=== PATIENT | female | born 1950 | race African-American/Black ===

== ENCOUNTER 2016-03-13 20:39 | Inpatient (IN) | payer MEDICARE, MEDICAID ==
[2016-03-13] MEDS ORDERED: KETAMINE HCL INJ 500 MG/10 ML VIAL ONE (20:47)
[2016-03-13] MEDS ORDERED: MAGNESIUM SULFATE/D5W 2 GM/200 ML RTUPB IV ONE (20:52)
[2016-03-13] MEDS ORDERED: METHYLPREDNISOLONE INJ 125 MG/2 ML SDV ONE (20:52)
[2016-03-13] MEDS ORDERED: IPRATROPIUM/ALBUTEROL 0.5-2.5 MG/3 ML AMPUL NEB ONE (20:53)
[2016-03-13] MEDS ORDERED: KETAMINE HCL INJ 500 MG/10 ML VIAL IV ONE (21:00)
--- NOTE | 2016-03-13 21:01 | ER Document Report ---
ED General - General Stated Complaint: DIFFICULTY BREATHING Cannot obtain history due to: Unstable vital signs, Uncooperative, Altered mental status Notes: Patient is a 65-year-old female with past medical history of COPD who presents with EMS with altered mental status, agitation, and shortness of breath. Patient will not speak at time of arrival and appears extremely ill and confused. EMS states that apparently she called 911 but only told them that she needed help and did not specify anything further. She was given an albuterol nebulizer in route but no additional interventions were taken. History is otherwise extremely limited secondary to clinical situation. TRAVEL OUTSIDE OF THE [place] IN LAST 30 DAYS: No - Related Data Allergies/Adverse Reactions: No Known Allergies Allergy (Verified 11/08/15 12:42) Home Medications: Current Home Medications Albuterol Sulfate [Ventolin Hfa] 1 - 2 puff IH Q4 PRN 03/14/16 [History] Metoprolol Tartrate [Lopressor 100 mg Tablet] 100 mg PO BID 03/14/16 [History] RX: Hydrochlorothiazide 25 mg PO DAILY 03/14/16 [History] RX: Promethazine HCl 25 mg PO Q6 PRN 03/14/16 [History] RX: Ropinirole HCl 1 mg PO QHS 03/14/16 [History] Raloxifene HCl [Evista 60 mg Tablet] 60 mg PO DAILY 03/14/16 [History] Roflumilast [Daliresp 500 mcg Tablet] 500 mcg PO DAILY 03/14/16 [History] Umeclidinium [place] [Incruse Ellipta] 62.5 mcg IH DAILY 03/14/16 [History] Past Medical History - General Information source: Emergency Med Personnel Cannot obtain history due to: Uncooperative, Altered mental status - Social History Smoking Status: Unknown if Ever Smoked Family History: Reviewed & Not Pertinent, Hypertension - Past Medical History Cardiac Medical History: Reports: Hx Hypertension - on meds Denies: Hx Coronary Artery Disease, Hx Heart Attack Pulmonary Medical History: Reports: Hx Bronchitis - hx of, Hx COPD - inhalers/ neb/o2 prn, Hx Pneumonia - hx of Denies: Hx Asthma Neurological Medical History: Denies: Hx Seizures Renal/ Medical History: Reports: Hx Kidney Stones Malignancy Medical History: Reports: Hx Breast Cancer Musculoskeltal Medical History: Reports Hx Arthritis - generalized Psychiatric Medical History: Denies: Hx Depression Past Surgical History: Reports: Hx Gynecologic Surgery - Cone procedure on the cervix, Hx Mastectomy - lumpectomy - Immunizations Hx Diphtheria, Pertussis, Tetanus Vaccination: Yes Hx Pneumococcal Vaccination: 01/23/15 Review of Systems - Review of Systems -: Yes ROS unobtainable due to patient's medical condition Physical Exam - Vital signs Vitals: Pulse Ox 100 03/13/16 20:47 Interpretation: Hypertensive, Tachycardic, Hypoxic, Tachypneic Notes: PHYSICAL EXAMINATION: GENERAL: Agitated, flailing in the bed. Unable to be redirected. Ill in appearance HEAD: Atraumatic, normocephalic. EYES: Pupils equal round and reactive to light, extraocular movements intact, sclera anicteric, conjunctiva are normal. ENT: nares patent, oropharynx clear without exudates. Dry mucous membranes. NECK: Normal range of motion, supple without lymphadenopathy LUNGS: Tachypnea with subclavicular and intercostal retractions. Poor air movement bilaterally with scattered expiratory wheezing. HEART: Regular tachycardiawithout murmurs ABDOMEN: Soft, nontender, normoactive bowel sounds. No guarding, no rebound. No masses appreciated. EXTREMITIES: Normal range of motion, no pitting or edema. No cyanosis. NEUROLOGICAL: No focal neurological deficits. Moves all extremities spontaneously. PSYCH: Agitated, unable to be redirected SKIN: Warm, Dry, normal turgor, no rashes or lesions noted. Course - Re-evaluation Re-evalutation: 03/13/162049 Patient arrives combative, confused, and in respiratory distress. Severely tachypneic, tight air movement bilaterally. She is unable to follow instructions. Tachycardic and hypoxemic into the upper 80s on room air. Multiple times at redirecting the patient were unsuccessful. After IV access established a low dose of 15 mg of IV ketamine was administered. This did calm the patient and allow her to lay back in bed. She was immediately started on a continuous nebulizer of albuterol and ipratropium, IV magnesium, Solu-Medrol administered. Respiratory therapy has been contacted to start patient on BiPAP. She is critically ill this time. 2129-patient continues to be altered, venous gas demonstrated severe respiratory acidosis. Will continue to monitor patient for improvement on BiPAP initially fails to improve she will require intubation. 03/13/16 21:45 Patient will open her eyes and follow commands at this time after 15 minutes on BiPAP. Already clinically appears much improved. Continue to monitor closely. 03/13/16 22:38 Patient continues to be much improved clinically. She is now awake, talking to me and full and complete sentences. Will continue on BiPAP at this time but I discussed the case with Dr. Rodriguez will admit at this time. - Vital Signs Vital signs: Temp Pulse Resp BP Pulse Ox 98.3 F 115 H 16 128/77 H 99 03/14/16 01:07 03/14/16 02:32 03/14/16 02:32 03/14/16 01:05 03/14/16 02:32 - Laboratory Result Diagrams: 03/13/16 20:51 03/13/16 20:51 Laboratory results interpreted by me: 03/13/16 03/13/16 03/13/16 20:51 20:51 20:51 WBC 13.9 H Hgb 11.2 L MCH 24.2 L MCHC 30.2 L RDW 15.7 H Monocytes % (Manual) 0 L Abs Lymphs (Manual) 7.9 H Abs Monocytes (Manual) 0.0 L VBG pH VBG pCO2 VBG HCO3 Carbon Dioxide 36 H Glucose 151 H Lactic Acid 2.2 H 03/13/16 20:51 WBC Hgb MCH MCHC RDW Monocytes % (Manual) Abs Lymphs (Manual) Abs Monocytes (Manual) VBG pH 7.14 L* VBG pCO2 101.8 H* VBG HCO3 34.1 H Carbon Dioxide Glucose Lactic Acid - Diagnostic Test Radiology reviewed: Image reviewed, Reports reviewed Radiology results interpreted by me: 03/13/16 22:40 Chest x-ray: No acute infiltrate Critical Care Note - Critical Care Note Total time excluding time spent on procedures (mins): 45 Comments: Critical care time spent obtaining history from patient or surrogate, discussions with consultants, development of treatment plan with patient or surrogate, evaluation of patient's response to treatment, examination of patient , ordering and performing treatments and interventions, ordering and review of laboratory studies, re-evaluation of patient's condition, ordering and review of radiographic studies and review of old charts Discharge - Discharge Clinical Impression: Respiratory acidosis, Respiratory distress, Encephalopathy, Agitation, COPD exacerbation Condition: Fair Disposition: ADMITTED INPATIENT Admitting Provider: Jordon Rodriguez Unit Admitted: [facility]
[2016-03-13 21:10] LABS: VENOUS BLOOD BASE EXCESS 2.2 mmol/L; VENOUS BLOOD HCO3 34.1 mmol/L (20-32)
[2016-03-13 21:20] LABS: HEMATOCRIT 37.2 % (36.0-47.0); HEMOGLOBIN 11.2 g/dL (12.0-15.5); HGB HCT DIFFERENCE -3.6; MEAN CORPUSCULAR HEMOGLOBIN 24.2 pg (27.0-33.4); MEAN CORPUSCULAR HGB CONC 30.2 g/dL (32.0-36.0); MEAN CORPUSCULAR VOLUME 80 fl (80-97); RED BLOOD COUNT 4.64 10^6/uL (3.72-5.28); RED CELL DISTRIBUTION WIDTH 15.7 % (11.5-14.0); WHITE BLOOD COUNT 13.9 10^3/uL (4.0-10.5)
[2016-03-13 21:25] LABS: BLOOD UREA NITROGEN 16 mg/dL (7-20); CALCIUM 8.8 mg/dL (8.4-10.2); CREATININE RESULT 0.76 mg/dL (0.52-1.25); GLUCOSE 151 mg/dL (75-110)
[2016-03-13 21:26] LABS: ALANINE AMINOTRANSFERASE 19 U/L (9-52); ALBUMIN 4.4 g/dL (3.5-5.0); ALKALINE PHOSPHATASE 89 U/L (38-126); ANION GAP 8 (5-19); ASPARTATE AMINO TRANSFERASE 28 U/L (14-36); BILIRUBIN,TOTAL 0.4 mg/dL (0.2-1.3); CARBON DIOXIDE 36 mmol/L (22-30); CHLORIDE 100 mmol/L (98-107); POTASSIUM 4.2 mmol/L (3.6-5.0); SODIUM 144.4 mmol/L (137-145); TOTAL PROTEIN 7.1 g/dL (6.3-8.2)
[2016-03-13 21:27] LABS: VENOUS BLOOD PCO2 101.8 mmHg (35-63); VENOUS BLOOD PH 7.14 (7.30-7.42)
[2016-03-13 21:29] LABS: ALCOHOL < 10 mg/dL (NONE DETECTED)
[2016-03-13 21:38] LABS: BASOPHILS % (MANUAL) 0 % (0-2); EOSINOPHILS % (MANUAL) 1 % (0-6); LYMPHOCYTES % (MANUAL) 29 % (13-45); TOTAL CELLS COUNTED 100
[2016-03-13 21:42] LABS: ANISOCYTOSIS SLIGHT; HYPOCHROMASIA 1+; OVALOCYTES 1+
[2016-03-13 21:43] LABS: SCHISTOCYTES 1+; TARGET CELLS 1+; TEAR DROP CELLS SLIGHT
[2016-03-13] MEDS ORDERED: MAG HYDROX/AL HYDROX/SIMETH SUSP 30 ML UDCUP PO PRN (22:38)
[2016-03-13] MEDS ORDERED: ONDANSETRON HCL INJ/PF 4 MG/2 ML SDV IV PRN (22:38)
[2016-03-14 00:03] LABS: ARTERIAL BLOOD O2 SATURATION 99.3 % (94-98)
[2016-03-14 02:06] LABS: URINE BARBITURATES SCREEN NEGATIVE; URINE METHADONE SCREEN NEGATIVE; URINE PHENCYCLIDINE SCREEN NEGATIVE
[2016-03-14] MEDS: IPRATROPIUM/ALBUTEROL 0.5-2.5 MG/3 ML AMPUL NEB SCH ×4 (02:32→20:13)
[2016-03-14 03:34] LABS: ANION GAP 7 (5-19); BLOOD UREA NITROGEN 16 mg/dL (7-20); CALCIUM 8.7 mg/dL (8.4-10.2); CARBON DIOXIDE 39 mmol/L (22-30); CHLORIDE 99 mmol/L (98-107); CREATINE KINASE 83 U/L (30-135); CREATININE RESULT 0.67 mg/dL (0.52-1.25); GLUCOSE 139 mg/dL (75-110); POTASSIUM 4.5 mmol/L (3.6-5.0); SODIUM 145.2 mmol/L (137-145)
[2016-03-14 03:46] LABS: CREATINE KINASE MB 2.63 ng/mL (<4.55); TROPONIN I 0.037 ng/mL
[2016-03-14 03:50] LABS: HEMATOCRIT 37.7 % (36.0-47.0); HEMOGLOBIN 11.1 g/dL (12.0-15.5); MEAN CORPUSCULAR HEMOGLOBIN 23.6 pg (27.0-33.4); MEAN CORPUSCULAR HGB CONC 29.3 g/dL (32.0-36.0); MEAN CORPUSCULAR VOLUME 81 fl (80-97); RED BLOOD COUNT 4.69 10^6/uL (3.72-5.28); WHITE BLOOD COUNT 14.9 10^3/uL (4.0-10.5)
[2016-03-14 03:53] LABS: HGB HCT DIFFERENCE -4.4
[2016-03-14 03:55] LABS: ANISOCYTOSIS 1+; BASOPHILS % (MANUAL) 0 % (0-2); EOSINOPHILS % (MANUAL) 0 % (0-6); HYPOCHROMASIA 1+; LYMPHOCYTES % (MANUAL) 7 % (13-45); MICROCYTOSIS SLIGHT; TOTAL CELLS COUNTED 100; TOXIC VACUOLATION PRESENT
--- NOTE | 2016-03-14 04:52 | PDOC H&P ---
History of Present Illness Admission Date/PCP: 03/13/16 22:38 KAYLEIGH MENDIOLA DO Patient complains of: Altered mental status History of Present Illness: VIKY DE LEON is a 65 year old female with a past medical history of COPD and home O2 dependence, who had been her usual state of health until approximately 24 hours prior to presentation developing shortness of breath which prompted her to increase her oxygen level. In the emergency room she's found to be encephalopathic and placed on BiPAP ABG reveals a PCO2 of 85. After couple hours the patient's mental status improves and reveals suffering from insomnia and admits to use of [id number] sleep aid and edible cannabis. She denies chest pain nausea vomiting diaphoresis or palpitations. Past Medical History Cardiac Medical History: Reports: Hypertension - on meds Denies: Coronary Artery Disease, Myocardial Infarction Pulmonary Medical History: Reports: Bronchitis - hx of, Chronic Obstructive Pulmonary Disease (COPD) - inhalers/neb/o2 prn, Pneumonia - hx of Denies: Asthma Neurological Medical History: Denies: Seizures Malignancy Medical History: Reports: Breast Cancer Musculoskeltal Medical History: Reports: Arthritis - generalized Psychiatric Medical History: Denies: Depression Hematology: Denies: Anemia Past Surgical History Past Surgical History: Reports: Mastectomy - lumpectomy Social History Information Source: Patient Lives with: Family Smoking Status: Former Smoker Frequency of Alcohol Use: Occasional Hx Recreational Drug Use: Yes Drugs: Marijuana Hx Prescription Drug Abuse: No - Advance Directive Resuscitation Status: Full Code Family History Family History: COPD, Hypertension Parental Family History Reviewed: Yes Children Family History Reviewed: Yes Sibling(s) Family History Reviewed.: Yes Medication/Allergy Home Medications: Albuterol Sulfate [Ventolin Hfa] 1 - 2 puff IH Q4 PRN 03/14/16 Hydrochlorothiazide 25 mg PO DAILY 03/14/16 Metoprolol Tartrate [Lopressor 100 mg Tablet] 100 mg PO BID 03/14/16 Promethazine HCl 25 mg PO Q6 PRN 03/14/16 Raloxifene HCl [Evista 60 mg Tablet] 60 mg PO DAILY 03/14/16 Roflumilast [Daliresp 500 mcg Tablet] 500 mcg PO DAILY 03/14/16 Ropinirole HCl 1 mg PO QHS 03/14/16 Umeclidinium [place] [Incruse Ellipta] 62.5 mcg IH DAILY 03/14/16 Allergies/Adverse Reactions: No Known Allergies Allergy (Verified 11/08/15 12:42) Review of Systems ROS unobtainable: Due to mental status Physical Exam Vital Signs: Temp Pulse Resp BP Pulse Ox 98.3 F 115 H 16 128/77 H 98 03/14/16 01:07 03/14/16 02:32 03/14/16 03:45 03/14/16 01:05 03/14/16 03:45 General appearance: PRESENT: cooperative, disheveled, mild distress, well- developed, well-nourished Head exam: PRESENT: atraumatic, normocephalic Eye exam: PRESENT: conjunctiva pink, EOMI, PERRLA. ABSENT: scleral icterus Ear exam: PRESENT: normal external ear exam Mouth exam: PRESENT: moist, tongue midline Neck exam: ABSENT: carotid bruit, JVD, lymphadenopathy, thyromegaly Respiratory exam: PRESENT: accessory muscle use, prolonged expiratory phas, symmetrical, tachypnea Cardiovascular exam: PRESENT: RRR. ABSENT: diastolic murmur, rubs, systolic murmur Pulses: PRESENT: normal dorsalis pedis pul GI/Abdominal exam: PRESENT: normal bowel sounds, soft. ABSENT: distended, guarding, mass, organolmegaly, rebound, tenderness Rectal exam: PRESENT: deferred Extremities exam: PRESENT: full ROM. ABSENT: calf tenderness, clubbing, pedal edema Neurological exam: PRESENT: alert, awake, oriented to person, oriented to place , oriented to situation, CN II-XII grossly intact. ABSENT: motor sensory deficit Psychiatric exam: PRESENT: appropriate affect, normal mood. ABSENT: homicidal ideation, suicidal ideation Skin exam: PRESENT: dry, intact, warm. ABSENT: cyanosis, rash Results Laboratory Results: 03/14/16 03:08 03/14/16 03:08 03/13/16 03/14/16 03/14/16 23:30 01:13 03:08 WBC RBC Hgb Hct MCV MCH MCHC RDW Plt Count Seg Neutrophils % Lymphocytes % Monocytes % Eosinophils % Basophils % Absolute Neutrophils Absolute Lymphocytes Absolute Monocytes Absolute Eosinophils Absolute Basophils Carbonic Acid 2.60 H HCO3/H2CO3 Ratio 13:1 ABG pH 7.23 L ABG pCO2 86.5 H* ABG pO2 231.7 H ABG HCO3 35.2 H ABG O2 Saturation 99.3 H ABG Base Excess 5.0 FiO2 60% Sodium 145.2 H Potassium 4.5 Chloride 99 Carbon Dioxide 39 H Anion Gap 7 BUN 16 Creatinine 0.67 Est GFR ( Amer) > 60 Est GFR (Non-Af Amer) > 60 Glucose 139 H Lactic Acid 1.6 Calcium 8.7 03/14/16 03:08 WBC 14.9 H RBC 4.69 Hgb 11.1 L Hct 37.7 MCV 81 MCH 23.6 L MCHC 29.3 L RDW 16.0 H Plt Count 212 Seg Neutrophils % Not Reportable Lymphocytes % Not Reportable Monocytes % Not Reportable Eosinophils % Not Reportable Basophils % Not Reportable Absolute Neutrophils Not Reportable Absolute Lymphocytes Not Reportable Absolute Monocytes Not Reportable Absolute Eosinophils Not Reportable Absolute Basophils Not Reportable Carbonic Acid HCO3/H2CO3 Ratio ABG pH ABG pCO2 ABG pO2 ABG HCO3 ABG O2 Saturation ABG Base Excess FiO2 Sodium Potassium Chloride Carbon Dioxide Anion Gap BUN Creatinine Est GFR ( Amer) Est GFR (Non-Af Amer) Glucose Lactic Acid Calcium 03/14/16 03/14/16 03:08 03:08 Creatine Kinase 83 CK-MB (CK-2) 2.63 Troponin I 0.037 Impressions: Chest X-Ray 03/13/16 20:59 IMPRESSION: No acute cardiopulmonary findings. Assessment & Plan - Diagnosis (1) COPD exacerbation Is this a current diagnosis for this admission?: YesPlan: Likely secondary to [id number] medication for insomnia and questionable compliance (2) Encephalopathy Is this a current diagnosis for this admission?: YesPlan: Secondary to hypercapnia improved with BiPAP will wean as tolerated and education as to danger of sedatives reducing respiratory drive (3) Respiratory acidosis Is this a current diagnosis for this admission?: YesPlan: Please see #1 and 2 - Time Time Spent: 30 to 50 Minutes
[2016-03-14] MEDS: HEPARIN SOD (PORCINE) 5,000 UNIT/ML 1 ML SYRINGE SUBCUT SCH ×3 (06:22→22:29)
[2016-03-14] MEDS ORDERED: KETOROLAC TROMETHAMINE INJ/PF 30 MG/1 ML SDV IV ONE (09:08)
[2016-03-14] MEDS: GUAIFENESIN 600 MG TABLET.SA PO SCH ×2 (09:24→22:30)
[2016-03-14] MEDS: ACETAMINOPHEN 325 MG TABLET PO PRN (09:26)
[2016-03-14] MEDS: DOCUSATE SODIUM 100 MG CAPSULE PO SCH ×2 (09:27→18:25)
[2016-03-14] MEDS: METOPROLOL TARTRATE 100 MG TABLET PO SCH ×2 (09:27→22:31)
[2016-03-14] MEDS: ROFLUMILAST 500 MCG TABLET PO SCH (09:27)
[2016-03-14 09:36] LABS: VENOUS BLOOD HCO3 35.2 mmol/L (20-32); VENOUS BLOOD PH 7.32 (7.30-7.42)
[2016-03-14 09:45] LABS: VENOUS BLOOD PCO2 70.1 mmHg (35-63)
[2016-03-14 09:45] LABS: CREATINE KINASE MB 2.63 ng/mL (<4.55); TROPONIN I 0.015 ng/mL
[2016-03-14] MEDS: FLUTICASONE NASAL SPRAY 50 MCG/SPRY 120 SPRAY/16 GM NASL SCH ×2 (10:19→22:37)
[2016-03-14] MEDS: METHYLPREDNISOLONE INJ 125 MG/2 ML SDV IV SCH ×2 (14:16→22:30)
[2016-03-14 16:07] LABS: CREATINE KINASE MB 2.03 ng/mL (<4.55); TROPONIN I 0.013 ng/mL
--- NOTE | 2016-03-14 16:49 | PDOC PROGRESS REPORT ---
Subjective Progress Note for:: 03/14/16 Subjective:: Patient seen on morning rounds. She is eating her breakfast. Family is at bedside. She has been on BIPAP except to eat. She denies any dyspnea at the present time. She has a cough but is her normal. She denies chest pain or palpitations. She denies any nausea, vomiting or abdominal pain. She denies any fevers or chills. Rest of review of symptoms is negative. Physical Exam Vital Signs: Temp Pulse Resp BP Pulse Ox 98.3 F 81 19 144/76 H 100 03/14/16 15:34 03/14/16 15:34 03/14/16 15:34 03/14/16 15:34 03/14/16 15:34 Intake & Output 03/13/16 03/14/16 03/15/16 06:59 06:59 06:59 Intake Total 3 0 Output Total 350 Balance -347 0 Weight 80.3 kg General appearance: PRESENT: no acute distress, obese, well-developed, well- nourished Head exam: PRESENT: atraumatic, normocephalic Eye exam: PRESENT: conjunctiva pink, EOMI, PERRLA. ABSENT: scleral icterus Ear exam: PRESENT: normal external ear exam Mouth exam: PRESENT: moist, tongue midline Neck exam: ABSENT: carotid bruit, JVD, lymphadenopathy, thyromegaly Respiratory exam: PRESENT: decreased breath sounds, prolonged expiratory phas, symmetrical, unlabored Cardiovascular exam: PRESENT: RRR. ABSENT: diastolic murmur, rubs, systolic murmur Pulses: PRESENT: normal dorsalis pedis pul Vascular exam: PRESENT: normal capillary refill GI/Abdominal exam: PRESENT: normal bowel sounds, soft. ABSENT: distended, guarding, mass, organolmegaly, rebound, tenderness Rectal exam: PRESENT: deferred Extremities exam: PRESENT: full ROM. ABSENT: calf tenderness, clubbing, pedal edema Neurological exam: PRESENT: alert, awake, oriented to person, oriented to place , oriented to time, oriented to situation, CN II-XII grossly intact. ABSENT: motor sensory deficit Psychiatric exam: PRESENT: appropriate affect, normal mood. ABSENT: homicidal ideation, suicidal ideation Skin exam: PRESENT: dry, intact, warm. ABSENT: cyanosis, rash Results Laboratory Results: 03/14/16 03:08 03/14/16 03:08 03/13/16 03/14/16 03/14/16 23:30 01:13 03:08 WBC RBC Hgb Hct MCV MCH MCHC RDW Plt Count Seg Neutrophils % Lymphocytes % Monocytes % Eosinophils % Basophils % Absolute Neutrophils Absolute Lymphocytes Absolute Monocytes Absolute Eosinophils Absolute Basophils Carbonic Acid 2.60 H HCO3/H2CO3 Ratio 13:1 ABG pH 7.23 L ABG pCO2 86.5 H* ABG pO2 231.7 H ABG HCO3 35.2 H ABG O2 Saturation 99.3 H ABG Base Excess 5.0 VBG pH VBG pCO2 VBG HCO3 VBG Base Excess FiO2 60% Sodium 145.2 H Potassium 4.5 Chloride 99 Carbon Dioxide 39 H Anion Gap 7 BUN 16 Creatinine 0.67 Est GFR ( Amer) > 60 Est GFR (Non-Af Amer) > 60 Glucose 139 H Lactic Acid 1.6 Calcium 8.7 03/14/16 03/14/16 03:08 09:20 WBC 14.9 H RBC 4.69 Hgb 11.1 L Hct 37.7 MCV 81 MCH 23.6 L MCHC 29.3 L RDW 16.0 H Plt Count 212 Seg Neutrophils % Not Reportable Lymphocytes % Not Reportable Monocytes % Not Reportable Eosinophils % Not Reportable Basophils % Not Reportable Absolute Neutrophils Not Reportable Absolute Lymphocytes Not Reportable Absolute Monocytes Not Reportable Absolute Eosinophils Not Reportable Absolute Basophils Not Reportable Carbonic Acid HCO3/H2CO3 Ratio ABG pH ABG pCO2 ABG pO2 ABG HCO3 ABG O2 Saturation ABG Base Excess VBG pH 7.32 VBG pCO2 70.1 H* VBG HCO3 35.2 H VBG Base Excess 7.0 FiO2 Sodium Potassium Chloride Carbon Dioxide Anion Gap BUN Creatinine Est GFR ( Amer) Est GFR (Non-Af Amer) Glucose Lactic Acid Calcium 03/14/16 03/14/16 03/14/16 03:08 03:08 08:47 Creatine Kinase 83 90 CK-MB (CK-2) 2.63 Troponin I 0.037 03/14/16 03/14/16 03/14/16 08:47 15:18 15:18 Creatine Kinase 75 CK-MB (CK-2) 2.63 2.03 Troponin I 0.015 0.013 Impressions: Chest X-Ray 03/13/16 20:59 IMPRESSION: No acute cardiopulmonary findings. Assessment & Plan - Diagnosis (1) Encephalopathy Is this a current diagnosis for this admission?: YesPlan: Secondary to hypercapnea. Improved with BIPAP (2) COPD exacerbation Is this a current diagnosis for this admission?: YesPlan: IV steroids, nebulizer treatments and BIPAP. No URI or signs of pneumonia. Most likely due to ingestion of sleeping aides (3) Acute on chronic respiratory failure Qualifiers: Respiratory failure complication: hypoxia Qualified Code(s): J96.21 - Acute and chronic respiratory failure with hypoxia Plan: As above (4) Essential (primary) hypertension Is this a current diagnosis for this admission?: YesPlan: Continue current medications (5) DVT prophylaxis Is this a current diagnosis for this admission?: YesPlan: Heparin 5000 u sq q8h - Time Time Spent with patient: 25-34 minutes Critical Time spent with patient: 15-24 minutes Medications reviewed and adjusted accordingly: Yes Anticipated discharge: Home with Homehealth
[2016-03-15] MEDS: IPRATROPIUM/ALBUTEROL 0.5-2.5 MG/3 ML AMPUL NEB SCH ×4 (01:48→20:13)
[2016-03-15] MEDS: METHYLPREDNISOLONE INJ 125 MG/2 ML SDV IV SCH ×3 (05:59→21:21)
[2016-03-15] MEDS: HEPARIN SOD (PORCINE) 5,000 UNIT/ML 1 ML SYRINGE SUBCUT SCH ×3 (05:59→21:21)
[2016-03-15] MEDS: GUAIFENESIN 600 MG TABLET.SA PO SCH ×2 (09:24→21:21)
[2016-03-15] MEDS: FLUTICASONE NASAL SPRAY 50 MCG/SPRY 120 SPRAY/16 GM NASL SCH ×2 (09:25→21:21)
[2016-03-15] MEDS: METOPROLOL TARTRATE 100 MG TABLET PO SCH ×2 (09:25→21:21)
[2016-03-15] MEDS: ROFLUMILAST 500 MCG TABLET PO SCH (09:25)
[2016-03-15] MEDS: DOCUSATE SODIUM 100 MG CAPSULE PO SCH ×2 (09:26→17:52)
[2016-03-15] MEDS: TIOTROPIUM BROMIDE DPI 5 CAP/KIT (18 MCG/CAP) IH SCH (09:46)
--- NOTE | 2016-03-15 11:58 | PDOC PROGRESS REPORT ---
Subjective Progress Note for:: 03/15/16 Subjective:: Patient seen on morning rounds. She is eating her breakfast. She has been on BIPAP except to eat. She looks and feels much improved from yesterday. She denies any dyspnea at the present time. She has a cough but is her normal. She denies chest pain or palpitations. She denies any nausea, vomiting or abdominal pain. She denies any fevers or chills. Rest of review of symptoms is negative. Physical Exam Vital Signs: Temp Pulse Resp BP Pulse Ox 97.5 F 85 16 147/84 H 98 03/15/16 08:01 03/15/16 08:10 03/15/16 08:10 03/15/16 08:01 03/15/16 08:10 Intake & Output 03/14/16 03/15/16 03/16/16 06:59 06:59 06:59 Intake Total 3 444 Output Total 350 250 Balance -347 194 Weight 80.3 kg 82.2 kg General appearance: PRESENT: no acute distress, well-developed, well-nourished Head exam: PRESENT: atraumatic, normocephalic Eye exam: PRESENT: conjunctiva pink, EOMI, PERRLA. ABSENT: scleral icterus Ear exam: PRESENT: normal external ear exam Mouth exam: PRESENT: moist, tongue midline Neck exam: ABSENT: carotid bruit, JVD, lymphadenopathy, thyromegaly Respiratory exam: PRESENT: decreased breath sounds, symmetrical, unlabored Cardiovascular exam: PRESENT: RRR. ABSENT: diastolic murmur, rubs, systolic murmur Pulses: PRESENT: normal dorsalis pedis pul Vascular exam: PRESENT: normal capillary refill GI/Abdominal exam: PRESENT: normal bowel sounds, soft. ABSENT: distended, guarding, mass, organolmegaly, rebound, tenderness Rectal exam: PRESENT: deferred Extremities exam: PRESENT: full ROM. ABSENT: calf tenderness, clubbing, pedal edema Neurological exam: PRESENT: alert, awake, oriented to person, oriented to place , oriented to time, oriented to situation, CN II-XII grossly intact. ABSENT: motor sensory deficit Psychiatric exam: PRESENT: appropriate affect, normal mood. ABSENT: homicidal ideation, suicidal ideation Skin exam: PRESENT: dry, intact, warm. ABSENT: cyanosis, rash Results Laboratory Results: 03/14/16 03:08 03/14/16 03:08 03/14/16 03/14/16 03/14/16 03:08 03:08 08:47 Creatine Kinase 83 90 CK-MB (CK-2) 2.63 Troponin I 0.037 03/14/16 03/14/16 03/14/16 08:47 15:18 15:18 Creatine Kinase 75 CK-MB (CK-2) 2.63 2.03 Troponin I 0.015 0.013 Impressions: Chest X-Ray 03/13/16 20:59 IMPRESSION: No acute cardiopulmonary findings. Assessment & Plan - Diagnosis (1) Encephalopathy Is this a current diagnosis for this admission?: YesPlan: Secondary to hypercapnea. Improved with BIPAP (2) COPD exacerbation Is this a current diagnosis for this admission?: YesPlan: IV steroids, nebulizer treatments and BIPAP. No URI or signs of pneumonia. Most likely due to ingestion of sleeping aides (3) Acute on chronic respiratory failure Qualifiers: Respiratory failure complication: hypoxia Qualified Code(s): J96.21 - Acute and chronic respiratory failure with hypoxia Plan: As above (4) Essential (primary) hypertension Is this a current diagnosis for this admission?: YesPlan: Continue current medications (5) DVT prophylaxis Is this a current diagnosis for this admission?: YesPlan: Heparin 5000 u sq q8h - Time Time Spent with patient: 25-34 minutes Critical Time spent with patient: 15-24 minutes Medications reviewed and adjusted accordingly: Yes Anticipated discharge: Home
[2016-03-15] MEDS: ACETAMINOPHEN 325 MG TABLET PO PRN (20:41)
[2016-03-16] MEDS: IPRATROPIUM/ALBUTEROL 0.5-2.5 MG/3 ML AMPUL NEB SCH ×4 (02:02→20:10)
[2016-03-16 05:04] LABS: VENOUS BLOOD HCO3 32.5 mmol/L (20-32); VENOUS BLOOD PCO2 59.4 mmHg (35-63); VENOUS BLOOD PH 7.36 (7.30-7.42)
[2016-03-16] MEDS: HEPARIN SOD (PORCINE) 5,000 UNIT/ML 1 ML SYRINGE SUBCUT SCH ×3 (05:10→21:04)
[2016-03-16] MEDS: METHYLPREDNISOLONE INJ 125 MG/2 ML SDV IV SCH ×3 (05:11→21:04)
[2016-03-16 05:27] LABS: HEMATOCRIT 35.7 % (36.0-47.0); HEMOGLOBIN 10.8 g/dL (12.0-15.5); HGB HCT DIFFERENCE -3.3; MEAN CORPUSCULAR HEMOGLOBIN 23.7 pg (27.0-33.4); MEAN CORPUSCULAR HGB CONC 30.2 g/dL (32.0-36.0); MEAN CORPUSCULAR VOLUME 79 fl (80-97); RED BLOOD COUNT 4.55 10^6/uL (3.72-5.28); RED CELL DISTRIBUTION WIDTH 15.6 % (11.5-14.0); WHITE BLOOD COUNT 21.7 10^3/uL (4.0-10.5)
[2016-03-16 05:29] LABS: ANION GAP 6 (5-19); BLOOD UREA NITROGEN 27 mg/dL (7-20); CALCIUM 9.2 mg/dL (8.4-10.2); CARBON DIOXIDE 36 mmol/L (22-30); CHLORIDE 98 mmol/L (98-107); CREATININE RESULT 0.56 mg/dL (0.52-1.25); GLUCOSE 121 mg/dL (75-110); POTASSIUM 4.6 mmol/L (3.6-5.0); SODIUM 139.6 mmol/L (137-145)
[2016-03-16 05:46] LABS: BASOPHILS % (MANUAL) 0 % (0-2); EOSINOPHILS % (MANUAL) 0 % (0-6); LYMPHOCYTES % (MANUAL) 2 % (13-45); TOTAL CELLS COUNTED 100
[2016-03-16 05:49] LABS: HYPOCHROMASIA 2+; MICROCYTOSIS SLIGHT; TOXIC GRANULATION SLIGHT
[2016-03-16 05:50] LABS: ANISOCYTOSIS SLIGHT; OVALOCYTES SLIGHT; POIKILOCYTOSIS SLIGHT; SCHISTOCYTES 2+; SPHEROCYTES SLIGHT; TARGET CELLS 1+
[2016-03-16] MEDS: METOPROLOL TARTRATE 100 MG TABLET PO SCH ×2 (09:01→21:05)
[2016-03-16] MEDS: GUAIFENESIN 600 MG TABLET.SA PO SCH ×2 (09:01→21:05)
[2016-03-16] MEDS: FLUTICASONE NASAL SPRAY 50 MCG/SPRY 120 SPRAY/16 GM NASL SCH ×2 (09:02→21:05)
[2016-03-16] MEDS: TIOTROPIUM BROMIDE DPI 5 CAP/KIT (18 MCG/CAP) IH SCH (09:02)
[2016-03-16] MEDS: ROFLUMILAST 500 MCG TABLET PO SCH (09:02)
[2016-03-16] MEDS: DOCUSATE SODIUM 100 MG CAPSULE PO SCH ×2 (09:03→17:00)
[2016-03-16] MEDS ORDERED: (PENDING PHARMACY ID) (Roflumilast [Daliresp 500 Mcg Tablet] 500 MCG) PO SCH (10:00)
[2016-03-16] MEDS ORDERED: METOPROLOL TARTRATE 100 MG TABLET PO SCH (10:00)
[2016-03-16] MEDS ORDERED: CEFTRIAXONE 1 GM/D5W RTU 50 ML IV SCH (10:00)
[2016-03-16] MEDS ORDERED: ROFLUMILAST 500 MCG TABLET PO SCH (10:00)
[2016-03-16] MEDS: RALOXIFENE HCL 60 MG TABLET PO SCH (10:08)
[2016-03-16] MEDS: HYDROCHLOROTHIAZIDE 25 MG TABLET PO SCH (10:08)
[2016-03-16] MEDS: LEVOFLOXACIN 750 MG/D5W RTU 150 ML IV SCH (10:09)
--- NOTE | 2016-03-16 11:00 | PDOC PROGRESS REPORT ---
Subjective Progress Note for:: 03/16/16 Subjective:: Patient seen on morning rounds. She is eating her breakfast. She has been on BIPAP except to eat. She looks and feels much improved from yesterday. She denies any dyspnea at the present time. She has a cough but is her normal. She denies chest pain or palpitations. She denies any nausea, vomiting or abdominal pain. She denies any fevers or chills. Rest of review of symptoms is negative. Physical Exam Vital Signs: Temp Pulse Resp BP Pulse Ox 97.2 F 92 18 163/93 H 97 03/16/16 07:21 03/16/16 08:14 03/16/16 08:14 03/16/16 07:21 03/16/16 08:14 Intake & Output 03/15/16 03/16/16 03/17/16 06:59 06:59 06:59 Intake Total 444 836 Output Total 250 0 Balance 194 836 Weight 82.2 kg 81.9 kg General appearance: PRESENT: no acute distress, well-developed, well-nourished Head exam: PRESENT: atraumatic, normocephalic Eye exam: PRESENT: conjunctiva pink, EOMI, PERRLA. ABSENT: scleral icterus Ear exam: PRESENT: normal external ear exam Mouth exam: PRESENT: moist, tongue midline Neck exam: ABSENT: carotid bruit, JVD, lymphadenopathy, thyromegaly Respiratory exam: PRESENT: decreased breath sounds, prolonged expiratory phas, symmetrical, wheezes Cardiovascular exam: PRESENT: RRR. ABSENT: diastolic murmur, rubs, systolic murmur Pulses: PRESENT: normal dorsalis pedis pul Vascular exam: PRESENT: normal capillary refill GI/Abdominal exam: PRESENT: normal bowel sounds, soft. ABSENT: distended, guarding, mass, organolmegaly, rebound, tenderness Rectal exam: PRESENT: deferred Extremities exam: PRESENT: full ROM. ABSENT: calf tenderness, clubbing, pedal edema Neurological exam: PRESENT: alert, awake, oriented to person, oriented to place , oriented to time, oriented to situation, CN II-XII grossly intact. ABSENT: motor sensory deficit Psychiatric exam: PRESENT: appropriate affect, normal mood. ABSENT: homicidal ideation, suicidal ideation Skin exam: PRESENT: dry, intact, warm. ABSENT: cyanosis, rash Results Laboratory Results: 03/16/16 04:32 03/16/16 04:32 03/16/16 03/16/16 03/16/16 04:32 04:32 04:32 WBC 21.7 H RBC 4.55 Hgb 10.8 L Hct 35.7 L MCV 79 L MCH 23.7 L MCHC 30.2 L RDW 15.6 H Plt Count 244 Seg Neutrophils % Not Reportable Lymphocytes % Not Reportable Monocytes % Not Reportable Eosinophils % Not Reportable Basophils % Not Reportable Absolute Neutrophils Not Reportable Absolute Lymphocytes Not Reportable Absolute Monocytes Not Reportable Absolute Eosinophils Not Reportable Absolute Basophils Not Reportable VBG pH 7.36 VBG pCO2 59.4 VBG HCO3 32.5 H VBG Base Excess 5.0 Sodium 139.6 Potassium 4.6 Chloride 98 Carbon Dioxide 36 H Anion Gap 6 BUN 27 H Creatinine 0.56 Est GFR ( Amer) > 60 Est GFR (Non-Af Amer) > 60 Glucose 121 H Calcium 9.2 03/14/16 03/14/16 03/14/16 03:08 03:08 08:47 Creatine Kinase 83 90 CK-MB (CK-2) 2.63 Troponin I 0.037 03/14/16 03/14/16 03/14/16 08:47 15:18 15:18 Creatine Kinase 75 CK-MB (CK-2) 2.63 2.03 Troponin I 0.015 0.013 Impressions: Chest X-Ray 03/13/16 20:59 IMPRESSION: No acute cardiopulmonary findings. Assessment & Plan - Diagnosis (1) Encephalopathy Is this a current diagnosis for this admission?: YesPlan: Secondary to hypercapnea. Resolved with BIPAP use (2) COPD exacerbation Is this a current diagnosis for this admission?: YesPlan: IV steroids, nebulizer treatments and BIPAP. No URI or signs of pneumonia. Most likely due to ingestion of sleeping aides and increasing home oxygen flow. Will start empiric antibiotic coverage (3) Acute on chronic respiratory failure Qualifiers: Respiratory failure complication: hypoxia Qualified Code(s): J96.21 - Acute and chronic respiratory failure with hypoxia Plan: Continue BIPAP at hs. Antibiotic coverage, nebulizers and steroids (4) Essential (primary) hypertension Is this a current diagnosis for this admission?: YesPlan: Continue current medications (5) DVT prophylaxis Is this a current diagnosis for this admission?: YesPlan: Heparin 5000 u sq q8h - Time Time Spent with patient: 25-34 minutes Medications reviewed and adjusted accordingly: Yes Anticipated discharge: Home
[2016-03-16] MEDS: ROPINIROLE HCL 1 MG TABLET PO SCH (21:05)
[2016-03-16] MEDS ORDERED: TRAZODONE HCL 50 MG TABLET PO SCH (22:00)
[2016-03-17] MEDS: IPRATROPIUM/ALBUTEROL 0.5-2.5 MG/3 ML AMPUL NEB SCH ×4 (02:08→19:52)
[2016-03-17 05:01] LABS: HEMATOCRIT 36.6 % (36.0-47.0); HEMOGLOBIN 11.1 g/dL (12.0-15.5); HGB HCT DIFFERENCE -3.3; MEAN CORPUSCULAR HEMOGLOBIN 23.9 pg (27.0-33.4); MEAN CORPUSCULAR HGB CONC 30.5 g/dL (32.0-36.0); MEAN CORPUSCULAR VOLUME 79 fl (80-97); RED BLOOD COUNT 4.66 10^6/uL (3.72-5.28); RED CELL DISTRIBUTION WIDTH 15.4 % (11.5-14.0); WHITE BLOOD COUNT 20.9 10^3/uL (4.0-10.5)
[2016-03-17] MEDS: HEPARIN SOD (PORCINE) 5,000 UNIT/ML 1 ML SYRINGE SUBCUT SCH ×3 (05:10→21:17)
[2016-03-17] MEDS: METHYLPREDNISOLONE INJ 125 MG/2 ML SDV IV SCH (05:10)
[2016-03-17 05:28] LABS: BASOPHILS % (MANUAL) 0 % (0-2); EOSINOPHILS % (MANUAL) 0 % (0-6); LYMPHOCYTES % (MANUAL) 4 % (13-45); TOTAL CELLS COUNTED 100
[2016-03-17 05:29] LABS: ANISOCYTOSIS SLIGHT; HYPOCHROMASIA SLIGHT; POLYCHROMASIA SLIGHT
[2016-03-17] MEDS: ROFLUMILAST 500 MCG TABLET PO SCH (10:43)
[2016-03-17] MEDS: RALOXIFENE HCL 60 MG TABLET PO SCH (10:43)
[2016-03-17] MEDS: GUAIFENESIN 600 MG TABLET.SA PO SCH ×2 (10:43→21:16)
[2016-03-17] MEDS: PREDNISONE 20 MG TABLET PO SCH (10:43)
[2016-03-17] MEDS: METOPROLOL TARTRATE 100 MG TABLET PO SCH ×2 (10:44→21:17)
[2016-03-17] MEDS: HYDROCHLOROTHIAZIDE 25 MG TABLET PO SCH (10:44)
[2016-03-17] MEDS: DOCUSATE SODIUM 100 MG CAPSULE PO SCH ×2 (10:44→17:51)
[2016-03-17] MEDS: LEVOFLOXACIN 750 MG/D5W RTU 150 ML IV SCH (10:46)
[2016-03-17] MEDS: TIOTROPIUM BROMIDE DPI 5 CAP/KIT (18 MCG/CAP) IH SCH (10:46)
[2016-03-17] MEDS: FLUTICASONE NASAL SPRAY 50 MCG/SPRY 120 SPRAY/16 GM NASL SCH ×2 (10:46→21:15)
[2016-03-17] MEDS ORDERED: LEVOFLOXACIN 750 MG TABLET PO ONE (12:00)
--- NOTE | 2016-03-17 12:28 | PDOC PROGRESS REPORT ---
Subjective Progress Note for:: 03/17/16 Subjective:: Patient seen on morning rounds. She is eating her breakfast. She states she was on BIPAP last night for most of the night. She states her breathing is improving. She slept only for about an hour last night. She has been having difficulty sleeping at home. She denies any dyspnea at the present time. She has a cough but is her normal. She denies chest pain or palpitations. She denies any nausea, vomiting or abdominal pain. She denies any fevers or chills. Rest of review of symptoms is negative. Physical Exam Vital Signs: Temp Pulse Resp BP Pulse Ox 97.2 F 76 18 162/79 H 97 03/17/16 03:26 03/17/16 08:19 03/17/16 08:19 03/17/16 03:26 03/17/16 08:19 Intake & Output 03/16/16 03/17/16 03/18/16 06:59 06:59 06:59 Intake Total 836 1432 Output Total 0 Balance 836 1432 Weight 81.9 kg 80.5 kg General appearance: PRESENT: no acute distress, well-developed, well-nourished Head exam: PRESENT: atraumatic, normocephalic Eye exam: PRESENT: conjunctiva pink, EOMI, PERRLA. ABSENT: scleral icterus Ear exam: PRESENT: normal external ear exam Mouth exam: PRESENT: moist, tongue midline Neck exam: ABSENT: carotid bruit, JVD, lymphadenopathy, thyromegaly Respiratory exam: PRESENT: clear to auscultation sandie. ABSENT: rales, rhonchi, wheezes Cardiovascular exam: PRESENT: RRR. ABSENT: diastolic murmur, rubs, systolic murmur Pulses: PRESENT: normal dorsalis pedis pul Vascular exam: PRESENT: normal capillary refill GI/Abdominal exam: PRESENT: normal bowel sounds, soft. ABSENT: distended, guarding, mass, organolmegaly, rebound, tenderness Rectal exam: PRESENT: deferred Extremities exam: PRESENT: full ROM. ABSENT: calf tenderness, clubbing, pedal edema Musculoskeletal exam: PRESENT: ambulatory, full ROM, normal inspection Neurological exam: PRESENT: alert, awake, oriented to person, oriented to place , oriented to time, oriented to situation, CN II-XII grossly intact. ABSENT: motor sensory deficit Psychiatric exam: PRESENT: appropriate affect, normal mood. ABSENT: homicidal ideation, suicidal ideation Skin exam: PRESENT: dry, intact, warm. ABSENT: cyanosis, rash Results Laboratory Results: 03/17/16 04:07 03/16/16 04:32 03/17/16 04:07 WBC 20.9 H RBC 4.66 Hgb 11.1 L Hct 36.6 MCV 79 L MCH 23.9 L MCHC 30.5 L RDW 15.4 H Plt Count 249 Seg Neutrophils % Not Reportable Lymphocytes % Not Reportable Monocytes % Not Reportable Eosinophils % Not Reportable Basophils % Not Reportable Absolute Neutrophils Not Reportable Absolute Lymphocytes Not Reportable Absolute Monocytes Not Reportable Absolute Eosinophils Not Reportable Absolute Basophils Not Reportable 03/14/16 03/14/16 03/14/16 03:08 03:08 08:47 Creatine Kinase 83 90 CK-MB (CK-2) 2.63 Troponin I 0.037 03/14/16 03/14/16 03/14/16 08:47 15:18 15:18 Creatine Kinase 75 CK-MB (CK-2) 2.63 2.03 Troponin I 0.015 0.013 Impressions: Chest X-Ray 03/13/16 20:59 IMPRESSION: No acute cardiopulmonary findings. Assessment & Plan - Diagnosis (1) Encephalopathy Is this a current diagnosis for this admission?: YesPlan: Secondary to hypercapnea. Patient had been taking otc sleeping pills due to recent insomnia. Resolved with BIPAP use (2) COPD exacerbation Is this a current diagnosis for this admission?: YesPlan: IV steroids, nebulizer treatments and BIPAP. No URI or signs of pneumonia. Most likely due to ingestion of sleeping aides and increasing home oxygen flow. Will start empiric antibiotic coverage (3) Acute on chronic respiratory failure Qualifiers: Respiratory failure complication: hypoxia Qualified Code(s): J96.21 - Acute and chronic respiratory failure with hypoxia Plan: Continue BIPAP at hs. Antibiotic coverage, nebulizers and steroids (4) Essential (primary) hypertension Is this a current diagnosis for this admission?: YesPlan: Continue current medications (5) DVT prophylaxis Is this a current diagnosis for this admission?: YesPlan: Heparin 5000 u sq q8h - Time Time Spent with patient: 25-34 minutes Critical Time spent with patient: 15-24 minutes Medications reviewed and adjusted accordingly: Yes Anticipated discharge: Home
[2016-03-17] MEDS: ROPINIROLE HCL 1 MG TABLET PO SCH (21:15)
[2016-03-17] MEDS: TRAZODONE HCL 50 MG TABLET PO SCH (21:16)
[2016-03-18] MEDS: IPRATROPIUM/ALBUTEROL 0.5-2.5 MG/3 ML AMPUL NEB SCH ×4 (02:12→20:18)
[2016-03-18 04:42] LABS: ABSOLUTE BASOPHILS # (AUTO) 0.1 10^3/uL (0.0-0.2); ABSOLUTE EOSINOPHILS # (AUTO) 0.1 10^3/uL (0.0-0.6); ABSOLUTE LYMPHOCYTES (AUTO) 1.2 10^3/uL (0.5-4.7); ABSOLUTE MONOCYTES (AUTO) 1.8 10^3/uL (0.1-1.4); ABSOLUTE NEUT (AUTO) 15.2 10^3/uL (1.7-8.2); BASOPHILS % (AUTO) 0.3 % (0-2); EOSINOPHILS % (AUTO) 0.6 % (0-6); HEMATOCRIT 36.8 % (36.0-47.0); HEMOGLOBIN 11.4 g/dL (12.0-15.5); HGB HCT DIFFERENCE -2.6; LYMPHOCYTES % (AUTO) 6.6 % (13-45); MEAN CORPUSCULAR HEMOGLOBIN 24.2 pg (27.0-33.4); MEAN CORPUSCULAR VOLUME 78 fl (80-97); MONOCYTES % (AUTO) 9.9 % (3-13); RED BLOOD COUNT 4.72 10^6/uL (3.72-5.28); RED CELL DISTRIBUTION WIDTH 15.5 % (11.5-14.0); SEGMENTED NEUTROPHILS % (AUTO) 82.6 % (42-78); WHITE BLOOD COUNT 18.4 10^3/uL (4.0-10.5)
[2016-03-18 04:43] LABS: VENOUS BLOOD BASE EXCESS 14.5 mmol/L; VENOUS BLOOD HCO3 43.7 mmol/L (20-32); VENOUS BLOOD PH 7.36 (7.30-7.42)
[2016-03-18 04:44] LABS: VENOUS BLOOD PCO2 79.8 mmHg (35-63)
[2016-03-18 05:06] LABS: BLOOD UREA NITROGEN 29 mg/dL (7-20); CALCIUM 9.2 mg/dL (8.4-10.2); CHLORIDE 92 mmol/L (98-107); CREATININE RESULT 0.62 mg/dL (0.52-1.25); GLUCOSE 93 mg/dL (75-110); POTASSIUM 4.2 mmol/L (3.6-5.0); SODIUM 138.8 mmol/L (137-145)
[2016-03-18] MEDS: HEPARIN SOD (PORCINE) 5,000 UNIT/ML 1 ML SYRINGE SUBCUT SCH ×3 (05:19→21:43)
[2016-03-18 06:01] LABS: ANION GAP 6 (5-19)
[2016-03-18 06:03] LABS: CARBON DIOXIDE 41 mmol/L (22-30)
[2016-03-18] MEDS ORDERED: ALBUTEROL SULFATE 0.083% NEB 2.5 MG/3 ML AMPUL NEB PRN (09:34)
[2016-03-18 10:18] LABS: VENOUS BLOOD BASE EXCESS 11.3 mmol/L; VENOUS BLOOD HCO3 39.9 mmol/L (20-32); VENOUS BLOOD PH 7.36 (7.30-7.42)
[2016-03-18 10:21] LABS: VENOUS BLOOD PCO2 72.4 mmHg (35-63)
[2016-03-18] MEDS: LEVOFLOXACIN 750 MG TABLET PO SCH (10:32)
[2016-03-18] MEDS: HYDROCHLOROTHIAZIDE 25 MG TABLET PO SCH (10:33)
[2016-03-18] MEDS: ROFLUMILAST 500 MCG TABLET PO SCH (10:33)
[2016-03-18] MEDS: GUAIFENESIN 600 MG TABLET.SA PO SCH ×2 (10:33→21:43)
[2016-03-18] MEDS: RALOXIFENE HCL 60 MG TABLET PO SCH (10:33)
[2016-03-18] MEDS: METOPROLOL TARTRATE 100 MG TABLET PO SCH ×2 (10:33→21:42)
[2016-03-18] MEDS: PREDNISONE 20 MG TABLET PO SCH (10:34)
[2016-03-18] MEDS: FLUTICASONE NASAL SPRAY 50 MCG/SPRY 120 SPRAY/16 GM NASL SCH ×2 (10:34→21:45)
[2016-03-18] MEDS: TIOTROPIUM BROMIDE DPI 5 CAP/KIT (18 MCG/CAP) IH SCH (10:35)
[2016-03-18] MEDS: DOCUSATE SODIUM 100 MG CAPSULE PO SCH ×2 (10:36→17:57)
[2016-03-18] MEDS: BUDESONIDE/FORMOTEROL 160-4.5 MCG 60 PUFF/6 GM MDI IH SCH ×2 (10:36→21:46)
--- NOTE | 2016-03-18 12:00 | PDOC CONSULTATION ---
History of Present Illness Admission Date/PCP: 03/13/16 22:38 KAYLEIGH MENDIOLA DO History of Present Illness: VIKY DE LEON is a 65 year old female with a past medical history of COPD with chronic respiratory failure on continous home oxygen. Who was doing well in her usual state of health until the 24 hours prior to hospital admission with worsening of shortness of breath and fatigue. She unfortunately increased her oxygen level, on presentation to ED was confused and encephalopathic, PCO2 of 85. Patient mental status improved. She has been using BIPAP since admission on and off. Past Medical History Cardiac Medical History: Reports: Hypertension - on meds Denies: Coronary Artery Disease, Myocardial Infarction Pulmonary Medical History: Reports: Bronchitis - hx of, Chronic Obstructive Pulmonary Disease (COPD) - inhalers/neb/o2 prn, Pneumonia - hx of Denies: Asthma Neurological Medical History: Denies: Seizures Malignancy Medical History: Reports: Breast Cancer Musculoskeltal Medical History: Reports: Arthritis - generalized Psychiatric Medical History: Denies: Depression Hematology: Denies: Anemia Past Surgical History Past Surgical History: Reports: Mastectomy - lumpectomy Social History Lives with: Family Smoking Status: Former Smoker Frequency of Alcohol Use: Occasional Hx Recreational Drug Use: Yes Drugs: Marijuana Hx Prescription Drug Abuse: No - Advance Directive Resuscitation Status: Full Code Family History Family History: COPD, Hypertension Medication/Allergy Home Medications: Albuterol Sulfate [Ventolin Hfa] 2 puff IH Q4HP PRN 03/14/16 Hydrochlorothiazide 25 mg PO DAILY 03/14/16 Metoprolol Tartrate [Lopressor 100 mg Tablet] 100 mg PO BID 03/14/16 Raloxifene HCl [Evista 60 mg Tablet] 60 mg PO DAILY 03/14/16 Roflumilast [Daliresp 500 mcg Tablet] 500 mcg PO DAILY 03/14/16 Ropinirole HCl 1 mg PO QHS 03/14/16 Umeclidinium [place] [Incruse Ellipta] 1 puff IH DAILY 03/14/16 Allergies/Adverse Reactions: No Known Allergies Allergy (Verified 11/08/15 12:42) Physical Exam Vital Signs: Temp Pulse Resp BP Pulse Ox 97.3 F 88 21 H 143/79 H 91 L 03/18/16 07:46 03/18/16 08:03 03/18/16 10:58 03/18/16 07:46 03/18/16 08:03 Intake & Output 03/17/16 03/18/16 03/19/16 06:59 06:59 06:59 Intake Total 1432 1175 Balance 1432 1175 Weight 80.5 kg 80.5 kg Results Laboratory Results: 03/18/16 04:31 03/18/16 04:31 03/18/16 03/18/16 03/18/16 04:31 04:31 04:31 WBC 18.4 H RBC 4.72 Hgb 11.4 L Hct 36.8 MCV 78 L MCH 24.2 L MCHC 31.0 L RDW 15.5 H Plt Count 256 Seg Neutrophils % 82.6 H Lymphocytes % 6.6 L Monocytes % 9.9 Eosinophils % 0.6 Basophils % 0.3 Absolute Neutrophils 15.2 H Absolute Lymphocytes 1.2 Absolute Monocytes 1.8 H Absolute Eosinophils 0.1 Absolute Basophils 0.1 VBG pH 7.36 VBG pCO2 79.8 H* VBG HCO3 43.7 H VBG Base Excess 14.5 Sodium 138.8 Potassium 4.2 Chloride 92 L Carbon Dioxide 41 H* Anion Gap 6 BUN 29 H Creatinine 0.62 Est GFR ( Amer) > 60 Est GFR (Non-Af Amer) > 60 Glucose 93 Calcium 9.2 03/18/16 10:02 WBC RBC Hgb Hct MCV MCH MCHC RDW Plt Count Seg Neutrophils % Lymphocytes % Monocytes % Eosinophils % Basophils % Absolute Neutrophils Absolute Lymphocytes Absolute Monocytes Absolute Eosinophils Absolute Basophils VBG pH 7.36 VBG pCO2 72.4 H* VBG HCO3 39.9 H VBG Base Excess 11.3 Sodium Potassium Chloride Carbon Dioxide Anion Gap BUN Creatinine Est GFR ( Amer) Est GFR (Non-Af Amer) Glucose Calcium 03/14/16 03/14/16 03/14/16 03:08 03:08 08:47 Creatine Kinase 83 90 CK-MB (CK-2) 2.63 Troponin I 0.037 03/14/16 03/14/16 03/14/16 08:47 15:18 15:18 Creatine Kinase 75 CK-MB (CK-2) 2.63 2.03 Troponin I 0.015 0.013 Impressions: Chest X-Ray 03/13/16 20:59 IMPRESSION: No acute cardiopulmonary findings. Assessment & Plan - Diagnosis (1) Acute on chronic respiratory failure Qualifiers: Respiratory failure complication: hypoxia and hypercapnia Qualified Code(s): J96.21 - Acute and chronic respiratory failure with hypoxia Is this a current diagnosis for this admission?: YesPlan: This is patients second hospital admission with respiratory failure/COPD exacerbation in the last 6 months. She has also been seen in the office on several occasions for similar symptoms. Patient has severe chronic respiratory failure and COPD. BiPAP has been failed during this admission as on BiPAP the patients Pco2 has remained at 72 as shown on a follow-up ABG done on 2016. I am ordering NIV therapy because of its AVAPS AE mode and faster responding AVAPS rate. The severity of this patients disease is such that failure to provide non-invasive ventilator therapy on a daily basis will likely lead to future hospital re-admission and life threatening situations. (2) Respiratory acidosis Is this a current diagnosis for this admission?: Yes (3) COPD exacerbation Is this a current diagnosis for this admission?: YesPlan: Continue with scheduled nebulized treatments, oral steroids, and antibiotics. Trilogy delivered to patient, plan to start her on device tonight with recheck of blood gas in AM. patient also is very anxious and has had very little sleep over the last three days since admission. Will order low dose anti-anxiety medication for patient to take tonight.
--- NOTE | 2016-03-18 14:18 | PDOC PROGRESS REPORT ---
Subjective Progress Note for:: 03/18/16 Subjective:: The patient was seen earlier today on rounds. The patient did not wear her BiPAP last night. Overall dyspnea has improved but still has shortness of breath with activity. The patient denies any nausea, vomiting, diarrhea, dizziness, chest pain, heart palpitations, fevers, or chills. The patient has remained afebrile. Blood pressures have been in a good range. When prompted the patient voices no other concerns at this time. Review of systems: The rest of the review of systems is negative. Physical Exam Vital Signs: Temp Pulse Resp BP Pulse Ox 97.5 F 83 20 124/81 99 03/18/16 11:31 03/18/16 11:31 03/18/16 11:31 03/18/16 11:31 03/18/16 11:31 Intake & Output 03/16/16 03/17/16 03/18/16 23:59 23:59 23:59 Intake Total 968 1383 400 Output Total 0 Balance 968 1383 400 Weight 81.9 kg 80.5 kg 80.5 kg General appearance: PRESENT: no acute distress, well-developed, well-nourished Head exam: PRESENT: atraumatic, normocephalic Eye exam: PRESENT: conjunctiva pink, EOMI, PERRLA. ABSENT: scleral icterus Ear exam: PRESENT: normal external ear exam Mouth exam: PRESENT: moist, tongue midline Neck exam: ABSENT: carotid bruit, JVD, lymphadenopathy, thyromegaly Respiratory exam: PRESENT: symmetrical, unlabored, wheezes. ABSENT: rales, rhonchi, tachypnea Cardiovascular exam: PRESENT: RRR. ABSENT: diastolic murmur, rubs, systolic murmur Pulses: PRESENT: normal dorsalis pedis pul Vascular exam: PRESENT: normal capillary refill GI/Abdominal exam: PRESENT: normal bowel sounds, soft. ABSENT: distended, guarding, mass, organolmegaly, rebound, tenderness Rectal exam: PRESENT: deferred Extremities exam: PRESENT: full ROM. ABSENT: calf tenderness, clubbing, pedal edema Neurological exam: PRESENT: alert, awake, oriented to person, oriented to place , oriented to time, oriented to situation, CN II-XII grossly intact. ABSENT: motor sensory deficit Psychiatric exam: PRESENT: appropriate affect, normal mood. ABSENT: homicidal ideation, suicidal ideation Skin exam: PRESENT: dry, intact, warm. ABSENT: cyanosis, rash Results Laboratory Results: 03/18/16 04:31 03/18/16 04:31 03/18/16 03/18/16 03/18/16 04:31 04:31 04:31 WBC 18.4 H RBC 4.72 Hgb 11.4 L Hct 36.8 MCV 78 L MCH 24.2 L MCHC 31.0 L RDW 15.5 H Plt Count 256 Seg Neutrophils % 82.6 H Lymphocytes % 6.6 L Monocytes % 9.9 Eosinophils % 0.6 Basophils % 0.3 Absolute Neutrophils 15.2 H Absolute Lymphocytes 1.2 Absolute Monocytes 1.8 H Absolute Eosinophils 0.1 Absolute Basophils 0.1 VBG pH 7.36 VBG pCO2 79.8 H* VBG HCO3 43.7 H VBG Base Excess 14.5 Sodium 138.8 Potassium 4.2 Chloride 92 L Carbon Dioxide 41 H* Anion Gap 6 BUN 29 H Creatinine 0.62 Est GFR ( Amer) > 60 Est GFR (Non-Af Amer) > 60 Glucose 93 Calcium 9.2 03/18/16 10:02 WBC RBC Hgb Hct MCV MCH MCHC RDW Plt Count Seg Neutrophils % Lymphocytes % Monocytes % Eosinophils % Basophils % Absolute Neutrophils Absolute Lymphocytes Absolute Monocytes Absolute Eosinophils Absolute Basophils VBG pH 7.36 VBG pCO2 72.4 H* VBG HCO3 39.9 H VBG Base Excess 11.3 Sodium Potassium Chloride Carbon Dioxide Anion Gap BUN Creatinine Est GFR ( Amer) Est GFR (Non-Af Amer) Glucose Calcium 03/14/16 03/14/16 03/14/16 03:08 03:08 08:47 Creatine Kinase 83 90 CK-MB (CK-2) 2.63 Troponin I 0.037 03/14/16 03/14/16 03/14/16 08:47 15:18 15:18 Creatine Kinase 75 CK-MB (CK-2) 2.63 2.03 Troponin I 0.015 0.013 Impressions: Chest X-Ray 03/13/16 20:59 IMPRESSION: No acute cardiopulmonary findings. Assessment & Plan - Diagnosis (1) Acute and chronic respiratory failure with hypercapnia Is this a current diagnosis for this admission?: YesPlan: Will encourage BiPAP use except for during meals. Will repeat VBG in the a.m. Will ask the patient to be seen by pulmonology. The patient may need home BiPAP. (2) COPD exacerbation Is this a current diagnosis for this admission?: YesPlan: Will continue the patient's home Symbicort. (3) Encephalopathy Is this a current diagnosis for this admission?: YesPlan: Secondary to #1 this did improve with PCO2 reduced (4) Essential (primary) hypertension Is this a current diagnosis for this admission?: YesPlan: Will continue home medications. (5) Hilar lymphadenopathy Is this a current diagnosis for this admission?: No (6) Nodule of right lung Is this a current diagnosis for this admission?: No (7) Restless leg syndrome Is this a current diagnosis for this admission?: No (8) Thyromegaly Is this a current diagnosis for this admission?: Yes (9) PAH (pulmonary artery hypertension) Is this a current diagnosis for this admission?: Yes (10) Tobacco abuse Is this a current diagnosis for this admission?: Yes (11) History of radiation therapy Is this a current diagnosis for this admission?: Yes (12) DVT prophylaxis Is this a current diagnosis for this admission?: YesPlan: 03/14/16 06:00 Heparin Sodium,Porcine [Heparin Inj 5,000 Units/ml 1 ml Syringe] 5,000 unit SUBCUT Q8 - Time Time Spent with patient: on this visit including assessment, plan, physical examination, and patient education is 25 minutes. Time Spent with patient: 25-34 minutes Medications reviewed and adjusted accordingly: Yes Anticipated discharge: Home Within: within 24 hours Disposition: The patient is a full code. Pending patient's symptomatology and diagnostic findings will reevaluate in the a.m.
[2016-03-18] MEDS ORDERED: ALPRAZOLAM 0.25 MG TABLET PO PRN (17:07)
[2016-03-18] MEDS: TRAZODONE HCL 50 MG TABLET PO SCH (21:42)
[2016-03-18] MEDS: ROPINIROLE HCL 1 MG TABLET PO SCH (21:43)
[2016-03-18] MEDS ORDERED: MONTELUKAST SODIUM 10 MG TABLET PO SCH (22:00)
[2016-03-19 02:21] LABS: ARTERIAL BLOOD BASE EXCESS 13.3 mmol/L; ARTERIAL BLOOD O2 SATURATION 92.5 % (94-98)
[2016-03-19] MEDS: IPRATROPIUM/ALBUTEROL 0.5-2.5 MG/3 ML AMPUL NEB SCH ×2 (02:23→08:13)
[2016-03-19] MEDS: HEPARIN SOD (PORCINE) 5,000 UNIT/ML 1 ML SYRINGE SUBCUT SCH ×2 (05:30→13:09)
[2016-03-19 10:10] LABS: VENOUS BLOOD BASE EXCESS 11.7 mmol/L; VENOUS BLOOD HCO3 38.5 mmol/L (20-32); VENOUS BLOOD PCO2 60.9 mmHg (35-63); VENOUS BLOOD PH 7.42 (7.30-7.42)
[2016-03-19] MEDS: HYDROCHLOROTHIAZIDE 25 MG TABLET PO SCH (10:12)
[2016-03-19] MEDS: LEVOFLOXACIN 750 MG TABLET PO SCH (10:12)
[2016-03-19] MEDS: GUAIFENESIN 600 MG TABLET.SA PO SCH (10:12)
[2016-03-19] MEDS: RALOXIFENE HCL 60 MG TABLET PO SCH (10:13)
[2016-03-19] MEDS: METOPROLOL TARTRATE 100 MG TABLET PO SCH (10:13)
[2016-03-19] MEDS: DOCUSATE SODIUM 100 MG CAPSULE PO SCH (10:14)
[2016-03-19] MEDS: PREDNISONE 20 MG TABLET PO SCH (10:14)
[2016-03-19] MEDS: ROFLUMILAST 500 MCG TABLET PO SCH (10:14)
[2016-03-19] MEDS: TIOTROPIUM BROMIDE DPI 5 CAP/KIT (18 MCG/CAP) IH SCH (10:15)
[2016-03-19] MEDS: FLUTICASONE NASAL SPRAY 50 MCG/SPRY 120 SPRAY/16 GM NASL SCH (10:15)
[2016-03-19] MEDS: BUDESONIDE/FORMOTEROL 160-4.5 MCG 60 PUFF/6 GM MDI IH SCH (10:16)
[2016-03-19 12:32] VITALS: BP 155/78
--- NOTE | 2016-03-21 16:48 | PDOC DISCHARGE SUMMARY ---
General - Admit/Disc Date/PCP Admission Date/Primary Care Provider: 03/13/16 22:38 KAYLEIGH MAURY, Discharge Date: 03/19/16 - Discharge Diagnosis (1) Acute and chronic respiratory failure with hypercapnia Is this a current diagnosis for this admission?: Yes (2) COPD exacerbation Is this a current diagnosis for this admission?: Yes (3) Encephalopathy Is this a current diagnosis for this admission?: Yes (4) Essential (primary) hypertension Is this a current diagnosis for this admission?: Yes (5) Hilar lymphadenopathy Is this a current diagnosis for this admission?: No (6) Nodule of right lung Is this a current diagnosis for this admission?: No (7) Restless leg syndrome Is this a current diagnosis for this admission?: No (8) Thyromegaly Is this a current diagnosis for this admission?: Yes (9) PAH (pulmonary artery hypertension) Is this a current diagnosis for this admission?: Yes (10) Tobacco abuse Is this a current diagnosis for this admission?: Yes (11) History of radiation therapy Is this a current diagnosis for this admission?: Yes (12) DVT prophylaxis Is this a current diagnosis for this admission?: Yes - Additional Information Resuscitation Status: Full Code Discharge Diet: As Tolerated Discharge Activity: Activity As Tolerated, Energy Conservation, Slowly Increase Activity Home Medications: Albuterol Sulfate [Ventolin Hfa] 2 puff IH Q4HP PRN 03/14/16 Hydrochlorothiazide 25 mg PO DAILY 03/14/16 Metoprolol Tartrate [Lopressor 100 mg Tablet] 100 mg PO BID 03/14/16 Raloxifene HCl [Evista 60 mg Tablet] 60 mg PO DAILY 03/14/16 Roflumilast [Daliresp 500 mcg Tablet] 500 mcg PO DAILY 03/14/16 Ropinirole HCl 1 mg PO QHS 03/14/16 Umeclidinium Jesse [Incruse Ellipta] 1 puff IH DAILY 03/14/16 Levofloxacin [Levaquin 750 mg Tablet] 750 mg PO DAILY #3 tablet 03/19/16 Prednisone [Deltasone 10 mg Tablet] 10 mg PO ASDIR PRN #10 tablet 03/19/16 History of Present Illness Patient complains of: Confusion History of Present Illness: VIKY DE LEON is a 65 year old female with a past medical history of COPD and home O2 dependence, who had been her usual state of health until approximately 24 hours prior to presentation developing shortness of breath which prompted her to increase her oxygen level. In the emergency room she's found to be encephalopathic and placed on BiPAP ABG reveals a PCO2 of 85. After couple hours the patient's mental status improves and reveals suffering from insomnia and admits to use of [id number] sleep aid and edible cannabis. She denied chest pain nausea vomiting diaphoresis or palpitations. The patient was referred to the hospitalist for admission and management. Hospital Course Hospital Course: The patient was admitted to [facility]. The patient was placed on scheduled nebs as well as PRN nebs, steroids, and supplemental oxygen. The patient's oxygen, steroids, and nebs were titrated and weaned. The patient is back to baseline and able to complete sentences. The patient's VBG did improve. The patient brought in her home BiPAP settings were adjusted. The patient was seen and evaluated by pulmonology who made recommendations have scheduled a follow-up. Overall the patient is back to baseline and is ready for discharge. Physical Exam Vital Signs: Temp Pulse Resp BP Pulse Ox 98.3 F 100 19 155/78 H 97 03/19/16 12:23 03/19/16 12:23 03/19/16 12:23 03/19/16 12:23 03/19/16 12:23 Intake & Output 03/18/16 03/19/16 03/20/16 23:59 23:59 23:59 Intake Total 1551 1361 Balance 1551 1361 Weight 80.5 kg 78.5 kg General appearance: PRESENT: no acute distress, well-developed, well-nourished Head exam: PRESENT: atraumatic, normocephalic Eye exam: PRESENT: conjunctiva pink, EOMI, PERRLA. ABSENT: scleral icterus Ear exam: PRESENT: normal external ear exam Mouth exam: PRESENT: moist, tongue midline Neck exam: ABSENT: carotid bruit, JVD, lymphadenopathy, thyromegaly Respiratory exam: PRESENT: symmetrical, unlabored, wheezes. ABSENT: rales, rhonchi, tachypnea Cardiovascular exam: PRESENT: RRR. ABSENT: diastolic murmur, rubs, systolic murmur Pulses: PRESENT: normal dorsalis pedis pul Vascular exam: PRESENT: normal capillary refill GI/Abdominal exam: PRESENT: normal bowel sounds, soft. ABSENT: distended, guarding, mass, organolmegaly, rebound, tenderness Rectal exam: PRESENT: deferred Extremities exam: PRESENT: full ROM. ABSENT: calf tenderness, clubbing, pedal edema Neurological exam: PRESENT: alert, awake, oriented to person, oriented to place , oriented to time, oriented to situation, CN II-XII grossly intact. ABSENT: motor sensory deficit Psychiatric exam: PRESENT: appropriate affect, normal mood. ABSENT: homicidal ideation, suicidal ideation Skin exam: PRESENT: dry, intact, warm. ABSENT: cyanosis, rash Results Laboratory Results: Labs- Last Values WBC 18.4 10^3/uL (4.0-10.5) H 03/18/16 04:31 RBC 4.72 10^6/uL (3.72-5.28) 03/18/16 04:31 Hgb 11.4 g/dL (12.0-15.5) L 03/18/16 04:31 Hct 36.8 % (36.0-47.0) 03/18/16 04:31 MCV 78 fl (80-97) L 03/18/16 04:31 MCH 24.2 pg (27.0-33.4) L 03/18/16 04:31 MCHC 31.0 g/dL (32.0-36.0) L 03/18/16 04:31 RDW 15.5 % (11.5-14.0) H 03/18/16 04:31 Plt Count 256 10^3/uL (150-450) 03/18/16 04:31 Total Counted 100 03/17/16 04:07 Seg Neutrophils % 82.6 % (42-78) H 03/18/16 04:31 Seg Neuts % (Manual) 93 % (42-78) H 03/17/16 04:07 Lymphocytes % 6.6 % (13-45) L 03/18/16 04:31 Lymphocytes % (Manual) 4 % (13-45) L 03/17/16 04:07 Atypical Lymphs % 28 % (0) 03/13/16 20:51 Monocytes % 9.9 % (3-13) 03/18/16 04:31 Monocytes % (Manual) 3 % (3-13) 03/17/16 04:07 Eosinophils % 0.6 % (0-6) 03/18/16 04:31 Eosinophils % (Manual) 0 % (0-6) 03/17/16 04:07 Basophils % 0.3 % (0-2) 03/18/16 04:31 Basophils % (Manual) 0 % (0-2) 03/17/16 04:07 Absolute Neutrophils 15.2 10^3/uL (1.7-8.2) H 03/18/16 04:31 Abs Neuts (Manual) 19.4 10^3/uL (1.7-8.2) H 03/17/16 04:07 Absolute Lymphocytes 1.2 10^3/uL (0.5-4.7) 03/18/16 04:31 Abs Lymphs (Manual) 0.8 10^3/uL (0.5-4.7) 03/17/16 04:07 Absolute Monocytes 1.8 10^3/uL (0.1-1.4) H 03/18/16 04:31 Abs Monocytes (Manual) 0.6 10^3/uL (0.1-1.4) 03/17/16 04:07 Absolute Eosinophils 0.1 10^3/uL (0.0-0.6) 03/18/16 04:31 Absolute Eos (Manual) 0.0 10^3/uL (0.0-0.6) 03/17/16 04:07 Absolute Basophils 0.1 10^3/uL (0.0-0.2) 03/18/16 04:31 Abs Basophils (Manual) 0.0 10^3/uL (0.0-0.2) 03/17/16 04:07 Toxic Granulation SLIGHT 03/16/16 04:32 Toxic Vacuolation PRESENT 03/14/16 03:08 Platelet Comment ADEQUATE 03/17/16 04:07 Polychromasia SLIGHT 03/17/16 04:07 Hypochromasia SLIGHT 03/17/16 04:07 Poikilocytosis SLIGHT 03/16/16 04:32 Anisocytosis SLIGHT 03/17/16 04:07 Microcytosis SLIGHT 03/16/16 04:32 Spherocytes SLIGHT 03/16/16 04:32 Target Cells 1+ 03/16/16 04:32 Tear Drop Cells SLIGHT 03/13/16 20:51 Ovalocytes SLIGHT 03/16/16 04:32 Schistocytes 2+ 03/16/16 04:32 Carbonic Acid 1.93 mmol/L (1.05-1.35) H 03/19/16 02:07 HCO3/H2CO3 Ratio 20:1 03/19/16 02:07 ABG pH 7.42 (7.35-7.45) 03/19/16 02:07 ABG pCO2 64.0 mmHg (35-45) H 03/19/16 02:07 ABG pO2 65.4 mmHg (80-100) L 03/19/16 02:07 ABG HCO3 40.5 mmol/L (20-26) H 03/19/16 02:07 ABG Total CO2 42.5 mmol/L (21-25) H 03/19/16 02:07 ABG O2 Saturation 92.5 % (94-98) L 03/19/16 02:07 ABG Base Excess 13.3 mmol/L 03/19/16 02:07 VBG pH 7.42 (7.30-7.42) 03/19/16 09:54 VBG pCO2 60.9 mmHg (35-63) 03/19/16 09:54 VBG HCO3 38.5 mmol/L (20-32) H 03/19/16 09:54 VBG Base Excess 11.7 mmol/L 03/19/16 09:54 FiO2 28% 03/19/16 02:07 Sodium 138.8 mmol/L (137-145) 03/18/16 04:31 Potassium 4.2 mmol/L (3.6-5.0) 03/18/16 04:31 Chloride 92 mmol/L (98-107) L 03/18/16 04:31 Carbon Dioxide 41 mmol/L (22-30) H* 03/18/16 04:31 Anion Gap 6 (5-19) 03/18/16 04:31 BUN 29 mg/dL (7-20) H 03/18/16 04:31 Creatinine 0.62 mg/dL (0.52-1.25) 03/18/16 04:31 Est GFR ( Amer) > 60 (>60) 03/18/16 04:31 Est GFR (Non-Af Amer) > 60 (>60) 03/18/16 04:31 Glucose 93 mg/dL (75-110) 03/18/16 04:31 Lactic Acid 1.6 mmol/L (0.7-2.1) 03/14/16 01:13 Calcium 9.2 mg/dL (8.4-10.2) 03/18/16 04:31 Total Bilirubin 0.4 mg/dL (0.2-1.3) 03/13/16 20:51 Direct Bilirubin 0.0 mg/dL (0.0-0.3) 03/13/16 20:51 AST 28 U/L (14-36) 03/13/16 20:51 ALT 19 U/L (9-52) 03/13/16 20:51 Alkaline Phosphatase 89 U/L (38-126) 03/13/16 20:51 Creatine Kinase 75 U/L (30-135) 03/14/16 15:18 CK-MB (CK-2) 2.03 ng/mL (<4.55) 03/14/16 15:18 Troponin I 0.013 ng/mL 03/14/16 15:18 Total Protein 7.1 g/dL (6.3-8.2) 03/13/16 20:51 Albumin 4.4 g/dL (3.5-5.0) 03/13/16 20:51 Urine Opiates Screen NEGATIVE 03/14/16 01:13 Urine Methadone Screen NEGATIVE 03/14/16 01:13 Ur Barbiturates Screen NEGATIVE 03/14/16 01:13 Ur Phencyclidine Scrn NEGATIVE 03/14/16 01:13 Ur Amphetamines Screen NEGATIVE 03/14/16 01:13 U Benzodiazepines Scrn NEGATIVE 03/14/16 01:13 Urine Cocaine Screen NEGATIVE 03/14/16 01:13 U Marijuana (THC) Screen UNCONFIRMED POSITIVE 03/14/16 01:13 Serum Alcohol < 10 mg/dL (NONE DETECTED) 03/13/16 20:51 Sl[address] for [address] Review SEE COMMENT 03/13/16 20:51 Impressions: Chest X-Ray 03/13/16 20:59 IMPRESSION: No acute cardiopulmonary findings. Qualifiers PATEINT BEING DISCHARGED WITH ANY OF THE FOLLOWING DIAGNOSIS?: No Plan Discharge Plan: The patient is to follow with primary care provider within one week for hospital follow-up. The patient is to follow-up with pulmonology within 2 weeks for hospital follow- up. Time Spent: Less than 30 Minutes
== END 2016-03-19 13:43 | disposition home or self-care (01) | DRG 189 ==
LOC: ER 20:39 → EH 22:38 → UNDOADMIN 23:04 → EH 23:04 → 3W 03-14 02:18
PROVIDERS: ADMIT Internal Medicine; ATTEND Internal Medicine
PROC: 5A09457 Assistance with Respiratory Ventilation, 24-96 Consecutive Hours, Continuous Positive Airway Pressure (ICD-10-PCS; principal; 2016-03-13)
PROC: 3E0F73Z Introduction of Anti-inflammatory into Respiratory Tract, Via Natural or Artificial Opening (ICD-10-PCS; 2016-03-13)
DX: J96.22 Acute and chronic respiratory failure with hypercapnia (principal); G93.40 Encephalopathy, unspecified; J44.1 Chronic obstructive pulmonary disease with (acute) exacerbation; J96.21 Acute and chronic respiratory failure with hypoxia; J20.9 Acute bronchitis, unspecified; I10 Essential (primary) hypertension; R59.0 Localized enlarged lymph nodes; R91.1 Solitary pulmonary nodule; G25.81 Restless legs syndrome; E01.0 Iodine-deficiency related diffuse (endemic) goiter; I27.2 Other secondary pulmonary hypertension; G47.00 Insomnia, unspecified; M15.9 Polyosteoarthritis, unspecified; F17.210 Nicotine dependence, cigarettes, uncomplicated; Z92.3 Personal history of irradiation; Z99.81 Dependence on supplemental oxygen; Z79.899 Other long term (current) drug therapy; Z85.3 Personal history of malignant neoplasm of breast; Z90.10 Acquired absence of unspecified breast and nipple; Z83.6 Family history of other diseases of the respiratory system; Z82.49 Family history of ischemic heart disease and other diseases of the circulatory system
CPT/HCPCS: 36415; 36600; 71010; 80048; 80053; 80307; 82550; 82553; 82803; 83605; 84484; 85025; 94640; 94660; 94667; 94799; 96374; 99291; J0696; J1644; J1885; J1956; J2930; J3475; J3490; J7512; J7620

== ENCOUNTER → 2016-05-21 | Outpatient (CLI) | payer MEDICARE, MEDICAID | LOC: WI 10:43 | PROVIDERS: ATTEND Radiology Radiation Oncology | DX: D05.11 Intraductal carcinoma in situ of right breast (principal) | CPT/HCPCS: 77066; G0204 ==

== ENCOUNTER → 2016-06-26 | Outpatient (CLI) | payer MEDICARE, MEDICAID | LOC: WI 08:22 | PROVIDERS: ATTEND Student in an Organized Health Care Education/Training Program | DX: M81.8 Other osteoporosis without current pathological fracture (principal) | CPT/HCPCS: 77080 ==

== ENCOUNTER 2017-03-30 23:34 | Inpatient (IN) | payer MEDICARE, MEDICAID ==
[2017-03-30] MEDS ORDERED: KETAMINE HCL INJ 500 MG/10 ML VIAL ONE (23:44)
[2017-03-30] MEDS ORDERED: KETAMINE HCL INJ 500 MG/10 ML VIAL IV ONE ×2 (23:54→23:55)
[2017-03-30] MEDS ORDERED: NORMAL SALINE 1000 ML 1,000 ML IV ONE (23:55)
[2017-03-30] MEDS ORDERED: CEFTRIAXONE INJ 1000 MG VIAL IV ONE (23:55)
[2017-03-30] MEDS ORDERED: ROCURONIUM BROMIDE INJ 50 MG/5 ML VIAL IV ONE (23:55)
[2017-03-30] MEDS ORDERED: MAGNESIUM SULFATE/D5W 2 GM/200 ML RTUPB IV ONE (23:59)
[2017-03-31] MEDS ORDERED: IPRATROPIUM/ALBUTEROL 0.5-2.5 MG/3 ML AMPUL NEB ONE (00:01)
[2017-03-31] MEDS ORDERED: ALBUTEROL SULFATE 0.083% NEB 2.5 MG/3 ML AMPUL NEB ONE (00:01)
--- NOTE | 2017-03-31 00:05 | ER Document Report ---
ED General - General Chief Complaint: Respiratory Distress Stated Complaint: BREATHING DIFFICULTY Time Seen by Provider: 03/30/17 23:54 Cannot obtain history due to: Unstable vital signs, Altered mental status Notes: Patient is a 66-year-old woman who presents by EMS obtunded, unresponsive, after apparently being found in her home, confused, hypoxic and combative. She was administered intramuscular midazolam in route to the hospital. No additional history can be obtained secondary to patient's mental status at time of arrival as well as her critical nature. TRAVEL OUTSIDE OF THE [place] IN LAST 30 DAYS: No - Related Data Allergies/Adverse Reactions: No Known Allergies Allergy (Verified 11/08/15 12:42) Past Medical History - General Information source: Emergency Med Personnel, [facility] Records Cannot obtain history due to: Unstable vital signs, Altered mental status - Social History Smoking Status: Unknown if Ever Smoked Family History: COPD, Hypertension - Past Medical History Cardiac Medical History: Reports: Hx Hypertension - on meds Denies: Hx Coronary Artery Disease, Hx Heart Attack Pulmonary Medical History: Reports: Hx Bronchitis - hx of, Hx COPD - inhalers/ neb/o2 prn, Hx Pneumonia - hx of Denies: Hx Asthma Neurological Medical History: Denies: Hx Seizures Renal/ Medical History: Reports: Hx Kidney Stones Malignancy Medical History: Reports: Hx Breast Cancer Musculoskeltal Medical History: Reports Hx Arthritis - generalized Psychiatric Medical History: Denies: Hx Depression Past Surgical History: Reports: Hx Gynecologic Surgery - Cone procedure on the cervix, Hx Mastectomy - lumpectomy - Immunizations Hx Diphtheria, Pertussis, Tetanus Vaccination: Yes Hx Pneumococcal Vaccination: 01/23/15 Review of Systems - Review of Systems -: Yes ROS unobtainable due to patient's medical condition Physical Exam - Vital signs Vitals: Temp 97.4 F 03/30/17 23:38 Interpretation: Tachycardic, Hypoxic Notes: PHYSICAL EXAMINATION: GENERAL: Obtunded, GCS 3, critically ill in appearance HEAD: Atraumatic, normocephalic. EYES: Pupils equal round and reactive to light, sclera anicteric, conjunctiva are normal. ENT: nares patent, oropharynx clear without exudates. Moderately dry mucous membranes. NECK: supple without lymphadenopathy LUNGS: Near absent breath sounds bilaterally, long, gasping breaths HEART: Regular tachycardia without murmurs ABDOMEN: Soft, No masses appreciated. EXTREMITIES: No pitting or edema. No cyanosis. NEUROLOGICAL: GCS 3 PSYCH: obtunded SKIN: Warm, Dry, normal turgor, no rashes or lesions noted. Course - Re-evaluation Re-evalutation: 03/31/17 00:03 Patient presented obtunded in acute respiratory distress, no air movement appreciated on auscultation of the lungs bilaterally. Patient was saturating 93 % on continuous nonrebreather, GCS of 3. Patient did receive 2 mg of intramuscular midazolam prior to arrival due to combativeness which I anticipate was secondary to hypercapnia from an acute COPD exacerbation. Immediately upon her arrival and intubation was performed to assist her ventilations. First-pass attempt was successful. This is done with ketamine and rocuronium. She was placed on a continuous ketamine infusion. 2 g of magnesium will be administered. She has already received Solu-Medrol prior to arrival. Continuous nebulizers will run in line through the ET tube. Labs, ABG , chest x-ray will be obtained. Brown catheter will be placed. Patient will require ICU hospitalization. Will continue to reassess frequently as she continues to be critically ill at this time. 03/31/17 00:10 Patient's blood pressure did drop rapidly on the ventilator. She was disconnected from the vent and pressure was applied to her chest. This improved her blood pressure rapidly. Her IE ratio has been set to 0.6, respiratory rate 18, FiO2 of 60% and tidal volume of 400. Running continuous in -line nebs. IV fluids are being administered. Post inpatient chest x-ray shows a need to advance the ET tube by approximately 1-2 cm which has been completed. Lungs are hyperinflated but no acute infiltrate. Patient did have copious vomiting around the ET tube when it was ready in place and she may have aspirated prior to arrival. 03/31/17 01:32 Laboratories are overall unremarkable, ABG shows findings consistent with hypercapnia patient continues to tolerate venting well, hemodynamically stable. I discussed with the hospitalist and we are uncertain whether or not we will have any capacity to hospitalize her here as we have no ICU beds and for patients waiting the emergency department for an ICU bed. We also no pulmonology. I will wait to hear back from administration about whether or not she proceed with transfer for this patient. 03/31/17 02:00 Patient has had significant improvement in her overall clinical status now awake on the ventilator, shaking her head yes and no to her daughter. Will give a small amount of Versed as patient still requires the vent at this time. Dr. Rodriguez has accepted the patient for hospitalization as we are able to accommodate her in ICU. - Vital Signs Vital signs: Temp Pulse Resp BP Pulse Ox 97.4 F 20 114/82 95 03/30/17 23:38 03/31/17 02:16 03/31/17 02:16 03/31/17 02:01 - Laboratory Result Diagrams: 03/31/17 00:14 03/31/17 00:14 Laboratory results interpreted by me: 03/31/17 03/31/17 03/31/17 00:14 00:14 00:14 WBC 12.2 H Hgb 10.9 L Hct 34.9 L MCV 77 L MCH 24.1 L MCHC 31.4 L RDW 15.2 H Lymphocytes % 48.3 H Absolute Lymphocytes 5.9 H Carbonic Acid ABG pH ABG pCO2 ABG pO2 ABG HCO3 ABG Total CO2 ABG O2 Saturation Chloride 97 L Carbon Dioxide 35 H BUN 23 H Glucose 196 H Urine Protein 100 H 03/31/17 00:23 WBC Hgb Hct MCV MCH MCHC RDW Lymphocytes % Absolute Lymphocytes Carbonic Acid 2.22 H ABG pH 7.28 L ABG pCO2 73.6 H* ABG pO2 256.2 H ABG HCO3 33.9 H ABG Total CO2 36.1 H ABG O2 Saturation 99.5 H Chloride Carbon Dioxide BUN Glucose Urine Protein - Diagnostic Test Radiology reviewed: Image reviewed, Reports reviewed Radiology results interpreted by me: 03/31/17 02:00 Chest x-ray: No acute infiltrate or pneumothorax, ET tube in appropriate position - EKG Interpretation by Me Additional EKG results interpreted by me: 03/31/17 02:01 Normal sinus rhythm. Rate 95. No ST elevations or depressions. QTC is 493. Procedures - Intubation Orotracheal Time of Intubation: 23:56 Airway evaluation: Copious secretions, Large tongue Mallampati Classification: Class 2 Medications: Ketamine, Other - Rocuronium Intubation method: Orotracheal Blade size: 4 Equipment used: Glidescope ETT size: 7.5 ETT secured at: Gums ETT secured at (cm): 22 Breath Sounds after Intubation: Equal End tidal CO2 confirmed: Yes Ventilator settings: SIMV Tidal volume: 400 FiO2: 60 Respirations: 25 PEEP: 5 Post Intubation Xray: Yes Intubation Complications: No complications Critical Care Note - Critical Care Note Total time excluding time spent on procedures (mins): 48 Comments: Critical care time spent obtaining history from patient or surrogate, discussions with consultants, development of treatment plan with patient or surrogate, evaluation of patient's response to treatment, examination of patient , ordering and performing treatments and interventions, ordering and review of laboratory studies, re-evaluation of patient's condition, ordering and review of radiographic studies and review of old charts Discharge - Discharge Clinical Impression: Respiratory distress, COPD exacerbation Altered mental status Qualifiers: Altered mental status type: stupor Qualified Code(s): R40.1 - Stupor Condition: Critical Disposition: ADMITTED INPATIENT Admitting Provider: [facility] Unit Admitted: ICU
[2017-03-31] MEDS ORDERED: METRONIDAZOLE 500 MG/NS RTU 100 ML IV ONE (00:12)
[2017-03-31] MEDS: MAGNESIUM SULFATE/D5W 1 GM/100 ML RTUPB IV SCH ×2 (00:20→01:20)
[2017-03-31 00:38] LABS: ABSOLUTE BASOPHILS # (AUTO) 0.1 10^3/uL (0.0-0.2); ABSOLUTE EOSINOPHILS # (AUTO) 0.1 10^3/uL (0.0-0.6); ABSOLUTE LYMPHOCYTES (AUTO) 5.9 10^3/uL (0.5-4.7); ABSOLUTE NEUT (AUTO) 5.2 10^3/uL (1.7-8.2); BASOPHILS % (AUTO) 0.5 % (0-2); EOSINOPHILS % (AUTO) 1.1 % (0-6); HEMATOCRIT 34.9 % (36.0-47.0); HEMOGLOBIN 10.9 g/dL (12.0-15.5); LYMPHOCYTES % (AUTO) 48.3 % (13-45); MEAN CORPUSCULAR HEMOGLOBIN 24.1 pg (27.0-33.4); MEAN CORPUSCULAR HGB CONC 31.4 g/dL (32.0-36.0); MEAN CORPUSCULAR VOLUME 77 fl (80-97); MONOCYTES % (AUTO) 7.9 % (3-13); PLATELET COUNT 281 10^3/uL (150-450); RED BLOOD COUNT 4.54 10^6/uL (3.72-5.28); RED CELL DISTRIBUTION WIDTH 15.2 % (11.5-14.0); SEGMENTED NEUTROPHILS % (AUTO) 42.2 % (42-78); TOTAL CELLS COUNTED % (AUTO) 100 %; WHITE BLOOD COUNT 12.2 10^3/uL (4.0-10.5)
[2017-03-31 00:44] LABS: ARTERIAL BLOOD BASE EXCESS 5.2 mmol/L; ARTERIAL BLOOD H2CO3 2.22 mmol/L (1.05-1.35); ARTERIAL BLOOD HCO3 33.9 mmol/L (20-26); ARTERIAL BLOOD O2 SATURATION 99.5 % (94-98); ARTERIAL BLOOD PH 7.28 (7.35-7.45); ARTERIAL BLOOD PO2 256.2 mmHg (80-100); ARTERIAL BLOOD TOTAL CO2 36.1 mmol/L (21-25)
[2017-03-31 00:52] LABS: ARTERIAL BLOOD PCO2 73.6 mmHg (35-45)
[2017-03-31 00:53] LABS: ARTERIAL BLOOD FIO2 50%
[2017-03-31 01:03] LABS: ALANINE AMINOTRANSFERASE 18 U/L (9-52); ALBUMIN 4.1 g/dL (3.5-5.0); ALKALINE PHOSPHATASE 67 U/L (38-126); ANION GAP 12 (5-19); ASPARTATE AMINO TRANSFERASE 35 U/L (14-36); BILIRUBIN,DIRECT 0.1 mg/dL (0.0-0.4); BILIRUBIN,TOTAL 0.2 mg/dL (0.2-1.3); BLOOD UREA NITROGEN 23 mg/dL (7-20); CALCIUM 9.1 mg/dL (8.4-10.2); CARBON DIOXIDE 35 mmol/L (22-30); CHLORIDE 97 mmol/L (98-107); CREATINE KINASE 76 U/L (30-135); GLUCOSE 196 mg/dL (75-110); POTASSIUM 4.5 mmol/L (3.6-5.0); SODIUM 144.4 mmol/L (137-145); TOTAL PROTEIN 6.5 g/dL (6.3-8.2)
[2017-03-31 01:18] LABS: NT PRO BNP 61 pg/mL (5-900)
[2017-03-31 01:28] LABS: TROPONIN I < 0.012 ng/mL
[2017-03-31 01:35] LABS: APPEARANCE,URINE CLEAR; BILIRUBIN,URINE NEGATIVE (NEGATIVE); COLOR,URINE YELLOW; GLUCOSE, URINE NEGATIVE (NEGATIVE); KETONES,URINE NEGATIVE (NEGATIVE); LEUKOCYTE ESTERASE,URINE NEGATIVE (NEGATIVE); NITRITE,URINE NEGATIVE (NEGATIVE); PROTEIN,URINE 100 mg/dL (NEGATIVE); URINE SPECIFIC GRAVITY 1.019; UROBILINOGEN,URINE NEGATIVE mg/dL (<2.0)
[2017-03-31 01:41] LABS: URINE BARBITURATES SCREEN NEGATIVE; URINE BENZODIAZEPINES SCREEN UNCONFIRMED POSITIVE; URINE COCAINE SCREEN NEGATIVE; URINE MARIJUANA (THC) SCREEN NEGATIVE; URINE METHADONE SCREEN NEGATIVE; URINE PHENCYCLIDINE SCREEN NEGATIVE
[2017-03-31] MEDS ORDERED: MIDAZOLAM 2 MG/2 ML INJ IV ONE (01:59)
[2017-03-31] MEDS ORDERED: MIDAZOLAM 2 MG/2 ML INJ ONE ×2 (02:01→14:14)
[2017-03-31 02:03] LABS: URINE AMPHETAMINES SCREEN NEGATIVE
[2017-03-31] MEDS ORDERED: PROPOFOL 100 ML IV ONE (02:28)
[2017-03-31] MEDS: PROPOFOL 100 ML IV PRN ×5 (02:35→18:38)
[2017-03-31] MEDS ORDERED: GUAIFENESIN SYRP 200 MG/10 ML UDC NG PRN (02:42)
[2017-03-31] MEDS ORDERED: GLUCAGON,HUMAN RECOMB 1 MG INJ SUBCUT PRN (02:42)
[2017-03-31] MEDS ORDERED: DEXTROSE 40% GEL 15 GM TUBE NG PRN ×2 (02:42)
[2017-03-31] MEDS ORDERED: DEXTROSE 50%-WATER 25 GM/50 ML DISP.SYRIN IV PRN ×2 (02:42)
[2017-03-31] MEDS ORDERED: IPRATROPIUM/ALBUTEROL 0.5-2.5 MG/3 ML AMPUL NEB PRN (02:42)
[2017-03-31] MEDS ORDERED: ACETAMINOPHEN 325 MG TABLET NG PRN (02:42)
[2017-03-31] MEDS ORDERED: PHARMACY COMMUNICATION ORDER MC NR (03:00)
--- NOTE | 2017-03-31 03:33 | RADIOLOGY REPORT (SQ) ---
EXAM DESCRIPTION: CHEST SINGLE VIEW CLINICAL HISTORY: POST INTUBATION COMPARISON: 03/13/2016 FINDINGS: Single frontal view of the chest. Endotracheal tube with tip below the clavicles. NG tube with tip proceeding below the diaphragm. Heart is not enlarged. No consolidation, pneumothorax, or pleural effusion. No displaced rib fractures identified. Upper abdominal soft tissues are unremarkable. IMPRESSION: 1. Endotracheal tube in appropriate position. No definite acute pulmonary process identified.
[2017-03-31 05:28] LABS: ABSOLUTE RETICS # 0.087 10^6/uL (0.028-0.122); RETICULOCYTE COUNT (AUTO) 1.94 % (0.66-2.85)
[2017-03-31] MEDS ORDERED: PANTOPRAZOLE SODIUM 40 MG VIAL IV ONE (06:00)
[2017-03-31] MEDS: HEPARIN SOD (PORCINE) 5,000 UNIT/ML 1 ML SYRINGE SUBCUT SCH ×3 (06:04→22:11)
[2017-03-31] MEDS: METHYLPREDNISOLONE INJ 40 MG/1 ML SDV IV SCH ×3 (06:07→22:13)
[2017-03-31 06:42] LABS: HEMATOCRIT 33.5 % (36.0-47.0); HEMOGLOBIN 10.5 g/dL (12.0-15.5); MEAN CORPUSCULAR HEMOGLOBIN 24.1 pg (27.0-33.4); MEAN CORPUSCULAR HGB CONC 31.4 g/dL (32.0-36.0); MEAN CORPUSCULAR VOLUME 77 fl (80-97); PLATELET COUNT 246 10^3/uL (150-450); RED BLOOD COUNT 4.36 10^6/uL (3.72-5.28); RED CELL DISTRIBUTION WIDTH 15.3 % (11.5-14.0); WHITE BLOOD COUNT 14.4 10^3/uL (4.0-10.5)
--- NOTE | 2017-03-31 06:53 | RADIOLOGY REPORT (SQ) ---
EXAM DESCRIPTION: CHEST SINGLE VIEW CLINICAL HISTORY: NG Tube Placement COMPARISON: 03/31/2017 FINDINGS: Single frontal view of the chest. Endotracheal tube with tip just below the clavicles. NG tube with tip in the stomach. Heart is not enlarged. No consolidation, pneumothorax, or pleural effusion. No displaced rib fractures identified. Upper abdominal soft tissues are unremarkable. IMPRESSION: 1. NG tube with tip in the stomach.
[2017-03-31 07:13] LABS: ABSOLUTE MONOCYTES # (MANUAL) 0.1 10^3/uL (0.1-1.4); ABSOLUTE NEUTROPHILS# (MANUAL) 14.3 10^3/uL (1.7-8.2); BASOPHILS % (MANUAL) 0 % (0-2); EOSINOPHILS % (MANUAL) 0 % (0-6); LYMPHOCYTES % (MANUAL) 0 % (13-45); MONOCYTES % (MANUAL) 1 % (3-13); SEGMENTED NEUTROPHILS % (MAN) 99 % (42-78); TOTAL CELLS COUNTED 100
[2017-03-31 07:17] LABS: ANISOCYTOSIS 1+; HYPOCHROMASIA 1+; PLATELET COMMENT ADEQUATE; POIKILOCYTOSIS SLIGHT
[2017-03-31 07:18] LABS: BURR CELLS SLIGHT; SCHISTOCYTES SLIGHT
[2017-03-31 07:22] LABS: BLOOD UREA NITROGEN 19 mg/dL (7-20); GLUCOSE 130 mg/dL (75-110)
[2017-03-31 07:23] LABS: ANION GAP 12 (5-19); CARBON DIOXIDE 32 mmol/L (22-30); CHLORIDE 100 mmol/L (98-107); CREATINE KINASE 61 U/L (30-135); IRON(TIBC) 38.1 ug/dL (37-170); POTASSIUM 3.6 mmol/L (3.6-5.0)
[2017-03-31 07:52] LABS: CREATINE KINASE MB 0.98 ng/mL (<4.55); NT PRO BNP 123 pg/mL (5-900)
[2017-03-31] MEDS: IPRATROPIUM/ALBUTEROL 0.5-2.5 MG/3 ML AMPUL NEB SCH ×3 (07:53→21:07)
[2017-03-31 07:55] LABS: TROPONIN I < 0.012 ng/mL
[2017-03-31 08:07] LABS: ARTERIAL BLOOD BASE EXCESS 1.7 mmol/L; ARTERIAL BLOOD HCO3 28.6 mmol/L (20-26); ARTERIAL BLOOD O2 SATURATION 94.9 % (94-98); ARTERIAL BLOOD PCO2 56.6 mmHg (35-45); ARTERIAL BLOOD PH 7.32 (7.35-7.45); ARTERIAL BLOOD PO2 80.8 mmHg (80-100); ARTERIAL BLOOD TOTAL CO2 30.4 mmol/L (21-25)
[2017-03-31 08:10] LABS: ARTERIAL BLOOD FIO2 40%
--- NOTE | 2017-03-31 08:37 | EKG REPORT ---
SEVERITY:- BORDERLINE ECG - SINUS RHYTHM BORDERLINE T ABNORMALITIES, ANT-LAT LEADS BORDERLINE PROLONGED QT INTERVAL : Confirmed by: Yevgeniy Rojas 31-Mar-2017 08:36:59
[2017-03-31 08:45] LABS: FOLATE 9.67 ng/mL (>2.76)
[2017-03-31] MEDS ORDERED: CEFTRIAXONE 1 GM/D5W RTU 50 ML IV SCH (10:00)
[2017-03-31] MEDS ORDERED: CEFEPIME 2 GM/D5W RTU 50 ML IV SCH (10:00)
[2017-03-31] MEDS ORDERED: ALPRAZOLAM 0.25 MG TABLET PO PRN (11:30)
[2017-03-31] MEDS ORDERED: ROCURONIUM BROMIDE INJ 50 MG/5 ML VIAL IV ONE (11:58)
[2017-03-31] MEDS: PIPERACILLIN SODIUM/TAZOBACTAM 3.375 GM in NORMAL SALINE 100 ML IV SCH ×2 (12:24→19:09)
[2017-03-31] MEDS ORDERED: ROFLUMILAST 500 MCG TABLET NG ONE (13:00)
[2017-03-31] MEDS ORDERED: AMLODIPINE BESYLATE 5 MG TABLET NG ONE (13:00)
[2017-03-31] MEDS ORDERED: HYDROCHLOROTHIAZIDE 25 MG TABLET NG ONE (13:00)
[2017-03-31] MEDS ORDERED: RALOXIFENE HCL 60 MG TABLET NG ONE (13:00)
[2017-03-31] MEDS ORDERED: NORMAL SALINE 1000 ML 1,000 ML IV PRN (14:15)
[2017-03-31] MEDS ORDERED: MIDAZOLAM 2 MG/2 ML INJ IV PRN (14:30)
[2017-03-31] MEDS ORDERED: METOPROLOL TARTRATE 50 MG TABLET ONE (15:01)
[2017-03-31] MEDS ORDERED: MIDAZOLAM HCL 50 MG/100 ML RTUINJ IV ONE (15:55)
[2017-03-31] MEDS ORDERED: ACETAMINOPHEN SOLN 325 MG/10.15 ML UDCUP ONE (15:55)
[2017-03-31] MEDS: MIDAZOLAM HCL 50 MG/100 ML RTUINJ IV PRN (18:37)
[2017-03-31] MEDS: PANTOPRAZOLE SODIUM 40 MG VIAL IV SCH (18:40)
[2017-03-31] MEDS ORDERED: ACETAMINOPHEN SOLN 325 MG/10.15 ML UDCUP NG PRN (19:18)
[2017-03-31] MEDS: BUDESONIDE NEB 0.5 MG/2 ML AMPUL NEB SCH (21:07)
[2017-03-31] MEDS: ROPINIROLE HCL 2 MG TABLET NG SCH (22:13)
--- NOTE | 2017-03-31 22:49 | EKG REPORT ---
SEVERITY:- ABNORMAL ECG - SINUS TACHYCARDIA BORDERLINE RIGHT AXIS DEVIATION ABNORMAL T, CONSIDER ISCHEMIA, ANT-LAT LEADS : Confirmed by: Yevgeniy Rojas 31-Mar-2017 22:49:10
[2017-04-01] MEDS: PIPERACILLIN SODIUM/TAZOBACTAM 3.375 GM in NORMAL SALINE 100 ML IV SCH ×5 (00:32→23:23)
[2017-04-01] MEDS: PROPOFOL 100 ML IV PRN ×5 (00:34→23:23)
[2017-04-01] MEDS: MIDAZOLAM HCL 50 MG/100 ML RTUINJ IV PRN ×5 (00:34→21:23)
[2017-04-01] MEDS: IPRATROPIUM/ALBUTEROL 0.5-2.5 MG/3 ML AMPUL NEB SCH ×4 (01:42→20:03)
[2017-04-01 04:25] LABS: HEMATOCRIT 30.6 % (36.0-47.0); HEMOGLOBIN 9.7 g/dL (12.0-15.5); MEAN CORPUSCULAR HGB CONC 31.8 g/dL (32.0-36.0); MEAN CORPUSCULAR VOLUME 76 fl (80-97); PLATELET COUNT 237 10^3/uL (150-450); RED BLOOD COUNT 4.05 10^6/uL (3.72-5.28); RED CELL DISTRIBUTION WIDTH 15.4 % (11.5-14.0); WHITE BLOOD COUNT 23.3 10^3/uL (4.0-10.5)
[2017-04-01 04:35] LABS: ANION GAP 9 (5-19); BLOOD UREA NITROGEN 14 mg/dL (7-20); CALCIUM 8.7 mg/dL (8.4-10.2); CARBON DIOXIDE 28 mmol/L (22-30); CHLORIDE 107 mmol/L (98-107); CREATINE KINASE 40 U/L (30-135); GLUCOSE 162 mg/dL (75-110); POTASSIUM 3.4 mmol/L (3.6-5.0); SODIUM 143.8 mmol/L (137-145)
[2017-04-01 04:40] LABS: CREATINE KINASE MB 0.44 ng/mL (<4.55)
[2017-04-01 04:43] LABS: TROPONIN I < 0.012 ng/mL
[2017-04-01 04:58] LABS: ABSOLUTE LYMPHOCYTES# (MANUAL) 0.5 10^3/uL (0.5-4.7); ABSOLUTE MONOCYTES # (MANUAL) 1.4 10^3/uL (0.1-1.4); ABSOLUTE NEUTROPHILS# (MANUAL) 21.4 10^3/uL (1.7-8.2); BASOPHILS % (MANUAL) 0 % (0-2); EOSINOPHILS % (MANUAL) 0 % (0-6); LYMPHOCYTES % (MANUAL) 2 % (13-45); MONOCYTES % (MANUAL) 6 % (3-13); PLATELET COMMENT ADEQUATE; SEGMENTED NEUTROPHILS % (MAN) 92 % (42-78); TOTAL CELLS COUNTED 100
[2017-04-01 05:03] LABS: ANISOCYTOSIS 2+; HYPOCHROMASIA 2+; OVALOCYTES SLIGHT; POIKILOCYTOSIS 1+; SCHISTOCYTES SLIGHT; TARGET CELLS SLIGHT
[2017-04-01 05:04] LABS: PLATELET LARGE PRESENT
[2017-04-01] MEDS: HEPARIN SOD (PORCINE) 5,000 UNIT/ML 1 ML SYRINGE SUBCUT SCH ×3 (05:30→21:19)
[2017-04-01] MEDS: PANTOPRAZOLE SODIUM 40 MG VIAL IV SCH ×2 (05:31→17:49)
[2017-04-01] MEDS: METHYLPREDNISOLONE INJ 40 MG/1 ML SDV IV SCH ×3 (05:31→21:18)
[2017-04-01 05:43] LABS: ARTERIAL BLOOD BASE EXCESS 3.1 mmol/L; ARTERIAL BLOOD H2CO3 1.35 mmol/L (1.05-1.35); ARTERIAL BLOOD HCO3 28.1 mmol/L (20-26); ARTERIAL BLOOD O2 SATURATION 93.9 % (94-98); ARTERIAL BLOOD PH 7.41 (7.35-7.45); ARTERIAL BLOOD PO2 68.8 mmHg (80-100); ARTERIAL BLOOD TOTAL CO2 29.5 mmol/L (21-25)
[2017-04-01 05:47] LABS: ARTERIAL BLOOD FIO2 35%
--- NOTE | 2017-04-01 06:17 | RADIOLOGY REPORT (SQ) ---
EXAM DESCRIPTION: CHEST SINGLE VIEW CLINICAL HISTORY: resp failure COMPARISON: 03/31/2017 FINDINGS: Single frontal view of the chest. Endotracheal tube with tip just below the clavicles. NG tube with tip in the stomach. Heart is not enlarged. No consolidation, pneumothorax, or pleural effusion. No displaced rib fractures identified. Upper abdominal soft tissues are unremarkable. IMPRESSION: 1. Stable appearance of the chest.
[2017-04-01] MEDS: BUDESONIDE NEB 0.5 MG/2 ML AMPUL NEB SCH ×2 (08:06→20:02)
[2017-04-01] MEDS ORDERED: HYDROCHLOROTHIAZIDE 25 MG TABLET NG SCH (10:00)
[2017-04-01] MEDS: METOPROLOL TARTRATE 100 MG TABLET NG SCH ×2 (10:46→21:18)
[2017-04-01] MEDS: ROFLUMILAST 500 MCG TABLET NG SCH (10:46)
[2017-04-01] MEDS: AMLODIPINE BESYLATE 5 MG TABLET NG SCH (10:48)
[2017-04-01] MEDS: RALOXIFENE HCL 60 MG TABLET NG SCH (10:49)
[2017-04-01] MEDS ORDERED: POTASSI CL 20 MEQ/D5-1/2NS 1L 1,000 ML IV PRN (14:13)
[2017-04-01] MEDS ORDERED: INSULIN LISPRO 100 UNIT/ML 3 ML VIAL SUBCUT PRN (14:14)
--- NOTE | 2017-04-01 14:24 | PDOC PROGRESS REPORT ---
Subjective Progress Note for:: 04/01/17 Subjective:: Unable to obtain since intubated and sedated Review of systems Unable to obtain since sedated and intubated All significant laboratories and diagnostics have been reviewed Reason For Visit: COPD EXACERBATION PNEUMONIA Physical Exam Vital Signs: Temp Pulse Resp BP Pulse Ox 97.7 F 92 20 103/71 97 04/01/17 06:24 04/01/17 01:40 04/01/17 06:24 04/01/17 06:24 04/01/17 06:24 Intake & Output 03/31/17 04/01/17 04/02/17 06:59 06:59 06:59 Intake Total 84 2358 Output Total 60 1670 Balance 24 688 Weight 77.4 kg 78.5 kg General appearance: PRESENT: other Head exam: PRESENT: atraumatic, normocephalic - sedated Eye exam: PRESENT: conjunctiva pink, EOMI, PERRLA Mouth exam: PRESENT: moist Neck exam: PRESENT: full ROM. ABSENT: JVD, lymphadenopathy, tenderness Respiratory exam: PRESENT: clear to auscultation sandie Cardiovascular exam: PRESENT: RRR. ABSENT: diastolic murmur, systolic murmur Vascular exam: PRESENT: normal capillary refill GI/Abdominal exam: PRESENT: normal bowel sounds, soft Extremities exam: PRESENT: +1 edema Neurological exam: PRESENT: other - sedated Skin exam: PRESENT: intact, normal color Results Laboratory Results: 04/01/17 03:51 04/01/17 03:51 03/31/17 03/31/17 04/01/17 06:25 08:00 03:51 WBC 23.3 H RBC 4.05 Hgb 9.7 L Hct 30.6 L MCV 76 L MCH 24.0 L MCHC 31.8 L RDW 15.4 H Plt Count 237 Seg Neutrophils % Not Reportable Lymphocytes % Not Reportable Monocytes % Not Reportable Eosinophils % Not Reportable Basophils % Not Reportable Absolute Neutrophils Not Reportable Absolute Lymphocytes Not Reportable Absolute Monocytes Not Reportable Absolute Eosinophils Not Reportable Absolute Basophils Not Reportable Carbonic Acid 1.70 H HCO3/H2CO3 Ratio 16:1 ABG pH 7.32 L ABG pCO2 56.6 H ABG pO2 80.8 ABG HCO3 28.6 H ABG O2 Saturation 94.9 ABG Base Excess 1.7 FiO2 40% Sodium 144.0 Potassium 3.6 Chloride 100 Carbon Dioxide 32 H Anion Gap 12 BUN 19 Creatinine 0.69 Est GFR ( Amer) > 60 Est GFR (Non-Af Amer) > 60 Glucose 130 H Calcium 9.0 Magnesium Iron 38.1 TIBC 286 % Saturation 13 Ferritin 200.00 Vitamin B12 759.0 Folate 9.67 04/01/17 04/01/17 03:51 05:28 WBC RBC Hgb Hct MCV MCH MCHC RDW Plt Count Seg Neutrophils % Lymphocytes % Monocytes % Eosinophils % Basophils % Absolute Neutrophils Absolute Lymphocytes Absolute Monocytes Absolute Eosinophils Absolute Basophils Carbonic Acid 1.35 HCO3/H2CO3 Ratio 20:1 ABG pH 7.41 ABG pCO2 45.0 ABG pO2 68.8 L ABG HCO3 28.1 H ABG O2 Saturation 93.9 L ABG Base Excess 3.1 FiO2 35% Sodium 143.8 Potassium 3.4 L Chloride 107 Carbon Dioxide 28 Anion Gap 9 BUN 14 Creatinine 0.64 Est GFR ( Amer) > 60 Est GFR (Non-Af Amer) > 60 Glucose 162 H Calcium 8.7 Magnesium 2.3 Iron TIBC % Saturation Ferritin Vitamin B12 Folate 03/31/17 03/31/17 03/31/17 02:43 06:25 06:25 Creatine Kinase 61 CK-MB (CK-2) 0.98 Troponin I < 0.012 NT-Pro-B Natriuret Pep Cancelled 123 04/01/17 04/01/17 03:51 03:51 Creatine Kinase 40 CK-MB (CK-2) 0.44 Troponin I < 0.012 NT-Pro-B Natriuret Pep Impressions: Chest X-Ray 04/01/17 06:00 IMPRESSION: 1. Stable appearance of the chest. Assessment & Plan - Diagnosis (1) Encephalopathy acute Is this a current diagnosis for this admission?: Yes Plan: Likely due to CO2 narcosis (2) COPD exacerbation Is this a current diagnosis for this admission?: Yes Plan: Continue current management (3) Acute and chronic respiratory failure with hypercapnia Is this a current diagnosis for this admission?: Yes Plan: Patient still requiring ventilatory support. Dr. Guerra assisting in ventilator management (4) Essential (primary) hypertension Is this a current diagnosis for this admission?: Yes Plan: Continue outpatient regimen (5) PAH (pulmonary artery hypertension) Is this a current diagnosis for this admission?: Yes Plan: Add Lasix IV (6) Hypokalemia Is this a current diagnosis for this admission?: Yes Plan: Replace IV and trend (7) Hyperglycemia Is this a current diagnosis for this admission?: Yes Plan: To place on Humalog sliding scale and check bedside glucose every 6 hours - Time Time Spent with patient: 15-24 minutes Medications reviewed and adjusted accordingly: Yes Anticipated discharge: Acute Rehab Within: within 72 hours - Inpatient Certification Based on my medical assessment, after consideration of the patient's comorbidities, presenting symptoms, or acuity I expect that the services needed warrant INPATIENT care.: Yes I certify that my determination is in accordance with my understanding of Medicare's requirements for reasonable and necessary INPATIENT services [42 CFR 412.3e].: Yes Medical Necessity: Need Close Monitoring Due to Risk of Patient Decompensation, Need For IV Fluids, Need For Continuous Telemetry Monitoring, Need for Nebulizer Therapy and Monitoring of Response - Ventilatory support
[2017-04-01] MEDS: POTASSI CL 20 MEQ/D5-1/2NS 1L 1,000 ML IV PRN (14:44)
[2017-04-01] MEDS: ROPINIROLE HCL 2 MG TABLET NG SCH (21:18)
[2017-04-01] MEDS: FUROSEMIDE INJ/PF 20 MG/2 ML SDV IV SCH (21:18)
[2017-04-02] MEDS: IPRATROPIUM/ALBUTEROL 0.5-2.5 MG/3 ML AMPUL NEB SCH ×4 (02:02→19:32)
[2017-04-02] MEDS: PROPOFOL 100 ML IV PRN (04:07)
[2017-04-02 04:37] LABS: ANION GAP 8 (5-19); BLOOD UREA NITROGEN 16 mg/dL (7-20); CALCIUM 8.9 mg/dL (8.4-10.2); CARBON DIOXIDE 32 mmol/L (22-30); CHLORIDE 105 mmol/L (98-107); GLUCOSE 136 mg/dL (75-110); POTASSIUM 3.4 mmol/L (3.6-5.0); SODIUM 145.4 mmol/L (137-145)
[2017-04-02] MEDS: PIPERACILLIN SODIUM/TAZOBACTAM 3.375 GM in NORMAL SALINE 100 ML IV SCH ×4 (05:13→23:35)
[2017-04-02] MEDS: HEPARIN SOD (PORCINE) 5,000 UNIT/ML 1 ML SYRINGE SUBCUT SCH ×3 (05:14→21:03)
[2017-04-02] MEDS: PANTOPRAZOLE SODIUM 40 MG VIAL IV SCH ×2 (05:14→17:28)
[2017-04-02] MEDS: METHYLPREDNISOLONE INJ 40 MG/1 ML SDV IV SCH ×2 (05:14→17:28)
[2017-04-02] MEDS: POTASSI CL 20 MEQ/D5-1/2NS 1L 1,000 ML IV PRN (05:15)
[2017-04-02 05:26] LABS: BAND NEUTROPHILS % (MANUAL) 1 % (3-5); BASOPHILS % (MANUAL) 0 % (0-2); EOSINOPHILS % (MANUAL) 0 % (0-6); LYMPHOCYTES % (MANUAL) 4 % (13-45); MONOCYTES % (MANUAL) 5 % (3-13); SEGMENTED NEUTROPHILS % (MAN) 90 % (42-78); TOTAL CELLS COUNTED 100
[2017-04-02 05:28] LABS: HYPOCHROMASIA 1+
[2017-04-02 05:29] LABS: ANISOCYTOSIS SLIGHT; PLATELET COMMENT ADEQUATE; POIKILOCYTOSIS SLIGHT; SCHISTOCYTES SLIGHT
[2017-04-02 05:35] LABS: ABSOLUTE MONOCYTES (AUTO) 1.3 10^3/uL (0.1-1.4); HEMOGLOBIN 10.6 g/dL (12.0-15.5); LYMPHOCYTES % (AUTO) 4.1 % (13-45); MEAN CORPUSCULAR HEMOGLOBIN 23.8 pg (27.0-33.4); MEAN CORPUSCULAR HGB CONC 31.1 g/dL (32.0-36.0); MEAN CORPUSCULAR VOLUME 77 fl (80-97); MONOCYTES % (AUTO) 5.6 % (3-13); PLATELET COUNT 268 10^3/uL (150-450); RED BLOOD COUNT 4.44 10^6/uL (3.72-5.28); RED CELL DISTRIBUTION WIDTH 15.9 % (11.5-14.0); SEGMENTED NEUTROPHILS % (AUTO) 90.3 % (42-78); TOTAL CELLS COUNTED % (AUTO) 100 %; WHITE BLOOD COUNT 23.3 10^3/uL (4.0-10.5)
[2017-04-02 05:38] LABS: ARTERIAL BLOOD BASE EXCESS 6.4 mmol/L; ARTERIAL BLOOD FIO2 35%; ARTERIAL BLOOD H2CO3 1.39 mmol/L (1.05-1.35); ARTERIAL BLOOD HCO3 31.2 mmol/L (20-26); ARTERIAL BLOOD PCO2 46.2 mmHg (35-45); ARTERIAL BLOOD PH 7.45 (7.35-7.45); ARTERIAL BLOOD TOTAL CO2 32.7 mmol/L (21-25)
--- NOTE | 2017-04-02 07:27 | RADIOLOGY REPORT (SQ) ---
EXAM DESCRIPTION: CHEST SINGLE VIEW CLINICAL HISTORY: pna COMPARISON: 04/01/2017 FINDINGS: Single frontal view of the chest. Endotracheal tube with tip just below the clavicles. NG tube with tip in the stomach. Heart is not enlarged. No consolidation, pneumothorax, or pleural effusion. No displaced rib fractures identified. Upper abdominal soft tissues are unremarkable. IMPRESSION: 1. Stable appearance of the chest. Electronically signed by: Corwin Angelo 04/02/2017 6:25 AM
[2017-04-02] MEDS: BUDESONIDE NEB 0.5 MG/2 ML AMPUL NEB SCH ×2 (08:12→19:32)
[2017-04-02] MEDS: METOPROLOL TARTRATE 100 MG TABLET NG SCH ×2 (09:18→21:04)
[2017-04-02] MEDS: AMLODIPINE BESYLATE 5 MG TABLET NG SCH (09:20)
[2017-04-02] MEDS: ROFLUMILAST 500 MCG TABLET NG SCH (09:20)
[2017-04-02] MEDS: RALOXIFENE HCL 60 MG TABLET NG SCH (09:22)
[2017-04-02] MEDS: FUROSEMIDE INJ/PF 20 MG/2 ML SDV IV SCH ×2 (09:24→21:03)
[2017-04-02] MEDS ORDERED: POTASSIUM CHLORIDE 20 MEQ/15 ML UDCUP PO SCH (10:00)
[2017-04-02 13:44] LABS: ARTERIAL BLOOD BASE EXCESS 9.3 mmol/L; ARTERIAL BLOOD H2CO3 1.75 mmol/L (1.05-1.35); ARTERIAL BLOOD HCO3 35.7 mmol/L (20-26); ARTERIAL BLOOD O2 SATURATION 95.1 % (94-98); ARTERIAL BLOOD PCO2 58.3 mmHg (35-45); ARTERIAL BLOOD PH 7.41 (7.35-7.45); ARTERIAL BLOOD PO2 76.8 mmHg (80-100); ARTERIAL BLOOD TOTAL CO2 37.5 mmol/L (21-25)
[2017-04-02 13:46] LABS: ARTERIAL BLOOD FIO2 40%
--- NOTE | 2017-04-02 15:59 | PDOC PROGRESS REPORT ---
Subjective Progress Note for:: 04/02/17 Subjective:: Patient is still intubated but is not sedated. Denies shortness of breath, chest pain or abdominal pain Review of systems All organ systems evaluated and negative except as in subjective All significant laboratories and diagnostics have been reviewed Reason For Visit: COPD EXACERBATION PNEUMONIA Physical Exam Vital Signs: Temp Pulse Resp BP Pulse Ox 98.4 F 82 20 127/81 H 99 04/02/17 06:00 04/02/17 07:52 04/02/17 06:00 04/02/17 05:54 04/02/17 04:24 Intake & Output 04/01/17 04/02/17 04/03/17 06:59 06:59 06:59 Intake Total 2358 2832 Output Total 1670 3600 Balance 688 -768 Weight 78.5 kg 79.7 kg General appearance: PRESENT: cooperative, obese Head exam: PRESENT: atraumatic, normocephalic Eye exam: PRESENT: conjunctiva pink, EOMI, PERRLA Ear exam: PRESENT: normal external ear exam Mouth exam: PRESENT: moist Neck exam: PRESENT: full ROM. ABSENT: JVD, lymphadenopathy, tenderness Respiratory exam: PRESENT: clear to auscultation sandie Cardiovascular exam: PRESENT: RRR. ABSENT: diastolic murmur, systolic murmur Vascular exam: PRESENT: normal capillary refill GI/Abdominal exam: PRESENT: normal bowel sounds, soft. ABSENT: tenderness Extremities exam: PRESENT: full ROM. ABSENT: joint swelling, pedal edema Musculoskeletal exam: PRESENT: ambulatory Neurological exam: PRESENT: alert, awake, oriented to person, oriented to place , oriented to time, oriented to situation, CN II-XII grossly intact Psychiatric exam: PRESENT: appropriate affect, normal mood Skin exam: PRESENT: intact, normal color Results Laboratory Results: 04/02/17 03:51 04/02/17 03:51 04/02/17 04/02/17 04/02/17 03:51 03:51 05:26 WBC 23.3 H RBC 4.44 Hgb 10.6 L Hct 34.0 L MCV 77 L MCH 23.8 L MCHC 31.1 L RDW 15.9 H Plt Count 268 Seg Neutrophils % 90.3 H Lymphocytes % 4.1 L Monocytes % 5.6 Eosinophils % 0.0 Basophils % 0.0 Absolute Neutrophils 21.0 H Absolute Lymphocytes 1.0 Absolute Monocytes 1.3 Absolute Eosinophils 0.0 Absolute Basophils 0.0 Carbonic Acid 1.39 H HCO3/H2CO3 Ratio 22:1 ABG pH 7.45 ABG pCO2 46.2 H ABG pO2 79.0 L ABG HCO3 31.2 H ABG O2 Saturation 96.0 ABG Base Excess 6.4 FiO2 35% Sodium 145.4 H Potassium 3.4 L Chloride 105 Carbon Dioxide 32 H Anion Gap 8 BUN 16 Creatinine 0.76 Est GFR ( Amer) > 60 Est GFR (Non-Af Amer) > 60 Glucose 136 H Calcium 8.9 Magnesium 2.4 H 03/31/17 03/31/17 03/31/17 02:43 06:25 06:25 Creatine Kinase 61 CK-MB (CK-2) 0.98 Troponin I < 0.012 NT-Pro-B Natriuret Pep Cancelled 123 04/01/17 04/01/17 03:51 03:51 Creatine Kinase 40 CK-MB (CK-2) 0.44 Troponin I < 0.012 NT-Pro-B Natriuret Pep Impressions: Chest X-Ray 04/02/17 06:00 IMPRESSION: 1. Stable appearance of the chest. Assessment & Plan - Diagnosis (1) Encephalopathy acute Is this a current diagnosis for this admission?: Yes Plan: Likely due to CO2 narcosis. Resolved (2) COPD exacerbation Is this a current diagnosis for this admission?: Yes Plan: Continue current management (3) Acute and chronic respiratory failure with hypercapnia Is this a current diagnosis for this admission?: Yes Plan: Patient still requiring ventilatory support. Dr. Guerra assisting in ventilator management. Expect for patient to be extubated today (4) Essential (primary) hypertension Is this a current diagnosis for this admission?: Yes Plan: Continue outpatient regimen (5) PAH (pulmonary artery hypertension) Is this a current diagnosis for this admission?: Yes Plan: Add Lasix IV (6) Hypokalemia Is this a current diagnosis for this admission?: Yes Plan: Replace po and trend (7) Hyperglycemia Is this a current diagnosis for this admission?: Yes Plan: Continue Humalog sliding scale and check bedside glucose every 6 hours - Time Time Spent with patient: 15-24 minutes Medications reviewed and adjusted accordingly: Yes Anticipated discharge: Home with Homehealth Within: within 72 hours - Inpatient Certification Based on my medical assessment, after consideration of the patient's comorbidities, presenting symptoms, or acuity I expect that the services needed warrant INPATIENT care.: Yes I certify that my determination is in accordance with my understanding of Medicare's requirements for reasonable and necessary INPATIENT services [42 CFR 412.3e].: Yes Medical Necessity: Need Close Monitoring Due to Risk of Patient Decompensation, Need For Continuous Telemetry Monitoring
--- NOTE | 2017-04-02 16:18 | Physician Advisory Note ---
Physician Advisor ProgressNote .: Pursuant to the plan for [facility], I have reviewed the medical record for this patient. Physician Advisor Statement: Nice documentation of Ac encephalopathy due to CO2 narcosis - & ED note describes findings well, w/total GCS=3 initially. (H&P not yet visible on chart.) Please consider documenting, if you agree: 1. "Acute hypernatremia, suspect due to " 2. Findings supporting dx of COPD exacerbation. Thanks! CK
[2017-04-02] MEDS: ROPINIROLE HCL 2 MG TABLET NG SCH (21:04)
[2017-04-02] MEDS: GUAIFENESIN 600 MG TABLET.SA PO SCH (21:04)
[2017-04-03] MEDS: IPRATROPIUM/ALBUTEROL 0.5-2.5 MG/3 ML AMPUL NEB SCH ×4 (02:12→19:50)
--- NOTE | 2017-04-03 03:29 | Progress Note ---
Provider Note Provider Note: Necrotizing fasciitis. Surgeon called hospitalist for [facility] to bring patient emergently to the OR for exploration of her leg wound. Consent was signed by myself and the surgeon. Patient found to have necrotizing fasciitis that required a 35 cm incision debridement. It does not appear to be spreading is localized. Hospitalist was advised to transfer patient to the ICU and to broaden antibiotic coverage. Patient is currently on Zyvox Zosyn and Flagyl.
[2017-04-03 04:38] LABS: ARTERIAL BLOOD BASE EXCESS 11.8 mmol/L; ARTERIAL BLOOD H2CO3 1.43 mmol/L (1.05-1.35); ARTERIAL BLOOD HCO3 36.4 mmol/L (20-26); ARTERIAL BLOOD PCO2 47.6 mmHg (35-45); ARTERIAL BLOOD TOTAL CO2 37.8 mmol/L (21-25)
[2017-04-03 04:40] LABS: ARTERIAL BLOOD FIO2 40%
[2017-04-03] MEDS: PIPERACILLIN SODIUM/TAZOBACTAM 3.375 GM in NORMAL SALINE 100 ML IV SCH ×4 (05:02→23:24)
[2017-04-03] MEDS: PANTOPRAZOLE SODIUM 40 MG VIAL IV SCH (05:02)
[2017-04-03] MEDS: METHYLPREDNISOLONE INJ 40 MG/1 ML SDV IV SCH ×2 (05:02→17:33)
[2017-04-03] MEDS: HEPARIN SOD (PORCINE) 5,000 UNIT/ML 1 ML SYRINGE SUBCUT SCH ×3 (05:03→22:21)
--- NOTE | 2017-04-03 06:44 | RADIOLOGY REPORT (SQ) ---
EXAM DESCRIPTION: CHEST SINGLE VIEW CLINICAL HISTORY: resp failure COMPARISON: 04/14/2017 FINDINGS: Single frontal view of the chest. Interval removal of endotracheal tube and NG tube. Heart is not enlarged. No consolidation, pneumothorax, or pleural effusion. No displaced rib fractures identified. Upper abdominal soft tissues are unremarkable. IMPRESSION: 1. Interval removal of endotracheal and NG tube. Otherwise stable appearance of the chest. Electronically signed by: Corwin Angelo 04/03/2017 5:43 AM [facility]
[2017-04-03 07:28] LABS: HEMATOCRIT 32.6 % (36.0-47.0); HEMOGLOBIN 10.4 g/dL (12.0-15.5); MEAN CORPUSCULAR VOLUME 75 fl (80-97); PLATELET COUNT 261 10^3/uL (150-450); RED BLOOD COUNT 4.34 10^6/uL (3.72-5.28); RED CELL DISTRIBUTION WIDTH 15.1 % (11.5-14.0); WHITE BLOOD COUNT 19.9 10^3/uL (4.0-10.5)
[2017-04-03 07:29] LABS: ANION GAP 7 (5-19); BLOOD UREA NITROGEN 24 mg/dL (7-20); CALCIUM 8.9 mg/dL (8.4-10.2); CARBON DIOXIDE 36 mmol/L (22-30); CHLORIDE 102 mmol/L (98-107); GLUCOSE 106 mg/dL (75-110); POTASSIUM 3.2 mmol/L (3.6-5.0)
[2017-04-03 08:08] LABS: ABSOLUTE LYMPHOCYTES# (MANUAL) 0.4 10^3/uL (0.5-4.7); ABSOLUTE MONOCYTES # (MANUAL) 1.6 10^3/uL (0.1-1.4); ABSOLUTE NEUTROPHILS# (MANUAL) 17.9 10^3/uL (1.7-8.2); ANISOCYTOSIS 2+; BAND NEUTROPHILS % (MANUAL) 1 % (3-5); BASOPHILS % (MANUAL) 0 % (0-2); EOSINOPHILS % (MANUAL) 0 % (0-6); HYPOCHROMASIA 2+; LYMPHOCYTES % (MANUAL) 2 % (13-45); METAMYELOCYTES % (MANUAL) 2 % (0); MONOCYTES % (MANUAL) 8 % (3-13); POIKILOCYTOSIS SLIGHT; POLYCHROMASIA 1+; SEGMENTED NEUTROPHILS % (MAN) 87 % (42-78); TOTAL CELLS COUNTED 100; TOXIC GRANULATION SLIGHT; TOXIC VACUOLATION PRESENT
[2017-04-03 08:09] LABS: PLATELET COMMENT ADEQUATE; SCHISTOCYTES SLIGHT
[2017-04-03] MEDS: BUDESONIDE NEB 0.5 MG/2 ML AMPUL NEB SCH ×2 (08:54→19:50)
[2017-04-03] MEDS ORDERED: POTASSIUM CHLORIDE 10 MEQ TABLET.SA PO SCH (09:00)
[2017-04-03] MEDS: ROFLUMILAST 500 MCG TABLET NG SCH (09:27)
[2017-04-03] MEDS: AZITHROMYCIN 250 MG TABLET PO SCH (09:27)
[2017-04-03] MEDS: METOPROLOL TARTRATE 100 MG TABLET NG SCH ×2 (09:28→22:20)
[2017-04-03] MEDS: GUAIFENESIN 600 MG TABLET.SA PO SCH ×2 (09:28→22:20)
[2017-04-03] MEDS: AMLODIPINE BESYLATE 5 MG TABLET NG SCH (09:28)
[2017-04-03] MEDS: RALOXIFENE HCL 60 MG TABLET NG SCH (09:30)
[2017-04-03] MEDS: POTASSIUM CHLORIDE 20 MEQ/15 ML UDCUP PO SCH ×3 (10:14→17:33)
--- NOTE | 2017-04-03 15:56 | PDOC PROGRESS REPORT ---
Subjective Progress Note for:: 04/03/17 Subjective:: Patient still having shortness of breath. She does not remember what happened to her. Nurse reports that patient drinks alcohol however patient relates that she only drinks a glass of wine daily. Patient also complains of being hungry Review of systems All organ systems evaluated and negative except as in subjective All significant laboratories and diagnostics have been reviewed Reason For Visit: COPD EXACERBATION PNEUMONIA Physical Exam Vital Signs: Temp Pulse Resp BP Pulse Ox 99.1 F 94 11 L 145/88 H 96 04/03/17 06:45 04/03/17 02:15 04/03/17 06:45 04/03/17 06:25 04/03/17 06:45 Intake & Output 04/02/17 04/03/17 04/04/17 06:59 06:59 06:59 Intake Total 2832 1542 Output Total 3600 9435 Balance -768 -3887 Weight 79.7 kg 76.9 kg General appearance: PRESENT: cooperative, obese Head exam: PRESENT: atraumatic, normocephalic Eye exam: PRESENT: conjunctiva pink, EOMI, PERRLA Ear exam: PRESENT: normal external ear exam Mouth exam: PRESENT: moist, neck supple Neck exam: PRESENT: full ROM. ABSENT: JVD, lymphadenopathy, tenderness Respiratory exam: PRESENT: crackles, decreased breath sounds Cardiovascular exam: PRESENT: RRR. ABSENT: diastolic murmur, systolic murmur Vascular exam: PRESENT: normal capillary refill GI/Abdominal exam: PRESENT: normal bowel sounds, soft. ABSENT: tenderness Extremities exam: PRESENT: full ROM. ABSENT: pedal edema Neurological exam: PRESENT: alert, awake, oriented to person, oriented to place , oriented to time, oriented to situation, CN II-XII grossly intact Psychiatric exam: PRESENT: appropriate affect, normal mood Skin exam: PRESENT: intact, normal color Results Laboratory Results: 04/02/17 04/03/17 13:30 04:29 Carbonic Acid 1.75 H 1.43 H HCO3/H2CO3 Ratio 20:1 25:1 ABG pH 7.41 7.50 H ABG pCO2 58.3 H 47.6 H ABG pO2 76.8 L 69.0 L ABG HCO3 35.7 H 36.4 H ABG O2 Saturation 95.1 95.0 ABG Base Excess 9.3 11.8 FiO2 40% 40% 03/31/17 08:00 Tracheal Aspirate Gram Stain - Final 03/31/17 08:00 Tracheal Aspirate Sputum Culture - Final NORMAL HERNANDEZ 03/31/17 16:10 Catheterized Urine Urine Culture - Final NO GROWTH 2 DAYS 03/31/17 03/31/17 03/31/17 02:43 06:25 06:25 Creatine Kinase 61 CK-MB (CK-2) 0.98 Troponin I < 0.012 NT-Pro-B Natriuret Pep Cancelled 123 04/01/17 04/01/17 03:51 03:51 Creatine Kinase 40 CK-MB (CK-2) 0.44 Troponin I < 0.012 NT-Pro-B Natriuret Pep Impressions: Chest X-Ray 04/03/17 06:00 IMPRESSION: 1. Interval removal of endotracheal and NG tube. Otherwise stable appearance of the chest. Assessment & Plan - Diagnosis (1) Encephalopathy acute Is this a current diagnosis for this admission?: Yes Plan: Likely due to CO2 narcosis. Resolved (2) COPD exacerbation Is this a current diagnosis for this admission?: Yes Plan: Continue current management (3) Acute and chronic respiratory failure with hypercapnia Is this a current diagnosis for this admission?: Yes Plan: Patient successfully extubated. Now on BiPAP and being followed up by Dr. Guerra (4) Essential (primary) hypertension Is this a current diagnosis for this admission?: Yes Plan: Continue present management (5) PAH (pulmonary artery hypertension) Is this a current diagnosis for this admission?: Yes Plan: Continue Lasix IV and oral (6) Hypokalemia Is this a current diagnosis for this admission?: Yes Plan: Continue replacing orally and trend (7) Hyperglycemia Is this a current diagnosis for this admission?: Yes Plan: Continue Humalog sliding scale and check bedside glucose every 6 hours. Order hemoglobin A1c (8) Alcohol use Is this a current diagnosis for this admission?: Yes Plan: Patient educated about side effects of alcohol including respiratory depression especially when taking Xanax - Time Time Spent with patient: 15-24 minutes Medications reviewed and adjusted accordingly: Yes Anticipated discharge: Home with Homehealth Within: within 72 hours - Inpatient Certification Based on my medical assessment, after consideration of the patient's comorbidities, presenting symptoms, or acuity I expect that the services needed warrant INPATIENT care.: Yes I certify that my determination is in accordance with my understanding of Medicare's requirements for reasonable and necessary INPATIENT services [42 CFR 412.3e].: Yes Medical Necessity: Need Close Monitoring Due to Risk of Patient Decompensation, Need for Nebulizer Therapy and Monitoring of Response
[2017-04-03] MEDS: ROPINIROLE HCL 2 MG TABLET NG SCH (22:19)
[2017-04-03] MEDS: ALPRAZOLAM 0.5 MG TABLET PO SCH (22:21)
[2017-04-04] MEDS: IPRATROPIUM/ALBUTEROL 0.5-2.5 MG/3 ML AMPUL NEB SCH ×4 (02:19→20:45)
[2017-04-04 04:26] LABS: HEMATOCRIT 32.8 % (36.0-47.0); HEMOGLOBIN 10.4 g/dL (12.0-15.5); MEAN CORPUSCULAR HEMOGLOBIN 24.4 pg (27.0-33.4); MEAN CORPUSCULAR HGB CONC 31.8 g/dL (32.0-36.0); MEAN CORPUSCULAR VOLUME 77 fl (80-97); PLATELET COUNT 256 10^3/uL (150-450); RED BLOOD COUNT 4.28 10^6/uL (3.72-5.28); RED CELL DISTRIBUTION WIDTH 15.7 % (11.5-14.0); WHITE BLOOD COUNT 15.4 10^3/uL (4.0-10.5)
[2017-04-04 04:35] LABS: ALANINE AMINOTRANSFERASE 25 U/L (9-52); ALBUMIN 3.6 g/dL (3.5-5.0); ALKALINE PHOSPHATASE 53 U/L (38-126); ASPARTATE AMINO TRANSFERASE 18 U/L (14-36); BILIRUBIN,DIRECT 0.1 mg/dL (0.0-0.4); BILIRUBIN,TOTAL 0.3 mg/dL (0.2-1.3); BLOOD UREA NITROGEN 22 mg/dL (7-20); CALCIUM 9.2 mg/dL (8.4-10.2); GLUCOSE 113 mg/dL (75-110); TOTAL PROTEIN 5.7 g/dL (6.3-8.2)
[2017-04-04 04:45] LABS: ANION GAP 6 (5-19); CARBON DIOXIDE 35 mmol/L (22-30); CHLORIDE 105 mmol/L (98-107); SODIUM 145.5 mmol/L (137-145)
[2017-04-04 04:48] LABS: POTASSIUM 4.7 mmol/L (3.6-5.0)
[2017-04-04 05:00] LABS: ABSOLUTE LYMPHOCYTES# (MANUAL) 0.8 10^3/uL (0.5-4.7); ABSOLUTE NEUTROPHILS# (MANUAL) 14.6 10^3/uL (1.7-8.2); BASOPHILS % (MANUAL) 0 % (0-2); EOSINOPHILS % (MANUAL) 0 % (0-6); LYMPHOCYTES % (MANUAL) 4 % (13-45); MONOCYTES % (MANUAL) 0 % (3-13); SEGMENTED NEUTROPHILS % (MAN) 95 % (42-78); TOTAL CELLS COUNTED 100
[2017-04-04 05:02] LABS: ANISOCYTOSIS 1+; HYPOCHROMASIA 1+; OVALOCYTES SLIGHT; PLATELET COMMENT ADEQUATE; POIKILOCYTOSIS 2+; POLYCHROMASIA SLIGHT; SCHISTOCYTES 1+; STOMATOCYTES 1+; TARGET CELLS SLIGHT; TEAR DROP CELLS SLIGHT
[2017-04-04] MEDS: PIPERACILLIN SODIUM/TAZOBACTAM 3.375 GM in NORMAL SALINE 100 ML IV SCH (05:03)
[2017-04-04] MEDS: METHYLPREDNISOLONE INJ 40 MG/1 ML SDV IV SCH ×2 (05:05→17:53)
[2017-04-04] MEDS: HEPARIN SOD (PORCINE) 5,000 UNIT/ML 1 ML SYRINGE SUBCUT SCH ×3 (05:05→22:30)
[2017-04-04 05:33] LABS: ARTERIAL BLOOD BASE EXCESS 6.8 mmol/L; ARTERIAL BLOOD FIO2 40%; ARTERIAL BLOOD H2CO3 1.76 mmol/L (1.05-1.35); ARTERIAL BLOOD HCO3 33.4 mmol/L (20-26); ARTERIAL BLOOD O2 SATURATION 97.5 % (94-98); ARTERIAL BLOOD PCO2 58.5 mmHg (35-45); ARTERIAL BLOOD PH 7.38 (7.35-7.45); ARTERIAL BLOOD PO2 103.5 mmHg (80-100); ARTERIAL BLOOD TOTAL CO2 35.2 mmol/L (21-25)
[2017-04-04] MEDS ORDERED: ACETAMINOPHEN 325 MG TABLET ONE (06:09)
[2017-04-04] MEDS ORDERED: ACETAMINOPHEN 325 MG TABLET PO PRN (06:16)
[2017-04-04] MEDS: BUDESONIDE NEB 0.5 MG/2 ML AMPUL NEB SCH ×2 (07:58→20:45)
--- NOTE | 2017-04-04 10:43 | PDOC PROGRESS REPORT ---
Subjective Progress Note for:: 04/04/17 Subjective:: Patient complains of still being short of breath. Was able to eat but not much. She slept like about 2 hours last night Review of systems All organ systems evaluated and negative except as in subjective All significant laboratories and diagnostics have been reviewed Reason For Visit: COPD EXACERBATION PNEUMONIA Physical Exam Vital Signs: Temp Pulse Resp BP Pulse Ox 98.2 F 77 16 126/87 H 100 04/04/17 05:00 04/04/17 02:19 04/04/17 06:00 04/04/17 05:25 04/04/17 06:00 Intake & Output 04/03/17 04/04/17 04/05/17 06:59 06:59 06:59 Intake Total 1542 757 Output Total 3435 990 Balance -1893 -233 Weight 76.9 kg 77.4 kg General appearance: PRESENT: cooperative, obese Head exam: PRESENT: atraumatic, normocephalic Eye exam: PRESENT: conjunctiva pink, EOMI, PERRLA Ear exam: PRESENT: normal external ear exam, TM's normal bilaterally Neck exam: PRESENT: full ROM. ABSENT: JVD, lymphadenopathy, tenderness Respiratory exam: PRESENT: decreased breath sounds, other - Scattered wheezes Cardiovascular exam: PRESENT: RRR. ABSENT: diastolic murmur, systolic murmur Vascular exam: PRESENT: normal capillary refill GI/Abdominal exam: PRESENT: normal bowel sounds, soft. ABSENT: tenderness Extremities exam: PRESENT: full ROM. ABSENT: pedal edema Musculoskeletal exam: ABSENT: ambulatory Neurological exam: PRESENT: alert, awake, oriented to person, oriented to place , oriented to time, oriented to situation, CN II-XII grossly intact Psychiatric exam: PRESENT: appropriate affect, normal mood Skin exam: PRESENT: intact, normal color Results Laboratory Results: 04/04/17 03:48 04/04/17 03:48 04/03/17 04/03/17 04/04/17 07:00 07:00 03:48 WBC 19.9 H 15.4 H RBC 4.34 4.28 Hgb 10.4 L 10.4 L Hct 32.6 L 32.8 L MCV 75 L 77 L MCH 24.0 L 24.4 L MCHC 32.0 31.8 L RDW 15.1 H 15.7 H Plt Count 261 256 Seg Neutrophils % Not Reportable Not Reportable Lymphocytes % Not Reportable Not Reportable Monocytes % Not Reportable Not Reportable Eosinophils % Not Reportable Not Reportable Basophils % Not Reportable Not Reportable Absolute Neutrophils Not Reportable Not Reportable Absolute Lymphocytes Not Reportable Not Reportable Absolute Monocytes Not Reportable Not Reportable Absolute Eosinophils Not Reportable Not Reportable Absolute Basophils Not Reportable Not Reportable Carbonic Acid HCO3/H2CO3 Ratio ABG pH ABG pCO2 ABG pO2 ABG HCO3 ABG O2 Saturation ABG Base Excess FiO2 Sodium 145.0 Potassium 3.2 L Chloride 102 Carbon Dioxide 36 H Anion Gap 7 BUN 24 H Creatinine 0.70 Est GFR ( Amer) > 60 Est GFR (Non-Af Amer) > 60 Glucose 106 Calcium 8.9 Magnesium 2.4 H Total Bilirubin AST ALT Alkaline Phosphatase Total Protein Albumin 04/04/17 04/04/17 03:48 05:18 WBC RBC Hgb Hct MCV MCH MCHC RDW Plt Count Seg Neutrophils % Lymphocytes % Monocytes % Eosinophils % Basophils % Absolute Neutrophils Absolute Lymphocytes Absolute Monocytes Absolute Eosinophils Absolute Basophils Carbonic Acid 1.76 H HCO3/H2CO3 Ratio 18:1 ABG pH 7.38 ABG pCO2 58.5 H ABG pO2 103.5 H ABG HCO3 33.4 H ABG O2 Saturation 97.5 ABG Base Excess 6.8 FiO2 40% Sodium 145.5 H Potassium 4.7 D Chloride 105 Carbon Dioxide 35 H Anion Gap 6 BUN 22 H Creatinine 0.67 Est GFR ( Amer) > 60 Est GFR (Non-Af Amer) > 60 Glucose 113 H Calcium 9.2 Magnesium 2.5 H Total Bilirubin 0.3 AST 18 ALT 25 Alkaline Phosphatase 53 Total Protein 5.7 L Albumin 3.6 03/31/17 03/31/17 03/31/17 02:43 06:25 06:25 Creatine Kinase 61 CK-MB (CK-2) 0.98 Troponin I < 0.012 NT-Pro-B Natriuret Pep Cancelled 123 04/01/17 04/01/17 03:51 03:51 Creatine Kinase 40 CK-MB (CK-2) 0.44 Troponin I < 0.012 NT-Pro-B Natriuret Pep Impressions: Chest X-Ray 04/03/17 06:00 IMPRESSION: 1. Interval removal of endotracheal and NG tube. Otherwise stable appearance of the chest. Assessment & Plan - Diagnosis (1) Encephalopathy acute Is this a current diagnosis for this admission?: Yes Plan: Likely due to CO2 narcosis. Resolved (2) COPD exacerbation Is this a current diagnosis for this admission?: Yes Plan: Continue current management (3) Acute and chronic respiratory failure with hypercapnia Is this a current diagnosis for this admission?: Yes Plan: Continue BiPAP and being followed up by Dr. Guerra (4) Essential (primary) hypertension Is this a current diagnosis for this admission?: Yes Plan: Continue present management (5) PAH (pulmonary artery hypertension) Is this a current diagnosis for this admission?: Yes Plan: Continue Lasix IV (6) Hypokalemia Is this a current diagnosis for this admission?: Yes Plan: Resolved (7) Hyperglycemia Is this a current diagnosis for this admission?: Yes Plan: Continue Humalog sliding scale and check bedside glucose every 6 hours. Noted A1C (8) Alcohol use Is this a current diagnosis for this admission?: Yes Plan: Patient educated about side effects of alcohol including respiratory depression especially when taking Xanax (9) Leukocytosis Qualifiers: Leukocytosis type: unspecified Qualified Code(s): D72.829 - Elevated white blood cell count, unspecified Is this a current diagnosis for this admission?: Yes Plan: To change to augment and continue zithromax. Order CT of chest (10) HTN (hypertension) Qualifiers: Hypertension type: essential hypertension Qualified Code(s): I10 - Essential (primary) hypertension Is this a current diagnosis for this admission?: Yes Plan: Continue norvasc and toprol xl - Time Time Spent with patient: 15-24 minutes Medications reviewed and adjusted accordingly: Yes Anticipated discharge: Home Within: within 72 hours, Other - Inpatient Certification Based on my medical assessment, after consideration of the patient's comorbidities, presenting symptoms, or acuity I expect that the services needed warrant INPATIENT care.: Yes I certify that my determination is in accordance with my understanding of Medicare's requirements for reasonable and necessary INPATIENT services [42 CFR 412.3e].: Yes Medical Necessity: Need Close Monitoring Due to Risk of Patient Decompensation, Need for Nebulizer Therapy and Monitoring of Response
[2017-04-04] MEDS: AZITHROMYCIN 250 MG TABLET PO SCH (10:54)
[2017-04-04] MEDS: ROFLUMILAST 500 MCG TABLET NG SCH (10:54)
[2017-04-04] MEDS: METOPROLOL SUCCINATE 50 MG TAB.SR.24H PO SCH (10:55)
[2017-04-04] MEDS: GUAIFENESIN 600 MG TABLET.SA PO SCH ×2 (10:55→22:30)
[2017-04-04] MEDS: FUROSEMIDE 20 MG TABLET PO SCH (10:59)
[2017-04-04] MEDS: AMLODIPINE BESYLATE 5 MG TABLET NG SCH (11:00)
[2017-04-04] MEDS: RALOXIFENE HCL 60 MG TABLET NG SCH (11:00)
--- NOTE | 2017-04-04 12:07 | RADIOLOGY REPORT (SQ) ---
EXAM DESCRIPTION: CT CHEST WITH COMPLETED DATE/TIME: 04/04/2017 11:49 am REASON FOR STUDY: dyspnea/leukocytosis COMPARISON: Chest x-ray dated 04/03/2017. Chest CT dated 11/09/2015. TECHNIQUE: CT scan of the chest performed using helical scanning technique with dynamic intravenous contrast injection. Images reviewed with lung, soft tissue and bone windows. Reconstructed coronal and sagittal MPR images reviewed. All images stored on PACS. All CT scanners at this facility use dose modulation, iterative reconstruction, and/or weight based d osing when appropriate to reduce radiation dose to as low as reasonably achievable (ALARA). [facility]: Dose Right [facility]: CareDose [facility]: Dose Right [facility]: Teradose 4D [facility]: CultureIQ CONTRAST TYPE AND DOSE: 80 mL Isovue 370- low osmolar. RENAL FUNCTION: BUN 22 creatinine 0.67. RADIATION DOSE: CT Rad equipment meets quality standard of care and radiation dose reduction techniq ues were employed. CTDIvol: 13.8 mGy. DLP: 566 mGy-cm. . LIMITATIONS: None. FINDINGS: LUNGS AND PLEURA: Emphysematous changes. No opacities, nodules, masses. No pneumothorax. No effusions. HILAR AND MEDIASTINAL STRUCTURES: No identified masses or abnormal nodes. HEART AND VASCULAR STRUCTURES: No aneurysm or dissection. No central pulmonary emboli. No pericardi al effusion. HARDWARE: None in the chest. UPPER ABDOMEN: No significant findings. Cortical cysts in the kidneys. Nonobstructing calculus in t he right kidney. Limited exam. THYROID AND OTHER SOFT TISSUES: No masses. No adenopathy. BONES: No significant finding. OTHER: No other significant finding. IMPRESSION: MILD EMPHYSEMATOUS CHANGES. OTHERWISE UNREMARKABLE CT OF THE CHEST WITH IV CONTRAST. TECHNICAL DOCUMENTATION: JOB ID: [id number] Quality ID # [id number]: Final reports with documentation of one or more dose reduction techniques (e.g., Au tomated exposure control, adjustment of the mA and/or kV according to patient size, use of iterative reconstruction technique) 2010 [employer]- All Rights Reserved
[2017-04-04] MEDS: ACETYLCYSTEINE 10% NEB 400 MG/4 ML VIAL NEB SCH ×2 (13:33→20:46)
[2017-04-04] MEDS: AMOXICILLIN TR/POT CLAVULANATE 500-125 MG TAB PO SCH ×2 (15:14→22:30)
[2017-04-04] MEDS: PSYLLIUM SEED-SF 5.85 GM PACKET PO SCH (17:47)
[2017-04-04] MEDS: LACTOBACILLUS ACIDOPHILUS 250 MG TAB PO SCH (17:52)
[2017-04-04] MEDS ORDERED: ROPINIROLE HCL 2 MG TABLET ONE (22:06)
[2017-04-04] MEDS: ROPINIROLE HCL 2 MG TABLET NG SCH (22:30)
[2017-04-04] MEDS: MONTELUKAST SODIUM 10 MG TABLET PO SCH (22:30)
[2017-04-04] MEDS: ALPRAZOLAM 0.5 MG TABLET PO SCH (22:30)
[2017-04-05] MEDS: IPRATROPIUM/ALBUTEROL 0.5-2.5 MG/3 ML AMPUL NEB SCH ×4 (02:24→19:21)
[2017-04-05] MEDS: ACETYLCYSTEINE 10% NEB 400 MG/4 ML VIAL NEB SCH ×4 (02:25→19:21)
[2017-04-05 04:56] LABS: HEMATOCRIT 33.5 % (36.0-47.0); HEMOGLOBIN 10.6 g/dL (12.0-15.5); MEAN CORPUSCULAR HEMOGLOBIN 24.2 pg (27.0-33.4); MEAN CORPUSCULAR HGB CONC 31.7 g/dL (32.0-36.0); MEAN CORPUSCULAR VOLUME 76 fl (80-97); PLATELET COUNT 264 10^3/uL (150-450); RED BLOOD COUNT 4.38 10^6/uL (3.72-5.28); RED CELL DISTRIBUTION WIDTH 15.4 % (11.5-14.0); WHITE BLOOD COUNT 16.1 10^3/uL (4.0-10.5)
[2017-04-05 05:22] LABS: ALANINE AMINOTRANSFERASE 36 U/L (9-52); ALBUMIN 3.5 g/dL (3.5-5.0); ALKALINE PHOSPHATASE 54 U/L (38-126); ANION GAP 6 (5-19); ASPARTATE AMINO TRANSFERASE 18 U/L (14-36); BILIRUBIN,DIRECT 0.4 mg/dL (0.0-0.4); BILIRUBIN,TOTAL 0.4 mg/dL (0.2-1.3); BLOOD UREA NITROGEN 23 mg/dL (7-20); CALCIUM 9.2 mg/dL (8.4-10.2); CARBON DIOXIDE 36 mmol/L (22-30); CHLORIDE 99 mmol/L (98-107); GLUCOSE 105 mg/dL (75-110); POTASSIUM 4.3 mmol/L (3.6-5.0); SODIUM 140.7 mmol/L (137-145); TOTAL PROTEIN 5.9 g/dL (6.3-8.2)
[2017-04-05 05:25] LABS: ABSOLUTE LYMPHOCYTES# (MANUAL) 1.3 10^3/uL (0.5-4.7); ABSOLUTE MONOCYTES # (MANUAL) 1.4 10^3/uL (0.1-1.4); ABSOLUTE NEUTROPHILS# (MANUAL) 13.4 10^3/uL (1.7-8.2); BASOPHILS % (MANUAL) 0 % (0-2); EOSINOPHILS % (MANUAL) 0 % (0-6); LYMPHOCYTES % (MANUAL) 8 % (13-45); METAMYELOCYTES % (MANUAL) 1 % (0); MONOCYTES % (MANUAL) 9 % (3-13); NUCLEATED RED BLOOD CELLS 1 /100 WBC (0); SEGMENTED NEUTROPHILS % (MAN) 82 % (42-78); TOTAL CELLS COUNTED 100
[2017-04-05 05:27] LABS: ANISOCYTOSIS SLIGHT; PLATELET COMMENT ADEQUATE; POIKILOCYTOSIS SLIGHT; SCHISTOCYTES SLIGHT; TOXIC GRANULATION 1+
[2017-04-05] MEDS: AMOXICILLIN TR/POT CLAVULANATE 500-125 MG TAB PO SCH (05:29)
[2017-04-05] MEDS: HEPARIN SOD (PORCINE) 5,000 UNIT/ML 1 ML SYRINGE SUBCUT SCH ×3 (05:29→22:04)
[2017-04-05] MEDS: METHYLPREDNISOLONE INJ 40 MG/1 ML SDV IV SCH ×2 (05:30→17:47)
[2017-04-05 06:29] LABS: ARTERIAL BLOOD BASE EXCESS 11.7 mmol/L; ARTERIAL BLOOD FIO2 28%; ARTERIAL BLOOD H2CO3 1.94 mmol/L (1.05-1.35); ARTERIAL BLOOD HCO3 38.8 mmol/L (20-26); ARTERIAL BLOOD O2 SATURATION 94.2 % (94-98); ARTERIAL BLOOD PCO2 64.3 mmHg (35-45); ARTERIAL BLOOD PO2 73.3 mmHg (80-100); ARTERIAL BLOOD TOTAL CO2 40.8 mmol/L (21-25)
[2017-04-05] MEDS: BUDESONIDE NEB 0.5 MG/2 ML AMPUL NEB SCH (08:06)
--- NOTE | 2017-04-05 08:17 | RADIOLOGY REPORT (SQ) ---
EXAM DESCRIPTION: CHEST SINGLE VIEW COMPLETED DATE/TIME: 04/05/2017 7:58 am REASON FOR STUDY: resp failure COMPARISON: 04/03/2017. EXAM PARAMETERS: NUMBER OF VIEWS: One view. TECHNIQUE: Single frontal radiographic view of the chest acquired. RADIATION DOSE: NA LIMITATIONS: None. FINDINGS: LUNGS AND PLEURA: No opacities, masses or pneumothorax. No pleural effusion. MEDIASTINUM AND HILAR STRUCTURES: No masses. Contour normal. HEART AND VASCULAR STRUCTURES: Heart normal in size. Normal vasculature. BONES: No acute findings. HARDWARE: None in the chest. OTHER: No other significant finding. IMPRESSION: NO ACUTE RADIOGRAPHIC FINDING IN THE CHEST. TECHNICAL DOCUMENTATION: JOB ID: [id number] [employer]- All Rights Reserved
[2017-04-05] MEDS ORDERED: DEXTROSE 40% GEL 15 GM TUBE PO PRN ×2 (08:30)
[2017-04-05] MEDS: GUAIFENESIN 600 MG TABLET.SA PO SCH ×2 (09:35→22:05)
[2017-04-05] MEDS: LACTOBACILLUS ACIDOPHILUS 250 MG TAB PO SCH ×2 (09:35→17:46)
[2017-04-05] MEDS: METOPROLOL SUCCINATE 50 MG TAB.SR.24H PO SCH (09:35)
[2017-04-05] MEDS: FUROSEMIDE 20 MG TABLET PO SCH (09:36)
[2017-04-05] MEDS: AZITHROMYCIN 250 MG TABLET PO SCH (09:36)
[2017-04-05] MEDS: PSYLLIUM SEED-SF 5.85 GM PACKET PO SCH ×2 (09:37→17:53)
--- NOTE | 2017-04-05 10:17 | PDOC PROGRESS REPORT ---
Subjective Progress Note for:: 04/05/17 Subjective:: Patient reports that breathing is better. Nurse reports that patient will need physical therapy since slumps over when standing up Reason For Visit: COPD EXACERBATION PNEUMONIA Physical Exam Vital Signs: Temp Pulse Resp BP Pulse Ox 97.7 F 88 23 H 118/79 99 04/05/17 04:00 04/05/17 04:00 04/05/17 04:00 04/05/17 04:00 04/05/17 04:00 Intake & Output 04/04/17 04/05/17 04/06/17 06:59 06:59 06:59 Intake Total 757 1275 Output Total 990 400 Balance -233 875 Weight 77.4 kg 73.9 kg General appearance: PRESENT: cooperative, obese Head exam: PRESENT: atraumatic, normocephalic Eye exam: PRESENT: conjunctiva pink, EOMI, PERRLA Ear exam: PRESENT: normal external ear exam Neck exam: PRESENT: full ROM. ABSENT: JVD Respiratory exam: PRESENT: decreased breath sounds - Scattered wheezes noted Cardiovascular exam: PRESENT: RRR. ABSENT: diastolic murmur, systolic murmur Vascular exam: PRESENT: normal capillary refill GI/Abdominal exam: PRESENT: normal bowel sounds, soft. ABSENT: tenderness Extremities exam: PRESENT: full ROM Musculoskeletal exam: PRESENT: ambulatory Neurological exam: PRESENT: alert, awake, oriented to person, oriented to place , oriented to time, oriented to situation, CN II-XII grossly intact Psychiatric exam: PRESENT: appropriate affect, normal mood Skin exam: PRESENT: intact, normal color Results Laboratory Results: 04/05/17 03:52 04/05/17 03:52 04/05/17 04/05/17 04/05/17 03:52 03:52 06:02 WBC 16.1 H RBC 4.38 Hgb 10.6 L Hct 33.5 L MCV 76 L MCH 24.2 L MCHC 31.7 L RDW 15.4 H Plt Count 264 Seg Neutrophils % Not Reportable Lymphocytes % Not Reportable Monocytes % Not Reportable Eosinophils % Not Reportable Basophils % Not Reportable Absolute Neutrophils Not Reportable Absolute Lymphocytes Not Reportable Absolute Monocytes Not Reportable Absolute Eosinophils Not Reportable Absolute Basophils Not Reportable Carbonic Acid 1.94 H HCO3/H2CO3 Ratio 20:1 ABG pH 7.40 ABG pCO2 64.3 H ABG pO2 73.3 L ABG HCO3 38.8 H ABG O2 Saturation 94.2 ABG Base Excess 11.7 FiO2 28% Sodium 140.7 Potassium 4.3 Chloride 99 Carbon Dioxide 36 H Anion Gap 6 BUN 23 H Creatinine 0.61 Est GFR ( Amer) > 60 Est GFR (Non-Af Amer) > 60 Glucose 105 Calcium 9.2 Magnesium 2.3 Total Bilirubin 0.4 AST 18 ALT 36 Alkaline Phosphatase 54 Total Protein 5.9 L Albumin 3.5 03/31/17 03/31/17 03/31/17 02:43 06:25 06:25 Creatine Kinase 61 CK-MB (CK-2) 0.98 Troponin I < 0.012 NT-Pro-B Natriuret Pep Cancelled 123 04/01/17 04/01/17 03:51 03:51 Creatine Kinase 40 CK-MB (CK-2) 0.44 Troponin I < 0.012 NT-Pro-B Natriuret Pep Impressions: Chest X-Ray 04/03/17 06:00 IMPRESSION: 1. Interval removal of endotracheal and NG tube. Otherwise stable appearance of the chest. Chest CT 04/04/17 00:00 IMPRESSION: MILD EMPHYSEMATOUS CHANGES. OTHERWISE UNREMARKABLE CT OF THE CHEST WITH IV CONTRAST. Assessment & Plan - Diagnosis (1) Encephalopathy acute Is this a current diagnosis for this admission?: Yes Plan: Likely due to CO2 narcosis. Resolved (2) COPD exacerbation Is this a current diagnosis for this admission?: Yes Plan: We will add Advair. Will decrease IV steroids (3) Acute and chronic respiratory failure with hypercapnia Is this a current diagnosis for this admission?: Yes Plan: Continue oxygen supplementation (4) Essential (primary) hypertension Is this a current diagnosis for this admission?: Yes Plan: Continue present management (5) PAH (pulmonary artery hypertension) Is this a current diagnosis for this admission?: Yes Plan: Continue oral furosemide. Order echocardiogram (6) Hypokalemia Is this a current diagnosis for this admission?: Yes Plan: Resolved (7) Hyperglycemia Is this a current diagnosis for this admission?: Yes Plan: Continue Humalog sliding scale and check bedside glucose every 6 hours. Noted A1C. No diabetes (8) Alcohol use Is this a current diagnosis for this admission?: Yes Plan: Patient educated about side effects of alcohol including respiratory depression especially when taking Xanax (9) Leukocytosis Qualifiers: Leukocytosis type: unspecified Qualified Code(s): D72.829 - Elevated white blood cell count, unspecified Is this a current diagnosis for this admission?: Yes Plan: CT scan of the chest negative but really want for emphysema. Will discontinue Zithromax and Augmentin. Likely elevated white blood cell count relates to leukocytes demargination secondary to steroids (10) HTN (hypertension) Qualifiers: Hypertension type: essential hypertension Qualified Code(s): I10 - Essential (primary) hypertension Is this a current diagnosis for this admission?: Yes Plan: Continue present management (11) Weakness Is this a current diagnosis for this admission?: Yes Plan: Will order CT of the head to evaluate for stroke. To consult physical therapy and case management since patient may need rehab - Time Time Spent with patient: 15-24 minutes Medications reviewed and adjusted accordingly: Yes Anticipated discharge: Acute Rehab Within: within 72 hours - Inpatient Certification Based on my medical assessment, after consideration of the patient's comorbidities, presenting symptoms, or acuity I expect that the services needed warrant INPATIENT care.: Yes I certify that my determination is in accordance with my understanding of Medicare's requirements for reasonable and necessary INPATIENT services [42 CFR 412.3e].: Yes Medical Necessity: Significant Comorbidiites Make Outpatient Treatment Too Risky , Need for Nebulizer Therapy and Monitoring of Response
[2017-04-05] MEDS: RALOXIFENE HCL 60 MG TABLET PO SCH (10:58)
--- NOTE | 2017-04-05 10:58 | RADIOLOGY REPORT (SQ) ---
EXAM DESCRIPTION: CT HEAD WITHOUT COMPLETED DATE/TIME: 04/05/2017 10:49 am REASON FOR STUDY: weakness COMPARISON: None. TECHNIQUE: Axial images acquired through the brain without intravenous contrast. Images reviewed wi th bone, brain and subdural windows. Images stored on PACS. All CT scanners at this facility use dose modulation, iterative reconstruction, and/or weight based d osing when appropriate to reduce radiation dose to as low as reasonably achievable (ALARA). [facility]: Dose Right [facility]: CareDose [facility]: Dose Right [facility]: Teradose 4D [facility]: [employer] RADIATION DOSE: CT Rad equipment meets quality standard of care and radiation dose reduction techniq ues were employed. CTDIvol: 64.6 mGy. DLP: 1938 mGy-cm. mGy. LIMITATIONS: None. FINDINGS: VENTRICLES: Prominent. CEREBRUM: No masses. No hemorrhage. No midline shift. Areas of low density in the white matter mos t likely due to chronic micro-vascular ischemic change. No evidence for acute infarction. CEREBELLUM: No masses. No hemorrhage. No alteration of density. No evidence for acute infarction. EXTRAAXIAL SPACES: Mild age-related involutional change. No fluid collections. No masses. ORBITS AND GLOBE: No intra- or extraconal masses. Normal contour of globe without masses. CALVARIUM: No fracture. PARANASAL SINUSES: No fluid or mucosal thickening. SOFT TISSUES: No mass or hematoma. OTHER: No other significant finding. IMPRESSION: MILD CHRONIC CHANGES OF ATROPHY AND MICROVASCULAR ISCHEMIA. NO ACUTE PROCESS. EVIDENCE OF ACUTE STROKE: NO. TECHNICAL DOCUMENTATION: JOB ID: [id number] Quality ID # [id number]: Final reports with documentation of one or more dose reduction techniques (e.g., Au tomated exposure control, adjustment of the mA and/or kV according to patient size, use of iterative reconstruction technique) 2010 [employer]- All Rights Reserved
[2017-04-05] MEDS: AMLODIPINE BESYLATE 5 MG TABLET PO SCH (10:59)
[2017-04-05] MEDS: ROFLUMILAST 500 MCG TABLET PO SCH (10:59)
[2017-04-05] MEDS: FLUTICASONE/SALMETEROL DISKUS 500-50 MCG/DOSE IH SCH (17:50)
[2017-04-05] MEDS: ALPRAZOLAM 0.5 MG TABLET PO SCH (22:05)
[2017-04-05] MEDS: MONTELUKAST SODIUM 10 MG TABLET PO SCH (22:05)
[2017-04-05] MEDS: ROPINIROLE HCL 2 MG TABLET PO SCH (22:05)
[2017-04-06] MEDS: ACETYLCYSTEINE 10% NEB 400 MG/4 ML VIAL NEB SCH ×3 (01:38→20:19)
[2017-04-06 04:55] LABS: HEMATOCRIT 33.4 % (36.0-47.0); HEMOGLOBIN 10.4 g/dL (12.0-15.5); MEAN CORPUSCULAR HEMOGLOBIN 23.8 pg (27.0-33.4); MEAN CORPUSCULAR VOLUME 77 fl (80-97); PLATELET COUNT 261 10^3/uL (150-450); RED BLOOD COUNT 4.35 10^6/uL (3.72-5.28); RED CELL DISTRIBUTION WIDTH 15.5 % (11.5-14.0); WHITE BLOOD COUNT 14.8 10^3/uL (4.0-10.5)
[2017-04-06 05:16] LABS: ALANINE AMINOTRANSFERASE 28 U/L (9-52); ALBUMIN 3.5 g/dL (3.5-5.0); ALKALINE PHOSPHATASE 50 U/L (38-126); ASPARTATE AMINO TRANSFERASE 13 U/L (14-36); BILIRUBIN,DIRECT 0.1 mg/dL (0.0-0.4); BILIRUBIN,TOTAL 0.3 mg/dL (0.2-1.3); BLOOD UREA NITROGEN 24 mg/dL (7-20); CALCIUM 8.9 mg/dL (8.4-10.2); CHLORIDE 96 mmol/L (98-107); GLUCOSE 101 mg/dL (75-110); PHOSPHORUS 3.7 mg/dL (2.5-4.5); POTASSIUM 4.1 mmol/L (3.6-5.0); SODIUM 140.5 mmol/L (137-145); TOTAL PROTEIN 5.4 g/dL (6.3-8.2)
[2017-04-06 05:17] LABS: ABSOLUTE LYMPHOCYTES# (MANUAL) 2.7 10^3/uL (0.5-4.7); ABSOLUTE MONOCYTES # (MANUAL) 0.3 10^3/uL (0.1-1.4); ABSOLUTE NEUTROPHILS# (MANUAL) 11.8 10^3/uL (1.7-8.2); BAND NEUTROPHILS % (MANUAL) 1 % (3-5); BASOPHILS % (MANUAL) 0 % (0-2); EOSINOPHILS % (MANUAL) 0 % (0-6); LYMPHOCYTES % (MANUAL) 18 % (13-45); METAMYELOCYTES % (MANUAL) 2 % (0); MONOCYTES % (MANUAL) 2 % (3-13); NUCLEATED RED BLOOD CELLS 1 /100 WBC (0); SEGMENTED NEUTROPHILS % (MAN) 77 % (42-78); TOTAL CELLS COUNTED 100
[2017-04-06 05:19] LABS: ANISOCYTOSIS SLIGHT; OVALOCYTES SLIGHT; POIKILOCYTOSIS SLIGHT; TOXIC GRANULATION 2+
[2017-04-06 05:20] LABS: PLATELET COMMENT ADEQUATE; PLATELET LARGE PRESENT; SCHISTOCYTES 1+; TEAR DROP CELLS SLIGHT
[2017-04-06 05:31] LABS: CARBON DIOXIDE 37 mmol/L (22-30)
[2017-04-06 05:32] LABS: ANION GAP 8 (5-19)
[2017-04-06] MEDS: FLUTICASONE/SALMETEROL DISKUS 500-50 MCG/DOSE IH SCH ×2 (05:33→17:21)
[2017-04-06] MEDS: METHYLPREDNISOLONE INJ 40 MG/1 ML SDV IV SCH (05:34)
[2017-04-06] MEDS: HEPARIN SOD (PORCINE) 5,000 UNIT/ML 1 ML SYRINGE SUBCUT SCH ×3 (05:34→21:56)
[2017-04-06] MEDS: IPRATROPIUM/ALBUTEROL 0.5-2.5 MG/3 ML AMPUL NEB SCH (07:44)
[2017-04-06] MEDS: AMLODIPINE BESYLATE 5 MG TABLET PO SCH (09:36)
[2017-04-06] MEDS: FUROSEMIDE 20 MG TABLET PO SCH (09:36)
[2017-04-06] MEDS: METOPROLOL SUCCINATE 50 MG TAB.SR.24H PO SCH (09:37)
[2017-04-06] MEDS: PSYLLIUM SEED-SF 5.85 GM PACKET PO SCH ×2 (09:37→17:23)
[2017-04-06] MEDS: GUAIFENESIN 600 MG TABLET.SA PO SCH ×2 (09:37→21:55)
[2017-04-06] MEDS: RALOXIFENE HCL 60 MG TABLET PO SCH (09:37)
[2017-04-06] MEDS: LACTOBACILLUS ACIDOPHILUS 250 MG TAB PO SCH ×2 (09:37→17:21)
[2017-04-06] MEDS: ROFLUMILAST 500 MCG TABLET PO SCH (09:40)
--- NOTE | 2017-04-06 12:48 | PDOC PROGRESS REPORT ---
Subjective Progress Note for:: 04/06/17 Subjective:: Patient reports that breathing is better when compared to yesterday Review of systems All organ systems evaluated and negative except as in subjective All significant laboratories and diagnostics have been reviewed Reason For Visit: COPD EXACERBATION PNEUMONIA Physical Exam Vital Signs: Temp Pulse Resp BP Pulse Ox 98.1 F 86 24 H 108/71 99 04/05/17 23:32 04/06/17 02:00 04/06/17 04:11 04/05/17 23:32 04/06/17 04:11 Intake & Output 04/05/17 04/06/17 04/07/17 06:59 06:59 06:59 Intake Total 1275 1290 Output Total 400 Balance 875 1290 Weight 73.9 kg 75.3 kg General appearance: PRESENT: no acute distress, cooperative, obese Head exam: PRESENT: atraumatic, normocephalic Eye exam: PRESENT: conjunctiva pink, EOMI, PERRLA Mouth exam: PRESENT: moist, neck supple Neck exam: PRESENT: full ROM. ABSENT: JVD, lymphadenopathy, tenderness Respiratory exam: PRESENT: decreased breath sounds - with no added sounds Vascular exam: PRESENT: normal capillary refill GI/Abdominal exam: PRESENT: normal bowel sounds, soft. ABSENT: tenderness Extremities exam: PRESENT: full ROM. ABSENT: pedal edema Musculoskeletal exam: PRESENT: ambulatory Neurological exam: PRESENT: alert, awake, oriented to person, oriented to place , oriented to time, oriented to situation, CN II-XII grossly intact Psychiatric exam: PRESENT: appropriate affect, normal mood Skin exam: PRESENT: intact, normal color Results Laboratory Results: 04/06/17 04:14 04/06/17 04:14 04/06/17 04/06/17 04:14 04:14 WBC 14.8 H RBC 4.35 Hgb 10.4 L Hct 33.4 L MCV 77 L MCH 23.8 L MCHC 31.0 L RDW 15.5 H Plt Count 261 Seg Neutrophils % Not Reportable Lymphocytes % Not Reportable Monocytes % Not Reportable Eosinophils % Not Reportable Basophils % Not Reportable Absolute Neutrophils Not Reportable Absolute Lymphocytes Not Reportable Absolute Monocytes Not Reportable Absolute Eosinophils Not Reportable Absolute Basophils Not Reportable Sodium 140.5 Potassium 4.1 Chloride 96 L Carbon Dioxide 37 H Anion Gap 8 BUN 24 H Creatinine 0.65 Est GFR ( Amer) > 60 Est GFR (Non-Af Amer) > 60 Glucose 101 Calcium 8.9 Phosphorus 3.7 Magnesium 2.3 Total Bilirubin 0.3 AST 13 L ALT 28 Alkaline Phosphatase 50 Total Protein 5.4 L Albumin 3.5 03/31/17 03/31/17 03/31/17 02:43 06:25 06:25 Creatine Kinase 61 CK-MB (CK-2) 0.98 Troponin I < 0.012 NT-Pro-B Natriuret Pep Cancelled 123 04/01/17 04/01/17 03:51 03:51 Creatine Kinase 40 CK-MB (CK-2) 0.44 Troponin I < 0.012 NT-Pro-B Natriuret Pep Impressions: Chest CT 04/04/17 00:00 IMPRESSION: MILD EMPHYSEMATOUS CHANGES. OTHERWISE UNREMARKABLE CT OF THE CHEST WITH IV CONTRAST. Head CT 04/05/17 00:00 IMPRESSION: MILD CHRONIC CHANGES OF ATROPHY AND MICROVASCULAR ISCHEMIA. NO ACUTE PROCESS. EVIDENCE OF ACUTE STROKE: NO. Chest X-Ray 04/05/17 06:00 IMPRESSION: NO ACUTE RADIOGRAPHIC FINDING IN THE CHEST. Assessment & Plan - Diagnosis (1) Encephalopathy acute Is this a current diagnosis for this admission?: Yes Plan: Likely due to CO2 narcosis. Resolved (2) COPD exacerbation Is this a current diagnosis for this admission?: Yes Plan: To discontinue IV steroids and change to oral. Will continue Advair and to add Spiriva. To change duo nebs to every 6 hours as needed (3) Acute and chronic respiratory failure with hypercapnia Is this a current diagnosis for this admission?: Yes Plan: Continue oxygen supplementation (4) Essential (primary) hypertension Is this a current diagnosis for this admission?: Yes Plan: Continue present management (5) PAH (pulmonary artery hypertension) Is this a current diagnosis for this admission?: Yes Plan: Continue oral furosemide. Echocardiogram result pending (6) Hypokalemia Is this a current diagnosis for this admission?: Yes Plan: Resolved (7) Hyperglycemia Is this a current diagnosis for this admission?: Yes Plan: Continue Humalog sliding scale and check bedside glucose every 6 hours. Noted A1C. No diabetes (8) Alcohol use Is this a current diagnosis for this admission?: Yes Plan: Patient educated about side effects of alcohol including respiratory depression especially when taking Xanax (9) Leukocytosis Qualifiers: Leukocytosis type: unspecified Qualified Code(s): D72.829 - Elevated white blood cell count, unspecified Is this a current diagnosis for this admission?: Yes Plan: CT scan of the chest negative but really want for emphysema. Will discontinue Zithromax and Augmentin. Likely elevated white blood cell count relates to leukocytes demargination secondary to steroids. Trending down (10) Weakness Is this a current diagnosis for this admission?: Yes Plan: CT scan of head negative for acute stroke. Changes of vascular ischemia noted. To consult physical therapy and case management since patient may need rehab - Time Time Spent with patient: 15-24 minutes Medications reviewed and adjusted accordingly: Yes Anticipated discharge: Acute Rehab Within: within 72 hours - Inpatient Certification Based on my medical assessment, after consideration of the patient's comorbidities, presenting symptoms, or acuity I expect that the services needed warrant INPATIENT care.: Yes I certify that my determination is in accordance with my understanding of Medicare's requirements for reasonable and necessary INPATIENT services [42 CFR 412.3e].: Yes Medical Necessity: Need Close Monitoring Due to Risk of Patient Decompensation, Need for Nebulizer Therapy and Monitoring of Response
[2017-04-06] MEDS: IPRATROPIUM/ALBUTEROL 0.5-2.5 MG/3 ML AMPUL NEB PRN (20:19)
[2017-04-06] MEDS: ALPRAZOLAM 0.5 MG TABLET PO SCH (21:55)
[2017-04-06] MEDS: MONTELUKAST SODIUM 10 MG TABLET PO SCH (21:55)
[2017-04-06] MEDS: ROPINIROLE HCL 2 MG TABLET PO SCH (21:55)
[2017-04-07] MEDS: FLUTICASONE/SALMETEROL DISKUS 500-50 MCG/DOSE IH SCH ×2 (05:15→17:48)
[2017-04-07] MEDS: HEPARIN SOD (PORCINE) 5,000 UNIT/ML 1 ML SYRINGE SUBCUT SCH ×3 (05:15→21:03)
[2017-04-07] MEDS: ACETYLCYSTEINE 10% NEB 400 MG/4 ML VIAL NEB SCH ×2 (08:58→19:55)
[2017-04-07] MEDS: IPRATROPIUM/ALBUTEROL 0.5-2.5 MG/3 ML AMPUL NEB PRN ×2 (08:58→19:55)
[2017-04-07] MEDS: PSYLLIUM SEED-SF 5.85 GM PACKET PO SCH ×2 (09:27→12:57)
[2017-04-07] MEDS: GUAIFENESIN 600 MG TABLET.SA PO SCH ×2 (09:36→21:02)
[2017-04-07] MEDS: AMLODIPINE BESYLATE 5 MG TABLET PO SCH (09:36)
[2017-04-07] MEDS: FUROSEMIDE 20 MG TABLET PO SCH (09:36)
[2017-04-07] MEDS: RALOXIFENE HCL 60 MG TABLET PO SCH (09:37)
[2017-04-07] MEDS: ROFLUMILAST 500 MCG TABLET PO SCH (09:37)
[2017-04-07] MEDS: PREDNISONE 20 MG TABLET PO SCH (09:37)
[2017-04-07] MEDS: LACTOBACILLUS ACIDOPHILUS 250 MG TAB PO SCH ×2 (09:37→17:48)
[2017-04-07] MEDS: TIOTROPIUM BROMIDE DPI 5 CAP/KIT (18 MCG/CAP) IH SCH (09:37)
[2017-04-07] MEDS: METOPROLOL SUCCINATE 50 MG TAB.SR.24H PO SCH (09:37)
--- NOTE | 2017-04-07 17:07 | PDOC PROGRESS REPORT ---
Subjective Progress Note for:: 04/07/17 Subjective:: Patient reports that continues doing better. Has been able to ambulate in the room Review of systems All organ systems evaluated and negative except as in subjective All significant laboratories and diagnostics have been reviewed Reason For Visit: COPD EXACERBATION PNEUMONIA Physical Exam Vital Signs: Temp Pulse Resp BP Pulse Ox 97.7 F 86 21 H 119/77 100 04/07/17 06:52 04/07/17 06:52 04/07/17 06:52 04/07/17 06:52 04/07/17 06:52 Intake & Output 04/06/17 04/07/17 04/08/17 06:59 06:59 06:59 Intake Total 1290 1177 Output Total 750 Balance 1290 427 Weight 75.3 kg 73.7 kg General appearance: PRESENT: cooperative, obese Head exam: PRESENT: atraumatic, normocephalic Eye exam: PRESENT: conjunctiva pink, EOMI, PERRLA Ear exam: PRESENT: normal external ear exam Mouth exam: PRESENT: moist Neck exam: PRESENT: full ROM. ABSENT: JVD, lymphadenopathy, tenderness Respiratory exam: PRESENT: decreased breath sounds Cardiovascular exam: PRESENT: RRR. ABSENT: diastolic murmur, systolic murmur Vascular exam: PRESENT: normal capillary refill GI/Abdominal exam: PRESENT: normal bowel sounds, soft. ABSENT: tenderness Extremities exam: PRESENT: full ROM Musculoskeletal exam: PRESENT: ambulatory Neurological exam: PRESENT: alert, awake, oriented to person, oriented to place , oriented to time, oriented to situation, CN II-XII grossly intact Skin exam: PRESENT: intact, normal color Results Laboratory Results: 04/06/17 04:14 04/06/17 04:14 03/31/17 03/31/17 03/31/17 02:43 06:25 06:25 Creatine Kinase 61 CK-MB (CK-2) 0.98 Troponin I < 0.012 NT-Pro-B Natriuret Pep Cancelled 123 04/01/17 04/01/17 03:51 03:51 Creatine Kinase 40 CK-MB (CK-2) 0.44 Troponin I < 0.012 NT-Pro-B Natriuret Pep Impressions: Chest CT 04/04/17 00:00 IMPRESSION: MILD EMPHYSEMATOUS CHANGES. OTHERWISE UNREMARKABLE CT OF THE CHEST WITH IV CONTRAST. Head CT 04/05/17 00:00 IMPRESSION: MILD CHRONIC CHANGES OF ATROPHY AND MICROVASCULAR ISCHEMIA. NO ACUTE PROCESS. EVIDENCE OF ACUTE STROKE: NO. Chest X-Ray 04/05/17 06:00 IMPRESSION: NO ACUTE RADIOGRAPHIC FINDING IN THE CHEST. Assessment & Plan - Diagnosis (1) Encephalopathy acute Is this a current diagnosis for this admission?: Yes Plan: Likely due to CO2 narcosis. Resolved (2) COPD exacerbation Is this a current diagnosis for this admission?: Yes Plan: Improving and to continue current management (3) Acute and chronic respiratory failure with hypercapnia Is this a current diagnosis for this admission?: Yes Plan: Continue oxygen supplementation (4) Essential (primary) hypertension Is this a current diagnosis for this admission?: Yes Plan: Continue present management (5) PAH (pulmonary artery hypertension) Is this a current diagnosis for this admission?: Yes Plan: Continue oral furosemide. Echocardiogram result pending (6) Hypokalemia Is this a current diagnosis for this admission?: Yes Plan: Resolved (7) Hyperglycemia Is this a current diagnosis for this admission?: Yes Plan: Continue Humalog sliding scale and check bedside glucose every 6 hours. Noted A1C. No diabetes (8) Alcohol use Is this a current diagnosis for this admission?: Yes Plan: Patient educated about side effects of alcohol including respiratory depression especially when taking Xanax (9) Leukocytosis Qualifiers: Leukocytosis type: unspecified Qualified Code(s): D72.829 - Elevated white blood cell count, unspecified Is this a current diagnosis for this admission?: Yes Plan: CT scan of the chest negative but really want for emphysema. Will discontinue Zithromax and Augmentin. Likely elevated white blood cell count relates to leukocytes demargination secondary to steroids. Trending down (10) Weakness Is this a current diagnosis for this admission?: Yes Plan: CT scan of head negative for acute stroke. Changes of vascular ischemia noted. Expected to be discharged to rehab when respiratory status improves for safe discharge - Time Time Spent with patient: 15-24 minutes Medications reviewed and adjusted accordingly: Yes Anticipated discharge: Acute Rehab Within: within 48 hours - Inpatient Certification Based on my medical assessment, after consideration of the patient's comorbidities, presenting symptoms, or acuity I expect that the services needed warrant INPATIENT care.: Yes I certify that my determination is in accordance with my understanding of Medicare's requirements for reasonable and necessary INPATIENT services [42 CFR 412.3e].: Yes Medical Necessity: Need Close Monitoring Due to Risk of Patient Decompensation, Need for Nebulizer Therapy and Monitoring of Response
--- NOTE | 2017-04-07 18:43 | XCELERA REPORT ---
[address] [address] Transthoracic Echocardiogram Report Name: VIKY DE LEON Age: 66 yrs Gender: Female : 1950 Patient Status: Inpatient Patient Location: [address] [place] [address] Study Date: 04/07/2017 02:28 PM Height: 63 in Weight: 162 lb BSA: 1.8 m2 Procedure: A complete two-dimensional transthoracic echocardiogram was performed (2D, M-mode, spectral and color flow Doppler). The study was technically difficult with many images being suboptimal in quality. Reason For Study: dyspnea Ordering Physician: TOI CONNELL Performed By: Miya Ferris Interpretation Summary The study was technically difficult with many images being suboptimal in quality. The left ventricular ejection fraction is normal. LV diastolic function could not be adequately assessed. There is mild concentric left ventricular hypertrophy. The left ventricle is grossly normal size. Regional wall motion abnormalities cannot be excluded due to limited visualization. The right ventricular systolic function is normal. The right ventricle is mild to moderately dilated. The right atrium is mildly dilated. The left atrial size is normal. There is a trace amount of mitral regurgitation There is no mitral valve stenosis. There is no aortic valve stenosis No aortic regurgitation is present. There is a trace to mild amount of tricuspid regurgitation There is mild to moderate pulmonary hypertension by echo Best estimated RVSP is approximately 40 mm/Hg. The aortic root is not well visualized. The inferior vena cava appeared normal and decreased > 50% with respiration (RAP 5-10 mmHg) Minimal pericardial effusion. MMode/2D Measurements & Calculations RVDd: 3.6 cm LVIDd: 3.5 cm FS: 34.1 % Ao root diam: 2.8 cm IVSd: 1.1 cm LVIDs: 2.3 cm EDV(Teich): 51.0 ml LVPWd: 1.0 cm ESV(Teich): 18.3 ml Ao root area: 6.0 cm2 EF(Teich): 64.2 % LA dimension: 2.5 cm LVOT diam: 2.0 cm LVOT area: 3.1 cm2 Doppler Measurements & Calculations MV E max david: MV P1/2t max david: Ao V2 max: LV V1 max P.6 cm/sec 66.1 cm/sec 131.9 cm/sec 4.5 mmHg MV A max david: MV P1/2t: 55.5 msec Ao max PG: LV V1 max: 112.5 cm/sec MVA(P1/2t): 4.0 cm2 7.0 mmHg 105.6 cm/sec MV E/A: 0.58 MV dec slope: SHERRON(V,D): 2.5 cm2 349.1 cm/sec2 PA V2 max: TR max david: 117.4 cm/sec 283.7 cm/sec PA max P.5 mmHgTR max P.2 mmHg Left Ventricle The left ventricle is grossly normal size. There is mild concentric left ventricular hypertrophy. The left ventricular ejection fraction is normal. LV diastolic function could not be adequately assessed. Regional wall motion abnormalities cannot be excluded due to limited visualization. Right Ventricle The right ventricle is mild to moderately dilated. The right ventricle appears to be hypertrophied. The right ventricular systolic function is normal. Atria The right atrium is mildly dilated. The left atrial size is normal. Interarterial septum not well visualized and not well dopplered. Cannot comment on ASD/PFO presence. Mitral Valve The mitral valve is not well visualized. There is no mitral valve stenosis. There is a trace amount of mitral regurgitation. Aortic Valve The aortic valve is not well visualized secondary to technical limitations. There is no aortic valve stenosis. No aortic regurgitation is present. Tricuspid Valve The tricuspid valve is not well visualized, but is grossly normal. There is no tricuspid stenosis. There is a trace to mild amount of tricuspid regurgitation. There is mild to moderate pulmonary hypertension by echo. Best estimated RVSP is approximately 40 mm/Hg. Pulmonic Valve The pulmonic valve is not well visualized. Great Vessels The aortic root is not well visualized. The inferior vena cava appeared normal and decreased > 50% with respiration (RAP 5-10 mmHg). Effusions Minimal pericardial effusion. : TOI CONNELL > Yevgeniy Rojas
[2017-04-07] MEDS: MONTELUKAST SODIUM 10 MG TABLET PO SCH (21:02)
[2017-04-07] MEDS: ROPINIROLE HCL 2 MG TABLET PO SCH (21:02)
[2017-04-07] MEDS: ALPRAZOLAM 0.5 MG TABLET PO SCH (21:02)
[2017-04-08] MEDS: FLUTICASONE/SALMETEROL DISKUS 500-50 MCG/DOSE IH SCH ×2 (05:32→18:15)
[2017-04-08] MEDS: HEPARIN SOD (PORCINE) 5,000 UNIT/ML 1 ML SYRINGE SUBCUT SCH ×3 (05:37→21:47)
[2017-04-08 07:28] LABS: HEMATOCRIT 32.6 % (36.0-47.0); HEMOGLOBIN 10.3 g/dL (12.0-15.5); MEAN CORPUSCULAR HEMOGLOBIN 24.1 pg (27.0-33.4); MEAN CORPUSCULAR HGB CONC 31.5 g/dL (32.0-36.0); MEAN CORPUSCULAR VOLUME 77 fl (80-97); PLATELET COUNT 250 10^3/uL (150-450); RED BLOOD COUNT 4.26 10^6/uL (3.72-5.28); RED CELL DISTRIBUTION WIDTH 15.4 % (11.5-14.0); WHITE BLOOD COUNT 14.1 10^3/uL (4.0-10.5)
[2017-04-08 07:50] LABS: BLOOD UREA NITROGEN 15 mg/dL (7-20); GLUCOSE 102 mg/dL (75-110); SODIUM 140.4 mmol/L (137-145)
[2017-04-08 07:54] LABS: POTASSIUM 3.4 mmol/L (3.6-5.0)
[2017-04-08 08:04] LABS: ANION GAP 5 (5-19); CHLORIDE 97 mmol/L (98-107)
[2017-04-08 08:07] LABS: CARBON DIOXIDE 38 mmol/L (22-30)
[2017-04-08 08:14] LABS: ABSOLUTE LYMPHOCYTES# (MANUAL) 2.5 10^3/uL (0.5-4.7); ABSOLUTE MONOCYTES # (MANUAL) 0.6 10^3/uL (0.1-1.4); ABSOLUTE NEUTROPHILS# (MANUAL) 10.7 10^3/uL (1.7-8.2); ANISOCYTOSIS 1+; BASOPHILS % (MANUAL) 0 % (0-2); EOSINOPHILS % (MANUAL) 2 % (0-6); HYPOCHROMASIA 2+; LYMPHOCYTES % (MANUAL) 18 % (13-45); METAMYELOCYTES % (MANUAL) 2 % (0); MONOCYTES % (MANUAL) 4 % (3-13); PLATELET COMMENT ADEQUATE; POLYCHROMASIA SLIGHT; SEGMENTED NEUTROPHILS % (MAN) 74 % (42-78); TOTAL CELLS COUNTED 100; TOXIC GRANULATION SLIGHT
[2017-04-08 08:15] LABS: PLATELET CLUMPS PRESENT; PLATELET LARGE PRESENT
[2017-04-08] MEDS: IPRATROPIUM/ALBUTEROL 0.5-2.5 MG/3 ML AMPUL NEB PRN ×2 (08:51→22:25)
[2017-04-08] MEDS: ACETYLCYSTEINE 10% NEB 400 MG/4 ML VIAL NEB SCH ×2 (08:51→22:25)
[2017-04-08] MEDS ORDERED: AMLODIPINE BESYLATE 5 MG TABLET PO SCH (09:18)
[2017-04-08] MEDS: AMLODIPINE BESYLATE 2.5 MG TABLET PO SCH (10:25)
[2017-04-08] MEDS: METOPROLOL SUCCINATE 50 MG TAB.SR.24H PO SCH (10:25)
[2017-04-08] MEDS: GUAIFENESIN 600 MG TABLET.SA PO SCH ×2 (10:35→21:47)
[2017-04-08] MEDS: AZITHROMYCIN 250 MG TABLET PO SCH (10:35)
[2017-04-08] MEDS: PREDNISONE 20 MG TABLET PO SCH (10:36)
[2017-04-08] MEDS: PSYLLIUM SEED-SF 5.85 GM PACKET PO SCH ×2 (10:36→17:57)
[2017-04-08] MEDS: LACTOBACILLUS ACIDOPHILUS 250 MG TAB PO SCH ×2 (10:36→18:15)
[2017-04-08] MEDS: TIOTROPIUM BROMIDE DPI 5 CAP/KIT (18 MCG/CAP) IH SCH (10:36)
[2017-04-08] MEDS: RALOXIFENE HCL 60 MG TABLET PO SCH (10:41)
[2017-04-08] MEDS: ROFLUMILAST 500 MCG TABLET PO SCH (10:41)
--- NOTE | 2017-04-08 14:37 | PDOC PROGRESS REPORT ---
Subjective Progress Note for:: 04/08/17 Subjective:: Patient reports that continues doing better. Has been able to ambulate in the room. Feels with more energy. Review of systems All organ systems evaluated and negative except as in subjective All significant laboratories and diagnostics have been reviewed Reason For Visit: COPD EXACERBATION PNEUMONIA Physical Exam Vital Signs: Temp Pulse Resp BP Pulse Ox 97.7 F 90 22 H 104/64 98 04/07/17 23:26 04/08/17 02:00 04/08/17 00:41 04/07/17 23:26 04/08/17 00:41 Intake & Output 04/06/17 04/07/17 04/08/17 06:59 06:59 06:59 Intake Total 1290 1177 1258 Output Total 750 1250 Balance 1290 427 8 Weight 75.3 kg 73.7 kg 73.7 kg General appearance: PRESENT: cooperative, obese Head exam: PRESENT: atraumatic, normocephalic Eye exam: PRESENT: conjunctiva pink, EOMI, PERRLA Ear exam: PRESENT: normal external ear exam, TM's normal bilaterally Mouth exam: PRESENT: moist Neck exam: PRESENT: full ROM. ABSENT: JVD, lymphadenopathy, tenderness Respiratory exam: PRESENT: decreased breath sounds. ABSENT: crackles, wheezes Cardiovascular exam: PRESENT: RRR. ABSENT: diastolic murmur, systolic murmur Vascular exam: PRESENT: normal capillary refill GI/Abdominal exam: PRESENT: normal bowel sounds, soft. ABSENT: tenderness Extremities exam: ABSENT: full ROM, tenderness Musculoskeletal exam: PRESENT: ambulatory Neurological exam: PRESENT: alert, awake, oriented to person, oriented to place , oriented to time, oriented to situation, CN II-XII grossly intact Psychiatric exam: PRESENT: appropriate affect, normal mood Skin exam: PRESENT: intact, normal color Results Laboratory Results: 04/06/17 04:14 04/06/17 04:14 03/31/17 03/31/17 03/31/17 02:43 06:25 06:25 Creatine Kinase 61 CK-MB (CK-2) 0.98 Troponin I < 0.012 NT-Pro-B Natriuret Pep Cancelled 123 04/01/17 04/01/17 03:51 03:51 Creatine Kinase 40 CK-MB (CK-2) 0.44 Troponin I < 0.012 NT-Pro-B Natriuret Pep Impressions: Chest CT 04/04/17 00:00 IMPRESSION: MILD EMPHYSEMATOUS CHANGES. OTHERWISE UNREMARKABLE CT OF THE CHEST WITH IV CONTRAST. Head CT 04/05/17 00:00 IMPRESSION: MILD CHRONIC CHANGES OF ATROPHY AND MICROVASCULAR ISCHEMIA. NO ACUTE PROCESS. EVIDENCE OF ACUTE STROKE: NO. Chest X-Ray 04/05/17 06:00 IMPRESSION: NO ACUTE RADIOGRAPHIC FINDING IN THE CHEST. Assessment & Plan - Diagnosis (1) Encephalopathy acute Is this a current diagnosis for this admission?: Yes Plan: Likely due to CO2 narcosis. Resolved (2) COPD exacerbation Is this a current diagnosis for this admission?: Yes Plan: Continue current management (3) Acute and chronic respiratory failure with hypercapnia Is this a current diagnosis for this admission?: Yes Plan: Continue oxygen supplementation (4) Essential (primary) hypertension Is this a current diagnosis for this admission?: Yes Plan: Adjust regimen to avoid hypotension (5) PAH (pulmonary artery hypertension) Is this a current diagnosis for this admission?: Yes Plan: Continue oral furosemide. Echocardiogram results noted (6) Hypokalemia Is this a current diagnosis for this admission?: Yes Plan: Resolved (7) Hyperglycemia Is this a current diagnosis for this admission?: Yes Plan: Continue Humalog sliding scale and check bedside glucose every 6 hours. Noted A1C. No diabetes (8) Alcohol use Is this a current diagnosis for this admission?: Yes Plan: Patient educated about side effects of alcohol including respiratory depression especially when taking Xanax (9) Leukocytosis Qualifiers: Leukocytosis type: unspecified Qualified Code(s): D72.829 - Elevated white blood cell count, unspecified Is this a current diagnosis for this admission?: Yes Plan: CT scan of the chest negative but really want for emphysema. Will discontinue Zithromax and Augmentin. Likely elevated white blood cell count relates to leukocytes demargination secondary to steroids. (10) Weakness Is this a current diagnosis for this admission?: Yes Plan: CT scan of head negative for acute stroke. Changes of vascular ischemia noted. Patient now wishes to go back home - Time Time Spent with patient: 15-24 minutes Medications reviewed and adjusted accordingly: Yes Anticipated discharge: Home with Homehealth Within: within 24 hours - Inpatient Certification Based on my medical assessment, after consideration of the patient's comorbidities, presenting symptoms, or acuity I expect that the services needed warrant INPATIENT care.: Yes I certify that my determination is in accordance with my understanding of Medicare's requirements for reasonable and necessary INPATIENT services [42 CFR 412.3e].: Yes Medical Necessity: Need Close Monitoring Due to Risk of Patient Decompensation
[2017-04-08] MEDS: ALPRAZOLAM 0.5 MG TABLET PO SCH (21:47)
[2017-04-08] MEDS: MONTELUKAST SODIUM 10 MG TABLET PO SCH (21:47)
[2017-04-08] MEDS: ROPINIROLE HCL 2 MG TABLET PO SCH (21:47)
[2017-04-09] MEDS: HEPARIN SOD (PORCINE) 5,000 UNIT/ML 1 ML SYRINGE SUBCUT SCH (05:23)
[2017-04-09] MEDS: FLUTICASONE/SALMETEROL DISKUS 500-50 MCG/DOSE IH SCH (05:24)
[2017-04-09 08:05] VITALS: BP 110/68
[2017-04-09] MEDS: IPRATROPIUM/ALBUTEROL 0.5-2.5 MG/3 ML AMPUL NEB PRN (08:12)
[2017-04-09] MEDS: ACETYLCYSTEINE 10% NEB 400 MG/4 ML VIAL NEB SCH (08:12)
[2017-04-09] MEDS: GUAIFENESIN 600 MG TABLET.SA PO SCH (10:00)
[2017-04-09] MEDS: RALOXIFENE HCL 60 MG TABLET PO SCH (10:00)
[2017-04-09] MEDS: AZITHROMYCIN 250 MG TABLET PO SCH (10:01)
[2017-04-09] MEDS: ROFLUMILAST 500 MCG TABLET PO SCH (10:01)
[2017-04-09] MEDS: AMLODIPINE BESYLATE 2.5 MG TABLET PO SCH (10:01)
[2017-04-09] MEDS: TIOTROPIUM BROMIDE DPI 5 CAP/KIT (18 MCG/CAP) IH SCH (10:02)
[2017-04-09] MEDS: LACTOBACILLUS ACIDOPHILUS 250 MG TAB PO SCH (10:03)
[2017-04-09] MEDS: PREDNISONE 20 MG TABLET PO SCH (10:03)
[2017-04-09] MEDS: METOPROLOL SUCCINATE 50 MG TAB.SR.24H PO SCH (10:04)
[2017-04-09] MEDS: PSYLLIUM SEED-SF 5.85 GM PACKET PO SCH (10:08)
--- NOTE | 2017-04-09 19:01 | PDOC DISCHARGE SUMMARY ---
General - Admit/Disc Date/PCP Admission Date/Primary Care Provider: 03/31/17 02:13 Discharge Date: 04/09/17 - Discharge Diagnosis (1) Acute and chronic respiratory failure with hypercapnia Is this a current diagnosis for this admission?: Yes (2) Encephalopathy acute Is this a current diagnosis for this admission?: Yes (3) COPD exacerbation Is this a current diagnosis for this admission?: Yes (4) Essential (primary) hypertension Is this a current diagnosis for this admission?: Yes (5) PAH (pulmonary artery hypertension) Is this a current diagnosis for this admission?: Yes (6) Hypokalemia Is this a current diagnosis for this admission?: Yes (7) Hyperglycemia Is this a current diagnosis for this admission?: Yes (8) Alcohol use Is this a current diagnosis for this admission?: Yes (9) Leukocytosis Is this a current diagnosis for this admission?: Yes (10) Weakness Is this a current diagnosis for this admission?: Yes - Additional Information Prescriptions: Amlodipine Besylate [Norvasc 2.5 mg Tablet] 5 mg PO DAILY #60 tablet Azithromycin [Zithromax 250 mg Tablet] 500 mg PO DAILY #10 tablet Fluticasone/Salmeterol [Advair 500-50 Diskus 14 Dose/Diskus] 1 inh IH Q12A #60 inhaler Guaifenesin [Mucinex Sr 600 mg Tablet.sa] 1,200 mg PO Q12 #60 tablet.sa Metoprolol Succinate [Toprol Xl 50 mg Tab.sr] 50 mg PO DAILY #30 tab.sr.24h Montelukast Sodium [Singulair 10 mg Tablet] 10 mg PO QHS #30 tablet Tiotropium Elrod [Spiriva Handihaler 5 Cap/Kit (18 Mcg/Cap)] 1 cap IH DAILY # 30 kit Home Medications: Albuterol Sulfate [Ventolin HFA MDI 18 GM] 2 puff IH Q4HP PRN 03/31/17 Alprazolam [Xanax 0.25 mg Tablet] 0.25 mg PO HSP PRN 03/31/17 Glycopyrrolate/Formoterol Fum [Bevespi Aerosphere Inhaler] 2 puff IH Q12 Hydrochlorothiazide [Hydrodiuril 25 mg Tablet] 25 mg PO DAILY 03/31/17 Raloxifene HCl [Evista 60 mg Tablet] 60 mg PO DAILY 03/31/17 Roflumilast [Daliresp 500 mcg Tablet] 500 mcg PO DAILY 03/31/17 Ropinirole HCl [Requip] 2 mg PO DAILY 03/31/17 Amlodipine Besylate [Norvasc 2.5 mg Tablet] 5 mg PO DAILY #60 tablet 04/09/17 Azithromycin [Zithromax 250 mg Tablet] 500 mg PO DAILY #10 tablet 04/09/17 Fluticasone/Salmeterol [Advair 500-50 Diskus 14 Dose/Diskus] 1 inh IH Q12A #60 inhaler 04/09/17 Guaifenesin [Mucinex Sr 600 mg Tablet.sa] 1,200 mg PO Q12 #60 tablet.sa Metoprolol Succinate [Toprol Xl 50 mg Tab.sr] 50 mg PO DAILY #30 tab.sr.24h Montelukast Sodium [Singulair 10 mg Tablet] 10 mg PO QHS #30 tablet 04/09/17 Tiotropium Elrod [Spiriva Handihaler 5 Cap/Kit (18 Mcg/Cap)] 1 cap IH DAILY # 30 kit 04/09/17 History of Present Illness History of Present Illness: VIKY DE LEON is a 66 year old female who presented to ED via EMS obtunded, unresponsive, after apparently being found in her home, confused, hypoxic and combative. She was administered intramuscular midazolam in route to the hospital. Patient required to be intubated. The hospitalist service was consulted for further management. Patient required ICU admission. Hospital Course Hospital Course: Patient was admitted to intensive care unit as she required intubation on admission secondary to acute respiratory failure which was deemed to be hypoxic and hypercapnic. Patient was extubated on April 02 and transitioned to BiPAP. Overall pulmonary status progressed and eventually patient was wean off to 2 L of O2 by nasal cannula. Exacerbation of COPD was treated in the usual fashion that is with IV steroids, nebulizer treatment, Mucomyst Mucinex and antibiotic with further improvement. Since patient suffers from pulmonary hypertension as was again demonstrated in echocardiogram during this hospitalization, she was also treated with IV Lasix. Overall intervention resulted in improvement of her respiratory status. While hospitalized she was followed up by Dr. Guerra. She is to follow-up with him as outpatient. Patient likes to drink wine but also takes Xanax and she has been educated about the respiratory depression when both of them taken together. Initially we had advised patient to go to a jail facility for rehab but she opted to go home with home health and she wanted to get physical therapy at home. As she does have advanced disease I anticipate for patient to return back under similar or worse circumstances. Patient had been reasonably stabilized and prompted to discharge Physical Exam Vital Signs: Temp Pulse Resp BP Pulse Ox 98.2 F 98 19 117/78 97 04/09/17 04:00 04/09/17 04:00 04/09/17 04:45 04/09/17 04:00 04/09/17 04:45 Intake & Output 04/07/17 04/08/17 04/09/17 06:59 06:59 06:59 Intake Total 1177 1258 961 Output Total 750 1250 300 Balance 427 8 661 Weight 73.7 kg 73.7 kg 74.6 kg General appearance: PRESENT: cooperative, obese Head exam: PRESENT: atraumatic, normocephalic Eye exam: PRESENT: EOMI, PERRLA Ear exam: PRESENT: normal external ear exam Neck exam: PRESENT: full ROM. ABSENT: JVD, lymphadenopathy, tenderness Respiratory exam: PRESENT: clear to auscultation sandie Cardiovascular exam: PRESENT: RRR. ABSENT: diastolic murmur, systolic murmur Vascular exam: PRESENT: normal capillary refill GI/Abdominal exam: PRESENT: normal bowel sounds, soft. ABSENT: tenderness Extremities exam: PRESENT: full ROM. ABSENT: pedal edema Musculoskeletal exam: PRESENT: ambulatory Neurological exam: PRESENT: alert, awake, oriented to person, oriented to place , oriented to time, oriented to situation, CN II-XII grossly intact Psychiatric exam: PRESENT: appropriate affect, normal mood Skin exam: PRESENT: intact, normal color Results Laboratory Results: 04/08/17 07:10 04/08/17 07:10 04/08/17 04/08/17 07:10 07:10 WBC 14.1 H RBC 4.26 Hgb 10.3 L Hct 32.6 L MCV 77 L MCH 24.1 L MCHC 31.5 L RDW 15.4 H Plt Count 250 Seg Neutrophils % Not Reportable Lymphocytes % Not Reportable Monocytes % Not Reportable Eosinophils % Not Reportable Basophils % Not Reportable Absolute Neutrophils Not Reportable Absolute Lymphocytes Not Reportable Absolute Monocytes Not Reportable Absolute Eosinophils Not Reportable Absolute Basophils Not Reportable Sodium 140.4 Potassium 3.4 L Chloride 97 L Carbon Dioxide 38 H Anion Gap 5 BUN 15 Creatinine 0.59 Est GFR ( Amer) > 60 Est GFR (Non-Af Amer) > 60 Glucose 102 Calcium 9.0 Magnesium 2.2 03/31/17 03/31/17 03/31/17 02:43 06:25 06:25 Creatine Kinase 61 CK-MB (CK-2) 0.98 Troponin I < 0.012 NT-Pro-B Natriuret Pep Cancelled 123 04/01/17 04/01/17 03:51 03:51 Creatine Kinase 40 CK-MB (CK-2) 0.44 Troponin I < 0.012 NT-Pro-B Natriuret Pep Impressions: Chest CT 04/04/17 00:00 IMPRESSION: MILD EMPHYSEMATOUS CHANGES. OTHERWISE UNREMARKABLE CT OF THE CHEST WITH IV CONTRAST. Head CT 04/05/17 00:00 IMPRESSION: MILD CHRONIC CHANGES OF ATROPHY AND MICROVASCULAR ISCHEMIA. NO ACUTE PROCESS. EVIDENCE OF ACUTE STROKE: NO. Chest X-Ray 04/05/17 06:00 IMPRESSION: NO ACUTE RADIOGRAPHIC FINDING IN THE CHEST. Plan Discharge Plan: Discharge home with home health Time Spent: Less than 30 Minutes
--- NOTE | 2017-04-19 20:02 | PDOC CONSULTATION ---
Consultation Consult Date: 03/31/17 Attending physician:: YOANDY RENEE Consult reason:: resp failure History of Present Illness Admission Date/PCP: 03/31/17 02:13 History of Present Illness: VIKY DE LEON is a 66 year old female found with AMs subsequently intubated currently in ICU on mechanical ventilation Past Medical History Cardiac Medical History: Reports: Hypertension - on meds Denies: Coronary Artery Disease, Myocardial Infarction Pulmonary Medical History: Reports: Bronchitis - hx of, Chronic Obstructive Pulmonary Disease (COPD) - inhalers/neb/o2 prn, Pneumonia - hx of Denies: Asthma Neurological Medical History: Denies: Seizures Malignancy Medical History: Reports: Breast Cancer Musculoskeltal Medical History: Reports: Arthritis - generalized Psychiatric Medical History: Denies: Depression Hematology: Denies: Anemia Past Surgical History Past Surgical History: Reports: Mastectomy - lumpectomy Social History Information Source: [facility] Records Smoking Status: Unknown if Ever Smoked Frequency of Alcohol Use: Occasional Hx Recreational Drug Use: Yes Drugs: Marijuana Hx Prescription Drug Abuse: No Family History Family History: COPD, Hypertension Parental Family History Reviewed: No Children Family History Reviewed: No Sibling(s) Family History Reviewed.: No Medication/Allergy Home Medications: Albuterol Sulfate [Ventolin HFA MDI 18 GM] 2 puff IH Q4HP PRN 03/31/17 Alprazolam [Xanax 0.25 mg Tablet] 0.25 mg PO HSP PRN 03/31/17 Glycopyrrolate/Formoterol Fum [Bevespi Aerosphere Inhaler] 2 puff IH Q12 Hydrochlorothiazide [Hydrodiuril 25 mg Tablet] 25 mg PO DAILY 03/31/17 Raloxifene HCl [Evista 60 mg Tablet] 60 mg PO DAILY 03/31/17 Roflumilast [Daliresp 500 mcg Tablet] 500 mcg PO DAILY 03/31/17 Ropinirole HCl [Requip] 2 mg PO DAILY 03/31/17 Amlodipine Besylate [Norvasc 2.5 mg Tablet] 5 mg PO DAILY #60 tablet 04/09/17 Azithromycin [Zithromax 250 mg Tablet] 500 mg PO DAILY #10 tablet 04/09/17 Fluticasone/Salmeterol [Advair 500-50 Diskus 14 Dose/Diskus] 1 inh IH Q12A #60 inhaler 04/09/17 Guaifenesin [Mucinex Sr 600 mg Tablet.sa] 1,200 mg PO Q12 #60 tablet.sa Metoprolol Succinate [Toprol Xl 50 mg Tab.sr] 50 mg PO DAILY #30 tab.sr.24h Montelukast Sodium [Singulair 10 mg Tablet] 10 mg PO QHS #30 tablet 04/09/17 Tiotropium Newman [Spiriva Handihaler 5 Cap/Kit (18 Mcg/Cap)] 1 cap IH DAILY # 30 kit 04/09/17 Allergies/Adverse Reactions: No Known Allergies Allergy (Verified 11/08/15 12:42) Review of Systems ROS unobtainable: Due to endotracheal tube, Due to mental status Physical Exam Vital Signs: Temp Pulse Resp BP Pulse Ox 97.5 F 101 H 19 97/66 L 97 03/31/17 10:08 03/31/17 08:00 03/31/17 10:08 03/31/17 10:08 03/31/17 10:08 Intake & Output 03/30/17 03/31/17 04/01/17 06:59 06:59 06:59 Intake Total 84 Output Total 60 600 Balance 24 -600 Weight 77.4 kg General appearance: PRESENT: no acute distress, disheveled, well-developed. ABSENT: cooperative, mild distress, severe distress Head exam: PRESENT: atraumatic, normocephalic Eye exam: PRESENT: conjunctiva pale. ABSENT: nystagmus Mouth exam: PRESENT: dry mucosa, neck supple, tongue midline, other - ET tube Neck exam: ABSENT: carotid bruit, JVD, lymphadenopathy, thyromegaly, tracheal deviation, tracheostomy Respiratory exam: PRESENT: decreased breath sounds, prolonged expiratory phas, rhonchi, stridor, symmetrical, unlabored, wheezes. ABSENT: rales, retraction, tachypnea Cardiovascular exam: PRESENT: RRR, +S1, +S2 Pulses: PRESENT: normal radial pulses GI/Abdominal exam: PRESENT: diminished bowel sounds, soft Extremities exam: ABSENT: calf tenderness, clubbing, joint swelling Musculoskeletal exam: ABSENT: deformity, dislocation Neurological exam: ABSENT: alert, awake Skin exam: PRESENT: dry, warm Results Laboratory Results: 03/31/17 06:25 03/31/17 06:25 03/31/17 03/31/17 03/31/17 04:34 06:25 06:25 WBC 14.4 H RBC 4.36 Hgb 10.5 L Hct 33.5 L MCV 77 L MCH 24.1 L MCHC 31.4 L RDW 15.3 H Plt Count 246 Seg Neutrophils % Not Reportable Lymphocytes % Not Reportable Monocytes % Not Reportable Eosinophils % Not Reportable Basophils % Not Reportable Absolute Neutrophils Not Reportable Absolute Lymphocytes Not Reportable Absolute Monocytes Not Reportable Absolute Eosinophils Not Reportable Absolute Basophils Not Reportable Carbonic Acid HCO3/H2CO3 Ratio ABG pH ABG pCO2 ABG pO2 ABG HCO3 ABG O2 Saturation ABG Base Excess FiO2 Sodium 144.0 Potassium 3.6 Chloride 100 Carbon Dioxide 32 H Anion Gap 12 BUN 19 Creatinine 0.69 Est GFR ( Amer) > 60 Est GFR (Non-Af Amer) > 60 Glucose 130 H Calcium 9.0 Iron Cancelled 38.1 TIBC Cancelled 286 % Saturation Cancelled 13 Ferritin Cancelled 200.00 Vitamin B12 Cancelled 759.0 Folate Cancelled 9.67 03/31/17 08:00 WBC RBC Hgb Hct MCV MCH MCHC RDW Plt Count Seg Neutrophils % Lymphocytes % Monocytes % Eosinophils % Basophils % Absolute Neutrophils Absolute Lymphocytes Absolute Monocytes Absolute Eosinophils Absolute Basophils Carbonic Acid 1.70 H HCO3/H2CO3 Ratio 16:1 ABG pH 7.32 L ABG pCO2 56.6 H ABG pO2 80.8 ABG HCO3 28.6 H ABG O2 Saturation 94.9 ABG Base Excess 1.7 FiO2 40% Sodium Potassium Chloride Carbon Dioxide Anion Gap BUN Creatinine Est GFR ( Amer) Est GFR (Non-Af Amer) Glucose Calcium Iron TIBC % Saturation Ferritin Vitamin B12 Folate 03/31/17 03/31/17 03/31/17 02:43 06:25 06:25 Creatine Kinase 61 CK-MB (CK-2) 0.98 Troponin I < 0.012 NT-Pro-B Natriuret Pep Cancelled 123 Impressions: Chest X-Ray 03/31/17 06:00 IMPRESSION: 1. NG tube with tip in the stomach. Assessment & Plan - Diagnosis (1) Acute and chronic respiratory failure with hypercapnia Is this a current diagnosis for this admission?: Yes Plan: support to baseline (2) Altered mental status Qualifiers: Altered mental status type: stupor Qualified Code(s): R40.1 - Stupor Is this a current diagnosis for this admission?: Yes (3) COPD exacerbation Is this a current diagnosis for this admission?: Yes Plan: wheezing increased PCO2 (4) Tobacco abuse Is this a current diagnosis for this admission?: Yes Plan: transdermal nicotene (5) PAH (pulmonary artery hypertension) Is this a current diagnosis for this admission?: Yes - Time Total Critical Time (Minutes): 50
--- NOTE | 2017-04-19 20:10 | PDOC PROGRESS REPORT ---
Subjective Progress Note for:: 04/02/17 Subjective:: stable Reason For Visit: COPD EXACERBATION PNEUMONIA Physical Exam Vital Signs: Temp Pulse Resp BP Pulse Ox 98.6 F 91 14 124/78 98 04/02/17 08:00 04/02/17 08:00 04/02/17 08:00 04/02/17 08:00 04/02/17 08:00 Intake & Output 04/01/17 04/02/17 04/03/17 06:59 06:59 06:59 Intake Total 2358 2832 Output Total 1670 3600 75 Balance 688 -768 -75 Weight 78.5 kg 79.7 kg General appearance: PRESENT: no acute distress Head exam: PRESENT: atraumatic, normocephalic Eye exam: PRESENT: conjunctiva pale, EOMI. ABSENT: scleral icterus Mouth exam: PRESENT: dry mucosa, neck supple, tongue midline, other - ET Neck exam: ABSENT: carotid bruit, JVD, lymphadenopathy, thyromegaly, tracheal deviation, tracheostomy Respiratory exam: PRESENT: decreased breath sounds, prolonged expiratory phas, rales, rhonchi, symmetrical, unlabored. ABSENT: stridor, tachypnea Cardiovascular exam: PRESENT: RRR, +S1, +S2 Pulses: PRESENT: normal radial pulses GI/Abdominal exam: PRESENT: diminished bowel sounds, soft Gentrourinary exam: PRESENT: indwelling catheter Extremities exam: ABSENT: calf tenderness, clubbing Musculoskeletal exam: ABSENT: deformity, dislocation Neurological exam: PRESENT: awake Skin exam: PRESENT: dry, warm Results Laboratory Results: 04/02/17 03:51 04/02/17 03:51 04/02/17 04/02/17 04/02/17 03:51 03:51 05:26 WBC 23.3 H RBC 4.44 Hgb 10.6 L Hct 34.0 L MCV 77 L MCH 23.8 L MCHC 31.1 L RDW 15.9 H Plt Count 268 Seg Neutrophils % 90.3 H Lymphocytes % 4.1 L Monocytes % 5.6 Eosinophils % 0.0 Basophils % 0.0 Absolute Neutrophils 21.0 H Absolute Lymphocytes 1.0 Absolute Monocytes 1.3 Absolute Eosinophils 0.0 Absolute Basophils 0.0 Carbonic Acid 1.39 H HCO3/H2CO3 Ratio 22:1 ABG pH 7.45 ABG pCO2 46.2 H ABG pO2 79.0 L ABG HCO3 31.2 H ABG O2 Saturation 96.0 ABG Base Excess 6.4 FiO2 35% Sodium 145.4 H Potassium 3.4 L Chloride 105 Carbon Dioxide 32 H Anion Gap 8 BUN 16 Creatinine 0.76 Est GFR ( Amer) > 60 Est GFR (Non-Af Amer) > 60 Glucose 136 H Calcium 8.9 Magnesium 2.4 H 03/31/17 03/31/17 03/31/17 02:43 06:25 06:25 Creatine Kinase 61 CK-MB (CK-2) 0.98 Troponin I < 0.012 NT-Pro-B Natriuret Pep Cancelled 123 04/01/17 04/01/17 03:51 03:51 Creatine Kinase 40 CK-MB (CK-2) 0.44 Troponin I < 0.012 NT-Pro-B Natriuret Pep Impressions: Chest X-Ray 04/02/17 06:00 IMPRESSION: 1. Stable appearance of the chest. Assessment & Plan - Diagnosis (1) Acute and chronic respiratory failure with hypercapnia Is this a current diagnosis for this admission?: Yes Plan: support and wean EDWARD (2) COPD exacerbation Is this a current diagnosis for this admission?: Yes Plan: BHUPINDER+LABA+LAMA (3) HTN (hypertension) Qualifiers: Hypertension type: essential hypertension Qualified Code(s): I10 - Essential (primary) hypertension Is this a current diagnosis for this admission?: Yes Plan: stable (4) Tobacco abuse Is this a current diagnosis for this admission?: Yes Plan: transdermal nicotene (5) PAH (pulmonary artery hypertension) Is this a current diagnosis for this admission?: Yes - Time Total Critical Time (Minutes): 50
--- NOTE | 2017-04-21 21:47 | PDOC PROGRESS REPORT ---
Subjective Progress Note for:: 04/03/17 Subjective:: stable Reason For Visit: COPD EXACERBATION PNEUMONIA Physical Exam Vital Signs: Temp Pulse Resp BP Pulse Ox 99.1 F 78 12 142/83 H 97 04/03/17 07:59 04/03/17 07:59 04/03/17 07:59 04/03/17 07:59 04/03/17 07:59 Intake & Output 04/02/17 04/03/17 04/04/17 06:59 06:59 06:59 Intake Total 2832 1542 Output Total 3600 3435 90 Balance -768 -1893 -90 Weight 79.7 kg 76.9 kg General appearance: PRESENT: no acute distress, disheveled, well-developed. ABSENT: cooperative Head exam: PRESENT: atraumatic, normocephalic Eye exam: PRESENT: conjunctiva pale, EOMI. ABSENT: nystagmus, periorbital swelling Mouth exam: PRESENT: dry mucosa, neck supple, tongue midline, other Neck exam: ABSENT: carotid bruit, JVD, lymphadenopathy, thyromegaly, tracheal deviation, tracheostomy Respiratory exam: PRESENT: decreased breath sounds, prolonged expiratory phas, rhonchi, symmetrical, unlabored. ABSENT: rales, retraction, stridor, tachypnea Cardiovascular exam: PRESENT: RRR, +S1, +S2 Pulses: PRESENT: normal radial pulses GI/Abdominal exam: PRESENT: diminished bowel sounds, soft Extremities exam: ABSENT: calf tenderness, clubbing Musculoskeletal exam: ABSENT: deformity, dislocation Skin exam: PRESENT: dry, warm Results Laboratory Results: 04/03/17 07:00 04/03/17 07:00 04/02/17 04/03/17 04/03/17 13:30 04:29 07:00 WBC 19.9 H RBC 4.34 Hgb 10.4 L Hct 32.6 L MCV 75 L MCH 24.0 L MCHC 32.0 RDW 15.1 H Plt Count 261 Seg Neutrophils % Not Reportable Lymphocytes % Not Reportable Monocytes % Not Reportable Eosinophils % Not Reportable Basophils % Not Reportable Absolute Neutrophils Not Reportable Absolute Lymphocytes Not Reportable Absolute Monocytes Not Reportable Absolute Eosinophils Not Reportable Absolute Basophils Not Reportable Carbonic Acid 1.75 H 1.43 H HCO3/H2CO3 Ratio 20:1 25:1 ABG pH 7.41 7.50 H ABG pCO2 58.3 H 47.6 H ABG pO2 76.8 L 69.0 L ABG HCO3 35.7 H 36.4 H ABG O2 Saturation 95.1 95.0 ABG Base Excess 9.3 11.8 FiO2 40% 40% Sodium Potassium Chloride Carbon Dioxide Anion Gap BUN Creatinine Est GFR ( Amer) Est GFR (Non-Af Amer) Glucose Calcium Magnesium 04/03/17 07:00 WBC RBC Hgb Hct MCV MCH MCHC RDW Plt Count Seg Neutrophils % Lymphocytes % Monocytes % Eosinophils % Basophils % Absolute Neutrophils Absolute Lymphocytes Absolute Monocytes Absolute Eosinophils Absolute Basophils Carbonic Acid HCO3/H2CO3 Ratio ABG pH ABG pCO2 ABG pO2 ABG HCO3 ABG O2 Saturation ABG Base Excess FiO2 Sodium 145.0 Potassium 3.2 L Chloride 102 Carbon Dioxide 36 H Anion Gap 7 BUN 24 H Creatinine 0.70 Est GFR ( Amer) > 60 Est GFR (Non-Af Amer) > 60 Glucose 106 Calcium 8.9 Magnesium 2.4 H 03/31/17 08:00 Tracheal Aspirate Gram Stain - Final 03/31/17 08:00 Tracheal Aspirate Sputum Culture - Final NORMAL HERNANDEZ 03/31/17 16:10 Catheterized Urine Urine Culture - Final NO GROWTH 2 DAYS 03/31/17 03/31/17 03/31/17 02:43 06:25 06:25 Creatine Kinase 61 CK-MB (CK-2) 0.98 Troponin I < 0.012 NT-Pro-B Natriuret Pep Cancelled 123 04/01/17 04/01/17 03:51 03:51 Creatine Kinase 40 CK-MB (CK-2) 0.44 Troponin I < 0.012 NT-Pro-B Natriuret Pep Impressions: Chest X-Ray 04/03/17 06:00 IMPRESSION: 1. Interval removal of endotracheal and NG tube. Otherwise stable appearance of the chest. Assessment & Plan - Diagnosis (1) Acute and chronic respiratory failure with hypercapnia Is this a current diagnosis for this admission?: Yes Plan: support to baseline (2) COPD exacerbation Is this a current diagnosis for this admission?: Yes Plan: wheezing increased PCO2 (3) Leukocytosis Qualifiers: Leukocytosis type: unspecified Qualified Code(s): D72.829 - Elevated white blood cell count, unspecified Is this a current diagnosis for this admission?: Yes (4) Tobacco abuse Is this a current diagnosis for this admission?: Yes Plan: transdermal nicotene (5) PAH (pulmonary artery hypertension) Is this a current diagnosis for this admission?: Yes
--- NOTE | 2017-04-21 21:49 | PDOC PROGRESS REPORT ---
Subjective Progress Note for:: 04/04/17 Subjective:: stable Reason For Visit: COPD EXACERBATION PNEUMONIA Physical Exam Vital Signs: Temp Pulse Resp BP Pulse Ox 97.0 F 76 20 126/87 H 100 04/04/17 08:16 04/04/17 08:00 04/04/17 08:00 04/04/17 05:25 04/04/17 08:00 Intake & Output 04/03/17 04/04/17 04/05/17 06:59 06:59 06:59 Intake Total 1542 757 200 Output Total 3435 990 Balance -1893 -233 200 Weight 76.9 kg 77.4 kg General appearance: PRESENT: no acute distress, cooperative, disheveled, well- developed Head exam: PRESENT: atraumatic, normocephalic Eye exam: PRESENT: conjunctiva pale, EOMI. ABSENT: nystagmus, periorbital swelling Mouth exam: PRESENT: dry mucosa, neck supple, tongue midline Neck exam: ABSENT: carotid bruit, JVD, lymphadenopathy, thyromegaly, tracheal deviation, tracheostomy Respiratory exam: PRESENT: decreased breath sounds, prolonged expiratory phas, rales, rhonchi, symmetrical, unlabored. ABSENT: tachypnea Cardiovascular exam: PRESENT: RRR, +S1, +S2 Pulses: PRESENT: normal radial pulses GI/Abdominal exam: PRESENT: diminished bowel sounds, soft Extremities exam: ABSENT: clubbing, joint swelling Musculoskeletal exam: ABSENT: deformity, dislocation Neurological exam: PRESENT: awake Skin exam: PRESENT: dry, warm Results Laboratory Results: 04/04/17 03:48 04/04/17 03:48 04/04/17 04/04/17 04/04/17 03:48 03:48 05:18 WBC 15.4 H RBC 4.28 Hgb 10.4 L Hct 32.8 L MCV 77 L MCH 24.4 L MCHC 31.8 L RDW 15.7 H Plt Count 256 Seg Neutrophils % Not Reportable Lymphocytes % Not Reportable Monocytes % Not Reportable Eosinophils % Not Reportable Basophils % Not Reportable Absolute Neutrophils Not Reportable Absolute Lymphocytes Not Reportable Absolute Monocytes Not Reportable Absolute Eosinophils Not Reportable Absolute Basophils Not Reportable Carbonic Acid 1.76 H HCO3/H2CO3 Ratio 18:1 ABG pH 7.38 ABG pCO2 58.5 H ABG pO2 103.5 H ABG HCO3 33.4 H ABG O2 Saturation 97.5 ABG Base Excess 6.8 FiO2 40% Sodium 145.5 H Potassium 4.7 D Chloride 105 Carbon Dioxide 35 H Anion Gap 6 BUN 22 H Creatinine 0.67 Est GFR ( Amer) > 60 Est GFR (Non-Af Amer) > 60 Glucose 113 H Calcium 9.2 Magnesium 2.5 H Total Bilirubin 0.3 AST 18 ALT 25 Alkaline Phosphatase 53 Total Protein 5.7 L Albumin 3.6 03/31/17 03/31/17 03/31/17 02:43 06:25 06:25 Creatine Kinase 61 CK-MB (CK-2) 0.98 Troponin I < 0.012 NT-Pro-B Natriuret Pep Cancelled 123 04/01/17 04/01/17 03:51 03:51 Creatine Kinase 40 CK-MB (CK-2) 0.44 Troponin I < 0.012 NT-Pro-B Natriuret Pep Impressions: Chest X-Ray 04/03/17 06:00 IMPRESSION: 1. Interval removal of endotracheal and NG tube. Otherwise stable appearance of the chest. Assessment & Plan - Diagnosis (1) Acute and chronic respiratory failure with hypercapnia Is this a current diagnosis for this admission?: Yes Plan: support to baseline (2) COPD exacerbation Is this a current diagnosis for this admission?: Yes Plan: wheezing increased PCO2 (3) Tobacco abuse Is this a current diagnosis for this admission?: Yes Plan: transdermal nicotene (4) PAH (pulmonary artery hypertension) Is this a current diagnosis for this admission?: Yes
--- NOTE | 2017-04-21 21:51 | PDOC PROGRESS REPORT ---
Subjective Progress Note for:: 04/06/17 Subjective:: stable Reason For Visit: COPD EXACERBATION PNEUMONIA Physical Exam Vital Signs: Temp Pulse Resp BP Pulse Ox 97.7 F 79 17 124/90 H 97 04/06/17 07:16 04/06/17 07:16 04/06/17 07:16 04/06/17 07:16 04/06/17 07:16 Intake & Output 04/05/17 04/06/17 04/07/17 06:59 06:59 06:59 Intake Total 1275 1290 Output Total 400 Balance 875 1290 Weight 73.9 kg 75.3 kg General appearance: PRESENT: no acute distress, cooperative, well-developed Head exam: PRESENT: atraumatic, normocephalic Eye exam: PRESENT: conjunctiva pale. ABSENT: nystagmus, periorbital swelling, scleral icterus Mouth exam: PRESENT: dry mucosa, neck supple, tongue midline Neck exam: ABSENT: carotid bruit, JVD, lymphadenopathy, thyromegaly, tracheal deviation, tracheostomy Respiratory exam: PRESENT: decreased breath sounds, prolonged expiratory phas, rales, rhonchi, symmetrical, unlabored. ABSENT: tachypnea Cardiovascular exam: PRESENT: RRR, +S1, +S2 Pulses: PRESENT: normal radial pulses GI/Abdominal exam: PRESENT: diminished bowel sounds, soft Extremities exam: ABSENT: calf tenderness, clubbing, joint swelling Neurological exam: PRESENT: awake Skin exam: PRESENT: dry, warm Results Laboratory Results: 04/06/17 04:14 04/06/17 04:14 04/06/17 04/06/17 04:14 04:14 WBC 14.8 H RBC 4.35 Hgb 10.4 L Hct 33.4 L MCV 77 L MCH 23.8 L MCHC 31.0 L RDW 15.5 H Plt Count 261 Seg Neutrophils % Not Reportable Lymphocytes % Not Reportable Monocytes % Not Reportable Eosinophils % Not Reportable Basophils % Not Reportable Absolute Neutrophils Not Reportable Absolute Lymphocytes Not Reportable Absolute Monocytes Not Reportable Absolute Eosinophils Not Reportable Absolute Basophils Not Reportable Sodium 140.5 Potassium 4.1 Chloride 96 L Carbon Dioxide 37 H Anion Gap 8 BUN 24 H Creatinine 0.65 Est GFR ( Amer) > 60 Est GFR (Non-Af Amer) > 60 Glucose 101 Calcium 8.9 Phosphorus 3.7 Magnesium 2.3 Total Bilirubin 0.3 AST 13 L ALT 28 Alkaline Phosphatase 50 Total Protein 5.4 L Albumin 3.5 03/31/17 03/31/17 03/31/17 02:43 06:25 06:25 Creatine Kinase 61 CK-MB (CK-2) 0.98 Troponin I < 0.012 NT-Pro-B Natriuret Pep Cancelled 123 04/01/17 04/01/17 03:51 03:51 Creatine Kinase 40 CK-MB (CK-2) 0.44 Troponin I < 0.012 NT-Pro-B Natriuret Pep Impressions: Chest CT 04/04/17 00:00 IMPRESSION: MILD EMPHYSEMATOUS CHANGES. OTHERWISE UNREMARKABLE CT OF THE CHEST WITH IV CONTRAST. Head CT 04/05/17 00:00 IMPRESSION: MILD CHRONIC CHANGES OF ATROPHY AND MICROVASCULAR ISCHEMIA. NO ACUTE PROCESS. EVIDENCE OF ACUTE STROKE: NO. Chest X-Ray 04/05/17 06:00 IMPRESSION: NO ACUTE RADIOGRAPHIC FINDING IN THE CHEST. Assessment & Plan - Diagnosis (1) HTN (hypertension) Qualifiers: Hypertension type: essential hypertension Qualified Code(s): I10 - Essential (primary) hypertension Is this a current diagnosis for this admission?: Yes Plan: stable (2) Tobacco abuse Is this a current diagnosis for this admission?: Yes Plan: transdermal nicotene (3) PAH (pulmonary artery hypertension) Is this a current diagnosis for this admission?: Yes
--- NOTE | 2017-04-21 21:52 | PDOC PROGRESS REPORT ---
Subjective Progress Note for:: 04/07/17 Subjective:: stable Reason For Visit: COPD EXACERBATION PNEUMONIA Physical Exam Vital Signs: Temp Pulse Resp BP Pulse Ox 98.2 F 101 H 20 110/68 100 04/09/17 09:19 04/09/17 09:19 04/09/17 09:19 04/09/17 09:19 04/09/17 09:19 General appearance: PRESENT: no acute distress, obese Head exam: PRESENT: atraumatic, normocephalic Eye exam: PRESENT: conjunctiva pale. ABSENT: nystagmus, periorbital swelling, scleral icterus Mouth exam: PRESENT: dry mucosa, neck supple, tongue midline Neck exam: ABSENT: carotid bruit, JVD, lymphadenopathy, thyromegaly, tracheal deviation, tracheostomy Respiratory exam: PRESENT: decreased breath sounds, prolonged expiratory phas, rhonchi, symmetrical, unlabored. ABSENT: tachypnea Cardiovascular exam: PRESENT: RRR, +S1, +S2 Pulses: PRESENT: normal radial pulses GI/Abdominal exam: PRESENT: diminished bowel sounds, soft Extremities exam: ABSENT: clubbing, joint swelling Musculoskeletal exam: ABSENT: deformity, dislocation Neurological exam: PRESENT: awake Skin exam: PRESENT: dry, warm Results Laboratory Results: 04/08/17 07:10 04/08/17 07:10 03/31/17 03/31/17 03/31/17 02:43 06:25 06:25 Creatine Kinase 61 CK-MB (CK-2) 0.98 Troponin I < 0.012 NT-Pro-B Natriuret Pep Cancelled 123 04/01/17 04/01/17 03:51 03:51 Creatine Kinase 40 CK-MB (CK-2) 0.44 Troponin I < 0.012 NT-Pro-B Natriuret Pep Impressions: Chest CT 04/04/17 00:00 IMPRESSION: MILD EMPHYSEMATOUS CHANGES. OTHERWISE UNREMARKABLE CT OF THE CHEST WITH IV CONTRAST. Head CT 04/05/17 00:00 IMPRESSION: MILD CHRONIC CHANGES OF ATROPHY AND MICROVASCULAR ISCHEMIA. NO ACUTE PROCESS. EVIDENCE OF ACUTE STROKE: NO. Chest X-Ray 04/05/17 06:00 IMPRESSION: NO ACUTE RADIOGRAPHIC FINDING IN THE CHEST. Assessment & Plan - Diagnosis (1) Acute and chronic respiratory failure with hypercapnia Is this a current diagnosis for this admission?: Yes Plan: support to baseline (2) COPD exacerbation Is this a current diagnosis for this admission?: Yes Plan: wheezing increased PCO2 (3) HTN (hypertension) Qualifiers: Hypertension type: essential hypertension Qualified Code(s): I10 - Essential (primary) hypertension Is this a current diagnosis for this admission?: Yes Plan: stable (4) Tobacco abuse Is this a current diagnosis for this admission?: Yes Plan: transdermal nicotene (5) PAH (pulmonary artery hypertension) Is this a current diagnosis for this admission?: Yes
--- NOTE | 2017-04-21 21:54 | PDOC PROGRESS REPORT ---
Subjective Progress Note for:: 04/08/17 Subjective:: stable Reason For Visit: COPD EXACERBATION PNEUMONIA Physical Exam Vital Signs: Temp Pulse Resp BP Pulse Ox 98.2 F 101 H 20 110/68 100 04/09/17 09:19 04/09/17 09:19 04/09/17 09:19 04/09/17 09:19 04/09/17 09:19 General appearance: PRESENT: no acute distress, cooperative, disheveled, well- developed Head exam: PRESENT: atraumatic, normocephalic Eye exam: PRESENT: conjunctiva pale. ABSENT: nystagmus, periorbital swelling, scleral icterus Mouth exam: PRESENT: dry mucosa, neck supple, tongue midline Neck exam: ABSENT: carotid bruit, JVD, lymphadenopathy, thyromegaly, tracheal deviation, tracheostomy Respiratory exam: PRESENT: decreased breath sounds, prolonged expiratory phas, rhonchi, symmetrical, unlabored. ABSENT: retraction, stridor, tachypnea Cardiovascular exam: PRESENT: RRR, +S1, +S2 Pulses: PRESENT: normal radial pulses GI/Abdominal exam: PRESENT: diminished bowel sounds, soft Extremities exam: ABSENT: clubbing, joint swelling Musculoskeletal exam: ABSENT: deformity, dislocation Neurological exam: PRESENT: awake Skin exam: PRESENT: dry, warm Results Laboratory Results: 04/08/17 07:10 04/08/17 07:10 03/31/17 03/31/17 03/31/17 02:43 06:25 06:25 Creatine Kinase 61 CK-MB (CK-2) 0.98 Troponin I < 0.012 NT-Pro-B Natriuret Pep Cancelled 123 04/01/17 04/01/17 03:51 03:51 Creatine Kinase 40 CK-MB (CK-2) 0.44 Troponin I < 0.012 NT-Pro-B Natriuret Pep Impressions: Chest CT 04/04/17 00:00 IMPRESSION: MILD EMPHYSEMATOUS CHANGES. OTHERWISE UNREMARKABLE CT OF THE CHEST WITH IV CONTRAST. Head CT 04/05/17 00:00 IMPRESSION: MILD CHRONIC CHANGES OF ATROPHY AND MICROVASCULAR ISCHEMIA. NO ACUTE PROCESS. EVIDENCE OF ACUTE STROKE: NO. Chest X-Ray 04/05/17 06:00 IMPRESSION: NO ACUTE RADIOGRAPHIC FINDING IN THE CHEST. Assessment & Plan - Diagnosis (1) Acute and chronic respiratory failure with hypercapnia Is this a current diagnosis for this admission?: Yes Plan: support to baseline (2) COPD exacerbation Is this a current diagnosis for this admission?: Yes Plan: wheezing increased PCO2 (3) HTN (hypertension) Qualifiers: Hypertension type: essential hypertension Qualified Code(s): I10 - Essential (primary) hypertension Is this a current diagnosis for this admission?: Yes Plan: stable (4) Tobacco abuse Is this a current diagnosis for this admission?: Yes (5) PAH (pulmonary artery hypertension) Is this a current diagnosis for this admission?: Yes
== END 2017-04-09 11:02 | disposition home health service (06) | DRG 208 ==
LOC: ER 23:34 → EH 03-31 02:13 → ICU 03-31 05:10 → 5 04-04 15:46
PROVIDERS: ADMIT Internal Medicine; ATTEND Internal Medicine
PROC: 5A1945Z Respiratory Ventilation, 24-96 Consecutive Hours (ICD-10-PCS; principal; 2017-03-31)
PROC: 3E0234Z Introduction of Serum, Toxoid and Vaccine into Muscle, Percutaneous Approach (ICD-10-PCS; 2017-03-31)
PROC: 0BH17EZ Insertion of Endotracheal Airway into Trachea, Via Natural or Artificial Opening (ICD-10-PCS; 2017-03-31)
PROC: 0BH17EZ Insertion of Endotracheal Airway into Trachea, Via Natural or Artificial Opening (ICD-10-PCS; 2017-04-02)
PROC: 5A1945Z Respiratory Ventilation, 24-96 Consecutive Hours (ICD-10-PCS; 2017-04-02)
DX: J96.22 Acute and chronic respiratory failure with hypercapnia (principal); G93.40 Encephalopathy, unspecified; J44.1 Chronic obstructive pulmonary disease with (acute) exacerbation; J44.0 Chronic obstructive pulmonary disease with (acute) lower respiratory infection; J96.01 Acute respiratory failure with hypoxia; I27.21 Secondary pulmonary arterial hypertension; E87.6 Hypokalemia; R73.9 Hyperglycemia, unspecified; I10 Essential (primary) hypertension; M15.9 Polyosteoarthritis, unspecified; Z78.1 Physical restraint status; Z72.89 Other problems related to lifestyle; Z79.899 Other long term (current) drug therapy; Z85.3 Personal history of malignant neoplasm of breast; Z90.49 Acquired absence of other specified parts of digestive tract; Z83.6 Family history of other diseases of the respiratory system; Z82.49 Family history of ischemic heart disease and other diseases of the circulatory system
CPT/HCPCS: 36415; 36600; 70450; 71045; 71260; 80048; 80053; 80307; 81001; 82550; 82553; 82607; 82728; 82746; 82803; 82962; 83036; 83540; 83550; 83605; 83735; 83880; 84100; 84484; 85025; 85045; 87040; 87070; 87086; 87205; 87493; 93005; 93010; 93306; 94002; 94003; 94660; 94799; 99291; G8978-GP; G8979-GP; J0696; J1644; J1940; J2250; J2543; J2704; J2920; J3475; J3480; J3490; J7030; J7512; J7620; S0164

== ENCOUNTER → 2017-05-26 | Outpatient (CLI) | payer MEDICARE, MEDICAID ==
--- NOTE | 2017-05-26 18:34 | WOMENS IMAGING REPORT ---
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 Additional right breast 90 mediolateral view and compression magnification views of the biopsy site in the CC and MLO orientations. LIMITATIONS: None. FINDINGS: RIGHT BREAST MASSES: No suspicious masses. CALCIFICATIONS: No new or suspicious calcifications. ARCHITECTURAL DISTORTION: None. DEVELOPING DENSITY: None. ASYMMETRY: None noted. OTHER: Stereotactic biopsy clip deep right 6 o'clock position unchanged. LEFT BREAST MASSES: No suspicious masses. CALCIFICATIONS: No new or suspicious calcifications. ARCHITECTURAL DISTORTION: None. DEVELOPING DENSITY: None. ASYMMETRY: None noted. OTHER: No other significant finding. Read with the assistance of CAD: .[facility] - R2 C[employer]ova Version 1.3 .[facility] - R2 Cenova Version 1.3 .[facility] - R2 Cenova Version 2.4 .[facility] [place] - R2 Cenova Version 2.4 .[facility] - R2 Administrative Assistant Version 9.2 IMPRESSION: No mammographic evidence for malignancy bilaterally. BREAST DENSITY: c. The breasts are heterogeneously dense, which may obscure small masses. BIRAD: 2 Benign findings. RECOMMENDATION: RECOMMENDED FOLLOW UP: Please continue bilateral screening mammography/tomosynthesis in May 2018 SPECIFIC INTERVENTION/IMAGING/CONSULTATION RECOMMENDED:No additional intervention/ imaging/consultati on needed at this time. COMMUNICATION:The negative/benign results were communicated to the patient. COMMENT: The patient has been notified of the results by letter per [place] requirements. Additional no tification policies are in place for contacting patient with suspicious or incomplete findings. Quality ID #[id number]: The [employer] recommends an annual screening mammogram for women aged 40 years or over. This facility utilizes a reminder system to ensure that all patients receive reminder letters, and/or direct phone calls for appointments. This includes reminders for routine scr eening mammograms, diagnostic mammograms, or other Breast Imaging Interventions when appropriate. Th is patient will be placed in the appropriate reminder system. The [employer] ([employer]) has developed recommendations for screening MRI of the breast s in certain patient populations, to be used in conjunction with mammography. Breast MRI surveillanc e may be appropriate for women with more than 20% lifetime risk of developing breast cancer as deter mined by genetic testing, significant family history of the disease, or history of mantle radiation f or Hodgkins Disease. ACR Practice Guidelines 2008. DBT Technology DBT is a type of tomographic mammography. With conventional mammography, overlapping breast tissue ma y make lesions difficult to detect, even with good compression. DBT uses an x-ray tube that rotates a round the breast, taking images at different angles. These images are then combined to create thin sl ices of the breast that the radiologist can view as a 3D reconstruction. The [employer] unit can perform full-field digital mammograms (2D imaging); or DBT (3D imaging); or both, in a combination mode that quickly performs both the mammogram and the tomosynthesis scan while the breast is still compressed. PQRS 6045F: Fluoroscopic imaging is not utilized for breast tomosynthesis. TECHNICAL DOCUMENTATION: FINDING NUMBER: (1) ASSESSMENT: (1) JOB ID: [id number] [employer]- All Rights Reserved Reading location - IP/workstation name: [facility]-[email or web address]
== END ==
LOC: WI 09:59
PROVIDERS: ATTEND Radiology Radiation Oncology
DX: D05.11 Intraductal carcinoma in situ of right breast (principal)
CPT/HCPCS: 77066; G0279; 77062

== ENCOUNTER 2018-02-12 23:20 | Inpatient (IN) | payer MEDICARE, MEDICAID ==
[~2018-02-12 23:20] MED LIST: DOPAMINE HCL/DEXTROSE 5%-WATER 0 MG/0 ML RTUINJ IV ONE; EPINEPHRINE INJ/PF 1 MG/1 ML AMPULE ONE
[2018-02-12] MEDS ORDERED: METHYLPREDNISOLONE INJ 125 MG/2 ML SDV ONE (23:21)
[2018-02-12] MEDS ORDERED: ALBUTEROL SULFATE 0.083% NEB 2.5 MG/3 ML AMPUL NEB ONE (23:21)
[2018-02-12] MEDS ORDERED: HALOPERIDOL LACTATE INJ 5 MG/1 ML VIAL ONE (23:25)
[2018-02-12] MEDS ORDERED: ETOMIDATE INJ/PF 20 MG/10 ML SDV IV ONE ×2 (23:31→23:40)
[2018-02-12] MEDS ORDERED: MIDAZOLAM HCL 50 MG/100 ML RTUINJ ONE (23:40)
[2018-02-12] MEDS ORDERED: MIDAZOLAM 2 MG/2 ML INJ IV ONE (23:40)
[2018-02-12] MEDS ORDERED: MIDAZOLAM HCL 50 MG/100 ML RTUINJ IV PRN (23:40)
[2018-02-12] MEDS ORDERED: MIDAZOLAM 2 MG/2 ML INJ ONE (23:40)
[2018-02-12] MEDS ORDERED: ROCURONIUM BROMIDE INJ 50 MG/5 ML VIAL IV ONE (23:40)
[2018-02-12 23:53] LABS: ABSOLUTE EOSINOPHILS # (AUTO) 0.1 10^3/uL (0.0-0.6); ABSOLUTE LYMPHOCYTES (AUTO) 5.3 10^3/uL (0.5-4.7); ABSOLUTE MONOCYTES (AUTO) 1.8 10^3/uL (0.1-1.4); ABSOLUTE NEUT (AUTO) 10.2 10^3/uL (1.7-8.2); BASOPHILS % (AUTO) 0.2 % (0-2); EOSINOPHILS % (AUTO) 0.3 % (0-6); HEMATOCRIT 37.2 % (36.0-47.0); HEMOGLOBIN 11.7 g/dL (12.0-15.5); LYMPHOCYTES % (AUTO) 30.3 % (13-45); MEAN CORPUSCULAR HEMOGLOBIN 24.1 pg (27.0-33.4); MEAN CORPUSCULAR HGB CONC 31.5 g/dL (32.0-36.0); MEAN CORPUSCULAR VOLUME 77 fl (80-97); MONOCYTES % (AUTO) 10.3 % (3-13); PLATELET COUNT 326 10^3/uL (150-450); RED BLOOD COUNT 4.86 10^6/uL (3.72-5.28); RED CELL DISTRIBUTION WIDTH 15.5 % (11.5-14.0); SEGMENTED NEUTROPHILS % (AUTO) 58.9 % (42-78); TOTAL CELLS COUNTED % (AUTO) 100 %; WHITE BLOOD COUNT 17.4 10^3/uL (4.0-10.5)
--- NOTE | 2018-02-12 23:54 | ER Document Report ---
ED General - General Stated Complaint: DIFFICULTY BREATHING Time Seen by Provider: 02/12/18 23:40 Notes: Patient is a 67-year-old female presents with complaint of difficulty breathing. She called paramedics. Paramedics arrived she was on her BiPAP at home. She will a wheezing throughout her lung ramirez. Paramedics said initially she was refusing treatment however she continued to worsen and therefore agreed to come. They said as she was getting into a month she started become altered and started to fight them. On the way here her mental status continued to worsen and they had a hard time keeping her under control. They did manage to give her one DuoNeb treatment. They managed to give her 125 mg of Solu-Medrol. Further history is unobtainable as the patient currently is very agitated and fighting and confused. TRAVEL OUTSIDE OF THE [place] IN LAST 30 DAYS: No - Related Data Allergies/Adverse Reactions: No Known Allergies Allergy (Verified 11/08/15 12:42) Past Medical History - Social History Smoking Status: Unknown if Ever Smoked Frequency of alcohol use: unknown Drug Abuse: Other - unknown Family History: COPD, Hypertension - Past Medical History Cardiac Medical History: Reports: Hx Hypertension - on meds Denies: Hx Coronary Artery Disease, Hx Heart Attack Pulmonary Medical History: Reports: Hx Bronchitis - hx of, Hx COPD - inhalers/neb/o2 prn, Hx Pneumonia - hx of Denies: Hx Asthma Neurological Medical History: Denies: Hx Seizures Renal/ Medical History: Reports: Hx Kidney Stones. Denies: Hx Peritoneal D ialysis Malignancy Medical History: Reports: Hx Breast Cancer Musculoskeletal Medical History: Reports Hx Arthritis - generalized Psychiatric Medical History: Denies: Hx Depression Past Surgical History: Reports: Hx Gynecologic Surgery - Cone procedure on the cervix, Hx Mastectomy - lumpectomy - Immunizations Hx Diphtheria, Pertussis, Tetanus Vaccination: Yes Hx Pneumococcal Vaccination: 01/23/15 Review of Systems - Review of Systems -: Yes ROS unobtainable due to patient's medical condition - Patient agitated and confused. Physical Exam - Vital signs Vitals: Resp 17 02/12/18 23:50 - Notes Notes: General Appearance: Patient in respiratory distress. Patient confused and fighting staff. Vitals: reviewed, See vital signs table. Head: no swelling or tenderness to the head Eyes: PERRL, EOMI, Conjuctiva clear Mouth: No decreasd moisture Throat: No tonsillar inflammation, No airway obstruction, No lymphadenopathy Neck: Supple, no neck tenderness, No thyromegaly Lungs: No wheezing, No rales, No rhonci, No accessory muscle use, good air exchange bilaterally. Heart: Normal rate, Regular rythm, No murmur, no rub Abdomen: Normal BS, soft, No rigidity, No abdominal tenderness, No guarding, no rebound, Extremities: strength 5/5 in all extremities, good pulses in all extremities, no swelling or tenderness in the extremities, no edema. Skin: warm, dry, appropriate color, no rash Neuro: Patient agitated and confused. Patient very strong on exam and moving all 4 extremities on her own and is difficult to hold still and is trying to get out of bed. Patient not answer any questions or properly. Pupils are equal and reactive. Course - Re-evaluation Re-evalutation: 02/12/18 23:53 It was very difficult to ventilate the patient as she was so confused and agitated. She cannot keep the BiPAP mask on. She would not keep a nebulizer mask on either. She continues to try to get out of the bed and was fighting and thrashing about. She would not answer questions. She was obviously altered. Concern is that she is very hypercapnic at this point. I did give her a small dose of Haldol to see if we could maintain her respiratory drive while sedated her just enough to be able to BiPAP. Unfortunately this just sedated her some but she is still unable to stay still in the bed and unable to safely ventilate her with BiPAP. Due to the patient's continued agitation and concern that we will be unable to ventilate her appropriately with side to go forward with int ubation. Patient was given etomidate and rocuronium. Immediately after receiving recommending patient did vomit and was immediately suctioned. Patient then intubated on first attempt. Patient tolerated procedure well with no further complications other than the initial emesis which was immediately suctioned. Chest x-ray shows appropriate tube placement. Patient placed on Versed drip for sedation. 02/13/18 00:09 Patient's blood gas shows that she is very hypercapnic. Her CO2 is 169. I t hink least her ventilatory rate to 20. I will get a repeat blood gas in approximately 30 minutes. 02/13/18 00:10 02/13/18 03:29 Patient's repeat blood gas shows improvement of her carbon dioxide level however her pH has remained the same because her bicarbonate has decreased likely due to binding of her CO2. We will maintain on the vent. She should he require both propofol and Versed for sedation. Blood pressure is holding appropriately with this. Chest x-ray does not show evidence of pneumonia. I did speak with the hospitalist, Dr. Rodriguez, who agrees to evaluate the patient for admission. Dictation of this chart was performed using voice recognition software; therefore, there may be some unintended grammatical errors. 02/13/18 03:30 - Vital Signs Vital signs: Temp Pulse Resp BP Pulse Ox 97.5 F 12 104/71 100 02/13/18 01:46 02/13/18 02:31 02/13/18 02:31 02/13/18 02:31 - Laboratory Result Diagrams: 02/12/18 23:08 02/12/18 23:08 Laboratory results interpreted by me: 02/12/18 02/12/18 02/12/18 23:08 23:08 23:30 WBC 17.4 H Hgb 11.7 L MCV 77 L MCH 24.1 L MCHC 31.5 L RDW 15.5 H Absolute Neutrophils 10.2 H Absolute Lymphocytes 5.3 H Absolute Monocytes 1.8 H VBG pH 7.05 L* VBG pCO2 169.7 H* VBG HCO3 45.9 H Carbon Dioxide 38 H BUN 23 H Urine Protein Urine Nitrite 02/13/18 02/13/18 00:10 00:51 WBC Hgb MCV MCH MCHC RDW Absolute Neutrophils Absolute Lymphocytes Absolute Monocytes VBG pH 7.04 L* VBG pCO2 75.1 H* VBG HCO3 19.8 L Carbon Dioxide BUN Urine Protein 100 H Urine Nitrite POSITIVE H - EKG Interpretation by Me Additional EKG results interpreted by me: 02/13/18 00:40 EKG is reviewed and interpreted by me. EKG shows sinus tachycardia with a rate of [address] segment elevation mild ST segment depression in inferior leads. KS interval, QRS duration are within normal range. QT interval is prolonged. Old EKG for comparison is from March 31, 2017. Procedures - Intubation Orotracheal Airway evaluation: Other - poor dentition Medications: Etomidate, Other - rocuronium Intubation method: Orotracheal Blade type: Duy Blade size: 3 ETT size: 7.5 ETT secured at: Teeth ETT secured at (cm): 23 Breath Sounds after Intubation: Equal End tidal CO2 confirmed: Yes Post Intubation Xray: Yes Intubation Complications: Vomited Critical Care Note - Critical Care Note Total time excluding time spent on procedures (mins): 45 Comments: Critical care time for this patient not including time spent in procedures is approximately 45 minutes due to frequent re-evaluations and management of vent and treatment of hypercapnia and respiratory failure. Discharge - Discharge Clinical Impression: Respiratory distress, COPD exacerbation, Acute respiratory acidosis Altered mental status Qualifiers: Altered mental status type: unspecified Qualified Code(s): R41.82 - Altered mental status, unspecified Condition: Serious Admitting Provider: Hospitalist Unit Admitted: ICU Referrals: MICHAEL YOUNG DO [Primary Care Provider] - Follow up as needed
[2018-02-12 23:55] LABS: VENOUS BLOOD BASE EXCESS 9.7 mmol/L; VENOUS BLOOD HCO3 45.9 mmol/L (20-32)
[2018-02-13 00:01] LABS: VENOUS BLOOD PCO2 169.7 mmHg (35-63); VENOUS BLOOD PH 7.05 (7.30-7.42)
[2018-02-13] MEDS ORDERED: MIDAZOLAM 2 MG/2 ML INJ IV ONE (00:07)
[2018-02-13 00:13] LABS: ALANINE AMINOTRANSFERASE 25 U/L (9-52); ALBUMIN 4.5 g/dL (3.5-5.0); ALKALINE PHOSPHATASE 70 U/L (38-126); ANION GAP 7 (5-19); ASPARTATE AMINO TRANSFERASE 23 U/L (14-36); BILIRUBIN,DIRECT 0.3 mg/dL (0.0-0.4); BILIRUBIN,TOTAL 0.3 mg/dL (0.2-1.3); BLOOD UREA NITROGEN 23 mg/dL (7-20); CALCIUM 9.6 mg/dL (8.4-10.2); CARBON DIOXIDE 38 mmol/L (22-30); CHLORIDE 99 mmol/L (98-107); GLUCOSE 104 mg/dL (75-110); POTASSIUM 3.7 mmol/L (3.6-5.0); SODIUM 143.7 mmol/L (137-145); TOTAL PROTEIN 7.5 g/dL (6.3-8.2)
--- NOTE | 2018-02-13 00:14 | RADIOLOGY REPORT (SQ) ---
EXAM DESCRIPTION: XR CHEST 1 VIEW COMPLETED DATE/TME: 02/12/2018 23:41 CLINICAL HISTORY: 67 years, Female, post intubation COMPARISON: None. NUMBER OF VIEWS: TECHNIQUE: LIMITATIONS: None. FINDINGS: The tip of the endotracheal tube is in satisfactory position, approximately 5 cm above the julian. No evidence of pulmonary infiltrate or pleural effusion. The heart and mediastinum are unremarkable. Pulmonary vascularity appears normal. IMPRESSION: The ET tube is in satisfactory position. copyright 2010 [employer]- All Rights Reserved
[2018-02-13 00:43] LABS: APPEARANCE,URINE CLEAR; BILIRUBIN,URINE NEGATIVE (NEGATIVE); COLOR,URINE YELLOW; GLUCOSE, URINE NEGATIVE (NEGATIVE); KETONES,URINE NEGATIVE (NEGATIVE); LEUKOCYTE ESTERASE,URINE NEGATIVE (NEGATIVE); NITRITE,URINE POSITIVE (NEGATIVE); PROTEIN,URINE 100 mg/dL (NEGATIVE); URINE SPECIFIC GRAVITY 1.015; UROBILINOGEN,URINE NEGATIVE mg/dL (<2.0)
[2018-02-13 01:06] LABS: VENOUS BLOOD BASE EXCESS -10.4 mmol/L; VENOUS BLOOD HCO3 19.8 mmol/L (20-32)
[2018-02-13] MEDS ORDERED: PROPOFOL 1,000 MG/100 ML INFUS..BTL IV ONE (01:11)
[2018-02-13] MEDS ORDERED: PROPOFOL INJ 200 MG/20 ML VIAL IV ONE (01:17)
[2018-02-13] MEDS ORDERED: PROPOFOL 1,000 MG/100 ML INFUS..BTL IV PRN (01:17)
[2018-02-13] MEDS ORDERED: IPRATROPIUM/ALBUTEROL 0.5-2.5 MG/3 ML AMPUL NEB ONE (01:17)
[2018-02-13 01:27] LABS: VENOUS BLOOD PCO2 75.1 mmHg (35-63); VENOUS BLOOD PH 7.04 (7.30-7.42)
[2018-02-13] MEDS ORDERED: IPRATROPIUM/ALBUTEROL 0.5-2.5 MG/3 ML AMPUL NEB PRN (03:45)
[2018-02-13] MEDS ORDERED: CEFEPIME 2 GM/D5W RTU 2 GM/50 ML RTUPB IV ONE (04:15)
[2018-02-13] MEDS: FENTANYL CITRATE INJ/PF 100 MCG/2 ML AMPUL IV PRN ×2 (04:20→22:10)
[2018-02-13] MEDS: NORMAL SALINE 1000 ML 1,000 ML IV PRN ×3 (04:21→14:36)
[2018-02-13 04:58] LABS: URINE AMPHETAMINES SCREEN NEGATIVE; URINE BARBITURATES SCREEN NEGATIVE; URINE BENZODIAZEPINES SCREEN UNCONFIRMED POSITIVE; URINE COCAINE SCREEN NEGATIVE; URINE MARIJUANA (THC) SCREEN NEGATIVE; URINE METHADONE SCREEN NEGATIVE; URINE PHENCYCLIDINE SCREEN NEGATIVE
[2018-02-13] MEDS: HEPARIN SOD (PORCINE) 5,000 UNIT/ML 1 ML SYRINGE SUBCUT SCH ×3 (05:08→22:10)
[2018-02-13 05:40] LABS: ARTERIAL BLOOD BASE EXCESS 7.7 mmol/L; ARTERIAL BLOOD FIO2 50%; ARTERIAL BLOOD H2CO3 1.66 mmol/L (1.05-1.35); ARTERIAL BLOOD HCO3 33.8 mmol/L (20-24); ARTERIAL BLOOD O2 SATURATION 91.9 % (94-98); ARTERIAL BLOOD PCO2 55.2 mmHg (35-45); ARTERIAL BLOOD PH 7.41 (7.35-7.45); ARTERIAL BLOOD PO2 63.4 mmHg (80-100); ARTERIAL BLOOD TOTAL CO2 35.5 mmol/L (21-25)
--- NOTE | 2018-02-13 06:21 | PDOC H&P ---
History of Present Illness Admission Date/PCP: 02/13/18 03:[address] [facility] Patient complains of: Shortness of breath History of Present Illness: VIKY DE LEON is a 67 year old female with a past medical history of oxygen dependent COPD, hypertension, pulmonary hypertension, chronic bronchitis, breast cancer, osteoarthritis, benzodiazepine dependent anxiety, OTC insomnia medication and cannabis use. She presents via EMS with complaints of shortness of breath developing delirium and agitation in route. In the emergency room she is unable to tolerate venous blood gas reveals hypercapnia and hypoxia. She is rapidly intubated and placed on Versed. She received Solu-Medrol, empiric antibiotics and referred to the hospitalist for admission. Chest x-ray is unremarkable, urine tox screen positive for benzodiazepine. Past Medical History Cardiac Medical History: Reports: Hypertension - on meds Denies: Coronary Artery Disease, Myocardial Infarction Pulmonary Medical History: Reports: Bronchitis - hx of, Chronic Obstructive Pulmonary Disease (COPD) - inhalers/neb/o2 prn, Pneumonia - hx of Denies: Asthma Neurological Medical History: Denies: Seizures Malignancy Medical History: Reports: Breast Cancer Musculoskeltal Medical History: Reports: Arthritis - generalized Psychiatric Medical History: Denies: Depression Hematology: Denies: Anemia Past Surgical History Past Surgical History: Reports: Mastectomy - lumpectomy Social History Information Source: Emergency Med Personnel, [facility] Records Smoking Status: Unknown if Ever Smoked Frequency of Alcohol Use: Occasional Hx Recreational Drug Use: Yes Drugs: Marijuana Hx Prescription Drug Abuse: No - Advance Directive Resuscitation Status: Full Code Family History Family History: COPD, Hypertension Parental Family History Reviewed: No - Unobtainable Children Family History Reviewed: No - Unobtainable Sibling(s) Family History Reviewed.: No - Unobtainable Medication/Allergy Home Medications: Albuterol Sulfate [Ventolin HFA MDI 18 GM] 2 puff IH Q4HP PRN 03/31/17 Alprazolam [Xanax 0.25 mg Tablet] 0.25 mg PO HSP PRN 03/31/17 Glycopyrrolate/Formoterol Fum [Bevespi Aerosphere Inhaler] 2 puff IH Q12 03/31/17 Hydrochlorothiazide [Hydrodiuril 25 mg Tablet] 25 mg PO DAILY 03/31/17 Raloxifene HCl [Evista 60 mg Tablet] 60 mg PO DAILY 03/31/17 Roflumilast [Daliresp 500 mcg Tablet] 500 mcg PO DAILY 03/31/17 Ropinirole HCl [Requip] 2 mg PO DAILY 03/31/17 Amlodipine Besylate [Norvasc 2.5 mg Tablet] 5 mg PO DAILY #60 tablet 04/09/17 Azithromycin [Zithromax 250 mg Tablet] 500 mg PO DAILY #10 tablet 04/09/17 Fluticasone/Salmeterol [Advair 500-50 Diskus 14 Dose/Diskus] 1 inh IH Q12A #60 inhaler 04/09/17 Guaifenesin [Mucinex Sr 600 mg Tablet.sa] 1,200 mg PO Q12 #60 tablet.sa 04/09/17 Metoprolol Succinate [Toprol Xl 50 mg Tab.sr] 50 mg PO DAILY #30 tab.sr.24h 04/09/17 Montelukast Sodium [Singulair 10 mg Tablet] 10 mg PO QHS #30 tablet 04/09/17 Tiotropium [place] [Spiriva Handihaler 5 Cap/Kit (18 Mcg/Cap)] 1 cap IH DAILY #30 kit 04/09/17 Allergies/Adverse Reactions: No Known Allergies Allergy (Verified 11/08/15 12:42) Review of Systems ROS unobtainable: Due to mental status - Unobtainable Physical Exam Vital Signs: Temp Pulse Resp BP Pulse Ox 97.9 F 92 17 130/81 H 98 02/13/18 06:02 02/13/18 06:02 02/13/18 06:02 02/13/18 06:02 02/13/18 06:02 Intake & Output 02/11/18 02/12/18 02/13/18 11:59 11:59 11:59 Intake Total 47 Balance 47 Weight 75.9 kg General appearance: PRESENT: no acute distress, disheveled, other - Intubated and sedated comfortable on vent Head exam: PRESENT: atraumatic, normocephalic Eye exam: PRESENT: conjunctiva pink, EOMI, PERRLA. ABSENT: scleral icterus Ear exam: PRESENT: normal external ear exam Mouth exam: PRESENT: moist, tongue midline Neck exam: ABSENT: carotid bruit, JVD, lymphadenopathy, thyromegaly Respiratory exam: PRESENT: accessory muscle use, crackles, prolonged expiratory phas, symmetrical, tachypnea Cardiovascular exam: PRESENT: RRR. ABSENT: diastolic murmur, rubs, systolic murmur Pulses: PRESENT: normal dorsalis pedis pul Vascular exam: PRESENT: normal capillary refill GI/Abdominal exam: PRESENT: normal bowel sounds, soft. ABSENT: distended, guarding, mass, organolmegaly, rebound, tenderness Rectal exam: PRESENT: deferred Extremities exam: PRESENT: full ROM. ABSENT: calf tenderness, clubbing, pedal edema Neurological exam: PRESENT: other - Intubated and sedated comfortable on ventil ator settings Skin exam: PRESENT: dry, intact, warm. ABSENT: cyanosis, rash Results Laboratory Results: 02/12/18 23:08 02/12/18 23:08 02/12/18 02/12/18 02/12/18 23:08 23:08 23:30 WBC 17.4 H RBC 4.86 Hgb 11.7 L Hct 37.2 MCV 77 L MCH 24.1 L MCHC 31.5 L RDW 15.5 H Plt Count 326 Seg Neutrophils % 58.9 Lymphocytes % 30.3 Monocytes % 10.3 Eosinophils % 0.3 Basophils % 0.2 Absolute Neutrophils 10.2 H Absolute Lymphocytes 5.3 H Absolute Monocytes 1.8 H Absolute Eosinophils 0.1 Absolute Basophils 0.0 Carbonic Acid HCO3/H2CO3 Ratio ABG pH ABG pCO2 ABG pO2 ABG HCO3 ABG O2 Saturation ABG Base Excess VBG pH 7.05 L* VBG pCO2 169.7 H* VBG HCO3 45.9 H VBG Base Excess 9.7 FiO2 Sodium 143.7 Potassium 3.7 Chloride 99 Carbon Dioxide 38 H Anion Gap 7 BUN 23 H Creatinine 0.56 Est GFR ( Amer) > 60 Est GFR (Non-Af Amer) > 60 Glucose 104 Calcium 9.6 Total Bilirubin 0.3 AST 23 ALT 25 Alkaline Phosphatase 70 Total Protein 7.5 Albumin 4.5 Urine Color Urine Appearance Urine pH Ur Specific Hobbs Urine Protein Urine Glucose (UA) Urine Ketones Urine Blood Urine Nitrite Ur Leukocyte Esterase Urine WBC (Auto) Urine RBC (Auto) 02/13/18 02/13/18 02/13/18 00:10 00:51 05:15 WBC RBC Hgb Hct MCV MCH MCHC RDW Plt Count Seg Neutrophils % Lymphocytes % Monocytes % Eosinophils % Basophils % Absolute Neutrophils Absolute Lymphocytes Absolute Monocytes Absolute Eosinophils Absolute Basophils Carbonic Acid 1.66 H HCO3/H2CO3 Ratio 20:1 ABG pH 7.41 ABG pCO2 55.2 H ABG pO2 63.4 L ABG HCO3 33.8 H ABG O2 Saturation 91.9 L ABG Base Excess 7.7 VBG pH 7.04 L* VBG pCO2 75.1 H* VBG HCO3 19.8 L VBG Base Excess -10.4 FiO2 50% Sodium Potassium Chloride Carbon Dioxide Anion Gap BUN Creatinine Est GFR ( Amer) Est GFR (Non-Af Amer) Glucose Calcium Total Bilirubin AST ALT Alkaline Phosphatase Total Protein Albumin Urine Color YELLOW Urine Appearance CLEAR Urine pH 5.0 Ur Specific Hobbs 1.015 Urine Protein 100 H Urine Glucose (UA) NEGATIVE Urine Ketones NEGATIVE Urine Blood NEGATIVE Urine Nitrite POSITIVE H Ur Leukocyte Esterase NEGATIVE Urine WBC (Auto) 2 Urine RBC (Auto) 1 Impressions: Chest X-Ray 02/12/18 23:41 IMPRESSION: The ET tube is in satisfactory position. copyright 2010 [employer]- All Rights Reserved Assessment & Plan - Diagnosis (1) Acute respiratory acidosis Is this a current diagnosis for this admission?: Yes Plan: ICU admission, unclear cause, concern for possible sedating agent via benzodiazepine or other. Ventilator support, follow-up ABG, (2) COPD exacerbation Is this a current diagnosis for this admission?: Yes Plan: Secondary to respiratory depression, suspected sedative such as benzodiazepine or cannabis. Consider mental health consult (3) Tobacco abuse Is this a current diagnosis for this admission?: Yes Plan: Tobacco Dependence patient received tobacco cessation counseling and offered nicotine replacement options - Time Time Spent: 50 to 70 Minutes - Inpatient Certification Medical Necessity: Need Close Monitoring Due to Risk of Patient Decompensation
[2018-02-13] MEDS: PROPOFOL 1,000 MG/100 ML INFUS..BTL IV PRN ×5 (06:32→22:10)
--- NOTE | 2018-02-13 06:42 | EKG REPORT ---
SEVERITY:- ABNORMAL ECG - SINUS TACHYCARDIA DIFFUSE NONSPECIFIC ST-T CHANGES : Confirmed by: Dalton John MD 13-Feb-2018 06:41:38
[2018-02-13] MEDS: IPRATROPIUM/ALBUTEROL 0.5-2.5 MG/3 ML AMPUL NEB SCH ×3 (08:18→20:25)
[2018-02-13 08:59] LABS: HEMATOCRIT 33.9 % (36.0-47.0); HEMOGLOBIN 10.6 g/dL (12.0-15.5); MEAN CORPUSCULAR HEMOGLOBIN 24.1 pg (27.0-33.4); MEAN CORPUSCULAR HGB CONC 31.2 g/dL (32.0-36.0); MEAN CORPUSCULAR VOLUME 77 fl (80-97); PLATELET COUNT 267 10^3/uL (150-450); RED BLOOD COUNT 4.39 10^6/uL (3.72-5.28); RED CELL DISTRIBUTION WIDTH 15.6 % (11.5-14.0); WHITE BLOOD COUNT 23.5 10^3/uL (4.0-10.5)
[2018-02-13 09:14] LABS: ABSOLUTE LYMPHOCYTES# (MANUAL) 1.4 10^3/uL (0.5-4.7); ABSOLUTE MONOCYTES # (MANUAL) 1.2 10^3/uL (0.1-1.4); ABSOLUTE NEUTROPHILS# (MANUAL) 20.9 10^3/uL (1.7-8.2); ANION GAP 7 (5-19); BASOPHILS % (MANUAL) 0 % (0-2); BLOOD UREA NITROGEN 24 mg/dL (7-20); CALCIUM 8.4 mg/dL (8.4-10.2); CARBON DIOXIDE 33 mmol/L (22-30); CHLORIDE 103 mmol/L (98-107); EOSINOPHILS % (MANUAL) 0 % (0-6); GLUCOSE 171 mg/dL (75-110); LYMPHOCYTES % (MANUAL) 6 % (13-45); MONOCYTES % (MANUAL) 5 % (3-13); POTASSIUM 3.5 mmol/L (3.6-5.0); SEGMENTED NEUTROPHILS % (MAN) 89 % (42-78); SODIUM 142.9 mmol/L (137-145); TOTAL CELLS COUNTED 100
[2018-02-13 09:15] LABS: TOXIC GRANULATION SLIGHT; TOXIC VACUOLATION PRESENT
[2018-02-13 09:16] LABS: ANISOCYTOSIS SLIGHT; HYPOCHROMASIA SLIGHT; PLATELET COMMENT ADEQUATE; POIKILOCYTOSIS SLIGHT; TARGET CELLS SLIGHT
[2018-02-13] MEDS: MIDAZOLAM HCL 50 MG/100 ML RTUINJ IV PRN ×3 (09:37→22:10)
[2018-02-13] MEDS: METHYLPREDNISOLONE INJ 40 MG/1 ML SDV IV SCH ×2 (09:38→22:10)
[2018-02-13] MEDS: METOPROLOL SUCCINATE 50 MG TAB.SR.24H PO SCH (09:38)
[2018-02-13] MEDS: AMLODIPINE BESYLATE 5 MG TABLET PO SCH (09:38)
[2018-02-13] MEDS: LEVOFLOXACIN 750 MG/D5W RTU 750 MG/150 ML RTUPB IV SCH (09:38)
[2018-02-13] MEDS ORDERED: AMLODIPINE BESYLATE 2.5 MG TABLET PO SCH (10:00)
[2018-02-13] MEDS ORDERED: ROCURONIUM BROMIDE INJ 50 MG/5 ML VIAL IV ONE (10:03)
[2018-02-13] MEDS ORDERED: ETOMIDATE INJ/PF 20 MG/10 ML SDV IV ONE (12:28)
[2018-02-13] MEDS ORDERED: NOREPINEPHRINE BITARTRATE INJ/PF 4 MG/4 ML SDV IV ONE (12:36)
[2018-02-13] MEDS ORDERED: INSULIN REG, HUMAN 100 UNIT/ML 3 ML VIAL (PYX) ONE (12:55)
[2018-02-13 16:35] LABS: ARTERIAL BLOOD BASE EXCESS 4.7 mmol/L; ARTERIAL BLOOD H2CO3 1.38 mmol/L (1.05-1.35); ARTERIAL BLOOD HCO3 29.7 mmol/L (20-24); ARTERIAL BLOOD O2 SATURATION 83.5 % (94-98); ARTERIAL BLOOD PCO2 45.9 mmHg (35-45); ARTERIAL BLOOD PH 7.43 (7.35-7.45); ARTERIAL BLOOD PO2 46.8 mmHg (80-100); ARTERIAL BLOOD TOTAL CO2 31.1 mmol/L (21-25)
[2018-02-13 16:37] LABS: ARTERIAL BLOOD FIO2 21%
[2018-02-13] MEDS: CEFEPIME 2 GM/D5W RTU 2 GM/50 ML RTUPB IV SCH (18:13)
[2018-02-14] MEDS: IPRATROPIUM/ALBUTEROL 0.5-2.5 MG/3 ML AMPUL NEB SCH ×4 (02:47→20:52)
[2018-02-14] MEDS: PROPOFOL 1,000 MG/100 ML INFUS..BTL IV PRN ×6 (03:05→22:27)
[2018-02-14] MEDS: MIDAZOLAM HCL 50 MG/100 ML RTUINJ IV PRN ×3 (04:05→23:55)
[2018-02-14 04:13] LABS: HEMATOCRIT 30.9 % (36.0-47.0); HEMOGLOBIN 9.8 g/dL (12.0-15.5); MEAN CORPUSCULAR HEMOGLOBIN 24.2 pg (27.0-33.4); MEAN CORPUSCULAR HGB CONC 31.6 g/dL (32.0-36.0); MEAN CORPUSCULAR VOLUME 76 fl (80-97); PLATELET COUNT 233 10^3/uL (150-450); RED BLOOD COUNT 4.04 10^6/uL (3.72-5.28); RED CELL DISTRIBUTION WIDTH 15.7 % (11.5-14.0); WHITE BLOOD COUNT 22.3 10^3/uL (4.0-10.5)
[2018-02-14 04:29] LABS: ABSOLUTE LYMPHOCYTES# (MANUAL) 0.9 10^3/uL (0.5-4.7); ABSOLUTE MONOCYTES # (MANUAL) 0.7 10^3/uL (0.1-1.4); ABSOLUTE NEUTROPHILS# (MANUAL) 20.7 10^3/uL (1.7-8.2); ANISOCYTOSIS 1+; BASOPHILS % (MANUAL) 0 % (0-2); EOSINOPHILS % (MANUAL) 0 % (0-6); LYMPHOCYTES % (MANUAL) 4 % (13-45); MONOCYTES % (MANUAL) 3 % (3-13); POLYCHROMASIA 1+; SEGMENTED NEUTROPHILS % (MAN) 93 % (42-78); TOTAL CELLS COUNTED 100
[2018-02-14 04:30] LABS: PLATELET COMMENT ADEQUATE
[2018-02-14 04:35] LABS: BLOOD UREA NITROGEN 18 mg/dL (7-20); CALCIUM 8.3 mg/dL (8.4-10.2); CARBON DIOXIDE 30 mmol/L (22-30); GLUCOSE 141 mg/dL (75-110); POTASSIUM 3.1 mmol/L (3.6-5.0)
[2018-02-14 04:46] LABS: CHLORIDE 109 mmol/L (98-107); SODIUM 143.7 mmol/L (137-145)
[2018-02-14 04:47] LABS: ANION GAP 5 (5-19)
[2018-02-14] MEDS: HEPARIN SOD (PORCINE) 5,000 UNIT/ML 1 ML SYRINGE SUBCUT SCH ×3 (05:02→21:08)
[2018-02-14] MEDS: CEFEPIME 2 GM/D5W RTU 2 GM/50 ML RTUPB IV SCH ×2 (05:02→17:27)
[2018-02-14] MEDS ORDERED: POTASSIUM CHLORIDE 20 MEQ/15 ML UDCUP PO ONE (08:04)
--- NOTE | 2018-02-14 09:08 | RADIOLOGY REPORT (SQ) ---
EXAM DESCRIPTION: CHEST SINGLE VIEW COMPLETED DATE/TIME: 02/14/2018 8:59 am REASON FOR STUDY: increasing secretions from ET COMPARISON: 02/12/2018 EXAM PARAMETERS: NUMBER OF VIEWS: One view TECHNIQUE: Single frontal radiograph of the chest. RADIATION DOSE: N/A LIMITATIONS: None. FINDINGS: TEMPORARY SUPPORT DEVICES:ETT in expected location. NG tube courses below the eun-diaphr agm in to the stomach. LUNGS AND PLEURA: No opacities. No masses. No effusions. No pneumothorax. MEDIASTINUM AND HILAR STRUCTURES: No masses. Contour normal. HEART AND VASCULAR STRUCTURES: Heart size normal. Normal vascularity. Aorta normal for age BONES: No acute findings. OTHER: No other significant finding. IMPRESSION: NO ACUTE RADIOGRAPHIC FINDING IN THE CHEST. SUPPORT DEVICE(S) IN EXPECTED LOCATIONS. TECHNICAL DOCUMENTATION: JOB ID: [id number] [employer]- All Rights Reserved Reading location - IP/workstation name: [email or web address]
[2018-02-14] MEDS: METOPROLOL SUCCINATE 50 MG TAB.SR.24H PO SCH (09:25)
[2018-02-14] MEDS: METHYLPREDNISOLONE INJ 40 MG/1 ML SDV IV SCH ×2 (09:25→21:08)
[2018-02-14] MEDS: LEVOFLOXACIN 750 MG/D5W RTU 750 MG/150 ML RTUPB IV SCH (09:26)
[2018-02-14] MEDS: AMLODIPINE BESYLATE 5 MG TABLET PO SCH (09:26)
[2018-02-14] MEDS: NORMAL SALINE 1000 ML 1,000 ML IV PRN (09:28)
--- NOTE | 2018-02-14 18:11 | PDOC PROGRESS REPORT ---
Subjective Progress Note for:: 02/14/18 Subjective:: This is a 67 year old female with a past medical history of oxygen dependent COPD, hypertension, pulmonary hypertension, chronic bronchitis, breast cancer, osteoarthritis, benzodiazepine dependent anxiety, OTC insomnia medication and cannabis use who was brought in by EMS due to acute worsening SOB, wheezing and agitation. She was noted to be in hypoxic hypercapnic respiratory failure and was intubated in the ER on 02/13/18 deemed likely to be a combination of COPD exacerbation with benzodiazepine use contributing to respiratory failure. No acute event overnight. Patient is now tolerating minimal vent settings well. She did have thick, napoles secretions coming out from the ET. No fever or chills. On propofol and Versed. Family updated on status and plan of care. Reason For Visit: ACUTE RESP FAILURE, PNEUOMONIA Physical Exam Vital Signs: Temp Pulse Resp BP Pulse Ox 100.2 F 101 H 21 H 108/66 99 02/14/18 15:24 02/14/18 14:16 02/14/18 15:24 02/14/18 15:24 02/14/18 16:16 Intake & Output 02/13/18 02/14/18 02/15/18 06:59 06:59 06:59 Intake Total 97 3980 340 Output Total 1405 1000 Balance 97 2575 -660 Weight 165 lb 2.02 oz 171 lb 4.787 oz General appearance: PRESENT: other - sedated, intubated Eye exam: PRESENT: conjunctiva pink, EOMI, PERRLA. ABSENT: scleral icterus Ear exam: PRESENT: normal external ear exam Mouth exam: PRESENT: moist, tongue midline Neck exam: ABSENT: carotid bruit, JVD, lymphadenopathy, thyromegaly Respiratory exam: PRESENT: rhonchi. ABSENT: rales, wheezes Cardiovascular exam: PRESENT: RRR. ABSENT: diastolic murmur, rubs, systolic murmur Pulses: PRESENT: normal dorsalis pedis pul GI/Abdominal exam: PRESENT: normal bowel sounds, soft. ABSENT: distended, guarding, mass, organolmegaly, rebound, tenderness Rectal exam: PRESENT: deferred Neurological exam: PRESENT: other - intubated, sedated Results Laboratory Results: 02/14/18 04:00 02/14/18 04:00 02/14/18 02/14/18 04:00 04:00 WBC 22.3 H RBC 4.04 Hgb 9.8 L Hct 30.9 L MCV 76 L MCH 24.2 L MCHC 31.6 L RDW 15.7 H Plt Count 233 Seg Neutrophils % Not Reportable Lymphocytes % Not Reportable Monocytes % Not Reportable Eosinophils % Not Reportable Basophils % Not Reportable Absolute Neutrophils Not Reportable Absolute Lymphocytes Not Reportable Absolute Monocytes Not Reportable Absolute Eosinophils Not Reportable Absolute Basophils Not Reportable Sodium 143.7 Potassium 3.1 L Chloride 109 H Carbon Dioxide 30 Anion Gap 5 BUN 18 Creatinine 0.55 Est GFR ( Amer) > 60 Est GFR (Non-Af Amer) > 60 Glucose 141 H Calcium 8.3 L Impressions: Chest X-Ray 02/14/18 08:03 IMPRESSION: NO ACUTE RADIOGRAPHIC FINDING IN THE CHEST. SUPPORT DEVICE(S) IN EXPECTED LOCATIONS. Assessment & Plan - Diagnosis (1) Acute respiratory failure with hypoxia and hypercapnia Is this a current diagnosis for this admission?: Yes Plan: Likely secondary to COPD exacerbation with benzodiazepine use and NAYANA contributing to respiratory failure. Currently intubated. Tolerating minimal vent settings today, FiO2 at 30%. Pulmonology following. Spontaneous breathing trials tomorrow. (2) COPD exacerbation Is this a current diagnosis for this admission?: Yes Plan: Currently intubated. Continue IV steroids. (3) Chronic respiratory failure Is this a current diagnosis for this admission?: Yes Plan: She is on home O2 for severe COPD. - Time Time Spent with patient: 25-34 minutes
[2018-02-14 18:42] LABS: BLOOD UREA NITROGEN 17 mg/dL (7-20); CALCIUM 8.1 mg/dL (8.4-10.2); GLUCOSE 124 mg/dL (75-110); POTASSIUM 3.9 mmol/L (3.6-5.0)
[2018-02-14 18:47] LABS: CARBON DIOXIDE 27 mmol/L (22-30); CHLORIDE 111 mmol/L (98-107); SODIUM 142.5 mmol/L (137-145)
[2018-02-14 18:48] LABS: ANION GAP 5 (5-19)
[2018-02-14] MEDS: FENTANYL CITRATE INJ/PF 100 MCG/2 ML AMPUL IV PRN (22:27)
[2018-02-15] MEDS: PROPOFOL 1,000 MG/100 ML INFUS..BTL IV PRN ×5 (02:29→21:51)
[2018-02-15] MEDS: MIDAZOLAM HCL 50 MG/100 ML RTUINJ IV PRN (03:05)
[2018-02-15] MEDS: NORMAL SALINE 1000 ML 1,000 ML IV PRN (03:05)
[2018-02-15] MEDS: IPRATROPIUM/ALBUTEROL 0.5-2.5 MG/3 ML AMPUL NEB SCH ×4 (03:25→21:19)
[2018-02-15 04:36] LABS: ARTERIAL BLOOD BASE EXCESS 0 mmol/L; ARTERIAL BLOOD H2CO3 1.17 mmol/L (1.05-1.35); ARTERIAL BLOOD HCO3 24.4 mmol/L (20-24); ARTERIAL BLOOD O2 SATURATION 95.2 % (94-98); ARTERIAL BLOOD PCO2 38.9 mmHg (35-45); ARTERIAL BLOOD PH 7.42 (7.35-7.45); ARTERIAL BLOOD PO2 74.3 mmHg (80-100); ARTERIAL BLOOD TOTAL CO2 25.6 mmol/L (21-25)
[2018-02-15 04:37] LABS: ARTERIAL BLOOD FIO2 30%
[2018-02-15] MEDS: HEPARIN SOD (PORCINE) 5,000 UNIT/ML 1 ML SYRINGE SUBCUT SCH ×3 (05:09→21:52)
[2018-02-15] MEDS: CEFEPIME 2 GM/D5W RTU 2 GM/50 ML RTUPB IV SCH (05:09)
[2018-02-15 06:49] LABS: HEMATOCRIT 29.8 % (36.0-47.0); HEMOGLOBIN 9.6 g/dL (12.0-15.5); MEAN CORPUSCULAR HEMOGLOBIN 24.5 pg (27.0-33.4); MEAN CORPUSCULAR HGB CONC 32.3 g/dL (32.0-36.0); MEAN CORPUSCULAR VOLUME 76 fl (80-97); PLATELET COUNT 225 10^3/uL (150-450); RED BLOOD COUNT 3.94 10^6/uL (3.72-5.28); RED CELL DISTRIBUTION WIDTH 16.3 % (11.5-14.0); WHITE BLOOD COUNT 20.2 10^3/uL (4.0-10.5)
--- NOTE | 2018-02-15 07:08 | RADIOLOGY REPORT (SQ) ---
EXAM DESCRIPTION: XR CHEST 1 VIEW COMPLETED DATE/TME: 02/15/2018 06:00 CLINICAL HISTORY: Respiratory Distress. 67 years Female, resp failure COMPARISON: One day prior. NUMBER OF VIEWS/TECHNIQUE: 1/AP FINDINGS: Adequate appearing endotracheal tube. Likely adequate appearing enteric tube partially obscured. Clear lungs. Normal cardiac silhouette size. No pneumothorax. Stable bony thorax. IMPRESSION: No significant change.
[2018-02-15 07:16] LABS: ABSOLUTE LYMPHOCYTES# (MANUAL) 0.2 10^3/uL (0.5-4.7); BAND NEUTROPHILS % (MANUAL) 1 % (3-5); BASOPHILS % (MANUAL) 0 % (0-2); EOSINOPHILS % (MANUAL) 0 % (0-6); LYMPHOCYTES % (MANUAL) 1 % (13-45); MONOCYTES % (MANUAL) 5 % (3-13); SEGMENTED NEUTROPHILS % (MAN) 93 % (42-78); TOTAL CELLS COUNTED 100
[2018-02-15 07:17] LABS: ANISOCYTOSIS 1+; HYPOCHROMASIA SLIGHT; OVALOCYTES SLIGHT; PLATELET COMMENT ADEQUATE; POIKILOCYTOSIS SLIGHT; SCHISTOCYTES SLIGHT
[2018-02-15 07:20] LABS: BLOOD UREA NITROGEN 21 mg/dL (7-20); CALCIUM 8.3 mg/dL (8.4-10.2); GLUCOSE 120 mg/dL (75-110); PHOSPHORUS 2.5 mg/dL (2.5-4.5); POTASSIUM 3.8 mmol/L (3.6-5.0)
[2018-02-15 07:25] LABS: CARBON DIOXIDE 29 mmol/L (22-30); CHLORIDE 111 mmol/L (98-107); SODIUM 142.3 mmol/L (137-145)
[2018-02-15 07:32] LABS: ANION GAP 2 (5-19)
[2018-02-15] MEDS: AMLODIPINE BESYLATE 5 MG TABLET PO SCH (09:37)
[2018-02-15] MEDS: METHYLPREDNISOLONE INJ 40 MG/1 ML SDV IV SCH ×2 (09:37→21:51)
[2018-02-15] MEDS: LEVOFLOXACIN 750 MG/D5W RTU 750 MG/150 ML RTUPB IV SCH (09:37)
[2018-02-15] MEDS: METOPROLOL SUCCINATE 50 MG TAB.SR.24H PO SCH (09:37)
--- NOTE | 2018-02-15 11:09 | PDOC PROGRESS REPORT ---
Subjective Progress Note for:: 02/15/18 Subjective:: This is a 67 year old female with a past medical history of oxygen dependent COPD, hypertension, pulmonary hypertension, chronic bronchitis, breast cancer, osteoarthritis, benzodiazepine dependent anxiety, OTC insomnia medication and cannabis use who was brought in by EMS due to acute worsening SOB, wheezing and agitation. She was noted to be in hypoxic hypercapnic respiratory failure and was intubated in the ER on 02/13/18 deemed likely to be a combination of COPD exacerbation with benzodiazepine use contributing to respiratory failure. No acute event overnight. Patient currently tolerating minimal vent settings well. Secretions coming out from the ET are decreasing. No fever or chills. She was weaned off propofol and Versed today and patient became tachypneic in the 50s and had transient desaturation in the high 80s. She does have chronic opioid dependence which also contributed to her respiratory failure. Will add Seroquel today and see if this helps with her agitation. Reason For Visit: ACUTE RESP FAILURE, PNEUOMONIA Physical Exam Vital Signs: Temp Pulse Resp BP Pulse Ox 98.6 F 97 21 H 116/75 99 02/15/18 10:00 02/15/18 08:56 02/15/18 08:56 02/15/18 05:25 02/15/18 08:56 Intake & Output 02/14/18 02/15/18 02/16/18 06:59 06:59 06:59 Intake Total 3980 2045 93 Output Total 1405 1540 300 Balance 2575 505 -207 Weight 171 lb 4.787 oz 173 lb 4.533 oz General appearance: PRESENT: other - intubated, sedated Eye exam: PRESENT: conjunctiva pink, EOMI, PERRLA. ABSENT: scleral icterus Ear exam: PRESENT: normal external ear exam Neck exam: ABSENT: carotid bruit, JVD, lymphadenopathy, thyromegaly Respiratory exam: PRESENT: rhonchi - ont he right base. ABSENT: wheezes Cardiovascular exam: PRESENT: RRR. ABSENT: diastolic murmur, rubs, systolic murmur Pulses: PRESENT: normal dorsalis pedis pul GI/Abdominal exam: PRESENT: normal bowel sounds, soft. ABSENT: distended, guarding, mass, organolmegaly, rebound, tenderness Rectal exam: PRESENT: deferred Neurological exam: PRESENT: other - intubated, sedated Results Laboratory Results: 02/15/18 06:38 02/15/18 06:38 02/14/18 02/15/18 02/15/18 18:18 04:28 06:38 WBC 20.2 H RBC 3.94 Hgb 9.6 L Hct 29.8 L MCV 76 L MCH 24.5 L MCHC 32.3 RDW 16.3 H Plt Count 225 Seg Neutrophils % Not Reportable Lymphocytes % Not Reportable Monocytes % Not Reportable Eosinophils % Not Reportable Basophils % Not Reportable Absolute Neutrophils Not Reportable Absolute Lymphocytes Not Reportable Absolute Monocytes Not Reportable Absolute Eosinophils Not Reportable Absolute Basophils Not Reportable Carbonic Acid 1.17 HCO3/H2CO3 Ratio 20:1 ABG pH 7.42 ABG pCO2 38.9 ABG pO2 74.3 L ABG HCO3 24.4 H ABG O2 Saturation 95.2 ABG Base Excess 0 FiO2 30% Sodium 142.5 Potassium 3.9 Chloride 111 H Carbon Dioxide 27 Anion Gap 5 BUN 17 Creatinine 0.55 Est GFR ( Amer) > 60 Est GFR (Non-Af Amer) > 60 Glucose 124 H Calcium 8.1 L Phosphorus Magnesium 02/15/18 06:38 WBC RBC Hgb Hct MCV MCH MCHC RDW Plt Count Seg Neutrophils % Lymphocytes % Monocytes % Eosinophils % Basophils % Absolute Neutrophils Absolute Lymphocytes Absolute Monocytes Absolute Eosinophils Absolute Basophils Carbonic Acid HCO3/H2CO3 Ratio ABG pH ABG pCO2 ABG pO2 ABG HCO3 ABG O2 Saturation ABG Base Excess FiO2 Sodium 142.3 Potassium 3.8 Chloride 111 H Carbon Dioxide 29 Anion Gap 2 L BUN 21 H Creatinine 0.55 Est GFR ( Amer) > 60 Est GFR (Non-Af Amer) > 60 Glucose 120 H Calcium 8.3 L Phosphorus 2.5 Magnesium 2.4 H Impressions: Chest X-Ray 02/15/18 06:00 IMPRESSION: No significant change. Assessment & Plan - Diagnosis (1) Acute respiratory failure with hypoxia and hypercapnia Is this a current diagnosis for this admission?: Yes Plan: Likely secondary to COPD exacerbation with benzodiazepine use contributing to respiratory failure. Currently intubated. Tolerating minimal vent settings today, FiO2 at 30%. Pulmonology following. She was weaned off propofol and Versed today and patient became tachypneic in the 50s and had transient desaturation in the high 80s. She does have chronic opioid dependence which also contributed to her respiratory failure. Will add Seroquel today and see if this helps with her agitation. Spontaneous breathing trials again tomorrow. (2) COPD exacerbation Is this a current diagnosis for this admission?: Yes Plan: Currently intubated. Continue IV steroids. Discontinue Cefepime. Continue Levaquin for 2 more days. (3) Chronic respiratory failure Is this a current diagnosis for this admission?: Yes Plan: She is on home O2 for severe COPD. - Time Time Spent with patient: 15-24 minutes
[2018-02-15] MEDS ORDERED: QUETIAPINE FUMARATE 25 MG TABLET PO ONE (12:00)
[2018-02-15] MEDS: NORMAL SALINE 1000 ML 1,000 ML with POTASSIUM CHLORIDE 20 MEQ, MAGNESIUM SULFATE 8 MEQ,... IV SCH ×5 (17:57)
[2018-02-16] MEDS: MIDAZOLAM HCL 50 MG/100 ML RTUINJ IV PRN ×3 (00:13→23:45)
[2018-02-16] MEDS: IPRATROPIUM/ALBUTEROL 0.5-2.5 MG/3 ML AMPUL NEB SCH ×4 (01:36→20:12)
[2018-02-16] MEDS: NORMAL SALINE 1000 ML 1,000 ML IV PRN ×2 (03:39→23:45)
[2018-02-16] MEDS: PROPOFOL 1,000 MG/100 ML INFUS..BTL IV PRN ×3 (03:39→21:30)
[2018-02-16 04:33] LABS: HEMATOCRIT 28.1 % (36.0-47.0); MEAN CORPUSCULAR HGB CONC 31.9 g/dL (32.0-36.0); MEAN CORPUSCULAR VOLUME 75 fl (80-97); PLATELET COUNT 219 10^3/uL (150-450); RED BLOOD COUNT 3.74 10^6/uL (3.72-5.28); RED CELL DISTRIBUTION WIDTH 16.1 % (11.5-14.0); WHITE BLOOD COUNT 16.9 10^3/uL (4.0-10.5)
[2018-02-16 04:56] LABS: BLOOD UREA NITROGEN 22 mg/dL (7-20); CHLORIDE 114 mmol/L (98-107); GLUCOSE 111 mg/dL (75-110)
[2018-02-16 04:59] LABS: ABSOLUTE LYMPHOCYTES# (MANUAL) 0.8 10^3/uL (0.5-4.7); ABSOLUTE MONOCYTES # (MANUAL) 0.8 10^3/uL (0.1-1.4); ABSOLUTE NEUTROPHILS# (MANUAL) 15.2 10^3/uL (1.7-8.2); BASOPHILS % (MANUAL) 0 % (0-2); EOSINOPHILS % (MANUAL) 0 % (0-6); LYMPHOCYTES % (MANUAL) 5 % (13-45); MONOCYTES % (MANUAL) 5 % (3-13); NUCLEATED RED BLOOD CELLS 1 /100 WBC (0); SEGMENTED NEUTROPHILS % (MAN) 90 % (42-78); TOTAL CELLS COUNTED 100
[2018-02-16 05:02] LABS: CARBON DIOXIDE 28 mmol/L (22-30); SODIUM 142.9 mmol/L (137-145)
[2018-02-16 05:04] LABS: ANISOCYTOSIS 1+; HYPOCHROMASIA 2+; PLATELET COMMENT ADEQUATE; PLATELET LARGE PRESENT; POIKILOCYTOSIS SLIGHT; POLYCHROMASIA SLIGHT; SCHISTOCYTES SLIGHT; TARGET CELLS SLIGHT
[2018-02-16 05:05] LABS: ANION GAP 1 (5-19)
[2018-02-16 05:27] LABS: ARTERIAL BLOOD BASE EXCESS 2.2 mmol/L; ARTERIAL BLOOD H2CO3 1.29 mmol/L (1.05-1.35); ARTERIAL BLOOD O2 SATURATION 94.8 % (94-98); ARTERIAL BLOOD PH 7.42 (7.35-7.45); ARTERIAL BLOOD PO2 72.6 mmHg (80-100); ARTERIAL BLOOD TOTAL CO2 28.3 mmol/L (21-25)
[2018-02-16 05:28] LABS: ARTERIAL BLOOD FIO2 30%
[2018-02-16] MEDS: HEPARIN SOD (PORCINE) 5,000 UNIT/ML 1 ML SYRINGE SUBCUT SCH ×3 (05:53→21:30)
--- NOTE | 2018-02-16 08:27 | PDOC PROGRESS REPORT ---
Subjective Progress Note for:: 02/16/18 Subjective:: [birth year][id number]-pvax-old female with a significant past medical history of oxygen dependent COPD, hypertension, pulmonary hypertension, breast cancer, osteoarthritis, [place] [employer] dependent anxiety, history of cannabis use admitted with complaints of acute worsening of shortness of breath wheezing and agitation. In the emergency room she was found to be hypoxic hypercapnic respiratory failure intubated on 02/13/2018. Failure most likely secondary to COPD exacerbation and benzodiazepine use. No acute events overnight. The trial of extubation was done yesterday with without success within 15 minutes patient became tachypneic with resp rate of 50 and hypoxic with pulse ox in the 50s. Presently she is on Versed and propofol Versed was discontinued this morning and the nurses are tapering off the propofol to try to wean her off today. Pulmonary team is on board. Urine cultures came back positive for Aspergillus. I am going to wait for recommen dation from Dr. Guerra. Patient latest vital signs temperature is 98.8/pulse rate is 92 respirations 18 pulse ox is 97% on the vent. Reason For Visit: ACUTE RESP FAILURE, PNEUOMONIA Physical Exam Vital Signs: Temp Pulse Resp BP Pulse Ox 98.8 F 93 18 101/65 97 02/16/18 06:00 02/16/18 01:35 02/16/18 06:00 02/16/18 05:41 02/16/18 06:00 Intake & Output 02/15/18 02/16/18 02/17/18 06:59 06:59 06:59 Intake Total 2045 1334 Output Total 1540 1695 Balance 505 -361 Weight 78.6 kg 81.4 kg General appearance: PRESENT: other - Patient is intubated under sedation. Eye exam: PRESENT: PERRLA. ABSENT: scleral icterus Teeth exam: PRESENT: poor dentation Neck exam: ABSENT: carotid bruit, JVD, lymphadenopathy, thyromegaly Respiratory exam: PRESENT: decreased breath sounds. ABSENT: wheezes GI/Abdominal exam: PRESENT: normal bowel sounds, soft Neurological exam: PRESENT: other - Patient is intubated under sedation. Results Laboratory Results: 02/16/18 04:18 02/16/18 04:18 02/16/18 02/16/18 02/16/18 04:18 04:18 05:00 WBC 16.9 H RBC 3.74 Hgb 9.0 L Hct 28.1 L MCV 75 L MCH 24.0 L MCHC 31.9 L RDW 16.1 H Plt Count 219 Seg Neutrophils % Not Reportable Lymphocytes % Not Reportable Monocytes % Not Reportable Eosinophils % Not Reportable Basophils % Not Reportable Absolute Neutrophils Not Reportable Absolute Lymphocytes Not Reportable Absolute Monocytes Not Reportable Absolute Eosinophils Not Reportable Absolute Basophils Not Reportable Carbonic Acid 1.29 HCO3/H2CO3 Ratio 20:1 ABG pH 7.42 ABG pCO2 43.0 ABG pO2 72.6 L ABG HCO3 27.0 H ABG O2 Saturation 94.8 ABG Base Excess 2.2 FiO2 30% Sodium 142.9 Potassium 4.0 Chloride 114 H Carbon Dioxide 28 Anion Gap 1 L BUN 22 H Creatinine 0.51 L Est GFR ( Amer) > 60 Est GFR (Non-Af Amer) > 60 Glucose 111 H Calcium 8.0 L Magnesium 2.9 H Assessment & Plan - Diagnosis (1) Acute respiratory failure with hypoxia and hypercapnia Is this a current diagnosis for this admission?: Yes Plan: 02/16/2018-acute on chronic respiratory failure with hypoxia and hypercapnia most likely secondary to benzodiazepine use and COPD exacerbation. No acute events overnight. Patient is on the vent with Versed turned off and tapping dose of propofol. Oxygen 97% on the vent. O2 is 30%. To try to wean her off today. ABG today on 30% oxygen pH is 7.42/PCO2 43/PO2 72.6 pulse ox is 94.8%. Hypoxia and hypercapnia resolving. (2) COPD exacerbation Is this a current diagnosis for this admission?: Yes Plan: 02/16/2018-patient is on IV steroids for COPD exacerbation, patient has Levaquin 750 mg IV. And sputum culture came back for Aspergillus. Awaiting pulmonary recommendations. (3) Chronic respiratory failure Is this a current diagnosis for this admission?: Yes Plan: 02/16/2018 patient has history of COPD on home oxygen. - Time Time Spent with patient: 15-24 minutes Smoking Cessation Education: over 10 minutes Medications reviewed and adjusted accordingly: Yes Anticipated discharge: Home
--- NOTE | 2018-02-16 08:30 | RADIOLOGY REPORT (SQ) ---
EXAM DESCRIPTION: CHEST SINGLE VIEW COMPLETED DATE/TIME: 02/16/2018 8:21 am REASON FOR STUDY: Resp failure COMPARISON: 02/15/2018 EXAM PARAMETERS: NUMBER OF VIEWS: One view TECHNIQUE: Single frontal radiograph of the chest. RADIATION DOSE: N/A LIMITATIONS: None. FINDINGS: TEMPORARY SUPPORT DEVICES:ETT in expected location. NG tube courses below the eun-diaphr agm in to the stomach. LUNGS AND PLEURA: No opacities. No masses. No effusions. No pneumothorax. MEDIASTINUM AND HILAR STRUCTURES: No masses. Contour normal. HEART AND VASCULAR STRUCTURES: Heart size normal. Normal vascularity. Aorta normal for age BONES: No acute findings. OTHER: No other significant finding. IMPRESSION: NO ACUTE RADIOGRAPHIC FINDING IN THE CHEST. SUPPORT DEVICE(S) IN EXPECTED LOCATIONS. TECHNICAL DOCUMENTATION: JOB ID: [id number] [employer]- All Rights Reserved Reading location - IP/workstation name: [email or web address]
[2018-02-16] MEDS: AMLODIPINE BESYLATE 5 MG TABLET PO SCH (09:20)
[2018-02-16] MEDS: LEVOFLOXACIN 750 MG/D5W RTU 750 MG/150 ML RTUPB IV SCH (09:21)
[2018-02-16] MEDS: METHYLPREDNISOLONE INJ 40 MG/1 ML SDV IV SCH ×2 (09:21→21:30)
[2018-02-16] MEDS: METOPROLOL SUCCINATE 50 MG TAB.SR.24H PO SCH (10:07)
[2018-02-16 16:26] LABS: APPEARANCE,URINE CLEAR; BILIRUBIN,URINE NEGATIVE (NEGATIVE); COLOR,URINE YELLOW; GLUCOSE, URINE NEGATIVE (NEGATIVE); KETONES,URINE TRACE mg/dL (NEGATIVE); LEUKOCYTE ESTERASE,URINE NEGATIVE (NEGATIVE); NITRITE,URINE NEGATIVE (NEGATIVE); PROTEIN,URINE NEGATIVE (NEGATIVE); URINE SPECIFIC GRAVITY 1.024; UROBILINOGEN,URINE NEGATIVE mg/dL (<2.0)
[2018-02-16] MEDS: NORMAL SALINE 1000 ML 1,000 ML with POTASSIUM CHLORIDE 20 MEQ, MAGNESIUM SULFATE 8 MEQ,... IV SCH ×5 (17:36)
[2018-02-17] MEDS: PROPOFOL 1,000 MG/100 ML INFUS..BTL IV PRN ×6 (01:24→21:07)
[2018-02-17] MEDS: IPRATROPIUM/ALBUTEROL 0.5-2.5 MG/3 ML AMPUL NEB SCH ×4 (02:03→21:28)
[2018-02-17 04:11] LABS: HEMATOCRIT 33.7 % (36.0-47.0); HEMOGLOBIN 10.6 g/dL (12.0-15.5); MEAN CORPUSCULAR HEMOGLOBIN 24.1 pg (27.0-33.4); MEAN CORPUSCULAR HGB CONC 31.5 g/dL (32.0-36.0); MEAN CORPUSCULAR VOLUME 77 fl (80-97); PLATELET COUNT 230 10^3/uL (150-450); RED BLOOD COUNT 4.39 10^6/uL (3.72-5.28); RED CELL DISTRIBUTION WIDTH 16.1 % (11.5-14.0); WHITE BLOOD COUNT 17.5 10^3/uL (4.0-10.5)
[2018-02-17 04:18] LABS: ALANINE AMINOTRANSFERASE 18 U/L (9-52); ALBUMIN 3.3 g/dL (3.5-5.0); ALKALINE PHOSPHATASE 53 U/L (38-126); ANION GAP 6 (5-19); ASPARTATE AMINO TRANSFERASE 17 U/L (14-36); BILIRUBIN,DIRECT 0.2 mg/dL (0.0-0.4); BILIRUBIN,TOTAL 0.4 mg/dL (0.2-1.3); BLOOD UREA NITROGEN 24 mg/dL (7-20); CARBON DIOXIDE 26 mmol/L (22-30); CHLORIDE 113 mmol/L (98-107); GLUCOSE 106 mg/dL (75-110); POTASSIUM 4.7 mmol/L (3.6-5.0); SODIUM 144.5 mmol/L (137-145)
[2018-02-17 04:28] LABS: ABSOLUTE LYMPHOCYTES# (MANUAL) 1.2 10^3/uL (0.5-4.7); ABSOLUTE MONOCYTES # (MANUAL) 0.9 10^3/uL (0.1-1.4); ABSOLUTE NEUTROPHILS# (MANUAL) 15.2 10^3/uL (1.7-8.2); BAND NEUTROPHILS % (MANUAL) 3 % (3-5); BASOPHILS % (MANUAL) 0 % (0-2); EOSINOPHILS % (MANUAL) 1 % (0-6); LYMPHOCYTES % (MANUAL) 7 % (13-45); METAMYELOCYTES % (MANUAL) 1 % (0); MONOCYTES % (MANUAL) 5 % (3-13); SEGMENTED NEUTROPHILS % (MAN) 83 % (42-78); TOTAL CELLS COUNTED 100
[2018-02-17 04:35] LABS: ANISOCYTOSIS 1+; HYPOCHROMASIA 2+; PLATELET COMMENT ADEQUATE; PLATELET LARGE PRESENT; POIKILOCYTOSIS 1+
[2018-02-17 04:36] LABS: HELMET CELLS SLIGHT; SCHISTOCYTES SLIGHT; TARGET CELLS 1+
[2018-02-17 04:37] LABS: TOXIC VACUOLATION PRESENT
[2018-02-17 04:37] LABS: ARTERIAL BLOOD BASE EXCESS 1.7 mmol/L; ARTERIAL BLOOD FIO2 30%; ARTERIAL BLOOD H2CO3 1.39 mmol/L (1.05-1.35); ARTERIAL BLOOD HCO3 27.1 mmol/L (20-24); ARTERIAL BLOOD O2 SATURATION 92.1 % (94-98); ARTERIAL BLOOD PCO2 46.3 mmHg (35-45); ARTERIAL BLOOD PH 7.39 (7.35-7.45); ARTERIAL BLOOD PO2 64.3 mmHg (80-100); ARTERIAL BLOOD TOTAL CO2 28.6 mmol/L (21-25)
[2018-02-17] MEDS: HEPARIN SOD (PORCINE) 5,000 UNIT/ML 1 ML SYRINGE SUBCUT SCH ×3 (05:09→21:06)
--- NOTE | 2018-02-17 08:20 | RADIOLOGY REPORT (SQ) ---
EXAM DESCRIPTION: CHEST SINGLE VIEW COMPLETED DATE/TIME: 02/17/2018 6:58 am REASON FOR STUDY: RESP FAILURE COMPARISON: Chest CT 04/04/2017 Chest films 03/31/2017, 02/12/2018, 02/14/2018, 02/15/2018, 02/16/2018 EXAM PARAMETERS: NUMBER OF VIEWS: One view. TECHNIQUE: Single frontal radiographic view of the chest acquired. RADIATION DOSE: NA LIMITATIONS: Left lateral costophrenic sulcus cropped from the edge of the film FINDINGS: LUNGS AND PLEURA: No opacities, masses or pneumothorax. No pleural effusion. MEDIASTINUM AND HILAR STRUCTURES: No masses. Contour normal. HEART AND VASCULAR STRUCTURES: Heart normal in size. Normal vasculature. BONES: No acute findings. HARDWARE: Endotracheal tube tip 5 to 6 cm above the julian. Nasogastric tube tip and side port in th e stomach. OTHER: No other significant finding. IMPRESSION: No focal infiltrates. Endotracheal tube, nasogastric tube in good positioning TECHNICAL DOCUMENTATION: JOB ID: [id number] [employer] All Rights Reserved Reading location - IP/workstation name: [email or web address]
[2018-02-17] MEDS: METHYLPREDNISOLONE INJ 40 MG/1 ML SDV IV SCH ×3 (09:07→21:06)
[2018-02-17] MEDS: MIDAZOLAM HCL 50 MG/100 ML RTUINJ IV PRN (09:07)
[2018-02-17] MEDS: LEVOFLOXACIN 750 MG/D5W RTU 750 MG/150 ML RTUPB IV SCH (09:07)
[2018-02-17] MEDS: AMLODIPINE BESYLATE 5 MG TABLET PO SCH (09:08)
[2018-02-17] MEDS: METOPROLOL SUCCINATE 50 MG TAB.SR.24H PO SCH (09:08)
--- NOTE | 2018-02-17 09:35 | PDOC PROGRESS REPORT ---
Subjective Progress Note for:: 02/17/18 Subjective:: 02/16/[id number]-dloj-old female with a significant past medical history of oxygen dependent COPD, hypertension, pulmonary hypertension, breast cancer, osteoarthritis, benzodiazepine dependent anxiety, history of cannabis use admitted with complaints of acute worsening of shortness of breath wheezing and agitation. In the emergency room she was found to be hypoxic hypercapnic respiratory failure intubated on 02/13/2018. Failure most likely secondary to COPD exacerbation and benzodiazepine use. No acute events overnight. The trial of extubation was done yesterday with without success within 15 minutes patient became tachypneic with resp rate of 50 and hypoxic with pulse ox in the 50s. Presently she is on Versed and propofol Versed was discontinued this morning and the nurses are tapering off the propofol to try to wean her off today. Pulmonary team is on board. TRACHEAL cultures came back positive for Aspergillus. I am going to wait for recommendat ion from Dr. Guerra. Patient latest vital signs temperature is 98.8/pulse rate is 92 respirations 18 pulse ox is 97% on the vent. 02/17/2018-we will try to wean the patient off from the vent yesterday but it was unsuccessful patient become anxious tachypneic tachycardic and pulse ox dropped to 80s and she was placed on back on mechanical ventilation and we continued to propofol and Versed. We are going to do another trial of weaning today today. Chest x-ray shows no evidence of infiltrates. Cultures and sputum cultures are negative so far. Patient is on levofloxacin. On her T-max today 98.6. Reason For Visit: ACUTE RESP FAILURE, PNEUOMONIA Physical Exam Vital Signs: Temp Pulse Resp BP Pulse Ox 98.6 F 84 18 136/85 H 99 02/17/18 08:00 02/17/18 08:00 02/17/18 08:00 02/17/18 08:00 02/17/18 08:00 Intake & Output 02/16/18 02/17/18 02/18/18 06:59 06:59 06:59 Intake Total 2507 1285 183 Output Total 1695 1050 65 Balance 812 235 118 Weight 81.4 kg 81.9 kg General appearance: PRESENT: other - Patient is still intubated under sedation. Head exam: PRESENT: atraumatic Eye exam: PRESENT: PERRLA Mouth exam: PRESENT: dry mucosa Respiratory exam: PRESENT: clear to auscultation sandie, other - Is on 30% oxygen and on the vent.. ABSENT: rales, rhonchi, wheezes Cardiovascular exam: PRESENT: RRR. ABSENT: diastolic murmur, rubs, systolic murmur GI/Abdominal exam: PRESENT: normal bowel sounds, soft. ABSENT: tenderness Neurological exam: PRESENT: other - intubate and under sedation Results Laboratory Results: 02/17/18 03:59 02/17/18 03:59 02/16/18 02/17/18 02/17/18 16:08 03:59 03:59 WBC 17.5 H RBC 4.39 Hgb 10.6 L Hct 33.7 L MCV 77 L MCH 24.1 L MCHC 31.5 L RDW 16.1 H Plt Count 230 Seg Neutrophils % Not Reportable Lymphocytes % Not Reportable Monocytes % Not Reportable Eosinophils % Not Reportable Basophils % Not Reportable Absolute Neutrophils Not Reportable Absolute Lymphocytes Not Reportable Absolute Monocytes Not Reportable Absolute Eosinophils Not Reportable Absolute Basophils Not Reportable Carbonic Acid HCO3/H2CO3 Ratio ABG pH ABG pCO2 ABG pO2 ABG HCO3 ABG O2 Saturation ABG Base Excess FiO2 Sodium 144.5 Potassium 4.7 Chloride 113 H Carbon Dioxide 26 Anion Gap 6 BUN 24 H Creatinine 0.51 L Est GFR ( Amer) > 60 Est GFR (Non-Af Amer) > 60 Glucose 106 Calcium 8.0 L Magnesium 3.0 H Total Bilirubin 0.4 AST 17 ALT 18 Alkaline Phosphatase 53 Total Protein 6.0 L Albumin 3.3 L Urine Color YELLOW Urine Appearance CLEAR Urine pH 5.0 Ur Specific [place] 1.024 Urine Protein NEGATIVE Urine Glucose (UA) NEGATIVE Urine Ketones TRACE H Urine Blood NEGATIVE Urine Nitrite NEGATIVE Ur Leukocyte Esterase NEGATIVE Urine WBC (Auto) 2 Urine RBC (Auto) 17 02/17/18 04:13 WBC RBC Hgb Hct MCV MCH MCHC RDW Plt Count Seg Neutrophils % Lymphocytes % Monocytes % Eosinophils % Basophils % Absolute Neutrophils Absolute Lymphocytes Absolute Monocytes Absolute Eosinophils Absolute Basophils Carbonic Acid 1.39 H HCO3/H2CO3 Ratio 19:1 ABG pH 7.39 ABG pCO2 46.3 H ABG pO2 64.3 L ABG HCO3 27.1 H ABG O2 Saturation 92.1 L ABG Base Excess 1.7 FiO2 30% Sodium Potassium Chloride Carbon Dioxide Anion Gap BUN Creatinine Est GFR ( Amer) Est GFR (Non-Af Amer) Glucose Calcium Magnesium Total Bilirubin AST ALT Alkaline Phosphatase Total Protein Albumin Urine Color Urine Appearance Urine pH Ur Specific [place] Urine Protein Urine Glucose (UA) Urine Ketones Urine Blood Urine Nitrite Ur Leukocyte Esterase Urine WBC (Auto) Urine RBC (Auto) 02/13/18 06:00 Tracheal Aspirate Gram Stain - Final 02/13/18 06:00 Tracheal Aspirate Sputum Culture - Final Aspergillus Species Normal Lia Impressions: Chest X-Ray 02/17/18 06:00 IMPRESSION: No focal infiltrates. Endotracheal tube, nasogastric tube in good positioning Assessment & Plan - Diagnosis (1) Acute respiratory failure with hypoxia and hypercapnia Is this a current diagnosis for this admission?: Yes Plan: 02/16/2018-acute on chronic respiratory failure with hypoxia and hypercapnia most likely secondary to benzodiazepine use and COPD exacerbation. No acute events overnight. Patient is on the vent with Versed turned off and tapping dose of propofol. Oxygen 97% on the vent. O2 is 30%. To try to wean her off today. ABG today on 30% oxygen pH is 7.42/PCO2 43/PO2 72.6 pulse ox is 94.8%. Hypoxia and hypercapnia resolving. 02/17/2018-patient has a long history of COPD and benzodiazepine-dependent anxiety. Patient was intubated for acute on chronic respiratory failure with hypoxia and hypercapnia. We are trying to wean her off for the last 48 hours but unsuccessful so far. We are going to do another trial of weaning.today. Nurse customer service sales consultant for mid tracheal aspirate is looks like thick and yellow and I am going to repeat the sputum culture again today. And I am also going to start her on Ativan 2 mg IV every 2 as needed for anxiety during the weaning off of the vent. Chest x-ray done this morning no infiltrates. ABG on 30% oxygen today pH is 7.4 PCO2 46 PO2 64 bicarb is 27. (2) COPD exacerbation Is this a current diagnosis for this admission?: Yes Plan: 02/16/2018-patient is on IV steroids for COPD exacerbation, patient has Levaquin 750 mg IV. And sputum culture came back for Aspergillus. Awaiting pulmonary recommendations. 02/17/2018 for COPD exacerbation she is on IV steroids and getting the regular nebulizations. And is also on antibiotic levofloxacin 750 mg IV daily. Cultures are negative so far. (3) Chronic respiratory failure Is this a current diagnosis for this admission?: Yes Plan: 02/16/2018 patient has history of COPD on home oxygen. 02/17/2018 patient has history of COPD she uses 2 L oxygen via nasal cannula at home. - Time Time Spent with patient: 15-24 minutes Medications reviewed and adjusted accordingly: Yes Anticipated discharge: Home
[2018-02-17] MEDS: NORMAL SALINE 1000 ML 1,000 ML with POTASSIUM CHLORIDE 20 MEQ, MAGNESIUM SULFATE 8 MEQ,... IV SCH ×5 (17:29)
[2018-02-18] MEDS: PROPOFOL 1,000 MG/100 ML INFUS..BTL IV PRN ×2 (00:23→04:33)
[2018-02-18] MEDS: IPRATROPIUM/ALBUTEROL 0.5-2.5 MG/3 ML AMPUL NEB SCH ×4 (02:04→20:56)
[2018-02-18 04:34] LABS: HEMATOCRIT 33.8 % (36.0-47.0); HEMOGLOBIN 10.6 g/dL (12.0-15.5); MEAN CORPUSCULAR HEMOGLOBIN 23.9 pg (27.0-33.4); MEAN CORPUSCULAR HGB CONC 31.4 g/dL (32.0-36.0); MEAN CORPUSCULAR VOLUME 76 fl (80-97); PLATELET COUNT 224 10^3/uL (150-450); RED BLOOD COUNT 4.44 10^6/uL (3.72-5.28); RED CELL DISTRIBUTION WIDTH 16.4 % (11.5-14.0); WHITE BLOOD COUNT 23.7 10^3/uL (4.0-10.5)
[2018-02-18 04:41] LABS: ALANINE AMINOTRANSFERASE 20 U/L (9-52); ALBUMIN 3.2 g/dL (3.5-5.0); ALKALINE PHOSPHATASE 55 U/L (38-126); ASPARTATE AMINO TRANSFERASE 23 U/L (14-36); BILIRUBIN,DIRECT 0.4 mg/dL (0.0-0.4); BILIRUBIN,TOTAL 0.6 mg/dL (0.2-1.3); BLOOD UREA NITROGEN 22 mg/dL (7-20); CALCIUM 8.3 mg/dL (8.4-10.2); GLUCOSE 103 mg/dL (75-110); POTASSIUM 5.1 mmol/L (3.6-5.0); TOTAL PROTEIN 5.9 g/dL (6.3-8.2)
[2018-02-18 04:47] LABS: ANION GAP 6 (5-19); CARBON DIOXIDE 25 mmol/L (22-30); CHLORIDE 112 mmol/L (98-107); SODIUM 142.6 mmol/L (137-145)
[2018-02-18 04:56] LABS: ARTERIAL BLOOD BASE EXCESS 2.5 mmol/L; ARTERIAL BLOOD H2CO3 1.29 mmol/L (1.05-1.35); ARTERIAL BLOOD HCO3 27.2 mmol/L (20-24); ARTERIAL BLOOD O2 SATURATION 95.7 % (94-98); ARTERIAL BLOOD PCO2 42.8 mmHg (35-45); ARTERIAL BLOOD PH 7.42 (7.35-7.45); ARTERIAL BLOOD PO2 78.1 mmHg (80-100); ARTERIAL BLOOD TOTAL CO2 28.5 mmol/L (21-25)
[2018-02-18 04:57] LABS: ABSOLUTE LYMPHOCYTES# (MANUAL) 1.7 10^3/uL (0.5-4.7); ABSOLUTE MONOCYTES # (MANUAL) 1.7 10^3/uL (0.1-1.4); ABSOLUTE NEUTROPHILS# (MANUAL) 20.4 10^3/uL (1.7-8.2); BASOPHILS % (MANUAL) 0 % (0-2); EOSINOPHILS % (MANUAL) 0 % (0-6); LYMPHOCYTES % (MANUAL) 7 % (13-45); METAMYELOCYTES % (MANUAL) 1 % (0); MONOCYTES % (MANUAL) 7 % (3-13); NUCLEATED RED BLOOD CELLS 2 /100 WBC (0); SEGMENTED NEUTROPHILS % (MAN) 85 % (42-78); TOTAL CELLS COUNTED 100
[2018-02-18 04:59] LABS: ARTERIAL BLOOD FIO2 30%
[2018-02-18 05:01] LABS: POLYCHROMASIA SLIGHT; TOXIC VACUOLATION PRESENT
[2018-02-18 05:02] LABS: ANISOCYTOSIS 1+; HYPOCHROMASIA 1+; PLATELET CLUMPS PRESENT; PLATELET COMMENT ADEQUATE; PLATELET LARGE PRESENT; POIKILOCYTOSIS 1+; SCHISTOCYTES SLIGHT; TARGET CELLS 1+
--- NOTE | 2018-02-18 07:44 | PDOC PROGRESS REPORT ---
Subjective Progress Note for:: 02/18/18 Subjective:: [birth year][id number]-zvlu-old female with a significant past medical history of oxygen dependent COPD, hypertension, pulmonary hypertension, breast cancer, osteoarthritis, benzodiazepine dependent anxiety, history of cannabis use admitted with complaints of acute worsening of shortness of breath wheezing and agitation. In the emergency room she was found to be hypoxic hypercapnic respiratory failure intubated on 02/13/2018. Failure most likely secondary to COPD exacerbation and benzodiazepine use. No acute events overnight. The trial of extubation was done yesterday with without success within 15 minutes patient became tachypneic with resp rate of 50 and hypoxic with pulse ox in the 50s. Presently she is on Versed and propofol Versed was discontinued this morning and the nurses are tapering off the propofol to try to wean her off today. Pulmonary team is on board. TRACHEAL cultures came back positive for Aspergillus. I am going to wait for recommendat ion from Dr. Guerra. Patient latest vital signs temperature is 98.8/pulse rate is 92 respirations 18 pulse ox is 97% on the vent. 02/17/2018-we will try to wean the patient off from the vent yesterday but it was unsuccessful patient become anxious tachypneic tachycardic and pulse ox dropped to 80s and she was placed on back on mechanical ventilation and we continued to propofol and Versed. We are going to do another trial of weaning today today. Chest x-ray shows no evidence of infiltrates. Cultures and sputum cultures are negative so far. Patient is on levofloxacin. On her T-max today 98.6. 02/18/2018-acute events in the last 24 hours. Patient went up to 23,000. Patient is afebrile. T-max is 98.2. Blood cultures are negative so far. Versed drip is off from last night. Patient is responding to the verbal commands by blinking her eyes and shaking her head. Reason For Visit: ACUTE RESP FAILURE, PNEUOMONIA Physical Exam Vital Signs: Temp Pulse Resp BP Pulse Ox 98.2 F 71 0 L 141/85 H 97 02/18/18 06:00 02/18/18 02:05 02/18/18 06:00 02/18/18 05:42 02/18/18 06:00 Intake & Output 02/17/18 02/18/18 02/19/18 06:59 06:59 06:59 Intake Total 230 794 Output Total 7987 7985 Balance 1258 -1471 Weight 81.9 kg 81.9 kg General appearance: PRESENT: no acute distress, other - Patient is still intubated but not under sedation. Head exam: PRESENT: atraumatic Eye exam: PRESENT: PERRLA Mouth exam: PRESENT: moist Neck exam: ABSENT: carotid bruit, JVD, lymphadenopathy, thyromegaly Respiratory exam: PRESENT: clear to auscultation sandie. ABSENT: rales, rhonchi, wheezes Cardiovascular exam: PRESENT: RRR. ABSENT: diastolic murmur, rubs, systolic murmur GI/Abdominal exam: PRESENT: normal bowel sounds, soft. ABSENT: distended, guarding, mass, organolmegaly, rebound, tenderness Neurological exam: PRESENT: other - Patient is intubated just after the sedation. Responding to the verbal commands by blinking her eyes requested her to wriggle her toes she able to do it. Psychiatric exam: ABSENT: agitated, anxious Results Laboratory Results: 02/18/18 04:02 02/18/18 04:02 02/18/18 02/18/18 02/18/18 04:02 04:02 04:45 WBC 23.7 H RBC 4.44 Hgb 10.6 L Hct 33.8 L MCV 76 L MCH 23.9 L MCHC 31.4 L RDW 16.4 H Plt Count 224 Seg Neutrophils % Not Reportable Lymphocytes % Not Reportable Monocytes % Not Reportable Eosinophils % Not Reportable Basophils % Not Reportable Absolute Neutrophils Not Reportable Absolute Lymphocytes Not Reportable Absolute Monocytes Not Reportable Absolute Eosinophils Not Reportable Absolute Basophils Not Reportable Carbonic Acid 1.29 HCO3/H2CO3 Ratio 21:1 ABG pH 7.42 ABG pCO2 42.8 ABG pO2 78.1 L ABG HCO3 27.2 H ABG O2 Saturation 95.7 ABG Base Excess 2.5 FiO2 30% Sodium 142.6 Potassium 5.1 H Chloride 112 H Carbon Dioxide 25 Anion Gap 6 BUN 22 H Creatinine 0.47 L Est GFR ( Amer) > 60 Est GFR (Non-Af Amer) > 60 Glucose 103 Calcium 8.3 L Magnesium 2.8 H Total Bilirubin 0.6 AST 23 ALT 20 Alkaline Phosphatase 55 Total Protein 5.9 L Albumin 3.2 L Assessment & Plan - Diagnosis (1) Acute respiratory failure with hypoxia and hypercapnia Is this a current diagnosis for this admission?: Yes Plan: 02/16/2018-acute on chronic respiratory failure with hypoxia and hypercapnia most likely secondary to benzodiazepine use and COPD exacerbation. No acute events overnight. Patient is on the vent with Versed turned off and tapping dose of propofol. Oxygen 97% on the vent. O2 is 30%. To try to wean her off today. ABG today on 30% oxygen pH is 7.42/PCO2 43/PO2 72.6 pulse ox is 94.8%. Hypoxia and hypercapnia resolving. 02/17/2018-patient has a long history of COPD and benzodiazepine-dependent anxiety. Patient was intubated for acute on chronic respiratory failure with hypoxia and hypercapnia. We are trying to wean her off for the last 48 hours but unsuccessful so far. We are going to do another trial of weaning.today. Nurse validation scientist for mid tracheal aspirate is looks like thick and yellow and I am going to repeat the sputum culture again today. And I am also going to start her on Ativan 2 mg IV every 2 as needed for anxiety during the weaning off of the vent. Chest x-ray done this morning no infiltrates. ABG on 30% oxygen today pH is 7.4 PCO2 46 PO2 64 bicarb is 27. 02/18/2018-is admitted with acute respiratory failure with hypoxia and hypercapnia. She was still intubated. Pulse ox is 97% on 30% oxygen. And is off Versed drip. To wean her off from the vent today. He is on board. To give her Ativan 1 mg IV every 2 as needed for anxiety during the weaning of process. Chest x-ray did not show any infiltrates. ABG this morning on 30% oxygen pH is 7.42/PCO2 42.8/PO2 78 bicarb is 27. Hypoxia and hypercapnia resolving. (2) COPD exacerbation Is this a current diagnosis for this admission?: Yes Plan: 02/16/2018-patient is on IV steroids for COPD exacerbation, patient has Levaquin 750 mg IV. And sputum culture came back for Aspergillus. Awaiting pulmonary recommendations. 02/17/2018 for COPD exacerbation she is on IV steroids and getting the regular nebulizations. And is also on antibiotic levofloxacin 750 mg IV daily. Cultures are negative so far. 02/18/2018 patient is on IV steroids 40 mg every 12 hours and getting scheduled nebulizer treatments. She is also levofloxacin 750 mg IV daily. The cultures are negative so far. We repeated the tracheal aspirate culture those results are pending. (3) Chronic respiratory failure Is this a current diagnosis for this admission?: Yes Plan: 02/16/2018 patient has history of COPD on home oxygen. 02/17/2018 patient has history of COPD she uses 2 L oxygen via nasal cannula at home. 02/18/2018 patient has history of COPD she uses 2 L oxygen via nasal cannula at home. - Time Time Spent with patient: 15-24 minutes Medications reviewed and adjusted accordingly: Yes Anticipated discharge: Home
[2018-02-18] MEDS: METHYLPREDNISOLONE INJ 40 MG/1 ML SDV IV SCH ×2 (08:45→23:38)
[2018-02-18] MEDS: HEPARIN SOD (PORCINE) 5,000 UNIT/ML 1 ML SYRINGE SUBCUT SCH ×3 (08:45→23:37)
--- NOTE | 2018-02-18 09:08 | RADIOLOGY REPORT (SQ) ---
EXAM DESCRIPTION: CHEST SINGLE VIEW COMPLETED DATE/TIME: 02/18/2018 6:49 am REASON FOR STUDY: RESP FAILURE COMPARISON: Previous day. NUMBER OF VIEWS: One view. TECHNIQUE: Single frontal radiographic image of the chest acquired. LIMITATIONS: None. FINDINGS: LUNGS AND PLEURA: Stable appearance. No pneumothorax. MEDIASTINUM AND HEART: Stable heart size and mediastinal structures. SUPPORT DEVICES: Appropriate location without change. BONY STRUCTURES: No acute findings. HARDWARE: None. OTHER: No other significant finding. IMPRESSION: STABLE APPEARANCE OF THE CHEST. SUPPORT DEVICES UNCHANGED. Reading location - IP/workstation name: [email or web address]
[2018-02-18] MEDS: LEVOFLOXACIN 750 MG/D5W RTU 750 MG/150 ML RTUPB IV SCH (11:08)
[2018-02-18] MEDS: METOPROLOL SUCCINATE 50 MG TAB.SR.24H PO SCH (11:09)
[2018-02-18] MEDS: NORMAL SALINE 1000 ML 1,000 ML with POTASSIUM CHLORIDE 20 MEQ, MAGNESIUM SULFATE 8 MEQ,... IV SCH ×5 (17:16)
[2018-02-19] MEDS: IPRATROPIUM/ALBUTEROL 0.5-2.5 MG/3 ML AMPUL NEB SCH ×4 (01:35→21:11)
[2018-02-19 03:51] LABS: HEMATOCRIT 32.4 % (36.0-47.0); HEMOGLOBIN 10.6 g/dL (12.0-15.5); MEAN CORPUSCULAR HEMOGLOBIN 24.4 pg (27.0-33.4); MEAN CORPUSCULAR HGB CONC 32.6 g/dL (32.0-36.0); MEAN CORPUSCULAR VOLUME 75 fl (80-97); PLATELET COUNT 247 10^3/uL (150-450); RED BLOOD COUNT 4.33 10^6/uL (3.72-5.28); RED CELL DISTRIBUTION WIDTH 15.6 % (11.5-14.0); WHITE BLOOD COUNT 19.1 10^3/uL (4.0-10.5)
[2018-02-19 04:08] LABS: ALANINE AMINOTRANSFERASE 25 U/L (9-52); ALBUMIN 3.3 g/dL (3.5-5.0); ALKALINE PHOSPHATASE 56 U/L (38-126); ANION GAP 5 (5-19); ASPARTATE AMINO TRANSFERASE 29 U/L (14-36); BILIRUBIN,DIRECT 0.3 mg/dL (0.0-0.4); BILIRUBIN,TOTAL 0.7 mg/dL (0.2-1.3); BLOOD UREA NITROGEN 21 mg/dL (7-20); CALCIUM 8.6 mg/dL (8.4-10.2); CARBON DIOXIDE 29 mmol/L (22-30); CHLORIDE 109 mmol/L (98-107); GLUCOSE 85 mg/dL (75-110); POTASSIUM 4.6 mmol/L (3.6-5.0); SODIUM 142.7 mmol/L (137-145); TOTAL PROTEIN 5.7 g/dL (6.3-8.2)
[2018-02-19 04:14] LABS: ABSOLUTE LYMPHOCYTES# (MANUAL) 1.3 10^3/uL (0.5-4.7); ABSOLUTE MONOCYTES # (MANUAL) 0.8 10^3/uL (0.1-1.4); BAND NEUTROPHILS % (MANUAL) 1 % (3-5); BASOPHILS % (MANUAL) 0 % (0-2); EOSINOPHILS % (MANUAL) 0 % (0-6); LYMPHOCYTES % (MANUAL) 7 % (13-45); METAMYELOCYTES % (MANUAL) 1 % (0); MONOCYTES % (MANUAL) 4 % (3-13); SEGMENTED NEUTROPHILS % (MAN) 87 % (42-78); TOTAL CELLS COUNTED 100
[2018-02-19 04:15] LABS: ANISOCYTOSIS 1+; HYPOCHROMASIA SLIGHT; POIKILOCYTOSIS 1+; POLYCHROMASIA SLIGHT; TARGET CELLS 1+; TOXIC VACUOLATION PRESENT
[2018-02-19 04:16] LABS: PLATELET COMMENT ADEQUATE
[2018-02-19] MEDS: HEPARIN SOD (PORCINE) 5,000 UNIT/ML 1 ML SYRINGE SUBCUT SCH ×3 (05:56→22:00)
[2018-02-19 06:06] LABS: ARTERIAL BLOOD BASE EXCESS 5.9 mmol/L; ARTERIAL BLOOD H2CO3 1.51 mmol/L (1.05-1.35); ARTERIAL BLOOD HCO3 31.3 mmol/L (20-24); ARTERIAL BLOOD O2 SATURATION 97.5 % (94-98); ARTERIAL BLOOD PH 7.42 (7.35-7.45); ARTERIAL BLOOD PO2 99.8 mmHg (80-100); ARTERIAL BLOOD TOTAL CO2 32.9 mmol/L (21-25)
--- NOTE | 2018-02-19 06:08 | RADIOLOGY REPORT (SQ) ---
EXAM DESCRIPTION: XR CHEST 1 VIEW COMPLETED DATE/TME: 02/19/2018 06:00 CLINICAL HISTORY: 67 years, Female, resp failure/copd COMPARISON: 02/18/2018 chest NUMBER OF VIEWS: 1 TECHNIQUE: Portable chest LIMITATIONS: None. FINDINGS: Heart size normal. Lungs are clear. Osteopenia. No pneumothorax IMPRESSION: No acute cardiopulmonary process copyright 2010 [employer]- All Rights Reserved
[2018-02-19 06:10] LABS: ARTERIAL BLOOD FIO2 35%
[2018-02-19] MEDS ORDERED: ALPRAZOLAM 0.25 MG TABLET PO PRN (07:42)
[2018-02-19] MEDS ORDERED: ALBUTEROL SULFATE HFA (90 MCG/PUFF) 200 PUFF/8.5 GM MDI IH PRN (07:42)
--- NOTE | 2018-02-19 07:52 | PDOC PROGRESS REPORT ---
Subjective Progress Note for:: 02/19/18 Subjective:: [birth year]/16/[id number]-meno-old female with a significant past medical history of oxygen dependent COPD, hypertension, pulmonary hypertension, breast cancer, osteoarthritis, benzodiazepine dependent anxiety, history of cannabis use admitted with complaints of acute worsening of shortness of breath wheezing and agitation. In the emergency room she was found to be hypoxic hypercapnic respiratory failure intubated on 02/13/2018. Failure most likely secondary to COPD exacerbation and benzodiazepine use. No acute events overnight. The trial of extubation was done yesterday with without success within 15 minutes patient became tachypneic with resp rate of 50 and hypoxic with pulse ox in the 50s. Presently she is on Versed and propofol Versed was discontinued this morning and the nurses are tapering off the propofol to try to wean her off today. Pulmonary team is on board. TRACHEAL cultures came back positive for Aspergillus. I am going to wait for recommendat ion from Dr. Guerra. Patient latest vital signs temperature is 98.8/pulse rate is 92 respirations 18 pulse ox is 97% on the vent. 02/17/2018-we will try to wean the patient off from the vent yesterday but it was unsuccessful patient become anxious tachypneic tachycardic and pulse ox dropped to 80s and she was placed on back on mechanical ventilation and we continued to propofol and Versed. We are going to do another trial of weaning today today. Chest x-ray shows no evidence of infiltrates. Cultures and sputum cultures are negative so far. Patient is on levofloxacin. On her T-max today 98.6. 02/18/2018-acute events in the last 24 hours. Patient went up to 23,000. Patient is afebrile. T-max is 98.2. Blood cultures are negative so far. Versed drip is off from last night. Patient is responding to the verbal commands by blinking her eyes and shaking her head. 02/19/2018-patient was successfully extubated yesterday she was placed on BiPAP since last night because of the anxiety and because of anxiety she is getting into this rapid breathing spells. Is on 35% oxygen. We are going to repeat ABG today. cxr today no acute cardiopulmonary process going on. Max is 99.3 t jaqui. Pulse ox is 98% on 35% oxygen on BiPAP. Reason For Visit: ACUTE RESP FAILURE, PNEUOMONIA Physical Exam Vital Signs: Temp Pulse Resp BP Pulse Ox 99.3 F 95 14 150/93 H 98 02/19/18 06:43 02/19/18 01:39 02/19/18 06:43 02/19/18 06:43 02/19/18 06:43 Intake & Output 02/18/18 02/19/18 02/20/18 06:59 06:59 06:59 Intake Total 1817 93 Output Total 2262 5290 Balance -448 -2847 Weight 81.9 kg 81.5 kg General appearance: PRESENT: no acute distress Head exam: PRESENT: atraumatic Eye exam: PRESENT: PERRLA Mouth exam: PRESENT: moist Neck exam: ABSENT: carotid bruit, JVD, lymphadenopathy, thyromegaly Respiratory exam: PRESENT: decreased breath sounds. ABSENT: rhonchi, wheezes Cardiovascular exam: PRESENT: tachycardia GI/Abdominal exam: PRESENT: normal bowel sounds, soft. ABSENT: distended, guarding, mass, organolmegaly, rebound, tenderness Neurological exam: PRESENT: alert, awake, oriented to person, oriented to place, oriented to time, oriented to situation, CN II-XII grossly intact. ABSENT: motor sensory deficit Psychiatric exam: PRESENT: anxious Results Laboratory Results: 02/19/18 03:44 02/19/18 03:44 02/19/18 02/19/18 02/19/18 03:44 03:44 05:44 WBC 19.1 H RBC 4.33 Hgb 10.6 L Hct 32.4 L MCV 75 L MCH 24.4 L MCHC 32.6 RDW 15.6 H Plt Count 247 Seg Neutrophils % Not Reportable Lymphocytes % Not Reportable Monocytes % Not Reportable Eosinophils % Not Reportable Basophils % Not Reportable Absolute Neutrophils Not Reportable Absolute Lymphocytes Not Reportable Absolute Monocytes Not Reportable Absolute Eosinophils Not Reportable Absolute Basophils Not Reportable Carbonic Acid 1.51 H HCO3/H2CO3 Ratio 20:1 ABG pH 7.42 ABG pCO2 50.0 H ABG pO2 99.8 ABG HCO3 31.3 H ABG O2 Saturation 97.5 ABG Base Excess 5.9 FiO2 35% Sodium 142.7 Potassium 4.6 Chloride 109 H Carbon Dioxide 29 Anion Gap 5 BUN 21 H Creatinine 0.46 L Est GFR ( Amer) > 60 Est GFR (Non-Af Amer) > 60 Glucose 85 Calcium 8.6 Magnesium 2.5 H Total Bilirubin 0.7 AST 29 ALT 25 Alkaline Phosphatase 56 Total Protein 5.7 L Albumin 3.3 L Impressions: Chest X-Ray 02/19/18 06:00 IMPRESSION: No acute cardiopulmonary process copyright 2010 [employer]- All Rights Reserved Assessment & Plan - Diagnosis (1) Acute respiratory failure with hypoxia and hypercapnia Is this a current diagnosis for this admission?: Yes Plan: 02/16/2018-acute on chronic respiratory failure with hypoxia and hypercapnia most likely secondary to benzodiazepine use and COPD exacerbation. No acute events overnight. Patient is on the vent with Versed turned off and tapping dose of propofol. Oxygen 97% on the vent. O2 is 30%. To try to wean her off today. ABG today on 30% oxygen pH is 7.42/PCO2 43/PO2 72.6 pulse ox is 94.8%. Hypoxia and hypercapnia resolving. 02/17/2018-patient has a long history of COPD and benzodiazepine-dependent anxiety. Patient was intubated for acute on chronic respiratory failure with hypoxia and hypercapnia. We are trying to wean her off for the last 48 hours but unsuccessful so far. We are going to do another trial of weaning.today. Nurse consolidation accountant for mid tracheal aspirate is looks like thick and yellow and I am going to repeat the sputum culture again today. And I am also going to start her on Ativan 2 mg IV every 2 as needed for anxiety during the weaning off of the vent. Chest x-ray done this morning no infiltrates. ABG on 30% oxygen t jaqui pH is 7.4 PCO2 46 PO2 64 bicarb is 27. 02/18/2018-is admitted with acute respiratory failure with hypoxia and hypercapnia. She was still intubated. Pulse ox is 97% on 30% oxygen. And is off Versed drip. To wean her off from the vent today. He is on board. To give her Ativan 1 mg IV every 2 as needed for anxiety during the weaning of process. Chest x-ray did not show any infiltrates. ABG this morning on 30% oxygen pH is 7.42/PCO2 42.8/PO2 78 bicarb is 27. Hypoxia and hypercapnia resolving. 02/18/2018-patient was successfully extubated yesterday she is on BiPAP since last night and 31st percent oxygen pulse ox of 98% on going to order for ABG today and chest x-ray was normal study. On Ativan 1 mg IV every 2 hours as needed for anxiety. Restart her home medications. (2) COPD exacerbation Is this a current diagnosis for this admission?: Yes Plan: 02/16/2018-patient is on IV steroids for COPD exacerbation, patient has Levaquin 750 mg IV. And sputum culture came back for Aspergillus. Awaiting pulmonary recommendations. 02/17/2018 for COPD exacerbation she is on IV steroids and getting the regular n ebulizations. And is also on antibiotic levofloxacin 750 mg IV daily. Cultures are negative so far. 02/18/2018 patient is on IV steroids 40 mg every 12 hours and getting scheduled nebulizer treatments. She is also levofloxacin 750 mg IV daily. The cultures are negative so far. We repeated the tracheal aspirate culture those results are pending. 02/19/2018 patient is on IV Solu-Medrol 40 mg every 24 hours and getting scheduled nebulizer treatments also on levofloxacin 750 mg IV daily the cultures are negative so far tracheal aspirate shows gram-positive cocci in pairs and gram-negative rods I am going to add Invanz and discontinue Levaquin today. (3) Chronic respiratory failure Is this a current diagnosis for this admission?: Yes Plan: 02/16/2018 patient has history of COPD on home oxygen. 02/17/2018 patient has history of COPD she uses 2 L oxygen via nasal cannula at home. 02/18/2018 patient has history of COPD she uses 2 L oxygen via nasal cannula at home. 02/19/2018 patient has history of chronic COPD she is on 2 L oxygen at home. (4) HTN (hypertension) Qualifiers: Hypertension type: essential hypertension Qualified Code(s): I10 - Essential (primary) hypertension Is this a current diagnosis for this admission?: Yes Plan: 03/22/2017 patient has history of hypertension she is on amlodipine and metoprolol at home the planning to resume her home medications today. Blood pressure is 153/93 today. - Time Time Spent with patient: 15-24 minutes Smoking Cessation Education: 3 to 10 minutes Medications reviewed and adjusted accordingly: Yes Anticipated discharge: Home
[2018-02-19] MEDS: LORAZEPAM INJ 2 MG/1 ML VIAL IV PRN ×2 (08:52→22:08)
[2018-02-19] MEDS ORDERED: (PENDING PHARMACY ID) (Roflumilast [Daliresp 500 Mcg Tablet] 500 MCG) PO SCH (10:00)
[2018-02-19] MEDS ORDERED: (PENDING PHARMACY ID) (Glycopyrrolate/Formoterol Fum [Bevespi Aerosphere Inhaler] 2 PUFF) IH SCH (10:00)
[2018-02-19] MEDS ORDERED: AMLODIPINE BESYLATE 2.5 MG TABLET PO SCH (10:00)
[2018-02-19] MEDS ORDERED: FLUTICASONE PROPIONATE IH SCH (10:00)
[2018-02-19] MEDS: METOPROLOL TARTRATE 50 MG TABLET PO SCH ×2 (10:51→22:00)
[2018-02-19] MEDS: HYDROCHLOROTHIAZIDE 25 MG TABLET PO SCH (10:51)
[2018-02-19] MEDS: FOLIC ACID 1 MG TABLET PO SCH (10:52)
[2018-02-19] MEDS: THIAMINE HCL 100 MG TABLET PO SCH (10:52)
[2018-02-19] MEDS: RALOXIFENE HCL 60 MG TABLET PO SCH (10:53)
[2018-02-19] MEDS: METHYLPREDNISOLONE INJ 40 MG/1 ML SDV IV SCH (10:54)
[2018-02-19] MEDS: ROFLUMILAST 500 MCG TABLET PO SCH (10:57)
[2018-02-19] MEDS: ERTAPENEM SODIUM 1 GM in NORMAL SALINE 50 ML IV SCH (11:02)
[2018-02-19] MEDS ORDERED: ERTAPENEM SODIUM INJ 1 GM VIAL IV SCH (14:00)
[2018-02-19] MEDS: MONTELUKAST SODIUM 10 MG TABLET PO SCH (18:41)
[2018-02-19] MEDS: ACETAMINOPHEN 325 MG TABLET PO PRN (21:59)
[2018-02-19] MEDS: ROPINIROLE HCL 2 MG TABLET PO SCH (22:00)
[2018-02-19] MEDS ORDERED: (PENDING PHARMACY ID) (Ropinirole Hcl [Requip] 1.5 MG) PO SCH (22:00)
[2018-02-19] MEDS ORDERED: ROPINIROLE HCL 0.25 MG TABLET PO SCH (22:00)
[2018-02-20] MEDS: IPRATROPIUM/ALBUTEROL 0.5-2.5 MG/3 ML AMPUL NEB SCH ×4 (03:26→19:28)
[2018-02-20] MEDS: HEPARIN SOD (PORCINE) 5,000 UNIT/ML 1 ML SYRINGE SUBCUT SCH ×3 (06:51→21:50)
[2018-02-20 07:14] LABS: ARTERIAL BLOOD H2CO3 2.02 mmol/L (1.05-1.35); ARTERIAL BLOOD HCO3 38.4 mmol/L (20-24); ARTERIAL BLOOD O2 SATURATION 96.7 % (94-98); ARTERIAL BLOOD PCO2 67.1 mmHg (35-45); ARTERIAL BLOOD PH 7.38 (7.35-7.45); ARTERIAL BLOOD PO2 93.2 mmHg (80-100); ARTERIAL BLOOD TOTAL CO2 40.4 mmol/L (21-25)
[2018-02-20 07:15] LABS: ARTERIAL BLOOD FIO2 3L
[2018-02-20 07:20] LABS: ALANINE AMINOTRANSFERASE 31 U/L (9-52); ALBUMIN 3.6 g/dL (3.5-5.0); ALKALINE PHOSPHATASE 68 U/L (38-126); ANION GAP 5 (5-19); ASPARTATE AMINO TRANSFERASE 41 U/L (14-36); BILIRUBIN,DIRECT 0.3 mg/dL (0.0-0.4); BILIRUBIN,TOTAL 0.8 mg/dL (0.2-1.3); BLOOD UREA NITROGEN 21 mg/dL (7-20); CALCIUM 9.1 mg/dL (8.4-10.2); CARBON DIOXIDE 39 mmol/L (22-30); CHLORIDE 94 mmol/L (98-107); GLUCOSE 66 mg/dL (75-110); POTASSIUM 4.1 mmol/L (3.6-5.0); SODIUM 138.1 mmol/L (137-145); TOTAL PROTEIN 6.6 g/dL (6.3-8.2)
[2018-02-20 07:27] LABS: HEMATOCRIT 35.8 % (36.0-47.0); HEMOGLOBIN 11.3 g/dL (12.0-15.5); MEAN CORPUSCULAR HEMOGLOBIN 24.3 pg (27.0-33.4); MEAN CORPUSCULAR HGB CONC 31.6 g/dL (32.0-36.0); MEAN CORPUSCULAR VOLUME 77 fl (80-97); PLATELET COUNT 243 10^3/uL (150-450); RED BLOOD COUNT 4.65 10^6/uL (3.72-5.28); RED CELL DISTRIBUTION WIDTH 16.2 % (11.5-14.0); WHITE BLOOD COUNT 17.1 10^3/uL (4.0-10.5)
[2018-02-20 08:30] LABS: ABSOLUTE LYMPHOCYTES# (MANUAL) 4.1 10^3/uL (0.5-4.7); ABSOLUTE MONOCYTES # (MANUAL) 2.4 10^3/uL (0.1-1.4); ABSOLUTE NEUTROPHILS# (MANUAL) 10.1 10^3/uL (1.7-8.2); BASOPHILS % (MANUAL) 0 % (0-2); EOSINOPHILS % (MANUAL) 3 % (0-6); LYMPHOCYTES % (MANUAL) 24 % (13-45); MONOCYTES % (MANUAL) 14 % (3-13); SEGMENTED NEUTROPHILS % (MAN) 59 % (42-78); TOTAL CELLS COUNTED 100
--- NOTE | 2018-02-20 08:30 | PDOC PROGRESS REPORT ---
Subjective Progress Note for:: 02/20/18 Subjective:: 02/16/[id number]-picp-old female with a significant past medical history of oxygen dependent COPD, hypertension, pulmonary hypertension, breast cancer, osteoarthritis, benzodiazepine dependent anxiety, history of cannabis use admitted with complaints of acute worsening of shortness of breath wheezing and agitation. In the emergency room she was found to be hypoxic hypercapnic respiratory failure intubated on 02/13/2018. Failure most likely secondary to COPD exacerbation and benzodiazepine use. No acute events overnight. The trial of extubation was done yesterday with without success within 15 minutes patient became tachypneic with resp rate of 50 and hypoxic with pulse ox in the 50s. Presently she is on Versed and propofol Versed was discontinued this morning and the nurses are tapering off the propofol to try to wean her off today. Pulmonary team is on board. TRACHEAL cultures came back positive for Aspergillus. I am going to wait for recommendat ion from Dr. Guerra. Patient latest vital signs temperature is 98.8/pulse rate is 92 respirations 18 pulse ox is 97% on the vent. 02/17/2018-we will try to wean the patient off from the vent yesterday but it was unsuccessful patient become anxious tachypneic tachycardic and pulse ox dropped to 80s and she was placed on back on mechanical ventilation and we continued to propofol and Versed. We are going to do another trial of weaning today today. Chest x-ray shows no evidence of infiltrates. Cultures and sputum cultures are negative so far. Patient is on levofloxacin. On her T-max today 98.6. 02/18/2018-acute events in the last 24 hours. Patient went up to 23,000. Patient is afebrile. T-max is 98.2. Blood cultures are negative so far. Versed drip is off from last night. Patient is responding to the verbal commands by blinking her eyes and shaking her head. 02/19/2018-patient was successfully extubated yesterday she was placed on BiPAP since last night because of the anxiety and because of anxiety she is getting into this rapid breathing spells. Is on 35% oxygen. We are going to repeat ABG today. cxr today no acute cardiopulmonary process going on. Max is 99.3 t jaqui. Pulse ox is 98% on 35% oxygen on BiPAP. 02/20/2018-patient was transferred from ICU to telemetry yesterday. No complications in the last 24 hours. Patient is on BiPAP. ABG was done on 3 L t his morning pH is 7.38 PCO2 67 PCO2 93 bicarb is 38. Patient denies any complaints. She has a severe anxiety disorder as she is getting Ativan 2 mg IV every 2 hours as needed I decreased it to 1 mg IV every 4 as needed. The sputum cultures growing showing gram-negative rods she is on Invanz. Reason For Visit: ACUTE ON CHRONIC RESPIRATORY FAILURE Physical Exam Vital Signs: Temp Pulse Resp BP Pulse Ox 98.2 F 102 H 18 150/88 H 99 02/19/18 22:27 02/20/18 03:29 02/20/18 03:29 02/19/18 22:27 02/20/18 03:29 Intake & Output 02/19/18 02/20/18 02/21/18 06:59 06:59 06:59 Intake Total 93 Output Total 2940 3325 Balance -2847 -3325 Weight 81.5 kg 78.1 kg General appearance: PRESENT: mild distress, other - She is on BiPAP. Head exam: PRESENT: atraumatic Eye exam: PRESENT: PERRLA Mouth exam: PRESENT: moist Neck exam: ABSENT: carotid bruit, JVD, lymphadenopathy, thyromegaly Respiratory exam: PRESENT: decreased breath sounds, tachypnea. ABSENT: rhonchi, wheezes Cardiovascular exam: PRESENT: tachycardia GI/Abdominal exam: PRESENT: normal bowel sounds, soft. ABSENT: distended, guarding, mass, organolmegaly, rebound, tenderness Neurological exam: PRESENT: alert, awake, oriented to person, oriented to place, oriented to time, oriented to situation, CN II-XII grossly intact. ABSENT: motor sensory deficit Psychiatric exam: PRESENT: appropriate affect, normal mood. ABSENT: homicidal ideation, suicidal ideation Results Laboratory Results: 02/20/18 06:22 02/20/18 02/20/18 06:11 06:22 Carbonic Acid 2.02 H HCO3/H2CO3 Ratio 19:1 ABG pH 7.38 ABG pCO2 67.1 H ABG pO2 93.2 ABG HCO3 38.4 H ABG O2 Saturation 96.7 ABG Base Excess 11.0 FiO2 3L Sodium 138.1 Potassium 4.1 Chloride 94 L Carbon Dioxide 39 H Anion Gap 5 BUN 21 H Creatinine 0.45 L Est GFR ( Amer) > 60 Est GFR (Non-Af Amer) > 60 Glucose 66 L Calcium 9.1 Magnesium 2.1 Total Bilirubin 0.8 AST 41 H ALT 31 Alkaline Phosphatase 68 Total Protein 6.6 Albumin 3.6 02/14/18 09:24 Blood Blood Culture - Final NO GROWTH IN 5 DAYS 02/14/18 08:46 Blood Blood Culture - Final NO GROWTH IN 5 DAYS Impressions: Chest X-Ray 02/19/18 06:00 IMPRESSION: No acute cardiopulmonary process copyright 2010 [employer]- All Rights Reserved Assessment & Plan - Diagnosis (1) Acute respiratory failure with hypoxia and hypercapnia Is this a current diagnosis for this admission?: Yes Plan: 02/16/2018-acute on chronic respiratory failure with hypoxia and hypercapnia most likely secondary to benzodiazepine use and COPD exacerbation. No acute events overnight. Patient is on the vent with Versed turned off and tapping dose of propofol. Oxygen 97% on the vent. O2 is 30%. To try to wean her off today. ABG today on 30% oxygen pH is 7.42/PCO2 43/PO2 72.6 pulse ox is 94.8%. Hypoxia and hypercapnia resolving. 02/17/2018-patient has a long history of COPD and benzodiazepine-dependent anxiety. Patient was intubated for acute on chronic respiratory failure with hypoxia and hypercapnia. We are trying to wean her off for the last 48 hours but unsuccessful so far. We are going to do another trial of weaning.today. Nurse buttonhole maker hand for mid tracheal aspirate is looks like thick and yellow and I am going to repeat the sputum culture again today. And I am also going to start her on Ativan 2 mg IV every 2 as needed for anxiety during the weaning off of the vent. Chest x-ray done this morning no infiltrates. ABG on 30% oxygen today pH is 7.4 PCO2 46 PO2 64 bicarb is 27. 02/18/2018-is admitted with acute respiratory failure with hypoxia and hypercapnia. She was still intubated. Pulse ox is 97% on 30% oxygen. And is off Versed drip. To wean her off from the vent today. He is on board. To give her Ativan 1 mg IV every 2 as needed for anxiety during the weaning of process. Chest x-ray did not show any infiltrates. ABG this morning on 30% oxygen pH is 7.42/PCO2 42.8/PO2 78 bicarb is 27. Hypoxia and hypercapnia resolving. 02/19/2018-patient was successfully extubated yesterday she is on BiPAP since last night and 31st percent oxygen pulse ox of 98% on going to order for ABG today and chest x-ray was normal study. On Ativan 1 mg IV every 2 hours as needed for anxiety. Restart her home medications. 02/20/2018-patient was admitted with acute on chronic respiratory failure with hypoxia and hypercapnia resolving. She is on BiPAP on as-needed basis. ABG shows improvement in hypoxia and hypercapnia. CPT was requested today. She is getting scheduled nebulizer treatments. Started on IV Solu-Medrol 40 mg every 8 hours. Tracheal aspirate showing gram-negative rods. She is on Invanz. (2) COPD exacerbation Is this a current diagnosis for this admission?: Yes Plan: 02/16/2018-patient is on IV steroids for COPD exacerbation, patient has Levaquin 750 mg IV. And sputum culture came back for Aspergillus. Awaiting pulmonary recommendations. 02/17/2018 for COPD exacerbation she is on IV steroids and getting the regular nebulizations. And is also on antibiotic levofloxacin 750 mg IV daily. Cultures are negative so far. 02/18/2018 patient is on IV steroids 40 mg every 12 hours and getting scheduled nebulizer treatments. She is also levofloxacin 750 mg IV daily. The cultures are negative so far. We repeated the tracheal aspirate culture those results are pending. 02/19/2018 patient is on IV Solu-Medrol 40 mg every 24 hours and getting scheduled nebulizer treatments also on levofloxacin 750 mg IV daily the cultures are negative so far tracheal aspirate shows gram-positive cocci in pairs and gram-negative rods I am going to add Invanz and discontinue Levaquin today. 02/20/2018-tracheal aspirate showing gram-negative rods and she is on Invanz. Afebrile. T-max is 98.2. Uses 2 L oxygen via nasal cannula at home. (3) Chronic respiratory failure Is this a current diagnosis for this admission?: Yes Plan: 02/16/2018 patient has history of COPD on home oxygen. 02/17/2018 patient has history of COPD she uses 2 L oxygen via nasal cannula at home. 02/18/2018 patient has history of COPD she uses 2 L oxygen via nasal cannula at home. 02/19/2018 patient has history of chronic COPD she is on 2 L oxygen at home. 02/19/2018 patient has history of chronic COPD on 2 L of oxygen at home. Please she is on BiPAP on an as-needed basis. (4) HTN (hypertension) Qualifiers: Hypertension type: essential hypertension Qualified Code(s): I10 - Essential (primary) hypertension Is this a current diagnosis for this admission?: Yes Plan: 03/22/2017 patient has history of hypertension she is on amlodipine and metoprolol at home the planning to resume her home medications today. Blood pressure is 153/93 today. 02/20/2018 patient's blood pressure is 150/88. Patient is on amlodipine 2.5 mg p.o. daily, metoprolol 50 mg p.o. every 12 hours, hydrochlorothiazide 25 mg p.o. daily. I am going to increase amlodipine to 5 mg p.o. daily. - Time Time Spent with patient: 15-24 minutes Medications reviewed and adjusted accordingly: Yes Anticipated discharge: Home
[2018-02-20 08:31] LABS: ANISOCYTOSIS 1+; HYPOCHROMASIA SLIGHT; PLATELET COMMENT ADEQUATE
[2018-02-20] MEDS: HYDROCHLOROTHIAZIDE 25 MG TABLET PO SCH (10:48)
[2018-02-20] MEDS: ERTAPENEM SODIUM 1 GM in NORMAL SALINE 50 ML IV SCH (10:48)
[2018-02-20] MEDS: FOLIC ACID 1 MG TABLET PO SCH (10:48)
[2018-02-20] MEDS: ROFLUMILAST 500 MCG TABLET PO SCH (10:49)
[2018-02-20] MEDS: THIAMINE HCL 100 MG TABLET PO SCH (10:49)
[2018-02-20] MEDS: METOPROLOL TARTRATE 50 MG TABLET PO SCH ×2 (10:49→21:50)
[2018-02-20] MEDS: RALOXIFENE HCL 60 MG TABLET PO SCH (10:49)
[2018-02-20] MEDS: ACETAMINOPHEN 325 MG TABLET PO PRN (10:51)
[2018-02-20] MEDS: METHYLPREDNISOLONE INJ 40 MG/1 ML SDV IV SCH ×2 (15:31→21:50)
[2018-02-20] MEDS: MONTELUKAST SODIUM 10 MG TABLET PO SCH (17:59)
[2018-02-20] MEDS: AMLODIPINE BESYLATE 5 MG TABLET PO SCH (21:49)
[2018-02-20] MEDS: ROPINIROLE HCL 2 MG TABLET PO SCH (21:49)
[2018-02-20] MEDS: LORAZEPAM INJ 2 MG/1 ML VIAL IV PRN (21:50)
[2018-02-21] MEDS: IPRATROPIUM/ALBUTEROL 0.5-2.5 MG/3 ML AMPUL NEB SCH ×4 (02:09→19:37)
[2018-02-21] MEDS: METHYLPREDNISOLONE INJ 40 MG/1 ML SDV IV SCH ×2 (06:30→17:05)
[2018-02-21] MEDS: HEPARIN SOD (PORCINE) 5,000 UNIT/ML 1 ML SYRINGE SUBCUT SCH ×3 (06:30→21:28)
[2018-02-21 07:11] LABS: ARTERIAL BLOOD BASE EXCESS 12.1 mmol/L; ARTERIAL BLOOD H2CO3 1.64 mmol/L (1.05-1.35); ARTERIAL BLOOD HCO3 37.8 mmol/L (20-24); ARTERIAL BLOOD O2 SATURATION 96.1 % (94-98); ARTERIAL BLOOD PCO2 54.5 mmHg (35-45); ARTERIAL BLOOD PH 7.46 (7.35-7.45); ARTERIAL BLOOD PO2 79.6 mmHg (80-100); ARTERIAL BLOOD TOTAL CO2 39.5 mmol/L (21-25)
[2018-02-21 07:16] LABS: ARTERIAL BLOOD FIO2 35%
--- NOTE | 2018-02-21 08:12 | PDOC PROGRESS REPORT ---
Subjective Progress Note for:: 02/21/18 Subjective:: 02/16/[id number]-v[age]-old female with a significant past medical history of oxygen dependent COPD, hypertension, pulmonary hypertension, breast cancer, osteoarthritis, benzodiazepine dependent anxiety, history of cannabis use admitted with complaints of acute worsening of shortness of breath wheezing and agitation. In the emergency room she was found to be hypoxic hypercapnic respiratory failure intubated on 02/13/2018. Failure most likely secondary to COPD exacerbation and benzodiazepine use. No acute events overnight. The trial of extubation was done yesterday with without success within 15 minutes patient became tachypneic with resp rate of 50 and hypoxic with pulse ox in the 50s. Presently she is on Versed and propofol Versed was discontinued this morning and the nurses are tapering off the propofol to try to wean her off today. Pulmonary team is on board. TRACHEAL cultures came back positive for Aspergillus. I am going to wait for recommendat ion from Dr. Guerra. Patient latest vital signs temperature is 98.8/pulse rate is 92 respirations 18 pulse ox is 97% on the vent. 02/17/2018-we will try to wean the patient off from the vent yesterday but it was unsuccessful patient become anxious tachypneic tachycardic and pulse ox dropped to 80s and she was placed on back on mechanical ventilation and we continued to propofol and Versed. We are going to do another trial of weaning today today. Chest x-ray shows no evidence of infiltrates. Cultures and sputum cultures are negative so far. Patient is on levofloxacin. On her T-max today 98.6. 02/18/2018-acute events in the last 24 hours. Patient went up to 23,000. Patient is afebrile. T-max is 98.2. Blood cultures are negative so far. Versed drip is off from last night. Patient is responding to the verbal commands by blinking her eyes and shaking her head. 02/19/2018-patient was successfully extubated yesterday she was placed on BiPAP since last night because of the anxiety and because of anxiety she is getting into this rapid breathing spells. Is on 35% oxygen. We are going to repeat ABG today. cxr today no acute cardiopulmonary process going on. Max is 99.3 t jaqui. Pulse ox is 98% on 35% oxygen on BiPAP. 02/20/2018-patient was transferred from ICU to telemetry yesterday. No complications in the last 24 hours. Patient is on BiPAP. ABG was done on 3 L t his morning pH is 7.38 PCO2 67 PCO2 93 bicarb is 38. Patient denies any complaints. She has a severe anxiety disorder as she is getting Ativan 2 mg IV every 2 hours as needed I decreased it to 1 mg IV every 4 as needed. The sputum cultures growing showing gram-negative rods she is on Invanz. 02/21/2018 this 67-year-old female admitted for acute on chronic respiratory failure with hypoxia and hypercapnia. Status post intubation and extubation. Acute events in the last 24 hours. He is on 3 L oxygen, pulse ox is 95-96%. Reason For Visit: ACUTE ON CHRONIC RESPIRATORY FAILURE Physical Exam Vital Signs: Temp Pulse Resp BP Pulse Ox 98.7 F 94 16 139/76 H 96 02/21/18 07:42 02/21/18 07:57 02/21/18 07:57 02/21/18 07:42 02/21/18 07:57 Intake & Output 02/20/18 02/21/18 02/22/18 06:59 06:59 06:59 Intake Total 50 150 Output Total 3325 2245 Balance -3275 -2098 Weight 78.1 kg 77.2 kg General appearance: PRESENT: mild distress Head exam: PRESENT: atraumatic Eye exam: PRESENT: PERRLA Mouth exam: PRESENT: moist Neck exam: ABSENT: carotid bruit, JVD, lymphadenopathy, thyromegaly Respiratory exam: PRESENT: decreased breath sounds Cardiovascular exam: PRESENT: tachycardia GI/Abdominal exam: PRESENT: normal bowel sounds, soft. ABSENT: distended, guarding, mass, organolmegaly, rebound, tenderness Neurological exam: PRESENT: alert, awake, oriented to person, oriented to place, oriented to time, oriented to situation, CN II-XII grossly intact. ABSENT: motor sensory deficit Psychiatric exam: PRESENT: appropriate affect, normal mood. ABSENT: homicidal ideation, suicidal ideation Results Laboratory Results: 02/20/18 06:22 02/20/18 06:22 02/20/18 02/21/18 06:22 06:20 WBC 17.1 H RBC 4.65 Hgb 11.3 L Hct 35.8 L MCV 77 L MCH 24.3 L MCHC 31.6 L RDW 16.2 H Plt Count 243 Seg Neutrophils % Not Reportable Lymphocytes % Not Reportable Monocytes % Not Reportable Eosinophils % Not Reportable Basophils % Not Reportable Absolute Neutrophils Not Reportable Absolute Lymphocytes Not Reportable Absolute Monocytes Not Reportable Absolute Eosinophils Not Reportable Absolute Basophils Not Reportable Carbonic Acid 1.64 H HCO3/H2CO3 Ratio 23:1 ABG pH 7.46 H ABG pCO2 54.5 H ABG pO2 79.6 L ABG HCO3 37.8 H ABG O2 Saturation 96.1 ABG Base Excess 12.1 FiO2 35% Impressions: Chest X-Ray 02/19/18 06:00 IMPRESSION: No acute cardiopulmonary process copyright 2010 [employer]- All Rights Reserved Assessment & Plan - Diagnosis (1) Acute respiratory failure with hypoxia and hypercapnia Is this a current diagnosis for this admission?: Yes Plan: 02/16/2018-acute on chronic respiratory failure with hypoxia and hypercapnia most likely secondary to benzodiazepine use and COPD exacerbation. No acute events overnight. Patient is on the vent with Versed turned off and tapping dose of propofol. Oxygen 97% on the vent. O2 is 30%. To try to wean her off today. ABG today on 30% oxygen pH is 7.42/PCO2 43/PO2 72.6 pulse ox is 94.8%. Hypoxia and hypercapnia resolving. 02/17/2018-patient has a long history of COPD and benzodiazepine-dependent anxiety. Patient was intubated for acute on chronic respiratory failure with hypoxia and hypercapnia. We are trying to wean her off for the last 48 hours but unsuccessful so far. We are going to do another trial of weaning.today. Nurse battery container finishing hand for mid tracheal aspirate is looks like thick and yellow and I am going to repeat the sputum culture again today. And I am also going to start her on Ativan 2 mg IV every 2 as needed for anxiety during the weaning off of the vent. Chest x-ray done this morning no infiltrates. ABG on 30% oxygen today pH is 7.4 PCO2 46 PO2 64 bicarb is 27. 02/18/2018-is admitted with acute respiratory failure with hypoxia and hypercapnia. She was still intubated. Pulse ox is 97% on 30% oxygen. And is off Versed drip. To wean her off from the vent today. He is on board. To give her Ativan 1 mg IV every 2 as needed for anxiety during the weaning of process. Chest x-ray did not show any infiltrates. ABG this morning on 30% oxygen pH is 7.42/PCO2 42.8/PO2 78 bicarb is 27. Hypoxia and hypercapnia resolving. 02/19/2018-patient was successfully extubated yesterday she is on BiPAP since last night and 31st percent oxygen pulse ox of 98% on going to order for ABG today and chest x-ray was normal study. On Ativan 1 mg IV every 2 hours as needed for anxiety. Restart her home medications. 02/20/2018-patient was admitted with acute on chronic respiratory failure with hypoxia and hypercapnia resolving. She is on BiPAP on as-needed basis. ABG shows improvement in hypoxia and hypercapnia. CPT was requested today. She is getting scheduled nebulizer treatments. Started on IV Solu-Medrol 40 mg every 8 hours. Tracheal aspirate showing gram-negative rods. She is on Invanz. 02/21/2018-patient's latest ABG on 35% oxygen is pH 7.46/PCO2 54 PO2 79 pulse ox is 96%. Hypoxia and hypercapnia resolved. Patient is on IV Solu-Medrol every 8 hours I am going to switch it to every 12 hours. Patient getting chest physical therapy. She is also on scheduled nebulizer treatments. The tracheal aspirate showing gram-negative rods, we waiting for the sensitivity report. Presently she is on Invanz 1 g daily. (2) COPD exacerbation Is this a current diagnosis for this admission?: Yes Plan: 02/16/2018-patient is on IV steroids for COPD exacerbation, patient has Levaquin 750 mg IV. And sputum culture came back for Aspergillus. Awaiting pulmonary recommendations. 02/17/2018 for COPD exacerbation she is on IV steroids and getting the regular nebulizations. And is also on antibiotic levofloxacin 750 mg IV daily. Cultures are negative so far. 02/18/2018 patient is on IV steroids 40 mg every 12 hours and getting scheduled nebulizer treatments. She is also levofloxacin 750 mg IV daily. The cultures are negative so far. We repeated the tracheal aspirate culture those results are pending. 02/19/2018 patient is on IV Solu-Medrol 40 mg every 24 hours and getting scheduled nebulizer treatments also on levofloxacin 750 mg IV daily the cultures are negative so far tracheal aspirate shows gram-positive cocci in pairs and gram-negative rods I am going to add Invanz and discontinue Levaquin today. 02/20/2018-tracheal aspirate showing gram-negative rods and she is on Invanz. Afebrile. T-max is 98.2. Uses 2 L oxygen via nasal cannula at home. 02/21/2018-the tracheal aspirate shows gram-negative rods were waiting for the sensitivity report presently she is on Invanz afebrile T-max is 98.4. Pulse ox is 95-96% on 3 L. She uses 2 L of oxygen at home. And is to continue the present management she is on IV Solu-Medrol and scheduled nebulizations. (3) Chronic respiratory failure Is this a current diagnosis for this admission?: Yes Plan: 02/16/2018 patient has history of COPD on home oxygen. 02/17/2018 patient has history of COPD she uses 2 L oxygen via nasal cannula at home. 02/18/2018 patient has history of COPD she uses 2 L oxygen via nasal cannula at home. 02/19/2018 patient has history of chronic COPD she is on 2 L oxygen at home. 02/20/2018 patient has history of chronic COPD on 2 L of oxygen at home. Please she is on BiPAP on an as-needed basis. 02/21/2018-patient has history of COPD on 2 L of oxygen at home. Presently she is on 3 L of oxygen with a pulse ox of 95-96%. Hypoxia and hypercapnia resolved. (4) HTN (hypertension) Qualifiers: Hypertension type: essential hypertension Qualified Code(s): I10 - Ess ential (primary) hypertension Is this a current diagnosis for this admission?: Yes Plan: 03/22/2017 patient has history of hypertension she is on amlodipine and metoprolol at home the planning to resume her home medications today. Blood pressure is 153/93 today. 02/20/2018 patient's blood pressure is 150/88. Patient is on amlodipine 2.5 mg p.o. daily, metoprolol 50 mg p.o. every 12 hours, hydrochlorothiazide 25 mg p.o. daily. I am going to increase amlodipine to 5 mg p.o. daily. 02/21/2018 patient blood pressure is improved it is 139/86 today. Patient is on amlodipine 5 mg daily. She is also on hydrochlorothiazide 25 mg p.o. daily, metoprolol 50 mg every 12 hours. Plan is to continue the present management. (5) Breast cancer Qualifiers: Laterality: right Is this a current diagnosis for this admission?: Yes Plan: 02/21/2018-patient is giving the history of right breast cancer status post radiation according to her it was cured and she follows with Dr. Osman - oncologist in [facility]. Plan is to continue the present management. - Time Time Spent with patient: 15-24 minutes Medications reviewed and adjusted accordingly: Yes Anticipated discharge: Home
[2018-02-21 10:14] LABS: HEMOGLOBIN 10.8 g/dL (12.0-15.5); MEAN CORPUSCULAR HEMOGLOBIN 24.2 pg (27.0-33.4); MEAN CORPUSCULAR HGB CONC 31.8 g/dL (32.0-36.0); MEAN CORPUSCULAR VOLUME 76 fl (80-97); PLATELET COUNT 232 10^3/uL (150-450); RED BLOOD COUNT 4.47 10^6/uL (3.72-5.28); RED CELL DISTRIBUTION WIDTH 15.3 % (11.5-14.0); WHITE BLOOD COUNT 14.3 10^3/uL (4.0-10.5)
[2018-02-21 10:26] LABS: ALANINE AMINOTRANSFERASE 38 U/L (9-52); ALBUMIN 3.6 g/dL (3.5-5.0); ALKALINE PHOSPHATASE 66 U/L (38-126); ANION GAP 6 (5-19); ASPARTATE AMINO TRANSFERASE 32 U/L (14-36); BILIRUBIN,DIRECT 0.4 mg/dL (0.0-0.4); BILIRUBIN,TOTAL 0.9 mg/dL (0.2-1.3); BLOOD UREA NITROGEN 20 mg/dL (7-20); CALCIUM 9.4 mg/dL (8.4-10.2); CARBON DIOXIDE 39 mmol/L (22-30); CHLORIDE 90 mmol/L (98-107); GLUCOSE 96 mg/dL (75-110); POTASSIUM 4.2 mmol/L (3.6-5.0); SODIUM 134.7 mmol/L (137-145); TOTAL PROTEIN 6.2 g/dL (6.3-8.2)
[2018-02-21 10:41] LABS: ABSOLUTE MONOCYTES # (MANUAL) 0.4 10^3/uL (0.1-1.4); ABSOLUTE NEUTROPHILS# (MANUAL) 12.9 10^3/uL (1.7-8.2); BAND NEUTROPHILS % (MANUAL) 1 % (3-5); BASOPHILS % (MANUAL) 0 % (0-2); EOSINOPHILS % (MANUAL) 0 % (0-6); LYMPHOCYTES % (MANUAL) 7 % (13-45); METAMYELOCYTES % (MANUAL) 1 % (0); MONOCYTES % (MANUAL) 3 % (3-13); SEGMENTED NEUTROPHILS % (MAN) 88 % (42-78); TOTAL CELLS COUNTED 100
[2018-02-21] MEDS: FOLIC ACID 1 MG TABLET PO SCH (10:42)
[2018-02-21] MEDS: THIAMINE HCL 100 MG TABLET PO SCH (10:42)
[2018-02-21] MEDS: METOPROLOL TARTRATE 50 MG TABLET PO SCH ×2 (10:42→21:28)
[2018-02-21 10:43] LABS: ANISOCYTOSIS SLIGHT; HYPOCHROMASIA 2+; PLATELET COMMENT ADEQUATE; POIKILOCYTOSIS 1+; POLYCHROMASIA SLIGHT; TARGET CELLS 1+
[2018-02-21] MEDS: ROFLUMILAST 500 MCG TABLET PO SCH (10:43)
[2018-02-21] MEDS: HYDROCHLOROTHIAZIDE 25 MG TABLET PO SCH (10:43)
[2018-02-21] MEDS: ERTAPENEM SODIUM 1 GM in NORMAL SALINE 50 ML IV SCH (10:44)
[2018-02-21] MEDS: RALOXIFENE HCL 60 MG TABLET PO SCH (13:29)
[2018-02-21] MEDS: MONTELUKAST SODIUM 10 MG TABLET PO SCH (17:04)
[2018-02-21] MEDS: ROPINIROLE HCL 2 MG TABLET PO SCH (21:27)
[2018-02-21] MEDS: AMLODIPINE BESYLATE 5 MG TABLET PO SCH (21:28)
[2018-02-21] MEDS: LORAZEPAM INJ 2 MG/1 ML VIAL IV PRN (21:29)
[2018-02-22] MEDS: IPRATROPIUM/ALBUTEROL 0.5-2.5 MG/3 ML AMPUL NEB SCH ×4 (02:07→21:11)
[2018-02-22] MEDS: METHYLPREDNISOLONE INJ 40 MG/1 ML SDV IV SCH (05:21)
[2018-02-22] MEDS: HEPARIN SOD (PORCINE) 5,000 UNIT/ML 1 ML SYRINGE SUBCUT SCH ×3 (05:21→21:21)
--- NOTE | 2018-02-22 08:32 | PDOC PROGRESS REPORT ---
Subjective Progress Note for:: 02/22/18 Subjective:: [birth year][id number]-lsoz-old female with a significant past medical history of oxygen dependent COPD, hypertension, pulmonary hypertension, breast cancer, osteoarthritis, benzodiazepine dependent anxiety, history of cannabis use admitted with complaints of acute worsening of shortness of breath wheezing and agitation. In the emergency room she was found to be hypoxic hypercapnic respiratory failure intubated on 02/13/2018. Failure most likely secondary to COPD exacerbation and benzodiazepine use. No acute events overnight. The trial of extubation was done yesterday with without success within 15 minutes patient became tachypneic with resp rate of 50 and hypoxic with pulse ox in the 50s. Presently she is on Versed and propofol Versed was discontinued this morning and the nurses are tapering off the propofol to try to wean her off today. Pulmonary team is on board. TRACHEAL cultures came back positive for Aspergillus. I am going to wait for recommendat ion from Dr. Guerra. Patient latest vital signs temperature is 98.8/pulse rate is 92 respirations 18 pulse ox is 97% on the vent. 02/17/2018-we will try to wean the patient off from the vent yesterday but it was unsuccessful patient become anxious tachypneic tachycardic and pulse ox dropped to 80s and she was placed on back on mechanical ventilation and we continued to propofol and Versed. We are going to do another trial of weaning today today. Chest x-ray shows no evidence of infiltrates. Cultures and sputum cultures are negative so far. Patient is on levofloxacin. On her T-max today 98.6. 02/18/2018-acute events in the last 24 hours. Patient went up to 23,000. Patient is afebrile. T-max is 98.2. Blood cultures are negative so far. Versed drip is off from last night. Patient is responding to the verbal commands by blinking her eyes and shaking her head. 02/19/2018-patient was successfully extubated yesterday she was placed on BiPAP since last night because of the anxiety and because of anxiety she is getting into this rapid breathing spells. Is on 35% oxygen. We are going to repeat ABG today. cxr today no acute cardiopulmonary process going on. Max is 99.3 t jaqui. Pulse ox is 98% on 35% oxygen on BiPAP. 02/20/2018-patient was transferred from ICU to telemetry yesterday. No complications in the last 24 hours. Patient is on BiPAP. ABG was done on 3 L t his morning pH is 7.38 PCO2 67 PCO2 93 bicarb is 38. Patient denies any complaints. She has a severe anxiety disorder as she is getting Ativan 2 mg IV every 2 hours as needed I decreased it to 1 mg IV every 4 as needed. The sputum cultures growing showing gram-negative rods she is on Invanz. 02/21/2018 this 67-year-old female admitted for acute on chronic respiratory failure with hypoxia and hypercapnia. Status post intubation and extubation. Acute events in the last 24 hours. He is on 3 L oxygen, pulse ox is 95-96%. 02/22/2018-no acute events in the last 24 hours. Patient pulse ox is 96% on 3 L. She uses oxygen 2 L at home. She is also using CPAP at home. Physical therapy started working with the patient. Patient is extremely weak and has a difficulty in ambulation. She may have to stay another day for a near complete recovery. Reason For Visit: ACUTE ON CHRONIC RESPIRATORY FAILURE Physical Exam Vital Signs: Temp Pulse Resp BP Pulse Ox 98.1 F 94 19 124/77 96 02/22/18 07:12 02/22/18 07:54 02/22/18 07:54 02/22/18 07:12 02/22/18 07:54 Intake & Output 02/21/18 02/22/18 02/23/18 06:59 06:59 06:59 Intake Total 150 464 Output Total 2245 1275 Balance -2095 -811 Weight 77.2 kg 75.5 kg General appearance: PRESENT: no acute distress Head exam: PRESENT: atraumatic Eye exam: PRESENT: PERRLA Mouth exam: PRESENT: moist Neck exam: ABSENT: carotid bruit, JVD, lymphadenopathy, thyromegaly Respiratory exam: PRESENT: decreased breath sounds Cardiovascular exam: PRESENT: tachycardia GI/Abdominal exam: PRESENT: normal bowel sounds, soft. ABSENT: distended, guarding, mass, organolmegaly, rebound, tenderness Neurological exam: PRESENT: alert, awake, oriented to person, oriented to place, oriented to time, oriented to situation, CN II-XII grossly intact. ABSENT: motor sensory deficit Psychiatric exam: PRESENT: appropriate affect, normal mood. ABSENT: homicidal ideation, suicidal ideation Results Laboratory Results: 02/21/18 08:53 02/21/18 08:53 02/21/18 02/21/18 08:53 08:53 WBC 14.3 H RBC 4.47 Hgb 10.8 L Hct 34.0 L MCV 76 L MCH 24.2 L MCHC 31.8 L RDW 15.3 H Plt Count 232 Seg Neutrophils % Not Reportable Lymphocytes % Not Reportable Monocytes % Not Reportable Eosinophils % Not Reportable Basophils % Not Reportable Absolute Neutrophils Not Reportable Absolute Lymphocytes Not Reportable Absolute Monocytes Not Reportable Absolute Eosinophils Not Reportable Absolute Basophils Not Reportable Sodium 134.7 L Potassium 4.2 Chloride 90 L Carbon Dioxide 39 H Anion Gap 6 BUN 20 Creatinine 0.39 L Est GFR ( Amer) > 60 Est GFR (Non-Af Amer) > 60 Glucose 96 Calcium 9.4 Magnesium 2.1 Total Bilirubin 0.9 AST 32 ALT 38 Alkaline Phosphatase 66 Total Protein 6.2 L Albumin 3.6 Impressions: Chest X-Ray 02/19/18 06:00 IMPRESSION: No acute cardiopulmonary process copyright 2011 [employer]- All Rights Reserved Assessment & Plan - Diagnosis (1) Acute respiratory failure with hypoxia and hypercapnia Is this a current diagnosis for this admission?: Yes Plan: 02/16/2018-acute on chronic respiratory failure with hypoxia and hypercapnia most likely secondary to benzodiazepine use and COPD exacerbation. No acute events overnight. Patient is on the vent with Versed turned off and tapping dose of propofol. Oxygen 97% on the vent. O2 is 30%. To try to wean her off today. ABG today on 30% oxygen pH is 7.42/PCO2 43/PO2 72.6 pulse ox is 94.8%. Hypoxia and hypercapnia resolving. 02/17/2018-patient has a long history of COPD and benzodiazepine-dependent anxiety. Patient was intubated for acute on chronic respiratory failure with hypoxia and hypercapnia. We are trying to wean her off for the last 48 hours but unsuccessful so far. We are going to do another trial of weaning.today. Nu rse counter professional for mid tracheal aspirate is looks like thick and yellow and I am going to repeat the sputum culture again today. And I am also going to start her on Ativan 2 mg IV every 2 as needed for anxiety during the weaning off of the vent. Chest x-ray done this morning no infiltrates. ABG on 30% oxygen today pH is 7.4 PCO2 46 PO2 64 bicarb is 27. 02/18/2018-is admitted with acute respiratory failure with hypoxia and hypercapnia. She was still intubated. Pulse ox is 97% on 30% oxygen. And is off Versed drip. To wean her off from the vent today. He is on board. To give her Ativan 1 mg IV every 2 as needed for anxiety during the weaning of process. Chest x-ray did not show any infiltrates. ABG this morning on 30% oxygen pH is 7.42/PCO2 42.8/PO2 78 bicarb is 27. Hypoxia and hypercapnia resolving. 02/19/2018-patient was successfully extubated yesterday she is on BiPAP since last night and 31st percent oxygen pulse ox of 98% on going to order for ABG today and chest x-ray was normal study. On Ativan 1 mg IV every 2 hours as needed for anxiety. Restart her home medications. 02/20/2018-patient was admitted with acute on chronic respiratory failure with hypoxia and hypercapnia resolving. She is on BiPAP on as-needed basis. ABG shows improvement in hypoxia and hypercapnia. CPT was requested today. She is getting scheduled nebulizer treatments. Started on IV Solu-Medrol 40 mg every 8 hours. Tracheal aspirate showing gram-negative rods. She is on Invanz. 02/21/2018-patient's latest ABG on 35% oxygen is pH 7.46/PCO2 54 PO2 79 pulse ox is 96%. Hypoxia and hypercapnia resolved. Patient is on IV Solu-Medrol every 8 hours I am going to switch it to every 12 hours. Patient getting chest physical therapy. She is also on scheduled nebulizer treatments. The tracheal aspirate showing gram-negative rods, we waiting for the sensitivity report. Presently cong plasencia is on Invanz 1 g daily. 02/22/2018-patient was admitted with acute on chronic respiratory failure with hypoxia and hypercapnia resolving pulse ox is 96% on 3 L. No acute events. We will continue the present management and I decreased Solu-Medrol to once a daily. Plan is to discharge her home on a prednisone p.o. probably tomorrow. Time will continue the scheduled nebulizations. And chest physiotherapy. She is on Invanz because sputum cultures positive for gram-negative rods. (2) COPD exacerbation Is this a current diagnosis for this admission?: Yes Plan: 02/16/2018-patient is on IV steroids for COPD exacerbation, patient has Levaquin 750 mg IV. And sputum culture came back for Aspergillus. Awaiting pulmonary re commendations. 02/17/2018 for COPD exacerbation she is on IV steroids and getting the regular nebulizations. And is also on antibiotic levofloxacin 750 mg IV daily. Cultures are negative so far. 02/18/2018 patient is on IV steroids 40 mg every 12 hours and getting scheduled nebulizer treatments. She is also levofloxacin 750 mg IV daily. The cultures are negative so far. We repeated the tracheal aspirate culture those results are pending. 02/19/2018 patient is on IV Solu-Medrol 40 mg every 24 hours and getting scheduled nebulizer treatments also on levofloxacin 750 mg IV daily the cultures are negative so far tracheal aspirate shows gram-positive cocci in pairs and gram-negative rods I am going to add Invanz and discontinue Levaquin today. 02/20/2018-tracheal aspirate showing gram-negative rods and she is on Invanz. Afebrile. T-max is 98.2. Uses 2 L oxygen via nasal cannula at home. 02/21/2018-the tracheal aspirate shows gram-negative rods were waiting for the sensitivity report presently she is on Invanz afebrile T-max is 98.4. Pulse ox is 95-96% on 3 L. She uses 2 L of oxygen at home. And is to continue the present management she is on IV Solu-Medrol and scheduled nebulizations. 02/22/2018-patient has history of COPD secondary to smoking she is on 2 L oxygen at home, she does use CPAP at night, sputum cultures positive for gram-negative rods. COPD exacerbation is resolving. Presently she is on 3 L oxygen pulse ox is 96%. (3) Chronic respiratory failure Is this a current diagnosis for this admission?: Yes Plan: 02/16/2018 patient has history of COPD on home oxygen. 02/17/2018 patient has history of COPD she uses 2 L oxygen via nasal cannula at home. 02/18/2018 patient has history of COPD she uses 2 L oxygen via nasal cannula at home. 02/19/2018 patient has history of chronic COPD she is on 2 L oxygen at home. 02/20/2018 patient has history of chronic COPD on 2 L of oxygen at home. Please she is on BiPAP on an as-needed basis. 02/21/2018-patient has history of COPD on 2 L of oxygen at home. Presently she is on 3 L of oxygen with a pulse ox of 95-96%. Hypoxia and hypercapnia resolved. 02/22/2018 patient has history of chronic respiratory failure secondary to COPD chronic smoker uses CPAP at night and with 2 L oxygen at home. (4) HTN (hypertension) Qualifiers: Hypertension type: essential hypertension Qualified Code(s): I10 - Essential (primary) hypertension Is this a current diagnosis for this admission?: Yes Plan: 03/22/2017 patient has history of hypertension she is on amlodipine and metoprolol at home the planning to resume her home medications today. Blood pressure is 153/93 today. 02/20/2018 patient's blood pressure is 150/88. Patient is on amlodipine 2.5 mg p.o. daily, metoprolol 50 mg p.o. every 12 hours, hydrochlorothiazide 25 mg p.o. daily. I am going to increase amlodipine to 5 mg p.o. daily. 02/21/2018 patient blood pressure is improved it is 139/86 today. Patient is on amlodipine 5 mg daily. She is also on hydrochlorothiazide 25 mg p.o. daily, metoprolol 50 mg every 12 hours. Plan is to continue the present management. 02/22/2018-blood pressure today is 124/77 stable patient is on amlodipine 5 mg daily, metoprolol 50 mg p.o. twice daily and hydrochlorothiazide 25 mg p.o. daily plan is to continue the present management. (5) Breast cancer Qualifiers: Laterality: right Is this a current diagnosis for this admission?: Yes Plan: 02/21/2018-patient is giving the history of right breast cancer status post radiation according to her it was cured and she follows with Dr. Osman -oncologist in [facility]. Plan is to continue the present management. 02/22/2018-patient has history of right breast cancer status post radiation. She is following with the oncologist as an outpatient. - Time Time Spent with patient: 15-24 minutes Medications reviewed and adjusted accordingly: Yes Anticipated discharge: Home
[2018-02-22] MEDS: FOLIC ACID 1 MG TABLET PO SCH (11:29)
[2018-02-22] MEDS: HYDROCHLOROTHIAZIDE 25 MG TABLET PO SCH (11:29)
[2018-02-22] MEDS: METOPROLOL TARTRATE 50 MG TABLET PO SCH ×2 (11:29→21:20)
[2018-02-22] MEDS: ERTAPENEM SODIUM 1 GM in NORMAL SALINE 50 ML IV SCH (11:29)
[2018-02-22] MEDS: THIAMINE HCL 100 MG TABLET PO SCH (11:29)
[2018-02-22] MEDS: ROFLUMILAST 500 MCG TABLET PO SCH (11:30)
[2018-02-22] MEDS: RALOXIFENE HCL 60 MG TABLET PO SCH (11:31)
[2018-02-22] MEDS: MONTELUKAST SODIUM 10 MG TABLET PO SCH (17:43)
[2018-02-22] MEDS: AMLODIPINE BESYLATE 5 MG TABLET PO SCH (21:21)
[2018-02-22] MEDS: ROPINIROLE HCL 2 MG TABLET PO SCH (21:22)
[2018-02-22] MEDS: LORAZEPAM INJ 2 MG/1 ML VIAL IV PRN (21:36)
[2018-02-23] MEDS: IPRATROPIUM/ALBUTEROL 0.5-2.5 MG/3 ML AMPUL NEB SCH ×4 (02:27→20:04)
[2018-02-23] MEDS: LORAZEPAM INJ 2 MG/1 ML VIAL IV PRN (02:27)
[2018-02-23 05:07] LABS: HEMATOCRIT 31.8 % (36.0-47.0); MEAN CORPUSCULAR HGB CONC 31.5 g/dL (32.0-36.0); MEAN CORPUSCULAR VOLUME 76 fl (80-97); PLATELET COUNT 183 10^3/uL (150-450); RED BLOOD COUNT 4.16 10^6/uL (3.72-5.28); RED CELL DISTRIBUTION WIDTH 15.6 % (11.5-14.0); WHITE BLOOD COUNT 15.7 10^3/uL (4.0-10.5)
[2018-02-23 05:23] LABS: ALANINE AMINOTRANSFERASE 32 U/L (9-52); ALBUMIN 3.3 g/dL (3.5-5.0); ALKALINE PHOSPHATASE 61 U/L (38-126); ASPARTATE AMINO TRANSFERASE 23 U/L (14-36); BILIRUBIN,DIRECT 0.2 mg/dL (0.0-0.4); BILIRUBIN,TOTAL 0.5 mg/dL (0.2-1.3); BLOOD UREA NITROGEN 27 mg/dL (7-20); GLUCOSE 81 mg/dL (75-110); POTASSIUM 3.8 mmol/L (3.6-5.0); TOTAL PROTEIN 5.8 g/dL (6.3-8.2)
[2018-02-23] MEDS: HEPARIN SOD (PORCINE) 5,000 UNIT/ML 1 ML SYRINGE SUBCUT SCH ×3 (05:45→22:20)
[2018-02-23 06:22] LABS: CHLORIDE 91 mmol/L (98-107); SODIUM 138.3 mmol/L (137-145)
[2018-02-23 06:30] LABS: ABSOLUTE LYMPHOCYTES# (MANUAL) 3.3 10^3/uL (0.5-4.7); ABSOLUTE MONOCYTES # (MANUAL) 2.7 10^3/uL (0.1-1.4); ABSOLUTE NEUTROPHILS# (MANUAL) 9.6 10^3/uL (1.7-8.2); BASOPHILS % (MANUAL) 0 % (0-2); EOSINOPHILS % (MANUAL) 1 % (0-6); LYMPHOCYTES % (MANUAL) 21 % (13-45); MONOCYTES % (MANUAL) 17 % (3-13); SEGMENTED NEUTROPHILS % (MAN) 61 % (42-78); TOTAL CELLS COUNTED 100
[2018-02-23 06:31] LABS: ANISOCYTOSIS SLIGHT; POIKILOCYTOSIS SLIGHT; SCHISTOCYTES SLIGHT; TOXIC GRANULATION SLIGHT
[2018-02-23 06:32] LABS: ANION GAP 4 (5-19)
[2018-02-23 06:34] LABS: CARBON DIOXIDE 43 mmol/L (22-30)
[2018-02-23 06:40] LABS: PLATELET COMMENT ADEQUATE
[2018-02-23] MEDS ORDERED: METHYLPREDNISOLONE INJ 40 MG/1 ML SDV IV SCH (10:00)
[2018-02-23] MEDS: ERTAPENEM SODIUM 1 GM in NORMAL SALINE 50 ML IV SCH (10:04)
[2018-02-23] MEDS: FOLIC ACID 1 MG TABLET PO SCH (10:05)
[2018-02-23] MEDS: THIAMINE HCL 100 MG TABLET PO SCH (10:05)
[2018-02-23] MEDS: HYDROCHLOROTHIAZIDE 25 MG TABLET PO SCH ×2 (10:05→10:08)
[2018-02-23] MEDS: ROFLUMILAST 500 MCG TABLET PO SCH (10:05)
[2018-02-23] MEDS: METOPROLOL TARTRATE 50 MG TABLET PO SCH ×2 (10:05→22:19)
[2018-02-23] MEDS: RALOXIFENE HCL 60 MG TABLET PO SCH (10:06)
--- NOTE | 2018-02-23 13:26 | PDOC PROGRESS REPORT ---
Subjective Progress Note for:: 02/23/18 Subjective:: This is a 67 year old female with a past medical history of oxygen dependent COPD, hypertension, pulmonary hypertension, chronic bronchitis, breast cancer, osteoarthritis, benzodiazepine dependent anxiety, OTC insomnia medication and cannabis use who was brought in by EMS due to acute worsening SOB, wheezing and agitation. She was noted to be in hypoxic hypercapnic respiratory failure and was intubated in the ER on 02/13/18 deemed likely to be a combination of COPD exacerbation with benzodiazepine use contributing to respiratory failure. She was in the ICU and weaning from the ventilator was initially dififcult as she kept having agitation when sedations was turned off. She was eventually successfully extubated on 02/18/18. She was subsequently transferred to the floor. Her breathing status continued to improve but she still has generalized weakness and exertional dyspnea. PT recommendation is for her to go to inpatient rehab vs SNF. No acute event overnight. She was complaint with BIPAP overnight. She says her breathing continues to improve but still feels weak and has exertional dyspnea. Discussed about going to rehab and she says she is now amenable to it if her insurance will cover it. Will initiate placement process with discharge planning. Reason For Visit: ACUTE ON CHRONIC RESPIRATORY FAILURE Physical Exam Vital Signs: Temp Pulse Resp BP Pulse Ox 98.0 F 97 18 102/56 L 100 02/23/18 07:43 02/23/18 07:43 02/23/18 07:43 02/23/18 07:43 02/23/18 07:43 Intake & Output 02/22/18 02/23/18 02/24/18 06:59 06:59 06:59 Intake Total 464 1010 50 Output Total 1275 1700 Balance -811 -690 50 Weight 166 lb 7.184 oz 164 lb 3.91 oz General appearance: PRESENT: no acute distress, well-developed, well-nourished Head exam: PRESENT: atraumatic, normocephalic Eye exam: PRESENT: conjunctiva pink, EOMI, PERRLA. ABSENT: scleral icterus Ear exam: PRESENT: normal external ear exam Mouth exam: PRESENT: moist, tongue midline Neck exam: ABSENT: carotid bruit, JVD, lymphadenopathy, thyromegaly Respiratory exam: PRESENT: wheezes - occasional wheezes bilaterally. ABSENT: rales, rhonchi Cardiovascular exam: PRESENT: RRR. ABSENT: diastolic murmur, rubs, systolic murmur Pulses: PRESENT: normal dorsalis pedis pul GI/Abdominal exam: PRESENT: normal bowel sounds, soft. ABSENT: distended, guarding, mass, organolmegaly, rebound, tenderness Rectal exam: PRESENT: deferred Extremities exam: PRESENT: full ROM. ABSENT: calf tenderness, clubbing, pedal edema Neurological exam: PRESENT: alert, awake, oriented to person, oriented to place, oriented to time, oriented to situation, CN II-XII grossly intact. ABSENT: motor sensory deficit Results Laboratory Results: 02/23/18 04:06 02/23/18 04:06 02/23/18 02/23/18 04:06 04:06 WBC 15.7 H RBC 4.16 Hgb 10.0 L Hct 31.8 L MCV 76 L MCH 24.0 L MCHC 31.5 L RDW 15.6 H Plt Count 183 Seg Neutrophils % Not Reportable Lymphocytes % Not Reportable Monocytes % Not Reportable Eosinophils % Not Reportable Basophils % Not Reportable Absolute Neutrophils Not Reportable Absolute Lymphocytes Not Reportable Absolute Monocytes Not Reportable Absolute Eosinophils Not Reportable Absolute Basophils Not Reportable Sodium 138.3 Potassium 3.8 Chloride 91 L Carbon Dioxide 43 H* Anion Gap 4 L BUN 27 H Creatinine 0.46 L Est GFR ( Amer) > 60 Est GFR (Non-Af Amer) > 60 Glucose 81 Calcium 9.0 Magnesium 2.2 Total Bilirubin 0.5 AST 23 ALT 32 Alkaline Phosphatase 61 Total Protein 5.8 L Albumin 3.3 L 02/17/18 15:38 Tracheal Aspirate Gram Stain - Final 02/17/18 15:38 Tracheal Aspirate Sputum Culture - Final Acinetobacter Baumannii/Haem Greatly Reduced Normal Lia Impressions: Chest X-Ray 02/19/18 06:00 IMPRESSION: No acute cardiopulmonary process copyright 2011 [employer]- All Rights Reserved Assessment & Plan - Diagnosis (1) Acute respiratory failure with hypoxia and hypercapnia Is this a current diagnosis for this admission?: Yes Plan: Likely secondary to COPD exacerbation with benzodiazepine use contributing to respiratory failure. Currently intubated. S/P extubation on 02/18/18. (2) COPD exacerbation Is this a current diagnosis for this admission?: Yes Plan: Continue IV steroids. Sputum culture grew A. baumanii. On Ertapenem. De-escalate antibiotics. Will DC ertapenem and switch to Levaquin. Switch solumedrol to prednisone PO. Continue breathing treatments. (3) Chronic respiratory failure Is this a current diagnosis for this admission?: Yes Plan: She is on home O2 for severe COPD. - Time Time Spent with patient: 25-34 minutes
[2018-02-23] MEDS: PREDNISONE 20 MG TABLET PO SCH (17:56)
[2018-02-23] MEDS: MONTELUKAST SODIUM 10 MG TABLET PO SCH (17:57)
[2018-02-23] MEDS: ROPINIROLE HCL 2 MG TABLET PO SCH (22:19)
[2018-02-23] MEDS: AMLODIPINE BESYLATE 5 MG TABLET PO SCH (22:19)
[2018-02-24] MEDS: IPRATROPIUM/ALBUTEROL 0.5-2.5 MG/3 ML AMPUL NEB SCH ×4 (01:55→19:49)
[2018-02-24] MEDS: HEPARIN SOD (PORCINE) 5,000 UNIT/ML 1 ML SYRINGE SUBCUT SCH ×3 (05:55→21:37)
[2018-02-24 09:55] LABS: BLOOD UREA NITROGEN 21 mg/dL (7-20); CALCIUM 9.5 mg/dL (8.4-10.2); CHLORIDE 89 mmol/L (98-107); GLUCOSE 115 mg/dL (75-110); POTASSIUM 3.4 mmol/L (3.6-5.0); SODIUM 138.4 mmol/L (137-145)
[2018-02-24 10:07] LABS: ANION GAP 3 (5-19); CARBON DIOXIDE 46 mmol/L (22-30)
[2018-02-24] MEDS: PREDNISONE 20 MG TABLET PO SCH ×2 (10:24→17:39)
[2018-02-24] MEDS: FOLIC ACID 1 MG TABLET PO SCH (10:25)
[2018-02-24] MEDS: LEVOFLOXACIN 750 MG TABLET PO SCH (10:25)
[2018-02-24] MEDS: THIAMINE HCL 100 MG TABLET PO SCH (10:25)
[2018-02-24] MEDS: ROFLUMILAST 500 MCG TABLET PO SCH (10:26)
[2018-02-24] MEDS: RALOXIFENE HCL 60 MG TABLET PO SCH (10:26)
[2018-02-24] MEDS: HYDROCHLOROTHIAZIDE 25 MG TABLET PO SCH (10:26)
[2018-02-24] MEDS: METOPROLOL TARTRATE 50 MG TABLET PO SCH ×2 (10:27→21:38)
[2018-02-24 12:17] LABS: ARTERIAL BLOOD BASE EXCESS 19.3 mmol/L; ARTERIAL BLOOD H2CO3 2.24 mmol/L (1.05-1.35); ARTERIAL BLOOD HCO3 47.4 mmol/L (20-24); ARTERIAL BLOOD PH 7.42 (7.35-7.45); ARTERIAL BLOOD PO2 95.1 mmHg (80-100); ARTERIAL BLOOD TOTAL CO2 49.7 mmol/L (21-25)
[2018-02-24 12:18] LABS: ARTERIAL BLOOD FIO2 3 L
[2018-02-24 12:24] LABS: ARTERIAL BLOOD PCO2 74.3 mmHg (35-45)
[2018-02-24] MEDS ORDERED: POTASSIUM CHLORIDE 10 MEQ CAPSULE.ER PO ONE (13:30)
[2018-02-24 15:21] LABS: ARTERIAL BLOOD BASE EXCESS 17.6 mmol/L; ARTERIAL BLOOD H2CO3 2.11 mmol/L (1.05-1.35); ARTERIAL BLOOD HCO3 45.1 mmol/L (20-24); ARTERIAL BLOOD O2 SATURATION 94.8 % (94-98); ARTERIAL BLOOD PH 7.43 (7.35-7.45); ARTERIAL BLOOD PO2 75.3 mmHg (80-100); ARTERIAL BLOOD TOTAL CO2 47.3 mmol/L (21-25)
[2018-02-24 15:22] LABS: ARTERIAL BLOOD FIO2 35%
[2018-02-24 15:23] LABS: ARTERIAL BLOOD PCO2 70.2 mmHg (35-45)
[2018-02-24] MEDS: MONTELUKAST SODIUM 10 MG TABLET PO SCH (17:39)
--- NOTE | 2018-02-24 18:00 | PDOC PROGRESS REPORT ---
Subjective Progress Note for:: 02/24/18 Subjective:: This is a 67 year old female with a past medical history of oxygen dependent COPD, hypertension, pulmonary hypertension, chronic bronchitis, breast cancer, osteoarthritis, benzodiazepine dependent anxiety, OTC insomnia medication and cannabis use who was brought in by EMS due to acute worsening SOB, wheezing and agitation. She was noted to be in hypoxic hypercapnic respiratory failure and was intubated in the ER on 02/13/18 deemed likely to be a combination of COPD exacerbation with benzodiazepine use contributing to respiratory failure. She was in the ICU and weaning from the ventilator was initially difficult as she kept having agitation when sedations was turned off. She was eventually successfully extubated on 02/18/18. She was subsequently transferred to the floor. Her breathing status continued to improve but she still has generalized weakness and exertional dyspnea. PT recommendation is for her to go to inpatient rehab vs SNF. No acute event overnight. She was complaint with BIPAP overnight. Patient is going to [place]. However, off the BIPAP her PCO2 went up to 74. There is no confusion or lethargy. Will have patient on BIPAP 4hrs on/4hrs off. If PCO2 improves tomorrow, she will be cleared for transfer to [place]. Reason For Visit: ACUTE ON CHRONIC RESPIRATORY FAILURE Physical Exam Vital Signs: Temp Pulse Resp BP Pulse Ox 98.1 F 113 H 22 H 104/64 95 02/24/18 15:29 02/24/18 15:29 02/24/18 15:29 02/24/18 15:29 02/24/18 15:29 Intake & Output 02/23/18 02/24/18 02/25/18 06:59 06:59 06:59 Intake Total 1010 970 Output Total 1700 2575 Balance -690 -1605 Weight 164 lb 3.91 oz 162 lb 4.163 oz General appearance: PRESENT: no acute distress, well-developed, well-nourished Head exam: PRESENT: atraumatic, normocephalic Eye exam: PRESENT: conjunctiva pink, EOMI, PERRLA. ABSENT: scleral icterus Ear exam: PRESENT: normal external ear exam Mouth exam: PRESENT: moist, tongue midline Neck exam: ABSENT: carotid bruit, JVD, lymphadenopathy, thyromegaly Respiratory exam: PRESENT: rhonchi. ABSENT: rales, wheezes Cardiovascular exam: PRESENT: RRR. ABSENT: diastolic murmur, rubs, systolic murmur Pulses: PRESENT: normal dorsalis pedis pul GI/Abdominal exam: PRESENT: normal bowel sounds, soft. ABSENT: distended, guarding, mass, organolmegaly, rebound, tenderness Rectal exam: PRESENT: deferred Neurological exam: PRESENT: alert, awake, oriented to person, oriented to place, oriented to time, oriented to situation, CN II-XII grossly intact. ABSENT: motor sensory deficit Results Laboratory Results: 02/23/18 04:06 02/24/18 09:07 02/24/18 02/24/18 02/24/18 09:07 11:59 15:15 Carbonic Acid 2.24 H 2.11 H HCO3/H2CO3 Ratio 21:1 21:1 ABG pH 7.42 7.43 ABG pCO2 74.3 H* 70.2 H* ABG pO2 95.1 75.3 L ABG HCO3 47.4 H 45.1 H ABG O2 Saturation 97.0 94.8 ABG Base Excess 19.3 17.6 FiO2 3 L 35% Sodium 138.4 Potassium 3.4 L Chloride 89 L Carbon Dioxide 46 H* Anion Gap 3 L BUN 21 H Creatinine 0.48 L Est GFR ( Amer) > 60 Est GFR (Non-Af Amer) > 60 Glucose 115 H Calcium 9.5 Impressions: Chest X-Ray 02/19/18 06:00 IMPRESSION: No acute cardiopulmonary process copyright 2011 [employer]- All Rights Reserved Assessment & Plan - Diagnosis (1) Acute respiratory failure with hypoxia and hypercapnia Is this a current diagnosis for this admission?: Yes Plan: Likely secondary to COPD exacerbation with benzodiazepine use contributing to respiratory failure. Currently intubated. S/P extubation on 02/18/18. PCO2 went up to 74 today off BIPAP. Will keep patient on BIPAP 4 hrs on/4 hrs off. (2) COPD exacerbation Is this a current diagnosis for this admission?: Yes Plan: Continue IV steroids. Sputum culture grew A. baumanii. On Levaquin. Continue prednisone PO. Continue breathing treatments. (3) Chronic respiratory failure Is this a current diagnosis for this admission?: Yes Plan: She is on home O2 for severe COPD. - Time Time Spent with patient: 25-34 minutes
[2018-02-24] MEDS: ROPINIROLE HCL 2 MG TABLET PO SCH (21:38)
[2018-02-24] MEDS: AMLODIPINE BESYLATE 5 MG TABLET PO SCH (21:38)
[2018-02-24] MEDS: LORAZEPAM INJ 2 MG/1 ML VIAL IV PRN (21:55)
[2018-02-25] MEDS: IPRATROPIUM/ALBUTEROL 0.5-2.5 MG/3 ML AMPUL NEB SCH ×4 (01:59→19:09)
[2018-02-25] MEDS: HEPARIN SOD (PORCINE) 5,000 UNIT/ML 1 ML SYRINGE SUBCUT SCH ×3 (06:17→21:35)
[2018-02-25 06:35] LABS: ARTERIAL BLOOD BASE EXCESS 14.3 mmol/L; ARTERIAL BLOOD H2CO3 2.11 mmol/L (1.05-1.35); ARTERIAL BLOOD HCO3 41.8 mmol/L (20-24); ARTERIAL BLOOD O2 SATURATION 97.5 % (94-98); ARTERIAL BLOOD PH 7.39 (7.35-7.45); ARTERIAL BLOOD PO2 103.4 mmHg (80-100); ARTERIAL BLOOD TOTAL CO2 43.9 mmol/L (21-25)
[2018-02-25 06:39] LABS: ARTERIAL BLOOD FIO2 3L
[2018-02-25 06:41] LABS: ARTERIAL BLOOD PCO2 70.1 mmHg (35-45)
[2018-02-25] MEDS: ROFLUMILAST 500 MCG TABLET PO SCH (09:35)
[2018-02-25] MEDS: PREDNISONE 20 MG TABLET PO SCH ×2 (09:35→17:15)
[2018-02-25] MEDS: FOLIC ACID 1 MG TABLET PO SCH (09:36)
[2018-02-25] MEDS: METOPROLOL TARTRATE 50 MG TABLET PO SCH ×2 (09:36→21:34)
[2018-02-25] MEDS: RALOXIFENE HCL 60 MG TABLET PO SCH (09:36)
[2018-02-25] MEDS: LEVOFLOXACIN 750 MG TABLET PO SCH (09:37)
[2018-02-25] MEDS: THIAMINE HCL 100 MG TABLET PO SCH (09:37)
[2018-02-25 12:04] LABS: HEMOGLOBIN 9.7 g/dL (12.0-15.5); MEAN CORPUSCULAR HEMOGLOBIN 24.1 pg (27.0-33.4); MEAN CORPUSCULAR HGB CONC 31.5 g/dL (32.0-36.0); MEAN CORPUSCULAR VOLUME 77 fl (80-97); PLATELET COUNT 237 10^3/uL (150-450); RED BLOOD COUNT 4.03 10^6/uL (3.72-5.28); RED CELL DISTRIBUTION WIDTH 16.5 % (11.5-14.0); WHITE BLOOD COUNT 16.9 10^3/uL (4.0-10.5)
[2018-02-25 12:29] LABS: BLOOD UREA NITROGEN 22 mg/dL (7-20); CALCIUM 9.3 mg/dL (8.4-10.2); CHLORIDE 96 mmol/L (98-107); GLUCOSE 130 mg/dL (75-110); POTASSIUM 3.7 mmol/L (3.6-5.0); SODIUM 139.3 mmol/L (137-145)
[2018-02-25 12:40] LABS: ABSOLUTE MONOCYTES # (MANUAL) 0.7 10^3/uL (0.1-1.4); ABSOLUTE NEUTROPHILS# (MANUAL) 14.2 10^3/uL (1.7-8.2); ANISOCYTOSIS 1+; BASOPHILS % (MANUAL) 0 % (0-2); EOSINOPHILS % (MANUAL) 0 % (0-6); HYPOCHROMASIA SLIGHT; LYMPHOCYTES % (MANUAL) 12 % (13-45); METAMYELOCYTES % (MANUAL) 2 % (0); MONOCYTES % (MANUAL) 4 % (3-13); OVALOCYTES SLIGHT; PLATELET COMMENT ADEQUATE; POIKILOCYTOSIS SLIGHT; POLYCHROMASIA SLIGHT; SCHISTOCYTES 1+; SEGMENTED NEUTROPHILS % (MAN) 82 % (42-78); TARGET CELLS 1+; TOTAL CELLS COUNTED 100
[2018-02-25 12:48] LABS: CARBON DIOXIDE 39 mmol/L (22-30)
[2018-02-25 13:00] LABS: ANION GAP 4 (5-19)
[2018-02-25] MEDS: HYDROCHLOROTHIAZIDE 25 MG TABLET PO SCH (13:05)
--- NOTE | 2018-02-25 13:48 | PDOC PROGRESS REPORT ---
Subjective Progress Note for:: 02/25/18 Subjective:: This is a 67 year old female with a past medical history of oxygen dependent COPD, hypertension, pulmonary hypertension, chronic bronchitis, breast cancer, osteoarthritis, benzodiazepine dependent anxiety, OTC insomnia medication and cannabis use who was brought in by EMS due to acute worsening SOB, wheezing and agitation. She was noted to be in hypoxic hypercapnic respiratory failure and was intubated in the ER on 02/13/18 deemed likely to be a combination of COPD exacerbation with benzodiazepine use contributing to respiratory failure. She was in the ICU and weaning from the ventilator was initially difficult as she kept having agitation when sedations was turned off. She was eventually successfully extubated on 02/18/18. She was subsequently transferred to the floor. Her breathing status continued to improve but she still has generalized weakness and exertional dyspnea. No acute event overnight. She says her breathing is at baseline. She was compli ant with BIPAP overnight but PCO2 continues to be in the 70s. There is no confusion or lethargy. Discussed with pulmonology for possible need for Trilogy as patient says she only uses CPAP at home. [facility] unfortunately will not accept patient on Trilogy. Reason For Visit: ACUTE ON CHRONIC RESPIRATORY FAILURE Physical Exam Vital Signs: Temp Pulse Resp BP Pulse Ox 98.4 F 77 14 96/55 L 96 02/25/18 07:39 02/25/18 07:43 02/25/18 12:18 02/25/18 07:39 02/25/18 12:18 Intake & Output 02/24/18 02/25/18 02/26/18 06:59 06:59 06:59 Intake Total 970 610 Output Total 2575 825 Balance -1605 -215 Weight 162 lb 4.163 oz 160 lb 11.472 oz General appearance: PRESENT: no acute distress, well-developed, well-nourished Head exam: PRESENT: atraumatic, normocephalic Eye exam: PRESENT: conjunctiva pink, EOMI, PERRLA. ABSENT: scleral icterus Ear exam: PRESENT: normal external ear exam Mouth exam: PRESENT: moist, tongue midline Neck exam: ABSENT: carotid bruit, JVD, lymphadenopathy, thyromegaly Respiratory exam: PRESENT: wheezes - mild occasional wheezes. ABSENT: rales, rhonchi Pulses: PRESENT: normal dorsalis pedis pul GI/Abdominal exam: PRESENT: normal bowel sounds, soft. ABSENT: distended, guarding, mass, organolmegaly, rebound, tenderness Rectal exam: PRESENT: deferred Neurological exam: PRESENT: alert, awake, oriented to person, oriented to place, oriented to time, oriented to situation, CN II-XII grossly intact. ABSENT: motor sensory deficit Results Laboratory Results: 02/25/18 10:49 02/25/18 10:49 02/24/18 02/25/18 02/25/18 15:15 06:25 10:49 WBC RBC Hgb Hct MCV MCH MCHC RDW Plt Count Seg Neutrophils % Lymphocytes % Monocytes % Eosinophils % Basophils % Absolute Neutrophils Absolute Lymphocytes Absolute Monocytes Absolute Eosinophils Absolute Basophils Carbonic Acid 2.11 H 2.11 H HCO3/H2CO3 Ratio 21:1 19:1 ABG pH 7.43 7.39 ABG pCO2 70.2 H* 70.1 H* ABG pO2 75.3 L 103.4 H ABG HCO3 45.1 H 41.8 H ABG O2 Saturation 94.8 97.5 ABG Base Excess 17.6 14.3 FiO2 35% 3L Sodium 139.3 Potassium 3.7 Chloride 96 L Carbon Dioxide 39 H Anion Gap 4 L BUN 22 H Creatinine 0.54 Est GFR ( Amer) > 60 Est GFR (Non-Af Amer) > 60 Glucose 130 H Calcium 9.3 02/25/18 10:49 WBC 16.9 H RBC 4.03 Hgb 9.7 L Hct 31.0 L MCV 77 L MCH 24.1 L MCHC 31.5 L RDW 16.5 H Plt Count 237 Seg Neutrophils % Not Reportable Lymphocytes % Not Reportable Monocytes % Not Reportable Eosinophils % Not Reportable Basophils % Not Reportable Absolute Neutrophils Not Reportable Absolute Lymphocytes Not Reportable Absolute Monocytes Not Reportable Absolute Eosinophils Not Reportable Absolute Basophils Not Reportable Carbonic Acid HCO3/H2CO3 Ratio ABG pH ABG pCO2 ABG pO2 ABG HCO3 ABG O2 Saturation ABG Base Excess FiO2 Sodium Potassium Chloride Carbon Dioxide Anion Gap BUN Creatinine Est GFR ( Amer) Est GFR (Non-Af Amer) Glucose Calcium Impressions: Chest X-Ray 02/19/18 06:00 IMPRESSION: No acute cardiopulmonary process copyright 2011 [employer]- All Rights Reserved Assessment & Plan - Diagnosis (1) Acute respiratory failure with hypoxia and hypercapnia Is this a current diagnosis for this admission?: Yes Plan: Likely secondary to COPD exacerbation with benzodiazepine use contributing to respiratory failure. Currently intubated. S/P extubation on 02/18/18. PCO2 continues to be in the 70s. Discussed with pulmonology for possible need for Trilogy. (2) COPD exacerbation Is this a current diagnosis for this admission?: Yes Plan: Continue steroids. Sputum culture grew A. baumanii. On Levaquin. Continue prednisone PO. Continue breathing treatments. BIPAP. (3) Chronic respiratory failure Is this a current diagnosis for this admission?: Yes Plan: She is on home O2 for severe COPD. - Time Time Spent with patient: 25-34 minutes
[2018-02-25] MEDS: MONTELUKAST SODIUM 10 MG TABLET PO SCH (17:15)
[2018-02-25] MEDS: AMLODIPINE BESYLATE 5 MG TABLET PO SCH (21:34)
[2018-02-25] MEDS: ROPINIROLE HCL 2 MG TABLET PO SCH (21:35)
[2018-02-26] MEDS: IPRATROPIUM/ALBUTEROL 0.5-2.5 MG/3 ML AMPUL NEB SCH ×3 (02:05→13:29)
[2018-02-26] MEDS: HEPARIN SOD (PORCINE) 5,000 UNIT/ML 1 ML SYRINGE SUBCUT SCH ×2 (06:19→13:48)
[2018-02-26 06:28] LABS: ARTERIAL BLOOD BASE EXCESS 13.6 mmol/L; ARTERIAL BLOOD HCO3 39.9 mmol/L (20-24); ARTERIAL BLOOD O2 SATURATION 96.7 % (94-98); ARTERIAL BLOOD PCO2 59.7 mmHg (35-45); ARTERIAL BLOOD PH 7.44 (7.35-7.45); ARTERIAL BLOOD PO2 86.8 mmHg (80-100); ARTERIAL BLOOD TOTAL CO2 41.7 mmol/L (21-25)
[2018-02-26 06:30] LABS: ARTERIAL BLOOD FIO2 30%
[2018-02-26] MEDS: METOPROLOL TARTRATE 50 MG TABLET PO SCH (09:55)
[2018-02-26] MEDS: PREDNISONE 20 MG TABLET PO SCH ×2 (09:55→17:15)
[2018-02-26] MEDS: FOLIC ACID 1 MG TABLET PO SCH (09:55)
[2018-02-26] MEDS: THIAMINE HCL 100 MG TABLET PO SCH (09:56)
[2018-02-26] MEDS: ROFLUMILAST 500 MCG TABLET PO SCH (09:56)
[2018-02-26] MEDS: HYDROCHLOROTHIAZIDE 25 MG TABLET PO SCH (09:56)
[2018-02-26] MEDS: RALOXIFENE HCL 60 MG TABLET PO SCH (09:56)
[2018-02-26] MEDS: LEVOFLOXACIN 750 MG TABLET PO SCH (10:31)
--- NOTE | 2018-02-26 11:48 | PDOC PROGRESS REPORT ---
Subjective Progress Note for:: 02/26/18 Subjective:: This is a 67 year old female with a past medical history of oxygen dependent COPD, hypertension, pulmonary hypertension, chronic bronchitis, breast cancer, osteoarthritis, benzodiazepine dependent anxiety, OTC insomnia medication and cannabis use who was brought in by EMS due to acute worsening SOB, wheezing and agitation. She was noted to be in hypoxic hypercapnic respiratory failure and was intubated in the ER on 02/13/18 deemed likely to be a combination of COPD exacerbation with benzodiazepine use contributing to respiratory failure. She was in the ICU and weaning from the ventilator was initially difficult as she kept having agitation when sedations was turned off. She was eventually successfully extubated on 02/18/18. She was subsequently transferred to the floor. Her breathing status continued to improve but she still has generalized weakness and exertional dyspnea. PT recommendation is for her to go to inpatient rehab vs SNF. No acute event overnight. She was complaint with BIPAP overnight. Patient's PCO2 has improved after discontinuing Ativan. Confirmed with pulm that patient is using a Trilogy at home as patient thinks it's a simple CPAP machine. Unfortunately, [facility] does not take patients requiring Trilogy. Will work on getting bed at [facility] instead. Reason For Visit: ACUTE ON CHRONIC RESPIRATORY FAILURE Physical Exam Vital Signs: Temp Pulse Resp BP Pulse Ox 97.9 F 103 H 22 H 110/69 98 02/26/18 03:18 02/26/18 08:33 02/26/18 08:33 02/26/18 03:18 02/26/18 08:33 Intake & Output 02/25/18 02/26/18 02/27/18 06:59 06:59 06:59 Intake Total 610 864 Output Total 825 920 Balance -215 -56 Weight 160 lb 11.472 oz 164 lb 14.492 oz General appearance: PRESENT: no acute distress, well-developed, well-nourished Head exam: PRESENT: atraumatic, normocephalic Eye exam: PRESENT: conjunctiva pink, EOMI, PERRLA. ABSENT: scleral icterus Ear exam: PRESENT: normal external ear exam Mouth exam: PRESENT: moist, tongue midline Neck exam: ABSENT: carotid bruit, JVD, lymphadenopathy, thyromegaly Respiratory exam: PRESENT: rhonchi. ABSENT: rales, wheezes Cardiovascular exam: PRESENT: RRR. ABSENT: diastolic murmur, rubs, systolic murmur Pulses: PRESENT: normal dorsalis pedis pul GI/Abdominal exam: PRESENT: normal bowel sounds, soft. ABSENT: distended, guarding, mass, organolmegaly, rebound, tenderness Rectal exam: PRESENT: deferred Neurological exam: PRESENT: alert, awake, oriented to person, oriented to place, oriented to time, oriented to situation, CN II-XII grossly intact. ABSENT: motor sensory deficit Results Laboratory Results: 02/25/18 10:49 02/25/18 10:49 02/25/18 02/25/18 02/26/18 10:49 10:49 06:15 WBC 16.9 H RBC 4.03 Hgb 9.7 L Hct 31.0 L MCV 77 L MCH 24.1 L MCHC 31.5 L RDW 16.5 H Plt Count 237 Seg Neutrophils % Not Reportable Lymphocytes % Not Reportable Monocytes % Not Reportable Eosinophils % Not Reportable Basophils % Not Reportable Absolute Neutrophils Not Reportable Absolute Lymphocytes Not Reportable Absolute Monocytes Not Reportable Absolute Eosinophils Not Reportable Absolute Basophils Not Reportable Carbonic Acid 1.80 H HCO3/H2CO3 Ratio 22:1 ABG pH 7.44 ABG pCO2 59.7 H ABG pO2 86.8 ABG HCO3 39.9 H ABG O2 Saturation 96.7 ABG Base Excess 13.6 FiO2 30% Sodium 139.3 Potassium 3.7 Chloride 96 L Carbon Dioxide 39 H Anion Gap 4 L BUN 22 H Creatinine 0.54 Est GFR ( Amer) > 60 Est GFR (Non-Af Amer) > 60 Glucose 130 H Calcium 9.3 Impressions: Chest X-Ray 02/19/18 06:00 IMPRESSION: No acute cardiopulmonary process copyright 2011 [employer]- All Rights Reserved Assessment & Plan - Diagnosis (1) Acute respiratory failure with hypoxia and hypercapnia Is this a current diagnosis for this admission?: Yes Plan: Likely secondary to COPD exacerbation with benzodiazepine use contributing to respiratory failure. Currently intubated. S/P extubation on 02/18/18. PCO2 improved to 54 today. On BIPAP 4 hrs on/4 hrs off. She used Trilogy at home (confirmed by pulmonology team). She will be using her own Trilogy machine at [facility]. (2) COPD exacerbation Is this a current diagnosis for this admission?: Yes Plan: Continue IV steroids. Sputum culture grew A. baumanii. Discontinue Levaquin (completed 10 days). Continue prednisone PO. Continue breathing treatments. (3) Chronic respiratory failure Is this a current diagnosis for this admission?: Yes Plan: She is on home O2 for severe COPD. - Time Time Spent with patient: 25-34 minutes
--- NOTE | 2018-02-26 12:25 | PDOC PROGRESS REPORT ---
Subjective Progress Note for:: 02/26/18 Subjective:: stable Reason For Visit: ACUTE ON CHRONIC RESPIRATORY FAILURE Physical Exam Vital Signs: Temp Pulse Resp BP Pulse Ox 97.9 F 103 H 22 H 110/69 98 02/26/18 03:18 02/26/18 08:33 02/26/18 08:33 02/26/18 03:18 02/26/18 08:33 Intake & Output 02/25/18 02/26/18 02/27/18 06:59 06:59 06:59 Intake Total 610 864 Output Total 825 920 Balance -215 -56 Weight 72.9 kg 74.8 kg General appearance: PRESENT: no acute distress, cooperative, disheveled Head exam: PRESENT: atraumatic, normocephalic Eye exam: PRESENT: conjunctiva pale, EOMI. ABSENT: nystagmus, scleral icterus Mouth exam: PRESENT: dry mucosa, neck supple, tongue midline Neck exam: ABSENT: carotid bruit, JVD, lymphadenopathy, thyromegaly, tracheal deviation, tracheostomy Respiratory exam: PRESENT: decreased breath sounds, prolonged expiratory phas, rales, rhonchi, unlabored. ABSENT: retraction Cardiovascular exam: PRESENT: RRR, +S1, +S2 Pulses: PRESENT: normal radial pulses GI/Abdominal exam: PRESENT: soft. ABSENT: tenderness Gentrourinary exam: PRESENT: indwelling catheter Extremities exam: PRESENT: pedal edema. ABSENT: calf tenderness, clubbing, joint swelling Musculoskeletal exam: ABSENT: deformity, dislocation Neurological exam: PRESENT: awake Psychiatric exam: PRESENT: appropriate affect Skin exam: PRESENT: dry, warm Results Laboratory Results: 02/25/18 10:49 02/25/18 10:49 02/25/18 02/26/18 10:49 06:15 Carbonic Acid 1.80 H HCO3/H2CO3 Ratio 22:1 ABG pH 7.44 ABG pCO2 59.7 H ABG pO2 86.8 ABG HCO3 39.9 H ABG O2 Saturation 96.7 ABG Base Excess 13.6 FiO2 30% Sodium 139.3 Potassium 3.7 Chloride 96 L Carbon Dioxide 39 H Anion Gap 4 L BUN 22 H Creatinine 0.54 Est GFR ( Amer) > 60 Est GFR (Non-Af Amer) > 60 Glucose 130 H Calcium 9.3 Impressions: Chest X-Ray 02/19/18 06:00 IMPRESSION: No acute cardiopulmonary process copyright 2011 [employer]- All Rights Reserved Assessment & Plan - Diagnosis (1) Acute and chronic respiratory failure with hypercapnia Is this a current diagnosis for this admission?: Yes Plan: The above patient has failed BiPAP,repeatedly. This patient has benefitted from noninvasive mechanical ventilation via the trilogy AVAPS/AE and faster responding AVAPS rates which she uses at home.. The trilogy is able to provide a target tidal volume and also adjusting the EPAP pressures to maintain a patent airway as well as an oral backup rate this machine will help improve PaCO2 levels. The severity of the patient's condition will lead to future hospitalizations and readmissions as well as life-threatening situations without the Trilogy. She will need a trilogy upon discharge.
--- NOTE | 2018-02-26 13:22 | PDOC TRANSFER SUMMARY ---
General Admission Date/PCP: 02/13/18 03:55 MICHAEL SULLIVAN Resuscitation Status: Full Code - Transfer Diagnosis (1) Acute respiratory failure with hypoxia and hypercapnia Is this a current diagnosis for this admission?: Yes (2) COPD exacerbation Is this a current diagnosis for this admission?: Yes (3) Chronic respiratory failure Is this a current diagnosis for this admission?: Yes - Transfer Medications Home Medications: Albuterol Sulfate [Proair HFA Inhalation Aerosol 8.5 gm MDI] 2 puff IH Q6HP PRN 02/13/18 Fluticasone Propionate [Flovent Diskus 250 mcg] 1 puff IH BID 02/13/18 Glycopyrrolate/Formoterol Fum [Bevespi Aerosphere Inhaler] 2 puff IH BID 02/13/18 Metoprolol Tartrate [Lopressor 50 mg Tablet] 50 mg PO Q12 02/13/18 Montelukast Sodium [Singulair 10 mg Tablet] 10 mg PO QPM 02/13/18 Raloxifene HCl [Evista 60 mg Tablet] 60 mg PO DAILY 02/13/18 Roflumilast [Daliresp 500 mcg Tablet] 500 mcg PO DAILY 02/13/18 Ropinirole HCl [Requip 2 mg Tablet] 2 mg PO QHS 02/13/18 Transfer Medications: Current Medications Acetaminophen (Tylenol 325 Mg Tablet) 650 mg PO Q4HP PRN PRN Reason: Temperature greater than 101F Stop: 03/15/18 03:44 Last Admin: 02/20/18 10:51 Dose: 650 mg Documented by: Albuterol (Proair Hfa Inhalation Aerosol 8.5 Gm Mdi) 2 puff IH Q6HP PRN PRN Reason: WHEEZING Stop: 03/21/18 07:41 Last Admin: 02/19/18 10:55 Dose: 1 inhaler Documented by: Albuterol/Ipratropium (Duoneb 3 Ml Ampul) 3 ml NEB RTQ6 [facility] Stop: 03/15/18 07:59 Last Admin: 02/26/18 08:32 Dose: 3 ml Documented by: Amlodipine Besylate (Norvasc 5 Mg Tablet) 5 mg PO QHS [facility] Stop: 03/22/18 21:59 Last Admin: 02/25/18 21:34 Dose: 5 mg Documented by: Folic Acid (Folvite 1 Mg Tablet) 1 mg PO DAILY [facility] Stop: 03/21/18 09:59 Last Admin: 02/26/18 09:55 Dose: 1 mg Documented by: Heparin Sodium (Porcine) (Heparin Inj 5,000 Units/Ml 1 Ml Syringe) 5,000 unit SUBCUT Q8 [facility] Stop: 03/15/18 05:59 Last Admin: 02/26/18 06:19 Dose: 5,000 unit Documented by: Hydrochlorothiazide (Hydrodiuril 25 Mg Tablet) 25 mg PO DAILY [facility] Stop: 03/21/18 09:59 Last Admin: 02/26/18 09:56 Dose: 25 mg Documented by: Influenza Virus Vaccine Quadrival (Fluarix Adlt Quad Vac 0.5 Ml Syr) 0.5 ml IM .DISCHARGE PRN PRN Reason: THIS MED IS NOT "PRN" Stop: 03/25/18 02:16 Metoprolol Tartrate (Lopressor 50 Mg Tablet) 50 mg PO Q12 [facility] Stop: 03/21/18 09:59 Last Admin: 02/26/18 09:55 Dose: 50 mg Documented by: Montelukast Sodium (Singulair 10 Mg Tablet) 10 mg PO QPM [facility] Stop: 03/21/18 17:59 Last Admin: 02/25/18 17:15 Dose: 10 mg Documented by: Patient Own Medication (Fluticasone Propionate [Flovent Diskus 250 Mcg]) 1 puff IH .BID [facility] Stop: 03/21/18 09:59 Patient Own Medication (Glycopyrrolate/Formoterol Fum [Bevespi Aerosphere Inhaler]) 2 puff IH .BID [facility] Stop: 03/21/18 09:59 Prednisone (Deltasone 20 Mg Tablet) 30 mg PO BID [facility] Stop: 03/25/18 17:59 Last Admin: 02/26/18 09:55 Dose: 30 mg Documented by: Raloxifene HCl (Evista 60 Mg Tablet) 60 mg PO DAILY [facility] Stop: 03/21/18 09:59 Last Admin: 02/26/18 09:56 Dose: 60 mg Documented by: Roflumilast (Daliresp 500 Mcg Tablet) 500 mcg PO DAILY [facility] Stop: 03/21/18 09:59 Last Admin: 02/26/18 09:56 Dose: 500 mcg Documented by: Ropinirole HCl (Requip 2 Mg Tablet) 2 mg PO QHS [facility] Stop: 03/21/18 21:59 Last Admin: 02/25/18 21:35 Dose: 2 mg Documented by: Sodium Chloride (Saline Flush 2.5 Ml Monoject Prefil Syrin) 2.5 ml IV Q8 [facility] Stop: 03/15/18 05:59 Last Admin: 02/26/18 06:19 Dose: 2.5 ml Documented by: Thiamine HCl (Thiamine 100 Mg Tablet) 100 mg PO DAILY [facility] Stop: 03/21/18 09:59 Last Admin: 02/26/18 09:56 Dose: 100 mg Documented by: - Allergies Allergies/Adverse Reactions: No Known Allergies Allergy (Verified 11/08/15 12:42) Hospital Course Hospital Course: This is a 67 year old female with a past medical history of oxygen dependent COPD, hypertension, pulmonary hypertension, chronic bronchitis, breast cancer, osteoarthritis, benzodiazepine dependent anxiety, OTC insomnia medication and cannabis use who was brought in by EMS due to acute worsening SOB, wheezing and agitation. She was noted to be in hypoxic hypercapnic respiratory failure and was intubated in the ER on 02/13/18 deemed likely to be a combination of COPD exacerbation with benzodiazepine use contributing to respiratory failure. She was in the ICU and weaning from the ventilator was initially difficult as she kept having agitation when sedation was turned off. She was eventually s uccessfully extubated on 02/18/18. She was subsequently transferred to the floor. Her breathing status continued to improve but she still has generalized weakness and exertional dyspnea. PT recommendation is for her to go to inpatient rehab vs SNF. She completed 10 days of IV antibiotics. She did have elevated PCO2 on the floor but this significantly improved when she was placed on BIPAP (4 hrs on/4 hrs off) and her prn Ativan was discontinued. Explained in length to patient that she should not be on benzodiazepines. She is doing well without it and she verbalized understanding. Patient does use a Trilogy at home for her severe COPD and pulmonology recommends she continue to use this. She will be discharged on a short course of oral steroids. She has completed antibiotics. She will continue her home COPD regimen. Physical Exam Vital Signs: Temp Pulse Resp BP Pulse Ox 97.9 F 103 H 17 110/69 96 02/26/18 03:18 02/26/18 08:33 02/26/18 12:38 02/26/18 03:18 02/26/18 12:38 Intake & Output 02/25/18 02/26/18 02/27/18 06:59 06:59 06:59 Intake Total 610 864 Output Total 826 920 Balance -215 -56 Weight 160 lb 11.472 oz 164 lb 14.492 oz General appearance: PRESENT: no acute distress, well-developed, well-nourished Head exam: PRESENT: atraumatic, normocephalic Eye exam: PRESENT: conjunctiva pink, EOMI, PERRLA. ABSENT: scleral icterus Ear exam: PRESENT: normal external ear exam Mouth exam: PRESENT: moist, tongue midline Neck exam: ABSENT: carotid bruit, JVD, lymphadenopathy, thyromegaly Respiratory exam: PRESENT: rhonchi. ABSENT: rales, wheezes Cardiovascular exam: PRESENT: RRR. ABSENT: diastolic murmur, rubs, systolic murmur Pulses: PRESENT: normal dorsalis pedis pul GI/Abdominal exam: PRESENT: normal bowel sounds, soft. ABSENT: distended, guarding, mass, organolmegaly, rebound, tenderness Rectal exam: PRESENT: deferred Neurological exam: PRESENT: alert, awake, oriented to person, oriented to place, oriented to time, oriented to situation, CN II-XII grossly intact. ABSENT: motor sensory deficit Results Laboratory Results: 02/25/18 10:49 02/25/18 10:49 02/26/18 06:15 Carbonic Acid 1.80 H HCO3/H2CO3 Ratio 22:1 ABG pH 7.44 ABG pCO2 59.7 H ABG pO2 86.8 ABG HCO3 39.9 H ABG O2 Saturation 96.7 ABG Base Excess 13.6 FiO2 30% Impressions: Chest X-Ray 02/19/18 06:00 IMPRESSION: No acute cardiopulmonary process copyright 2011 [employer]- All Rights Reserved
[2018-02-26] MEDS: MONTELUKAST SODIUM 10 MG TABLET PO SCH (17:15)
[2018-02-26 18:17] VITALS: BP 93/63
== END 2018-02-26 18:51 | DRG 207 ==
LOC: ER 23:20 → EH 02-13 03:55 → ICU 02-13 05:40 → 3N 02-19 21:40
PROVIDERS: ADMIT Internal Medicine; ATTEND Internal Medicine
PROC: 0BH17EZ Insertion of Endotracheal Airway into Trachea, Via Natural or Artificial Opening (ICD-10-PCS; principal; 2018-02-13)
PROC: 5A1955Z Respiratory Ventilation, Greater than 96 Consecutive Hours (ICD-10-PCS; 2018-02-13)
DX: J96.22 Acute and chronic respiratory failure with hypercapnia (principal); J44.1 Chronic obstructive pulmonary disease with (acute) exacerbation; J96.21 Acute and chronic respiratory failure with hypoxia; Z99.81 Dependence on supplemental oxygen; I10 Essential (primary) hypertension; G47.33 Obstructive sleep apnea (adult) (pediatric); M19.90 Unspecified osteoarthritis, unspecified site; F41.9 Anxiety disorder, unspecified; F12.90 Cannabis use, unspecified, uncomplicated; Z85.3 Personal history of malignant neoplasm of breast; Z79.899 Other long term (current) drug therapy; Z90.10 Acquired absence of unspecified breast and nipple
CPT/HCPCS: 36415; 36600; 71045; 80048; 80053; 80307; 81001; 82803; 83735; 84100; 85025; 87040; 87070; 87077; 87186; 87205; 93005; 93010; 94002; 94003; 94640; 94660; 94667; 94668; 94799; 99291; G8978-GP; G8979-GP; J0692; J1335; J1644; J1956; J2060; J2250; J2704; J2920; J3010; J3411; J3475; J3480; J3490; J7030; J7512; J7620